=== PATIENT | male | born 1945 | race Caucasian/White ===

== ENCOUNTER 2025-04-18 08:24 | Inpatient (IN) | payer MEDICARE, SELFPAY ==
[2025-04-18] VITALS (13 sets, daily range): BP systolic 89–101; BP diastolic 45–61; PULSE 69–104; RESP 18–22; TEMP 35.9–37.4; O2SAT 97–100; BMI 31.1
--- NOTE | ~2025-04-18 | US_ITS ---
US right upper quadrant INDICATION: Elevated liver function tests. PROCEDURE: Realtime right upper abdominal ultrasound. COMPARISON: No prior studies for comparison. FINDINGS: The pancreas is normal without focal mass or pancreatic ductal dilation. Liver echotexture is normal without focal mass or intrahepatic biliary dilatation. There is normal directional flow in the portal vein. Gallbladder surgically absent. Common bile duct measures 8 mm. No sonographic Emery's sign. There is a suggestion of a catheter in the right kidney. Clinically correlate. Small right pleural effusion. Trace ascites. IMPRESSION: 1: Status post cholecystectomy with expected prominence of the bile ducts. 2: Trace ascites. Small right pleural effusion. Reviewed, dictated and finalized at location O.
--- NOTE | ~2025-04-18 | XR_ITS ---
EXAMINATION: XR chest 1V portable DATE: 04/18/2025 08:57 INDICATION: Cough and weakness TECHNIQUE: frontal view of the chest was obtained. COMPARISON: Chest radiograph dated none FINDINGS: Full or near and bandlike opacities at the left lower lung zone and favor atelectasis over pneumonia. Subtle increased opacity of the left lung relative to the right likely artifactual with similar asymmetry to the density of the soft tissues of the more lateral left and right chest wall. The cardiomed iastinal silhouette is normal. A couple likely implantable quality assurance monitor body is projected over the lower chest. Widening of the right acromioclavicular joint consistent with age-indeterminate acromioclavicular joint separation. IMPRESSION: 1. Mild opacity left lower lung zone and favor atelectasis over pneumonia. Reviewed, dictated and finalized at location A.
--- NOTE | 2025-04-18 08:32 | ECG_ITS ---
Test Date: 2025-04-18 08:29:10 Measurements Intervals [place] Rate: 69 P: 0 [place]: 0 QRS: -57 QRSD: 173 T: 103 QT: 464 QTc: 499 Interpretive Statements ELECTRONIC VENTRICULAR PACEMAKER UNDERLYING ATRIAL FLUTTER/TACHYCARDIA BASELINE ARTIFACT- I, II, III, AVR, AVL, AVF NO FURTHER INTERPRETATION IS POSSIBLE ABNORMAL ECG No previous ECG available for comparison Electronically Signed On 04-18-2025 08:37:14 CDT by Ketan Noe D.O.
[2025-04-18] MEDS: SODIUM CHLORIDE 0.9% IV 1,000 ML 999 ML IV CONT ×3 (08:37→08:58)
[2025-04-18 08:50] LABS: Hematocrit 29.1 % (42.0-52.0); Hemoglobin 9.1 g/dL (14.0-18.0); Immature Granulocyte Percent A 0.5 % (0-0.5); Lymphocytes Absolute Auto 0.36 K/mm3 (0.9-3.2); Mean Corpuscular HGB Conc 31.3 g/dl (32-36); Mean Corpuscular Hemoglobin 30.2 pg (26-34); Mean Corpuscular Volume 96.7 fl (80-100); Nucleated Red Blood Cells Absolute Auto 0.000 K/mm3 (0.0-0.012); Nucleated Red Blood Cells Perc 0.0 % (0.0-0.2); Platelet Count Result 167 k/mm3 (150-375); Red Blood Count 3.01 M/mm3 (4.6-6.20); White Blood Count 10.0 K/mm3 (4.5-10.0)
--- OUTSIDE RECORDS SUMMARY | 2025-04-18 08:54 | XMS_ITS | Encounter Summary ---
Author Organization [facility] Address [address] [place] [address] Phone Care Team Providers Care Dinkey Engine Mechanic Name Role Phone Vimal Cano MD Primary Care Provider [phone] Enoch Romero MD Unavailable Reason for Visit * Reason Comments Medication Refill Encounter Details Date Type Department Care Team (Late st Contact Info) Description 02/07/2025 Refill [facility] [address] [place] [address] Enoch Romero MD [address] [address] Medication Refill Social History Tobacco Use Types Packs/Day Years Used Date Smoking Tobacco: Former Smokeless Tobacco: Never Comments:QUIT 23 YRS AGO Alcohol Use Standard Drinks/Week Comments Yes 1 (1 standard drink = 0.6 oz pur e alcohol) ONCE EVERY 2-3 WKS [facility] Utilities Answer Date Recorded In the past 12 months has [employer] electric, gas, oil, or water company threatened to shut off services in your home? No 07/22/2024 Hunger Vital Sign Answer Date Recorded Within the past 12 months, y ou worried that your food would run out before you got the money to buy more. Never true 07/22/20 24 Within the past 12 months, t he food you bought just didn't last and you didn't have money to get more. Never true 07/22/2024 PRAPARE - Transportation Answer Date Re corded In the past 12 months, has l ack of transportation kept you from medical appointments or from getting medications? No 06/29 In the past 12 months, has l ack of transportation kept you from meetings, work, or from getting things needed for daily living? No 07/22/2024 Housing Stability Vital Sign Answer Jones e Recorded In the last 12 months, was t here a time when you were not able to pay the mortgage or rent on time? No 07/22/2024 In the past 12 months, how m any times have you moved where you were living? 0 07/22/2024 At any time in the past 12 m [facility], were you homeless or living in a fci (including now)? No 07/22/2024 Sexually Active Control Partners Comments Not Currently Sex and Gender Information Value Date Recorded Sex Assigned at Not on file Legal Sex Male 11:37 PM CDT Gender Identity Not on file Sexual Orientation Not on file documented as of this encounter Miscellaneous Notes * Telephone Encounter - Enoch Romero MD - 02/13/2025 2:16 PM CDT Last seen 2022. I will need to see him in the office before I refill any medications including oxybutynin. * Telephone Encounter - Donna Pablo RN - 02/07/2025 4:16 PM CDT Medication failed the protocol, provider to review and approve the medication order if appropriate. Requested Prescriptions Pending Prescriptions Disp Refills oxybutynin (DITROPAN) 5 MG Tablet [Pharmacy Med Name: OXYBUTYNIN 5 MG TABLET] 180 Tablet 3 Sig: TAKE 1 TABLET BY MOUTH TWICE A DAY Urinary Anticholinergics Protocol Failed - 02/07/2025 4:16 PM Failed - Visit with relevant provider in past 12 months or upcoming 90 days Recent Visits No visits were found meeting these conditions. Showing recent visits within past 365 days and meeting all other requirements Future Appointments No visits were found meeting these conditions. Showing future appointments within next 90 days and meeting all other requirements Passed - GFR greater than or equal to 30 in past 12 months GFR, EST. NONAFRICAN Date Value Ref Range Status 07/23/2024 47 (L) >=60 Final ra documented in this encounter Plan of Treatment Not on file documented as of this encounter Visit Diagnoses Not on filedocumented in this encounter Care Teams Dinkey Engine Mechanic Relationship Specialty Start Date End Date Vimal Cano MD [address] [place] [address] PCP - General Internal Medicine 11/23/21 Enoch Romero MD [address] [facility] [address] [address] Consulting Physician Urology 06/16/22 documented as of this encounter
--- OUTSIDE RECORDS SUMMARY | 2025-04-18 08:54 | XMS_ITS | Clinical Summary ---
Author Organization [facility] Address [address] [place] [address] Care Team Providers Care Educational Programming Director Name Role Phone Unavailable Primary Care Provider Unavailabl e Source Comments [facility],non-owned Affiliates and Associated Physician Practices is amultiple site organization consisting of ambulatory clinics and hospital sitesin [place], [place], [place] and [place]. This disclosure is being madepursuant to the Care Everywhere program and may not contain all information available regarding this patient. Last updated 18.[facility] Allergies Active Allergy Reactions Criticality Noted Date Comments Cephalexin Diarrhea,Rash Medium 07/24/2024 Sulfa Drugs Rash Medium 07/24/2024 Medications * Be aware that medications may not be up to date on this document. Alwaysverify current medications with the patient. furosemide (Lasix) 20 MG tablet Take 1 (one) tablet by mouth once daily Active gabapentin (Neurontin) 300 MG capsule Take 1 (one) capsule by mouth 2 times daily 10/04/2023 Active ibuprofen (Motrin) 200 MG tablet Take 2 (two) tablets by mouth every 8 hours as needed Active levETIRAcetam (Keppra) 750 MG tablet Take 1 (one) tablet by mouth 2 times daily 05/06/2024 Active lisinopril (Prinivil; Zestril) 10 MG tablet Take 1 (one) tablet by mouth once daily Active metoprolol tartrate IR (Lopressor) 25 MG tablet Take 0.5 (one-half) tablet by mouth 2 times daily Active oxyBUTYnin (Ditropan) 5 MG tablet Take 1 (one) tablet by mouth 2 times daily 11/09/2023 Active Klor-Con M10 10 MEQ tablet Take 1 (one) tablet by mouth once daily Active tamsulosin (Flomax) 0.4 MG capsule Take 1 (one) capsule by mouth 2 times daily 05/06/2024 Active warfarin (Coumadin) 6 MG tablet Take 1 (one) tablet by mouth once daily 01/09/2024 Active Jantoven 3 MG tablet Take 1 (one) tablet by mouth once daily Active Active Problems Problem Noted Date Diagnosed Date History of stroke 07/27/2024 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 2-4 times a month 07/24/2024 Q2: How many drinks containi ng alcohol do you have on a typical day when you are drinking? 1 or 2 07/24/2024 Q3: How often do you have si x or more drinks on one occasion? Never 07/24/2024 Overall Financial Resource Strain (CARDIA) Answe r Date Recorded How hard is it for you to pa y for the very basics like food, housing, medical care, and heating? Not hard at all 07/24/2024 [facility] - Occupational Stress Questionnaire Answer Date Recorded Do you feel stress - tense, restless, nervous, or anxious, or unable to sleep at night because your mind is troubled all the time - these days? To some extent 07/24/2024 Hunger Vital Sign Answer Date Recorded Within the past 12 months, y ou worried that your food would run out before you got the money to buy more. Never true 07/24/20 24 Within the past 12 months, t he food you bought just didn't last and you didn't have money to get more. Never true 07/24/2024 PRAPARE - Transportation Answer Date Re corded In the past 12 months, has l ack of transportation kept you from medical appointments or from getting medications? No 06/29 In the past 12 months, has l ack of transportation kept you from meetings, work, or from getting things needed for daily living? No 07/24/2024 Housing Stability Vital Sign Answer Jones e Recorded In the last 12 months, was t here a time when you were not able to pay the mortgage or rent on time? No 07/24/2024 In the past 12 months, how m any times have you moved where you were living? 1 07/24/2024 At any time in the past 12 m [facility], were you homeless or living in a fpc (including now)? No 07/24/2024 Sex and Gender Information Value Date Recorded Sex Assigned at Not on file Legal Sex Male 9:33 AM CDT Gender Identity Not on file Sexual Orientation Not on file Last Filed Vital Signs Vital Sign Reading Time Taken Comments Blood Pressure 115/61 08/01/2024 6:15 PM REPORTS ANALYST Pulse 75 08/01/2024 6:15 PM REPORTS ANALYST Temperature 36.7 C (98 F) 08/01/2024 4:00 PM REPORTS ANALYST Respiratory Rate 13 08/01/2024 6:15 PM REPORTS ANALYST Oxygen Saturation 97% 08/01/2024 6:15 PM REPORTS ANALYST Inhaled Oxygen Concentration - - Weight 102.1 kg (225 lb) 08/01/2024 4:00 PM REPORTS ANALYST Height 180.3 cm (5' 11) 07/30/2024 6:00 AM REPORTS ANALYST Body Mass Index 31.38 07/30/2024 6:00 AM REPORTS ANALYST Plan of Treatment Health Maintenance Due Date Last Done Comments DTAP/TDAP/TD VACCINES (1 - Tdap) 1963 PNEUMOCOCCAL VACCINE 50+ (1 of 1 - PCV) 1994 ZOSTER VACCINE (1 of 2) 1994 Respiratory Syncytial Virus (RSV) Vaccine Pt: or over 60 yrs (1 - 1-dose 75+ series) 2019 COVID-19 VACCINE ( - 2023-2 5 season) 2024 04/30/2021, 03/26/2021 DEPRESSION SCREENING 08/28/2024 MEDICARE AWV CALENDAR YEAR 2024 INFLUENZA VACCINE (#1) 2025 4, 06/24/2013, 06/02/2009 HEPATITIS B VACCINE Aged Out No longe r eligible based on patient's age to complete this topic HIB VACCINE Aged Out No longer eligi ble based on patient's age to complete this topic HPV VACCINE Aged Out No longer eligi ble based on patient's age to complete this topic MENINGOCOCCAL (Group B) VACCINE SHARED DECISION-MAKING Aged Out No longer eligible based on patient's age to complete this topic MENINGOCOCCAL GROUPS A/C/Y/W VACCINE Aged Out No longer eligible b ased on patient's age to complete this topic Insurance MEDICARE [facility] MEDICARE [employer] MEDICARE ADV Advance Directives * Full Code (Latest Code Status on File) Date Activated Date Inactivated Comments 07/23/2024 11:25 PM 08/01/2024 9:45 PM
--- OUTSIDE RECORDS SUMMARY | 2025-04-18 08:54 | XMS_ITS ---
Author Organization [facility] [address] [facility] lto Address [address] [address] Care Team Providers Care Overhead Crane Truck Loader Name Role Phone Vimal Cano MD Primary Care Provider [phone] Uriah Garg MD PhD Unavailable [phone] Sumit Craig MD Unavailable [phone] Active Problems Problem Noted Date Diagnosed Date Constipation 03/27/2025 Assessment & Plan (03/27/2025 2:40 PM CDT): Gave mg citrate this am but no bm Increase senna docusate to 2 tabs bid Increase miralax to tid Can dc to snf after BM B12 deficiency anemia 03/25/2025 Assessment & Plan (03/27/2025 2:40 PM CDT): Started b12 1000 mcg PO daily on 03/26 Will need recheck labs with PCP Lab Results Component Value Date VITB12 185 (L) 03/25/2025 Lab Results Component Value Date FOLATE 15.8 03/25/2025 Assessment & Plan (03/26/2025 2:35 PM CDT): Started b12 1000 mcg PO daily on 03/26 Will need recheck labs with PCP Lab Results Component Value Date VITB12 185 (L) 03/25/2025 Lab Results Component Value Date FOLATE 15.8 03/25/2025 Assessment & Plan (03/25/2025 12:58 PM CDT): Start b12 1000 mcg PO daily Will need recheck labs with PCP Lab Results Component Value Date VITB12 185 (L) 03/25/2025 Lab Results Component Value Date FOLATE 15.8 03/25/2025 Hypotension 03/25/2025 Assessment & Plan (03/27/2025 2:40 PM CDT): Tack Picker 03/25 in AM for hypotension got 2 L IVF Pressures persistently soft here over the last few days Not on bp meds Diuretic held Lab Results Component Value Date TSH 1.67 03/25/2025 AM izaiah 7.2 Stim test wnl TTE 07/2024 unremarkable without active symtpoms suggesting decompensated CHF Will decrease flomax to om4 mg daily (was BID) Assessment & Plan (03/26/2025 2:35 PM CDT): Tack Picker 03/25 in AM for hypotension got 2 L IVF Pressures persistently soft here over the last few days Not on bp meds Diuretic held Lab Results Component Value Date TSH 1.67 03/25/2025 AM izaiah 7.2 Will get STIM test TTE 07/2024 unremarkable without active symtpoms suggesting decompensated CHF HR nl Assessment & Plan (03/25/2025 12:58 PM CDT): Tack Picker 03/25 in AM for hypotension got 2 L IVF Pressures persistently soft here over the last few days Not on bp meds Diuretic held Will check TSH and AM Cortisol TTE 07/2024 unremarkable without active symtpoms suggesting decompensated CHF HR nl Moderate malnutrition 03/17/2025 Assessment & Plan (03/21/2025 2:37 PM CDT): Depression History of stroke Hypotension Constipation, increase bowel regimen Obstructive uropathy 03/15/2025 Assessment & Plan (03/27/2025 2:40 PM CDT): With bilateral hydronephrosis status post 03/16 bilateral nephrostomy tubes. Retained right ureteral stent. Cont gabapentin Dc naproxen Cont apap, cont oxycodone prn Follows a Dr. Romero OP with urology Uro note from 03/21: -- PSA 0.91. Pathology from outside hospital demonstrates acute and chronic inflammatory cells,necrosis with reactive epithelial cells, and was negative for malignancy. Lab Results Component Value Date GLUCOSE 141 03/25/2025 CALCIUM 8.1 (L) 03/25/2025 SODIUM 140 03/25/2025 POTASSIUM 4.2 03/25/2025 CO2 26 03/25/2025 CHLORIDE 106 03/25/2025 BUNSER 32 (H) 03/25/2025 CREATININE 1.24 03/25/2025 Lab Results Component Value Date WBC 5.04 03/25/2025 HGB 8.3 (L) 03/25/2025 HCT 26.9 (L) 03/25/2025 MCV 97.8 (H) 03/25/2025 LABPLAT 207 03/25/2025 Assessment & Plan (03/26/2025 2:35 PM CDT): With bilateral hydronephrosis status post 03/16 bilateral nephrostomy tubes. Retained right ureteral stent. Cont gabapentin Day 5 of Naprox[address] a Dr. Romero OP with urology BMP, CBC IN AM Uro note from 03/21 reviewed: -- PSA 0.91. Pathology from outside hospital demonstrates acute and chronic inflammatory cells,necrosis with reactive epithelial cells, and was negative for malignancy. Labs rev Lab Results Component Value Date GLUCOSE 141 03/25/2025 CALCIUM 8.1 (L) 03/25/2025 SODIUM 140 03/25/2025 POTASSIUM 4.2 03/25/2025 CO2 26 03/25/2025 CHLORIDE 106 03/25/2025 BUNSER 32 (H) 03/25/2025 CREATININE 1.24 03/25/2025 Lab Results Component Value Date WBC 5.04 03/25/2025 HGB 8.3 (L) 03/25/2025 HCT 26.9 (L) 03/25/2025 MCV 97.8 (H) 03/25/2025 LABPLAT 207 03/25/2025 Assessment & Plan (03/25/2025 12:58 PM CDT): With bilateral hydronephrosis status post 03/16 bilateral nephrostomy tubes. Retained right ureteral stent. Cont gabapentin Day 4 of [address] Romero OP with urology Uro note from 03/21 reviewed: -- PSA 0.91. Pathology from outside hospital demonstrates acute and chronic inflammatory cells,necrosis with reactive epithelial cells, and was negative for malignancy. Assessment & Plan (03/24/2025 8:34 AM CDT): With bilateral hydronephrosis status post 03/16 bilateral nephrostomy tubes. Retained right ureteral stent. Uncontrolled pain, secondary to above. Increase gabapentin to t.i.d.. Increase naproxen. Assessment & Plan (03/23/2025 12:09 PM CDT): With bilateral hydronephrosis status post 03/16 bilateral nephrostomy tubes. Retained right ureteral stent. Uncontrolled pain, secondary to above. Increase gabapentin to t.i.d.. Increase naproxen. Assessment & Plan (03/22/2025 2:06 PM CDT): With bilateral hydronephrosis status post 03/16 bilateral nephrostomy tubes. Retained right ureteral stent. Uncontrolled pain, secondary to above. Increase gabapentin to b.i.d.. Start naproxen. Assessment & Plan (03/21/2025 2:37 PM CDT): With bilateral hydronephrosis status post 03/16 bilateral nephrostomy tubes. Controlled pain, secondary to above. Start scheduled Tylenol and lidocaine patch Transaminitis 03/15/2025 Assessment & Plan (03/21/2025 9:08 AM CDT): Resolved PAF (paroxysmal atrial fibrillation) 03/15/2025 Assessment & Plan (03/27/2025 2:40 PM CDT): Status post pacemaker. On warfarin, per pharmacy Lab reviewed Lab Results Component Value Date INR 2.09 (H) 03/27/2025 INR 2.93 (H) 03/26/2025 INR 2.62 (H) 03/25/2025 INR daily Assessment & Plan (03/26/2025 2:35 PM CDT): Status post pacemaker. On warfarin, per pharmacy Lab reviewed Lab Results Component Value Date INR 2.93 (H) 03/26/2025 INR 2.62 (H) 03/25/2025 INR 2.31 (H) 03/24/2025 INR daily Assessment & Plan (03/25/2025 12:58 PM CDT): Status post pacemaker. On warfarin, per pharmacy Lab Results Component Value Date INR 2.62 (H) 03/25/2025 INR 2.31 (H) 03/24/2025 INR 2.24 (H) 03/23/2025 INR daily Assessment & Plan (03/24/2025 8:34 AM CDT): Status post pacemaker. On warfarin, per pharmacy Assessment & Plan (03/23/2025 8:58 AM CDT): Status post pacemaker. On warfarin, per pharmacy Assessment & Plan (03/22/2025 9:32 AM CDT): Status post pacemaker. On warfarin, per pharmacy Presence of cardiac pacemaker 03/15/2025 Warfarin-induced coagulopathy 03/15/2025 Acute kidney injury superimp osed on stage 3a chronic kidney disease 03/15/2025 Assessment & Plan (03/27/2025 2:40 PM CDT): Improved Dc naproxen Assessment & Plan (03/26/2025 2:35 PM CDT): Improved Assessment & Plan (03/25/2025 12:58 PM CDT): Improved Assessment & Plan (03/24/2025 8:34 AM CDT): Improved Assessment & Plan (03/23/2025 8:58 AM CDT): Improved Assessment & Plan (03/22/2025 2:06 PM CDT): Improved Prostate cancer 03/15/2025 Assessment & Plan (03/27/2025 2:40 PM CDT): Hx of Needs to f/u with OP urologyist Dr. Romero History of seizure on keppra Assessment & Plan (03/26/2025 2:35 PM CDT): Hx of Needs to f/u with OP urologyist Dr. Romero History of seizure on keppra Assessment & Plan (03/25/2025 12:58 PM CDT): Hx of Needs to f/u with OP urologyist Dr. Romero History of seizure on keppra The patient is an 79 y.o. male with PMHx of prostate cancer s/p IMRT and ADT in 2018, Rt hydronephrosis s/p Rt double J stent placement 08/08/24, CKD III, chronic atrial fibrillation, HTN, SSS/intermittent AVB s/p PPM, seizures who presented from OSH with bilateral hydronephrosis. Pt was admitted to [facility] in [place], [place] 03/06-03/13 for urinary retention, acute renal failure due to obstructive uropathy with bilateral hydronephrosis requiring Pierre catheter. Initial labs revealed creatinine 2.67 improved to 1.5 then got worse to 1.8, BUN 63 improved to 34, CO2 20 improved to 24, elevated transaminase in the 200, almost resolving, H&H 05/25.1, INR 1.9-1.3 after holding warfari, lasix renogram. 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 Transfer to [facility] for eventual bilateral nephrostomy tubes was recommended. He was seen by Urology/intervention Radiology and underwent US/Fl guided bilateral nephrostomies 03/16: severe left sided hydronephrosis. Moderate right hydronephrosis with indwelling stent and air in calcyces d/t indwelling pierre. 10 fr bilateral shivani placed, technically challenging on the right. He developed fever post op but blood cx NGTD. He was given cefepime then transitioned to Cipro, which will likely be completed by time of discharge. He had acute on CKD III, likely post-obstructive and metabolic acidosis, improved with IVF and holding home lasix and ACEI. He had uncontrolled pain which improved with initiation of scheduled Tylenol, gabapentin, naproxen, and p.r.n. oxycodone. He was intermittently refusing therapy so was initially denied nursing home facility placement. He was encouraged to participate in therapy. Once safe discharge plan has been arranged, he may be discharged. Assessment & Plan (03/24/2025 12:46 PM CDT): History of seizure Normocytic anemia The patient is an 79 y.o. male with PMHx of prostate cancer s/p IMRT and ADT in 2019, Rt hydronephrosis s/p Rt double J stent placement 08/08/24, CKD III, chronic atrial fibrillation, HTN, SSS/intermittent AVB s/p PPM, seizures who presented from OSH with bilateral hydronephrosis. Pt was admitted to [facility] in [place], [place] 03/06-03/13 for urinary retention, acute renal failure due to obstructive uropathy with bilateral hydronephrosis requiring Pierre catheter. Initial labs revealed creatinine 2.67 improved to 1.5 then got worse to 1.8, BUN 63 improved to 34, CO2 20 improved to 24, elevated transaminase in the 200, almost resolving, H&H 05/25.1, INR 1.9-1.3 after holding warfari, lasix renogram. 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 Transfer to [facility] for eventual bilateral nephrostomy tubes was recommended. He was seen by Urology/intervention Radiology and underwent US/Fl guided bilateral nephrostomies 03/16: severe left sided hydronephrosis. Moderate right hydronephrosis with indwelling stent and air in calcyces d/t indwelling pierre. 10 fr bilateral shivani placed, technically challenging on the right. He developed fever post op but blood cx NGTD. He was given cefepime then transitioned to Cipro, which will likely be completed by time of discharge. He had acute on CKD III, likely post-obstructive and metabolic acidosis, improved with IVF and holding home lasix and ACEI. He had uncontrolled pain which improved with initiation of scheduled Tylenol, gabapentin, naproxen, and p.r.n. oxycodone. He was intermittently refusing therapy so was initially denied nursing home facility placement. He was encouraged to participate in therapy. Once safe discharge plan has been arranged, he may be discharged. Assessment & Plan (03/23/2025 12:37 PM CDT): History of seizure Normocytic anemia Assessment & Plan (03/22/2025 9:32 AM CDT): Azotemia, resolved History of seizure Bradycardia 08/01/2024 Chronic anticoagulation 08/25/2023 Assessment & Plan (01/16/2025 11:00 AM CDT): Currently taking warfarin 6 mg 5 days per week and 9 mg 2 days per week. Orders: CBC with auto differential; Future Assessment & Plan (08/25/2023 1:15 PM SLASHER TENDER HELPER): Currently taking warfarin 6 mg 5 days per week and 9 mg 2 days per week. Seizure disorder 08/25/2023 Assessment & Plan (01/16/2025 11:00 AM CDT): Patient states he is not had a seizure since starting Keppra which was at least 10 years ago per patient. Assessment & Plan (08/25/2023 2:48 PM SLASHER TENDER HELPER): Patient states he is not had a seizure since starting Keppra which was at least 10 years ago per patient. Advance care planning 08/25/2023 Assessment & Plan (08/25/2023 2:51 PM SLASHER TENDER HELPER): Preventive exam; reviewed recommended preventive screenings and vaccinations. Encourage annual flu vaccine. Wear sunscreen/protective clothing when outdoors. Physical debility 02/13/2020 Assessment & Plan (02/13/2020 2:44 PM CDT): Patient would benefit greatly from motorized wheelchair. Staghorn calculus 09/12/2019 Overview (09/12/2019): Added automatically from request for surgery [id number] prostate cancer 03/13/2019 Chronic a-fib 03/05/2019 Assessment & Plan (01/16/2025 11:00 AM CDT): Stable and well controlled. Rate controlled, patient denies any shortness a breath, palpitations or dizziness. Continues warfarin. INR 2.1 today will continue with current warfarin regimen. Orders: Comprehensive metabolic panel; Future POCT INR Assessment & Plan (08/25/2023 2:46 PM SLASHER TENDER HELPER): Rate controlled, patient denies any shortness a breath, palpitations or dizziness. Continues warfarin. INR is slightly subtherapeutic at 1.9, has not had INR checked in greater than 6 months. No changes made today, repeat INR in 1 month. Assessment & Plan (03/05/2019 3:59 AM CDT): Rate controlled. Currently on Coumadin oral anticoagulation. INR is therapeutic Will hold Coumadin. Monitor daily PT INR. Monitor H&H with daily CBC. Considers transfusion if hemoglobin less than 8 Cardiology consult Gross hematuria 03/05/2019 Assessment & Plan (03/05/2019 3:53 AM CDT): Patient presented to the emergency department with gross hematuria and urinary retention. Pierre catheter was placed, bladder was irrigated with normal saline. Patient currently on Coumadin oral anticoagulation for chronic AFib. INR is therapeutic. Will hold Coumadin. Will keep NPO. Patient denies any previous history of bladder cancer or polyps. States that in the past had an episode bladder issue and was treated with oral antibiotics by his PCP Urology consulted. Continue with IV antibiotics for now. Trend CBC Monitor kidney function with daily BMP. Replete electrolytes as needed History of stroke 03/05/2019 Assessment & Plan (08/25/2023 2:46 PM SLASHER TENDER HELPER): Patient with residual right-sided weakness. Patient was seen today for a face to face for a wheelchair. The patient has a mobility limitation that significantly impairs his/her ability to participate in one or more mobility-related activities of daily living (MRADL) such as feeding, toileting, dressing, grooming and bathing in the home. The patients mobility limitations cannot be sufficiently resolved by the use of an appropriately fitted cane or walker. The use of a manual wheelchair will significantly improve the patients ability to participate in MRADL's and the patient will use it on a regular basis in the home. The patient has sufficient upper extremity function and other physical and mental capabilities needed to safely self-propel the manual wheelchair that is provided in the home. Assessment & Plan (03/05/2019 4:09 AM CDT): History of stroke due to AFib. Currently on Coumadin oral anticoagulation. Presents with hematuria. Will hold the Coumadin and aspirin for now. Cardiology consult Urology consult Closed displaced fracture of medial malleolus of left tibia with routine healing 01/18/2016 Fracture of bone adjacent to prosthesis 01/18/20 16 Generalized osteoarthritis 01/11/2014 Overview (11/30/2016): GENERAL OSTEOARTHROSIS Hypertension 01/11/2014 Overview (12/01/2016): HYPERTENSION NOS Assessment & Plan (01/16/2025 11:00 AM CDT): Stable and well controlled. Will continue to hold lisinopril and monitoring. Assessment & Plan (03/05/2019 3:53 AM CDT): Restart on medications. 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 Will continue to monitor. Obstructive sleep apnea 06/11/2012 Malignant neoplasm prostate Cancer Staging:Clinical stage from 04/11/2019:Stage IIIC(cT2b, cN0, cM0, PSA: 13.6, Grade Group: 5) - Signed by Uriah Garg MD PhD on 04/17/2019 Assessment & Plan (01/16/2025 11:00 AM CDT): Will repeat PSA at patient's request. Will continue to monitor. Orders: PSA screen; Future Constipation Current Treatment and Therapy Plans No current plan information found. Past Treatment and Therapy Plans Specialty Infusion Treatment Plan Name Start Date Discontinue Date Treatment Medications Discontinue Reason Plan Provider ELIGARD INJECTION - 45 MG 04/19/2019 07/13/2023 leuprolide (ELIGARD) Orders Uriah Garg MD PhD Radiation Treatments * Course C1 PROSTATE 201805/23/2019 - 08/02/2019 Treatment Period Energy Fraction Dose Fractions Total Dose Plans Planned PROST_SV [facility] 07/03/2019 - 08/02/2019 180 19 / 3,420 PELVIS 05/23/2019 - 06/28/2019 180 25 / 4,500 Reference Points Delivered PROST_SV [facility] 07/03/2019 - 08/02/2019 3,420 Pelvis 05/23/2019 - 06/28/2019 4,500 Lifetime Dose Tracking * Chemical Lifetime Dose Automatic Entry Manual Entr y Fluoro Time 36.2 minutes 36.2 minutes 0 minutes Air kerma at the reference point (Ka,r) 606 mGy 3 33 mGy 273 mGy Resolved Problems Problem Noted Date Diagnosed Date Resolved Date Bilateral hydronephrosis 03/15/2025 Warfarin anticoagulation 03/05/2019 Assessment & Plan (03/05/2019 3:56 AM CDT): Patient on oral anticoagulation with Coumadin for chronic AFib. He recently had a stroke. Patient presented with gross hematuria. Will hold Coumadin for now. EKG consistent with chronic AFib. Will consult Cardiology for further recommendations systemic anticoagulation Class 2 severe obesity due t o excess calories with serious comorbidity and body mass index (BMI) of 35.0 to 35.9 in adult 01/11/2014 5 Overview (12/02/2016): OBESITY NOS Assessment & Plan (01/16/2025 11:00 AM CDT): Weight appropriate for patient. Assessment & Plan (03/05/2019 3:53 AM CDT): Weight loss discussed and encouraged
--- OUTSIDE RECORDS SUMMARY | 2025-04-18 08:54 | XMS_ITS | Encounter Summary ---
Author Organization [facility] Healthcare Address [address] [place] [address] Care Team Providers Care Flanging Operator Name Role Phone Vimal Cano MD Primary Care Provider [phone] Uriah Garg MD PhD Unavailable [phone] Sumit Craig MD Unavailable [phone] Jackie Flores SENIOR FINANCIAL ACCOUNTANT Unavailable [phone] Chaz Pinon RN Unavailable [phone] Mary Dolan SENIOR FINANCIAL ACCOUNTANT Unavailable [phone] Encounter Details Date Type Department Care Team (Late st Contact Info) Description 05/06/2019 Telephone [facility] Radiation Oncology [address] [place] [address] Kirk Jung, RN Social History Tobacco Use Types Packs/Day Years Used Date Smoking Tobacco: Former Cigarettes Q uit: 1988 Smokeless Tobacco: Former Alcohol Use Standard Drinks/Week Comments Not Currently 0 (1 standard drink = 0.6 oz pur e alcohol) PHQ-2 Answer Date Recorded PHQ-2 Score 0 04/17/2019 Sex and Gender Information Value Date Recorded Sex Assigned at Not on file Legal Sex Male 11:49 PM SENIOR CARE ASSISTANT Gender Identity Not on file Sexual Orientation Not on file documented as of this encounter Plan of Treatment Not on file documented as of this encounter Visit Diagnoses Not on filedocumented in this encounter Additional Health Concerns Infection Onset Date Last Indicated Resolved Time 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 KASSIE Álvarez Germ watcher auto flagging. 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 03/02/2016 04/14/2021 5:00 AM C DT MDR gram neg/ESBL 11/07/2022 11/07/2022 08/12/2024 9:46 AM SENIOR CARE ASSISTANT Rhino/Enterovirus 08/01/2024 08/01/2024 08/12/2024 9:46 AM SENIOR CARE ASSISTANT documented as of this encounter Care Teams Flanging Operator Relationship Specialty Start Date End Date Vimal Cano MD [address] [place] [address] PCP - General 11/25/16 Uriah Garg MD PhD [address] [place] [address] Radiation Oncologist Radiation Oncology 04/11/19 Sumit Craig MD [address] [place] [address] Referring Physician Urology 04/11/19 Jackie Flores, SENIOR FINANCIAL ACCOUNTANT [address] [place] [address] [address] [place] [address] Mortgage Accounting Clerk 07/05/21 07/15/21 Chaz Pinon, THANH [address] [place], [place] [id number] Inventory Controller 09/16/24 10/15/24 Mary Dolan, SENIOR FINANCIAL ACCOUNTANT [address] [place] [address] [address] [place] [address] Mortgage Accounting Clerk Sommelier 09/17/24 11/03/24 documented as of this encounter
--- OUTSIDE RECORDS SUMMARY | 2025-04-18 08:54 | XMS_ITS | Encounter Summary ---
Author Organization [facility] Address [address] [place] [address] Phone Care Team Providers Care [facility] Name Role Phone Vimal Cano MD Primary Care Provider [phone] Enoch Romero MD Unavailable Reason for Visit * Reason Comments Medication Refill Encounter Details Date Type Department Care Team (Late st Contact Info) Description 02/04/2025 Refill [facility] [address] [place] [address] Enoch Romero MD [address] [address] Medication Refill Social History Tobacco Use Types Packs/Day Years Used Date Smoking Tobacco: Former Smokeless Tobacco: Never Comments:QUIT 23 YRS AGO Alcohol Use Standard Drinks/Week Comments Yes 1 (1 standard drink = 0.6 oz pur e alcohol) ONCE EVERY 2-3 WKS [facility] Utilities Answer Date Recorded In the past 12 months has [email or web address] electric, gas, oil, or water company threatened [...] any time in the past 12 m [facility], were you homeless or living in a detention (including now)? No 07/22/2024 Sexually Active Control Partners Comments Not Currently Sex and Gender Information Value Date Recorded Sex Assigned at Not on file Legal Sex Male 11:37 PM CDT Gender Identity Not on file Sexual Orientation Not on file documented as of this encounter Miscellaneous Notes * Telephone Encounter - Donna Pablo, RN - 02/04/2025 2:37 PM CDT Refill denied - See Refusal reason documented in this encounter Plan of Treatment Not on file documented as of this encounter Visit Diagnoses Not on filedocumented in this encounter Care Teams [facility] Relationship Specialty Start Date End Date Vimal Cano MD [address] [place] [address] PCP - General Internal Medicine 11/23/21 Enoch Romero MD [address] MANDI RODRIGUEZ [address] [place], [place] [address] [address] Consulting Physician Urology 06/16/22 documented as of this encounter
--- OUTSIDE RECORDS SUMMARY | 2025-04-18 08:54 | XMS_ITS | Encounter Summary ---
Author Organization [facility] Healthcare Address [address] [place] [address] Care Team Providers Care Restuarant Crew Worker Name Role Phone Vimal Cano MD Primary Care Provider [phone] Uriah Garg MD PhD Unavailable [phone] Sumit Craig MD Unavailable [phone] Jackie Flores PLATING TANK OPERATOR APPRENTICE Unavailable [phone] Chaz Pinon RN Unavailable [phone] Mary Dolan PLATING TANK OPERATOR APPRENTICE Unavailable [phone] Reason for Visit * Reason Onset Date Comments Test Results 11/05/2019 normal PSA resul t..pt has appointment on Monday Encounter Details Date Type Department Care Team (Late st Contact Info) Description 11/05/2019 Telephone [facility] Radiation Oncology [address] [place] [id number] Lexi Good RN Test Results (normal PSA result..pt has appointment on Monday) Social History Tobacco Use Types Packs/Day Years Used Date Smoking Tobacco: Former Cigarettes Q uit: 1987 Smokeless Tobacco: Former Alcohol Use Standard Drinks/Week Comments Not Currently 0 (1 standard drink = 0.6 oz pur e alcohol) PHQ-2 Answer Date Recorded PHQ-2 Score 0 04/17/2019 Sex and Gender Information Value Date Recorded Sex Assigned at Not on file Legal Sex Male 11:49 PM [employer] Gender Identity Not on file Sexual Orientation Not on file documented as of this encounter Plan of Treatment Not on file documented as of this encounter Visit Diagnoses Not on filedocumented in this encounter Additional Health Concerns Infection Onset Date Last Indicated Resolved Time 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 Dallin Lambert, KASSIE Germ watcher auto flagging. 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 03/02/2016 04/14/2021 5:00 AM C DT MDR gram neg/ESBL 11/07/2022 11/07/2022 08/12/2024 9:46 AM [employer] Rhino/Enterovirus 08/01/2024 08/01/2024 08/12/2024 9:46 AM [employer] documented as of this encounter Care Teams Restuarant Crew Worker Relationship Specialty Start Date End Date Vimal Cano MD [address] [place] [address] PCP - General 11/25/16 Uriah Garg MD PhD [address] [place] [address] Radiation Oncologist Radiation Oncology 04/11/19 Sumit Craig MD [address] [place] [address] Referring Physician Urology 04/11/19 Jackie Flores, PLATING TANK OPERATOR APPRENTICE [address] [place] [address] [address] [place] [address] Copy Chaser 07/05/21 07/15/21 Chaz Pinon, THANH [address] [place], [place] [id number] Mussel Opener 09/16/24 10/15/24 Mary Dolan, PLATING TANK OPERATOR APPRENTICE [address] [place] [address] Copy Chaser Hazmat Technician 09/17/24 11/03/24 documented as of this encounter
--- OUTSIDE RECORDS SUMMARY | 2025-04-18 08:54 | XMS_ITS | Clinical Summary ---
Author Organization [facility] Address [address] [place] [address] Phone Care Team Providers Care Extension Service Supervisor Name Role Phone Vimal Cano MD Primary Care Provider [phone] Enoch Romero MD Unavailable Allergies Active Allergy Reactions Criticality Noted Date Comments Cephalexin Diarrhea 11/23/2021 Sulfa Antibiotics Rash 11/18/2021 Medications potassium chloride SA (KLORCON M) 10 MEQ Tablet Controlled Release Take 10 mEq by mouth daily. 2 Active lisinopril (PRINIVIL, ZESTRIL) 10 MG Tablet Take 10 mg by mouth daily. 2 Active levETIRAcetam (KEPPRA) 750 MG Tablet Take 750 mg by mouth 2 times daily. 1 Active furosemide (LASIX) 20 MG Tablet Take 20 mg by mouth daily. 2 Active gabapentin (NEURONTIN) 300 MG Capsule Take 300 mg by mouth 3 times daily. 1 Active oxybutynin (DITROPAN) 5 MG Tablet TAKE 1 TABLET BY MOUTH TWICE A DAY 180 Tablet 3 4 Active Heparin, Porcine, in NaCl 91169-2.45 UT/500ML-% Solution 300-3,000 Units/hr by Intravenous route continuous. 500 mL 4 Active warfarin (Jantoven) 3 MG Tablet Take 3 mg by mouth daily. Take one tablet two times a week on Monday and Active tamsulosin (FLOMAX) 0.4 MG Capsule Take 0.4 mg by mouth 2 times daily. Active ergocalciferol (VITAMIN D) 97951 UNIT Capsule Take 1 Capsule by mouth once a week for 9 doses. 9 Capsule 05/16/20 Active Active Problems Problem Noted Date Diagnosed Date Obstructive uropathy 03/11/2025 Elevated transaminase level 03/08/2025 Generalized weakness 03/07/2025 Acute kidney injury superimposed on CKD 07/23/20 Prostate cancer 07/23/2024 Symptomatic bradycardia 07/23/2024 Urinary tract infection 07/22/2024 Carcinoma Stroke Chronic a-fib HTN (hypertension) Encounters Date Type Department Care Team Description 03/21/2025 Telephone [facility] UR[facility]Y [address] [place] [address] Dejuan Arellano APRN, [facility] Care Management; Appointment 03/14/2025 1:40 PM CDT - 03/14/2025 2:40 PM CDT Surgery [facility] [address] [place] [address] Amanda Quintero MD DIAGNOSTIC CYSTOSCOPY 03/14/2025 1:38 PM CDT [facility] [address] [address] [place] [address] Jose Raul Wong MD 03/13/2025 Telephone [facility] [address] [place] [address] Amanda Quintero MD Surgery 03/11/2025 Telephone [facility] [address] [place] [address] Amanda Quintero MD 03/06/2025 9:32 PM CDT - 03/15/2025 2:10 PM CDT [facility] Med Surg [address] [place] [address] Furry, MD Don Dee Naveen Kumar, MD Patel, Satyen V, MD Dianati, Behfar, MD Acute kidney injury superimposed on CKD (HCC) Discharge Disposition: Short Term [facility] for [facility] 03/06/2025 Travel 02/07/2025 Refill [facility] UROLOGY [address] [place] [address] Enoch Romero MD Medication Refill 02/04/[address] [facility] UROLOGY [address] [place] [address] Enoch Romero MD Medication Refill from Last 3 Months Immunizations Immunization Administration Dates Next Due Influenza Vaccine 07/22/2014,06/24/2013 Influenza, Seasonal, Injectable, Undefined 06/02 Pneumococcal Vaccine - 13 Valent 01/31/2019 Pneumococcal Vaccine Adult - 23 Valent 1 TDAP Vaccine 03/29/2011 Social History Tobacco Use Types Packs/Day Years Used Date Smoking Tobacco: Former Smokeless Tobacco: Never Tobacco Cessation:Counseling Given: No Comments:QUIT 23 YRS AGO Alcohol Use Standard Drinks/Week Comments Not Currently 0 (1 standard drink = 0.6 oz pur e alcohol) ONCE EVERY 2-3 WKS Housing Stability Vital Sign Answer Jones e Recorded In the last 12 months, was t here a time when you were not able to pay the mortgage or rent on time? No 07/22/2024 In the past 12 months, how m any times have you moved where you were living? 0 07/22/2024 At any time in the past 12 m [facility], were you homeless or living in a snf (including now)? No 07/22/2024 Social Connection and Isolation Panel Answer Date Recorded In a typical week, how many times do you talk on the phone with family, friends, or neighbors? Three times a week 03/07/2025 How often do you get togethe r with friends or relatives? Three times a week 03/07/2025 How often do you attend chur or taoism services? Never 03/07/2025 Do you belong to any clubs o r organizations such as sikhism groups, unions, fraternal or athletic groups, or school groups? No 03/07/2025 How often do you attend meet ings of the clubs or organizations you belong to? Never 03/07/2025 Are you , , di vorced, , never , or living with a partner? 03/07/2025 AUDIT-C Answer Date Recorded Q1: How often do you have a drink containing alcohol? Never 03/07/2025 Q2: How many drinks containi ng alcohol do you have on a typical day when you are drinking? Patient does not drink Q3: How often do you have si x or more drinks on one occasion? Never 03/07/2025 Overall Financial Resource Strain (CARDIA) Answe r Date Recorded How hard is it for you to pa y for the very basics like food, housing, medical care, and heating? Not hard at all 03/07/2025 [facility] of Occupat ional Health - Occupational Stress Questionnaire Answer Date Recorded Do you feel stress - tense, restless, nervous, or anxious, or unable to sleep at night because your mind is troubled all the time - these days? Not at all 03/07/2025 Exercise Vital Sign Answer Date Recorde d On average, how many days pe r week do you engage in moderate to strenuous exercise (like a brisk walk)? 0 days 03/07/2025 On average, how many minutes do you engage in exercise at this level? 0 min 03/07/2025 Hunger Vital Sign Answer Date Recorded Within the past 12 months, y ou worried that your food would run out before you got the money to buy more. Never true 03/07/20 25 Within the past 12 months, t he food you bought just didn't last and you didn't have money to get more. Never true 03/07/2025 PRAPARE - Transportation Answer Date Re corded In the past 12 months, has l ack of transportation kept you from medical appointments or from getting medications? No 02/25 In the past 12 months, has l ack of transportation kept you from meetings, work, or from getting things needed for daily living? No 03/07/2025 Housing Stability Vital Sign Answer Jones e Recorded In the last 12 months, was t here a time when you were not able to pay the mortgage or rent on time? No 03/07/2025 In the past 12 months, how m any times have you moved where you were living? 0 03/07/2025 At any time in the past 12 m [facility], were you homeless or living in a snf (including now)? No 03/07/[address] [facility] Utilities Answer Date Recorded In the past 12 months has [employer], gas, oil, or water company threatened to shut off services in your home? No 03/07/2025 Sexually Active Control Partners Comments Not Currently Sex and Gender Information Value Date Recorded Sex Assigned at Not on file Legal Sex Male 11:37 PM CDT Gender Identity Not on file Sexual Orientation Not on file Last Filed Vital Signs Vital Sign Reading Time Taken Comments Blood Pressure 90/54 03/15/2025 5:13 AM CDT Man ual BP Pulse 68 03/15/2025 4:30 AM CDT Temperature 37.6 C (99.6 F) 03/15/2025 4:30 AM CDT Respiratory Rate 18 03/15/2025 4:30 AM CDT Oxygen Saturation 93% 03/15/2025 4:30 AM CDT Inhaled Oxygen Concentration - - Weight 89.8 kg (198 lb) 03/14/2025 11:21 AM CDT Height 177.8 cm (5' 10) 03/14/2025 11:21 AM CDT Body Mass Index 28.41 03/14/2025 11:21 AM CDT Plan of Treatment Health Maintenance Due Date Last Done Comments Zoster Immunization (1 of 2) 1964 Respiratory Syncytial Virus (RSV) Immunization (Adult) (1 - 1-dose 75+ series) 2019 Td Immunization Every 10 Years (Adults With 1 Tdap) 03/29/2021 03/29/2011 SARS-COV-2 Immunization (3 - Moderna risk series) 05/28/2021 04/30/2021, 03/26/2021 Influenza Immunization (#1) 04/28/202507/28, 07/22/2014, 06/24/2013, Additional history exists DTaP/Tdap/Td Immunization Discontinued 03/29/2011 Pneumococcal Immunization (50+ years) Completed 01/31/2019, 03/28/2011 Hepatitis C Virus (HCV) Screening Completed 03/09/2025, 08/01/2024 Hepatitis B Immunization Aged Out No longer eligible based on patient's age to complete this topic Human Papillomavirus (HPV) Immunization Aged Out No longer eligible based on patient's age to complete this topic Meningococcal Immunization (ACWY) Aged Out No longer eligible based on patient's age to complete this topic Rotavirus Immunization Aged Out No lo nger eligible based on patient's age to complete this topic Procedures Procedure Name Priority Date/Time Associated Diagnosis Comments CBC WITH AUTO DIFFERENTIAL Routine 03/15/2025 4:35 AM CDT HEPATIC FUNCTION PANEL Routine 03/15/2025 4:35 AM CDT COMPLETE BLOOD COUNT (CBC) WITH DIFF Routine 03/15/2025 4:35 AM CDT BASIC METABOLIC PANEL W/ CALCIUM TOTAL Routine 03/15/2025 4:35 AM CDT PSA FREE & TOTAL Routine 03/14/2025 9:44 PM CDT XR CYSTOGRAM Routine 03/14/2025 2:44 PM CDT PATHOLOGY SURGICAL Routine 03/14/2025 2:27 PM CDT LMA Routine 03/14/2025 1:58 PM CDT UROLOGY SURGERY PROCEDURE UNLISTED 03/14/2025 1:18 PM CDT BILATERAL HYDRONEPHROSIS INSERT,TEMP INDWELLING BLAD CATH,COMP 03/14/2025 1:18 PM CDT BILATERAL HYDRONEPHROSIS INSERT,TEMP INDWELLING BLAD CATH,SIMPLE 03/14/2025 1:18 PM CDT BILATERAL HYDRONEPHROSIS DIAG-CYSTOGRAPHY MINIMUM 3 VIEWS-PHY 03/14/2025 1:18 PM CDT BILATERAL HYDRONEPHROSIS CYSTOSCOPY,DIL URETHRAL STRICTURE 03/14/2025 1:18 PM CDT BILATERAL HYDRONEPHROSIS CYSTO/URETERO W/LITHOTRIPSY 03/14/2025 1:18 PM CDT BILATERAL HYDRONEPHROSIS CYSTOSCOPY,INSERT URETERAL STENT 03/14/2025 1:18 PM CDT BILATERAL HYDRONEPHROSIS CYSTOSCOPY,INSERT URETHRAL STENT 03/14/2025 1:18 PM CDT BILATERAL HYDRONEPHROSIS NM RENAL FUNCTION FLOW WTH PHARM Routine 03/14/2025 12:11 PM CDT CBC WITH AUTO DIFFERENTIAL Routine 03/14/2025 6:41 AM CDT HEPATIC FUNCTION PANEL Routine 03/14/2025 6:41 AM CDT COMPLETE BLOOD COUNT (CBC) WITH DIFF Routine 03/14/2025 6:41 AM CDT BASIC METABOLIC PANEL W/ CALCIUM TOTAL Routine 03/14/2025 6:41 AM CDT VITAMIN D, 25 HYDROXY TOTAL Routine 03/13/2025 10:18 AM CDT US RENAL COMPLETE Timed 03/13/2025 7:53 AM CDT CBC WITH AUTO DIFFERENTIAL Routine 03/13/2025 6:06 AM CDT HEPATIC FUNCTION PANEL Routine 03/13/2025 6:06 AM CDT COMPLETE BLOOD COUNT (CBC) WITH DIFF Routine 03/13/2025 6:06 AM CDT BASIC METABOLIC PANEL W/ CALCIUM TOTAL Routine 03/13/2025 6:06 AM CDT RHYTHM STRIP 03/13/2025 12:00 AM CDT RHYTHM STRIP 03/13/2025 12:00 AM CDT CBC WITH AUTO DIFFERENTIAL Routine 03/12/2025 6:36 AM CDT HEPATIC FUNCTION PANEL Routine 03/12/2025 6:36 AM CDT COMPLETE BLOOD COUNT (CBC) WITH DIFF Routine 03/12/2025 6:36 AM CDT BASIC METABOLIC PANEL W/ CALCIUM TOTAL Routine 03/12/2025 6:36 AM CDT RHYTHM STRIP 03/12/2025 12:00 AM CDT RHYTHM STRIP 03/12/2025 12:00 AM CDT RHYTHM STRIP 03/12/2025 12:00 AM CDT RHYTHM STRIP 03/12/2025 12:00 AM CDT RHYTHM STRIP 03/12/2025 12:00 AM CDT CBC WITH AUTO DIFFERENTIAL Routine 03/11/2025 6:56 AM CDT HEPATIC FUNCTION PANEL Routine 03/11/2025 6:56 AM CDT COMPLETE BLOOD COUNT (CBC) WITH DIFF Routine 03/11/2025 6:56 AM CDT BASIC METABOLIC PANEL W/ CALCIUM TOTAL Routine 03/11/2025 6:56 AM CDT RHYTHM STRIP 03/11/2025 12:00 AM CDT RHYTHM STRIP 03/11/2025 12:00 AM CDT RHYTHM STRIP 03/11/2025 12:[address] RENAL STONE STUDY (ABDOMEN AND PELVIS W/O CONTRAST) Routine 03/10/2025 5:54 PM CDT US ABDOMEN LIMITED LEVEL 3 THREE ORGAN Routine 03/10/2025 9:15 AM CDT CBC WITH AUTO DIFFERENTIAL Routine 03/10/2025 3:53 AM CDT COMPLETE BLOOD COUNT (CBC) WITH DIFF Routine 03/10/2025 3:53 AM CDT BASIC METABOLIC PANEL W/ CALCIUM TOTAL Routine 03/10/2025 3:53 AM CDT HEPATIC FUNCTION PANEL Routine 03/10/2025 3:53 AM CDT PROTIME (PT) (PROTHROMBIN TIME) Routine 03/10/2025 3:53 AM CDT RHYTHM STRIP 03/10/2025 12:00 AM CDT RHYTHM STRIP 03/10/2025 12:00 AM CDT CBC WITH AUTO DIFFERENTIAL Routine 03/09/2025 5:23 AM CDT COMPLETE BLOOD COUNT (CBC) WITH DIFF Routine 03/09/2025 5:23 AM CDT BASIC METABOLIC PANEL W/ CALCIUM TOTAL Routine 03/09/2025 5:23 AM CDT HEPATITIS PANEL ACUTE (AHP) Routine 03/09/2025 5:23 AM CDT HEPATIC FUNCTION PANEL Routine 03/09/2025 5:23 AM CDT PROTIME (PT) (PROTHROMBIN TIME) Routine 03/09/2025 5:23 AM CDT RHYTHM STRIP 03/09/2025 12:00 AM CDT RHYTHM STRIP 03/09/2025 12:00 AM CDT RHYTHM STRIP 03/09/2025 12:00 AM CDT RHYTHM STRIP 03/09/2025 12:00 AM CDT CBC WITH AUTO DIFFERENTIAL Routine 03/08/2025 4:05 AM CDT HEPATIC FUNCTION PANEL STAT 03/08/2025 4:05 AM CDT PROTIME (PT) (PROTHROMBIN TIME) Routine 03/08/2025 4:05 AM CDT COMPLETE BLOOD COUNT (CBC) WITH DIFF Routine 03/08/2025 4:05 AM CDT BASIC METABOLIC PANEL W/ CALCIUM TOTAL Routine 03/08/2025 4:05 AM CDT RHYTHM STRIP 03/08/2025 12:00 AM CDT RHYTHM STRIP 03/08/2025 12:00 AM CDT CBC WITH AUTO DIFFERENTIAL Routine 03/07/2025 6:09 AM CDT CREATINE KINASE (CK) TOTAL STAT 03/07/2025 6:09 AM CDT HEPATIC FUNCTION PANEL STAT 03/07/2025 6:09 AM CDT COMPLETE BLOOD COUNT (CBC) WITH DIFF Routine 03/07/2025 6:09 AM CDT BASIC METABOLIC PANEL W/ CALCIUM TOTAL Routine 03/07/2025 6:09 AM CDT URINALYSIS REFLEX IF INDICATED BY ABNORMAL RESULTS STAT 03/06/2025 11:47 PM CDT CULTURE, URINE STAT 03/06/2025 11:47 PM CDT CBC WITH AUTO DIFFERENTIAL STAT 03/06/2025 11:43 PM CDT PROTIME (PT) (PROTHROMBIN TIME) STAT 03/06/2025 11:43 PM CDT TROPONIN I, HIGH SENSITIVITY (HSTRP) STAT 03/06/2025 11:43 PM CDT CMP (COMPREHENSIVE METABOLIC PANEL) STAT 03/06/2025 11:43 PM CDT COMPLETE BLOOD COUNT (CBC) WITH DIFF STAT 03/06/2025 11:43 PM CDT EKG 12 LEAD STAT 03/06/2025 11:[address] HEAD OR BRAIN WO CONTRAST Stat with Interpretation 03/06/2025 10:59 PM CDT XR WRIST 3 OR MORE VIEWS LEFT STAT 03/06/2025 10:40 PM CDT XR CHEST SINGLE VIEW PORTABLE STAT 03/06/2025 10:35 PM CDT CRITICAL CARE Routine 03/06/2025 10:06 PM CDT EKG SCAN 03/06/2025 12:00 AM CDT from Last 3 Months Results * (ABNORMAL) CBC with Auto Differential (03/15/2025 4:35 AM CDT) Only the most recent of10 resultswithin the time period is included. WBC 9.01 4.00 - 12.00 10(3)/mcL 03/15/2025 5:01 AM [facility] RBC 2.95(L) 4.40 - 5.80 10(6)/mcL 03/15/2025 5:01 AM [facility] HEMOGLOBIN (HGB) 9.0(L) 13.0 - 16.5 g/dL 03/15/2025 5:01 AM [facility] HEMATOCRIT (HCT) 28.1(L) 38.0 - 50.0 % 03/15/2025 5:01 AM [facility] MCV 95.3 82.0 - 96.0 fL 03/15/2025 5:01 AM [facility] MCH 30.5 26.0 - 32.0 pg 03/15/2025 5:01 AM CDT [facility] MCHC 32.0 31.0 - 36.0 g/dL 03/15/2025 5:01 AM [facility] PLATELET COUNT 249 140 - 440 10(3)/[facility] 03/15/2025 5:01 AM [facility] RDW 15.0 11.8 - 15.5 % 03/15/2025 5:01 AM [facility] MPV 9.1 8.0 - 12.6 fL 03/15/2025 5:01 AM [facility] NEUTROPHILS 84.2(H) 40.0 - 68.0 % 03/15/2025 5:01 AM [facility] LYMPHOCYTES 5.2(L) 19.0 - 49.0 % 03/15/2025 5:01 AM [facility] MONOCYTES 7.7 3.0 - 13.0 % 03/15/2025 5:01 AM T [facility] EOSINOPHILS 1.8 0.0 - 8.0 % 03/15/2025 5:01 AM CDT [facility] BASOPHILS 0.2 0.0 - 1.0 % 03/15/2025 5:01 AM CDT [facility] IMMATURE GRANULOCYTE 0.9(H) 0.0 - 0.4 % 03/15/2025 5:01 AM CDT [facility] Comment:Immature Granulocyte s includes Metamyelocytes, Myelocytes, and Promyelocytes. ABSOLUTE NEUTROPHILS 7.59(H) 1.40 - 5.30 10(3)/mcL 03/15/2025 5:01 AM CDT [facility] ABSOLUTE LYMPHOCYTES 0.47(L) 0.90 - 3.30 10(3)/mcL 03/15/2025 5:01 AM CDT [facility] ABSOLUTE MONOCYTES 0.69 0.10 - 0.90 10(3)/mcL 03/15/2025 5:01 AM CDT [facility] ABSOLUTE EOSINOPHIL 0.16 0.00 - 0.50 10(3)/mcL 03/15/2025 5:01 AM CDT [facility] ABSOLUTE BASOPHILS 0.02 0.00 - 0.10 10(3)/mcL 03/15/2025 5:01 AM CDT [facility] ABSOLUTE IMMATURE GRANULOCYTE 0.08(H) 0.00 - 0.03 10 (3) mcL. 03/15/2025 5:01 AM CDT [facility] NRBC PER 100 WBC 0 03/15/20 25 5:01 AM CDT [facility] Blood Venipuncture / Unknown 03/15/2025 4:35 AM CDT 03/15/2025 4:57 AM CDT us Regine Do ADMINISTRATIVE VOLUNTEER, PAYROLL ACCOUNTANT HEMATOLOGY ORDERABLES Fin al Result [facility] [address] [place] [address] * (ABNORMAL) Hepatic Function Panel (03/15/2025 4:35 AM CDT) Only the most recent of9 resultswithin the time period is included. T BILI 0.5 0.2 - 1.2 mg/dL 03/15/2025 5:32 AM CDT [facility] BILIRUBIN,DIRECT 0.3 0.0 - 0.5 mg/dL 03/15/2025 5:32 AM CDT [facility] ALKALINE PHOSPHATASE 200(H) 40 - 150 U/L 03/15/2025 5:32 AM CDT [facility] SGOT (AST) 50(H) <43 U/L 03/15/2025 5:32 AM CDT [facility] SGPT (ALT) 49 <56 U/L 03/15/2025 5:32 AM CDT [facility] TOTAL PROTEIN 6.2 6.0 - 8.0 g/dL 03/15/2025 5:32 AM CDT [facility] ALBUMIN 2.5(L) 3.5 - 5.0 g/dL 03/15/2025 5:32 AM CDT [facility] Blood Venipuncture / Unknown 03/15/2025 4:35 AM CDT 03/15/2025 4:58 AM CDT us Regine Do ADMINISTRATIVE VOLUNTEER, PAYROLL ACCOUNTANT CHEMISTRY ORDERABLES Bianka l Result [facility] [address] [place] [address] * (ABNORMAL) BMP with Ca, Total (03/15/2025 4:35 AM CDT) Only the most recent of9 resultswithin the time period is included. Pathologist [facility] SODIUM 135(L) 136 - 145 mmol/L 03/15/2025 5:32 AM CDT [facility] POTASSIUM 4.0 3.5 - 5.1 mmol/L 03/15/2025 5:32 AM CDT [facility] CHLORIDE 106 98 - 107 mmol/L 03/15/2025 5:32 AM CDT [facility] CO2, VENOUS 24 22 - 30 mmol/L 03/15/2025 5:32 AM CDT [facility] ANION GAP 9.0 <18.0 mmol/L 03/15/2025 5:32 AM CDT [facility] GLUCOSE 113(H) 70 - 99 mg/dL 03/15/2025 5:32 AM CDT [facility] BUN 34(H) 8 - 26 mg/dL 03/15/2025 5:32 AM CDT [facility] CREATININE, BLOOD 1.80(H) 0.70 - 1.30 mg/dL 03/15/2025 5:32 AM CDT [facility] BUN/CREATININE RATIO 19 12 - 20 ratio 03/15/2025 5:32 AM CDT [facility] CALCIUM 8.0(L) 8.7 - 10.5 mg/dL 03/15/2025 5:32 AM CDT [facility] GFR, ESTIMATED 38(L) >=60 03/15/2025 5:32 AM CDT [facility] Comment: Creatinine Clearance is the preferred criteria for selecting drug dose adjustments in renally impaired patients. The GFR is provided as additional pertinent clinical information. GFR is reported in mL/min/1.73 sq m. Calculation based on the Chronic Kidney Disease Epidemiology Collaboration (CKD- EPI) equation refit without adjustment for race. GFR, EST. 44(L) >=60 025 5:32 AM CDT [facility] GFR, EST. NONAFRICAN 36(L) >=60 03/15/2025 5:32 AM CDT [facility] Blood Venipuncture / Unknown 03/15/2025 4:35 AM CDT 03/15/2025 4:58 AM CDT us Regine Do ADMINISTRATIVE VOLUNTEER, PAYROLL ACCOUNTANT CHEMISTRY ORDERABLES Bianka l Result [facility] [address] [place] [address] * PSA Free & Total (03/14/2025 9:44 PM CDT) Prostatic Specific Antigen, Free 0.65 ng/mL 03/15/2025 3:09 PM CDT [facility] PSA, TOTAL (PROSTATIC SPECIFIC ANTIGEN) 1.52 <4.00 ng/mL 03/15/2025 3:09 PM CDT [facility] PSA, % FREE 42.8 % 03/15/2025 3:09 PM CDT [facility] Blood Venipuncture / Unknown 03/14/2025 9:44 PM CDT 03/14/2025 9:45 PM CDT Narrative [facility] - 03/15/2025 3:09 PM CDT PSA NG/ML FREE PSA % EST PROB CANCER % 2.6- 4.0 0-27 24 4.1-10.0 0-10 56 11-15 28 16-20 20 21-25 16 >25 8 THESE ESTIMATES VARY WITH AGE, ETHNICITY, FAMILY HISTORY AND ALIREZA RESULTS. THE DIAGNOSTIC USEFULNESS OF % FREE PSA HAS NOT BEEN ESTABLISHED IN PATIENTS WITH TOTAL PSA BELOW 2.6 NG/ML. IN MEN WITH A PSA LEVEL ABOVE 10 NG/ML, PROSTATE CANCER RISK IS DETERMINED BY TOTAL PSA ALONE. Amanda Lott MD CHEMISTRY ORDERABLES Final Res ult [facility] [address] [place] [address], [place] * XR CYSTOGRAM (03/14/2025 2:44 PM CDT) Amanda Lott MD IMG FLUOROSCOPY ORDERABLES Fin al Result * Pathology Surgical (03/14/2025 2:27 PM CDT) Case Report Surgical Pathology Report Case: [id number] Authorizing Provider: Amanda Quintero MD Collected: 03/14/2025 02:27 PM Ordering Location: [facility] Received: 03/17/2025 09:02 AM [facility] Main OR Pathologist: Stalin Chaudhry MD PhD Specimen: Bladder, DEBRIDED BLADDER TISSUE 03/18/2025 10:51 AM CDT [facility] FINAL DIAGNOSIS Urinary bladder, debrided tissue: - Abundant acute and chronic inflammatory cells and necrosis - Reactive epithelial cells present, negative for definitive evidence of neoplasm or malignancy 03/18/2025 10:51 AM CDT [facility] at 1051 CDT Pre-Operative Diagnosis BILATERAL HYDRONEPHROSIS 03/18/2025 10:51 AM CDT [facility] Gross Description A. DEBRIDED BLADDER TISSUE The specimen presents in 1 formalin container for gross and microscopic examination labeled with the patient's name, Gino Marquez. Specimen A is designated as debrided bladder tissue. The specimen consists of an aggregate of maurice-pink tissue fragments measuring 1.5 x 1.0 x 0.2 cm. The specimen is entirely submitted in cassette A1. AM Total time of formalin fixation:79 hours and 4 minutes. 03/18/2025 10:51 AM CDT [facility] Microscopic Description Microscopic examination was performed which supports the final diagnosis. All control tissues stained appropriately. 03/18/2025 10:51 AM CDT [facility] Tissue URINARY BLADDER STRUCTURE / Unknown 03/14/2025 2:27 PM CDT 03/17/2025 9:02 AM CDT us Amanda Lott MD PATHOLOGY/CYTOLOGY ORDERABLES Final Result [facility] [address] [place] [address] * LMA (03/14/2025 1:58 PM CDT) Narrative Jose Raul Wong MD - 03/14/2025 1:58 PM CDT Jose Raul Wong MD 03/14/2025 1:59 PM LMA Staffing Performed: anesthesiologist Performed by: Jose Raul Wong MD Authorized by: Jose Raul Wong MD Airway Details Overall Difficulty: Easy Preoxygenated: Yes Ease of Mask Ventilation: Not attempted LMA Type: Disposable LMA Size: 4 Adequate seal established: Yes LMA placement confirmed by: bilateral breath sounds, CO2 detection Atraumatic LMA Placement us Jose Raul Wong MD ANESTHESIA ORDERABLES Final R esult * NM RENAL FUNCTION FLOW WT PHARM (03/14/2025 12:11 PM CDT) Anatomical Region Laterality Modality , Abdomen N/A Nuclear Medicine 03/14/2025 12:5 4 PM CDT Impressions 03/14/2025 12:57 PM CDT IMPRESSION: 1. Abnormal split function with 60% function from the left kidney and 40% function from the right kidney. 2. The left kidney shows continued rise of radiotracer concentration with mild excretion after diuretic. The T1/2 time is in the obstructive range. 3. The right kidney does not significantly excrete radiotracer even after diuretic consistent with obstruction. Narrative 03/14/2025 12:57 PM CDT EXAM DESCRIPTION: NM RENAL FUNCTION FLOW [facility] PHARM RADIOPHARMACEUTICAL: 10.4 mCi Tc-99m MAG3 and 40 mg furosemide via a left antecubital vein IV site REASON FOR STUDY: Bilateral hydronephrosis. TECHNIQUE: Standard posterior abdominal scintigrams were obtained per the diuretic renal scintigraphy protocol. COMPARISON: CT abdomen and pelvis 03/10/2025, renal ultrasound 03/13/2025 FINDINGS: Initial images show slightly asymmetrically increased radiotracer within the left kidney compared to the right. Time to peak for the right kidney is 6.5 minutes, slightly prolonged. Time to peak for the left kidney is 23.5 minutes, prolonged. Slightly asymmetrically increased cortical concentration within the left kidney. There is minimal if any excretion of radiotracer by the right kidney prior to diuretic. No significant excretion by the left kidney prior to diuretic. After diuretic, the right kidney does not significantly excrete radiotracer. There is minimal excretion of radiotracer by the left kidney. The diuretic T1/2 time for the left kidney is 80 minutes, prolonged. The diuretic T1/2 time for the right kidney is 94 minutes, prolonged. Normal is less than 10 minutes and abnormal is greater than 20 minutes. Abnormal split function with 60% function from the left kidney and 40% function from the right kidney. THIS IS AN ELECTRONICALLY VERIFIED FINAL REPORT 03/14/2025 12:54 PM - Electronically signed by Rashard Yun M.D. LB: RUBY Report ID: [id number] Reading Location: [id number] Procedure Note Rashard Yun MD - 03/14/2025 EXAM DESCRIPTION: NM RENAL FUNCTION FLOW [facility] PHARM RADIOPHARMACEUTICAL: 10.4 mCi Tc-99m MAG3 and 40 mg furosemide via a left antecubital vein IV site REASON FOR STUDY: Bilateral hydronephrosis. TECHNIQUE: Standard posterior abdominal scintigrams were obtained per the diuretic renal scintigraphy protocol. COMPARISON: CT abdomen and pelvis 03/10/2025, renal ultrasound 03/13/2025 FINDINGS: Initial images show slightly asymmetrically increased radiotracer within the left kidney compared to the right. Time to peak for the right kidney is 6.5 minutes, slightly prolonged. Time to peak for the left kidney is 23.5 minutes, prolonged. Slightly asymmetrically increased cortical concentration within the left kidney. There is minimal if any excretion of radiotracer by the right kidney prior to diuretic. No significant excretion by the left kidney prior to diuretic. After diuretic, the right kidney does not significantly excrete radiotracer. There is minimal excretion of radiotracer by the left kidney. The diuretic T1/2 time for the left kidney is 80 minutes, prolonged. The diuretic T1/2 time for the right kidney is 94 minutes, prolonged. Normal is less than 10 minutes and abnormal is greater than 20 minutes. Abnormal split function with 60% function from the left kidney and 40% function from the right kidney. THIS IS AN ELECTRONICALLY VERIFIED FINAL REPORT 03/14/2025 12:54 PM - Electronically signed by Rashard Yun M.D. LB: URBY Report ID: [id number] Reading Location: [id number] IMPRESSION: 1. Abnormal split function with 60% function from the left kidney and 40% function from the right kidney. 2. The left kidney shows continued rise of radiotracer concentration with mild excretion after diuretic. The T1/2 time is in the obstructive range. 3. The right kidney does not significantly excrete radiotracer even after diuretic consistent with obstruction. Dejuan Ellis StewartArellano ADMINISTRATIVE VOLUNTEER, PAYROLL ACCOUNTANT IMG NM ORDERABLES Bianka corral Result * Vitamin D, 25 Hydroxy Total (03/13/2025 10:18 AM CDT) VITAMIN D, 25 HYDROX 23.9 ng/mL 03/13/2025 11:17 AM CDT [facility] Blood Venipuncture / Unknown 03/13/2025 10:18 AM CDT 03/13/2025 10:22 AM CDT Narrative [facility] - 03/13/2025 11:17 AM CDT Published reference ranges for Vitamin D vary depending on time and place and method of testing, and on patient's age, sex, ethnicity and levels of other measured analytes such as parathormone, calcium and phosphorus. The result should be evaluated in conjunction with clinical findings and suspicions. [place] [employer] and [employer] Clinical Practice Guidelines: Status Vitamin D levels (ng/mL) Deficient <=20 At risk of inadequacy 21-29 Sufficient 30-100 Centers of Disease Control and Prevention Guidelines: Status Vitamin D levels (ng/mL) Deficient <13 At risk of inadequacy 13-19 Sufficient 20-50 Possibly harmful >50 References: [place] [employer], 2010 Dietary reference intakes for calcium and vitamin D. [place]: The National Academies Press. Jodee M, Jenn N, Jayson SERRANO, et al., Evaluation, treatment, and prevention of Vitamin D deficiency: an Endocrinology Clinical Practice Guideline. JCEM 2011 96: 7 2834-4824. Consuelo A, Zuhair C, Jess D, et al., Vitamin D Status: [place], 1672-2696, [facility] data brief, no. 59, MD [place]: National Center for Health Statistics. 2010. Fransisca Samayoa MD CHEMISTRY ORDERABLES Final Res ult [facility] [address] [place] [address] * US RENAL COMPLETE (03/13/2025 7:53 AM CDT) Anatomical Region Laterality Modality , Abdomen N/A Ultrasound 03/13/2025 11:2 4 AM CDT Impressions 03/13/2025 11:27 AM CDT IMPRESSION: 1. Mild right hydronephrosis appears improved. Moderate left hydronephrosis is not significantly changed. 2. Bilateral nephrolithiasis. Narrative 03/13/2025 11:27 AM CDT EXAM DESCRIPTION: US RENAL COMPLETE REASON FOR STUDY: Re-evaluate hydronephrosis s/p catheter placement TECHNIQUE: Ultrasound of the kidneys and urinary bladder was performed with grayscale imaging. COMPARISON: Renal CT 03/10/2025 FINDINGS: RIGHT KIDNEY: The right kidney measures 12.4 cm in length. Redemonstrated right renal calculi measuring up to 1.3 cm. Mild right hydronephrosis, improved from the prior exam. There is normal cortical thickness and echogenicity. LEFT KIDNEY: The left kidney measures 14.3 cm in length. Several left renal calculi. Moderate left hydronephrosis, not significantly changed. There is normal cortical thickness and echogenicity. Left renal midpole 1.6 cm simple cyst. URINARY BLADDER: The urinary bladder is decompressed with a Dowd catheter in place. OTHER: No other additional findings. THIS IS AN ELECTRONICALLY VERIFIED FINAL REPORT 03/13/2025 11:24 AM - Electronically signed by Shaji Young M.D. KR: CHRIS Report ID: [id number] Reading Location: [id number] Procedure Note Shaji Young MD - 03/13/2025 EXAM DESCRIPTION: US RENAL COMPLETE REASON FOR STUDY: Re-evaluate hydronephrosis s/p catheter placement TECHNIQUE: Ultrasound of the kidneys and urinary bladder was performed with grayscale imaging. COMPARISON: Renal CT 03/10/2025 FINDINGS: RIGHT KIDNEY: The right kidney measures 12.4 cm in length. Redemonstrated right renal calculi measuring up to 1.3 cm. Mild right hydronephrosis, improved from the prior exam. There is normal cortical thickness and echogenicity. LEFT KIDNEY: The left kidney measures 14.3 cm in length. Several left renal calculi. Moderate left hydronephrosis, not significantly changed. There is normal cortical thickness and echogenicity. Left renal midpole 1.6 cm simple cyst. URINARY BLADDER: The urinary bladder is decompressed with a Dowd catheter in place. OTHER: No other additional findings. THIS IS AN ELECTRONICALLY VERIFIED FINAL REPORT 03/13/2025 11:24 AM - Electronically signed by Shaji Young M.D. KR: CHRIS Report ID: [id number] Reading Location: [place] [id number] IMPRESSION: 1. Mild right hydronephrosis appears improved. Moderate left hydronephrosis is not significantly changed. 2. Bilateral nephrolithiasis. us Dejuan Arellano ADMINISTRATIVE VOLUNTEER, PAYROLL ACCOUNTANT IMG US ORDERABLES Bianka ellis Result * RHYTHM STRIP (03/13/2025 12:00 AM CDT) Only the most recent of18 resultswithin the time period is included. 03/13/2025 us Provider Scan IMG ECG ORDERABLES Final Result RESULTING AGENCY * CT RENAL STONE STUDY (ABDOMEN AND PELVIS W/O CONTRAST) (03/10/2025 5:54 PM CDT) Anatomical Region Laterality Modality Abdomen N/A Computed Tomogra phy 03/11/2025 1:36 AM CDT Impressions 03/11/2025 1:39 AM CDT IMPRESSION: Severe bilateral hydroureteronephrosis of uncertain acuity. Right ureteral stent in position. Chronic findings as above. Narrative 03/11/2025 1:39 AM CDT EXAM DESCRIPTION: CT RENAL STONE STUDY (ABDOMEN AND PELVIS W/O CONTRAST) REASON FOR STUDY: Right hydronephrosis with multiple renal stones seen on US from today. Admitted for weakness. Hx of HTN and stroke TECHNIQUE: CT scan of the abdomen and pelvis performed without intravenous and without oral contrast using helical scanning technique. Reconstructed coronal and sagittal MPR images reviewed. All images stored on PACS. Automated exposure control was used as a dose optimization technique for this examination. COMPARISON: None FINDINGS: LOWER CHEST: Trace pleural effusions. Minimal basilar atelectasis. Heart size normal. LIVER/BILIARY: Liver unremarkable. Biliary tree normal in caliber. GALLBLADDER: Absent. SPLEEN: Scattered granulomas. Small cysts in the upper aspect. PANCREAS: Advanced atrophy. ADRENAL GLANDS: Normal. KIDNEYS/URINARY TRACT: Severe bilateral hydroureteronephrosis. Right ureteral stent in place. Numerous large renal calculi. Bladder is somewhat obscured by streak artifact. Prostate gland enlargement. GI: Stomach and small bowel appear normal. Scattered noninflamed colonic diverticula. Appendix not seen. OTHER ABDOMINAL/PELVIS: Major vascular structures are normal in caliber. Scattered atherosclerotic calcifications. No enlarged lymph node or free fluid. MSK: Advanced disc disease and facet arthropathy. Hip and SI joint arthritis. BODY WALL: Unremarkable. THIS IS AN ELECTRONICALLY VERIFIED FINAL REPORT 03/11/2025 1:36 AM - Electronically signed by Mehran Navarro M.D. AR: ALICE Report ID: [id number] Reading Location: [place] [id number] Procedure Note Mehran Navarro MD - 03/11/2025 EXAM DESCRIPTION: CT RENAL STONE STUDY (ABDOMEN AND PELVIS W/O CONTRAST) REASON FOR STUDY: Right hydronephrosis with multiple renal stones seen on US from today. Admitted for weakness. Hx of HTN and stroke TECHNIQUE: CT scan of the abdomen and pelvis performed without intravenous and without oral contrast using helical scanning technique. Reconstructed coronal and sagittal MPR images reviewed. All images stored on PACS. Automated exposure control was used as a dose optimization technique for this examination. COMPARISON: None FINDINGS: LOWER CHEST: Trace pleural effusions. Minimal basilar atelectasis. Heart size normal. LIVER/BILIARY: Liver unremarkable. Biliary tree normal in caliber. GALLBLADDER: Absent. SPLEEN: Scattered granulomas. Small cysts in the upper aspect. PANCREAS: Advanced atrophy. ADRENAL GLANDS: Normal. KIDNEYS/URINARY TRACT: Severe bilateral hydroureteronephrosis. Right ureteral stent in place. Numerous large renal calculi. Bladder is somewhat obscured by streak artifact. Prostate gland enlargement. GI: Stomach and small bowel appear normal. Scattered noninflamed colonic diverticula. Appendix not seen. OTHER ABDOMINAL/PELVIS: Major vascular structures are normal in caliber. Scattered atherosclerotic calcifications. No enlarged lymph node or free fluid. MSK: Advanced disc disease and facet arthropathy. Hip and SI joint arthritis. BODY WALL: Unremarkable. THIS IS AN ELECTRONICALLY VERIFIED FINAL REPORT 03/11/2025 1:36 AM - Electronically signed by Mehran Navarro M.D. AR: ALICE Report ID: [id number] Reading Location: [id number] IMPRESSION: Severe bilateral hydroureteronephrosis of uncertain acuity. Right ureteral stent in position. Chronic findings as above. us Dejuan Arellano ADMINISTRATIVE VOLUNTEER, PAYROLL ACCOUNTANT IMG CT ORDERABLES Bainka l Result * US ABDOMEN LIMITED LEVEL 3 THREE ORGAN (03/10/2025 9:15 AM CDT) Anatomical Region Laterality Modality Abdomen N/A Ultrasound 03/10/2025 1:28 PM CDT Impressions 03/10/2025 1:30 PM CDT IMPRESSION: 1. Mild hepatic steatosis. 2. Moderate right hydronephrosis. 3. Multiple right renal calculi. 4. Cholecystectomy. Narrative 03/10/2025 1:30 PM CDT EXAM DESCRIPTION: US ABDOMEN LIMITED LEVEL 3 THREE ORGAN REASON FOR STUDY: Elevated LFTs. TECHNIQUE: Ultrasound of the right upper quadrant of the abdomen was performed with grayscale and color Doppler. COMPARISON: None. FINDINGS: PANCREAS: Visualized portions of the pancreas are within normal limits. Portions of the pancreatic body and tail are obscured due to bowel gas. LIVER: The liver is slightly increased in echogenicity. Liver measures 15.3 cm. No focal hepatic lesions are seen. Antegrade direction of flow shown in the main portal vein. GALLBLADDER: Surgically absent. BILIARY: There is no intrahepatic biliary ductal dilatation. The common bile duct measures 0.7 cm in diameter. RIGHT KIDNEY: Right kidney is 10.9 cm in length. There is moderate right hydronephrosis. A few echogenic foci in the right kidney are noted due to calculi. The largest is 1.5 cm. OTHER: No other significant finding. THIS IS AN ELECTRONICALLY VERIFIED FINAL REPORT 03/10/2025 1:28 PM - Electronically signed by Carlo Corrigan M.D. CH: Report ID: [id number] Reading Location: [id number] Procedure Note Carlo Corrigan Jr., MD - 03/10/2025 EXAM DESCRIPTION: US ABDOMEN LIMITED LEVEL 3 THREE ORGAN REASON FOR STUDY: Elevated LFTs. TECHNIQUE: Ultrasound of the right upper quadrant of the abdomen was performed with grayscale and color Doppler. COMPARISON: None. FINDINGS: PANCREAS: Visualized portions of the pancreas are within normal limits. Portions of the pancreatic body and tail are obscured due to bowel gas. LIVER: The liver is slightly increased in echogenicity. Liver measures 15.3 cm. No focal hepatic lesions are seen. Antegrade direction of flow shown in the main portal vein. GALLBLADDER: Surgically absent. BILIARY: There is no intrahepatic biliary ductal dilatation. The common bile duct measures 0.7 cm in diameter. RIGHT KIDNEY: Right kidney is 10.9 cm in length. There is moderate right hydronephrosis. A few echogenic foci in the right kidney are noted due to calculi. The largest is 1.5 cm. OTHER: No other significant finding. THIS IS AN ELECTRONICALLY VERIFIED FINAL REPORT 03/10/2025 1:28 PM - Electronically signed by Carlo Corrigan M.D. CH: Report ID: [id number] Reading Location: [id number] IMPRESSION: 1. Mild hepatic steatosis. 2. Moderate right hydronephrosis. 3. Multiple right renal calculi. 4. Cholecystectomy. us Satyen Mann V, MD [facility] US ORDERABLES Final Resul t * (ABNORMAL) PT/INR Routine (03/10/2025 3:53 AM CDT) Only the most recent of4 resultswithin the time period is included. Pathologist [facility] PROTIME-PATIENT 16.2(H) 11.6 - 14.8 sec 03/10/2025 5:42 AM CDT [facility] INR 1.3(H) 0.9 - 1.2 03/10/2025 5:42 AM CDT [facility] Comment: Therapeutic Ranges INR = 2.0-3.0: Venous thromb, atrial fib, pul embolism, tissue heart valve, ami. INR = 2.5-3.5: Mechanical heart valve Critical value for INR is >/= 4.5 Blood BLOOD SPECIMEN / Unknown Venipuncture / Unknown 03/10/2025 3:53 AM CDT 03/10/2025 5:27 AM CDT Aida Fuentes MD HEMATOLOGY ORDERABLES Final R esult [facility] [place] [address] * Hepatitis Panel Acute (AHP) (03/09/2025 5:23 AM CDT) [facility] HEPATITIS A IGM ANTIBODY NON DETECTED NON DETECTED 03/09/2025 4:45 PM CDT [facility] Comment: IGM Antibodies to HAV not detected. Does not exclude early acute or recovered HAV infection. HEP B CORE AB (IGM) NON DETECTED NON DETECTED 03/09/2025 4:45 PM CDT [facility] Comment:IGM anti-HBC not det ected. Does not exclude the possibility of exposure to or infection with HBV. HEPATITIS B SURFACE ANTIGEN NON DETECTED NON DETECTED 03/09/2025 4:45 PM CDT [facility] Comment:A nonreactive test r esult does not exclude the possibility of exposure to or infection with Hepatitis B virus. A nonreactive test result in individuals with prior exposure to hepatitis B may be due to antigen levels below the detection limit of this assay or lack of antigen reactivity to the antibodies in this assay. hepatitis C antibody 0.12 <1 S/CO 03/09/2025 4:45 PM CDT [facility] Comment: Signal/Cutoff ratio < 0.79 is Nondetected Signal/Cutoff ratio 0.80-0.99 is Grayzone Signal/Cutoff ratio > 0.99 is Detected Supplemental assays are recommended if signal/cutoff ratio is >/=1.00. Signal/cutoff ratio result >/= 5.00 is 97% predictive of positivity for recombinant immunoblot assay (RIBA) and will be reported to the [place] [facility] [employer] [facility] as required. Blood Venipuncture / Unknown 03/09/2025 5:23 AM CDT 03/09/2025 5:45 AM CDT Aida Fuentes MD HEMATOLOGY ORDERABLES Final R esult Performing Organization Address City/[facility]/ZIP Co de Phone Number [facility] [address] [place] [address], * (ABNORMAL) Creatine Kinase (CK) Total (03/07/2025 6:09 AM CDT) [facility] CK (CPK) 21(L) 30 - 200 U/L 03/07/2025 10:34 AM CDT [facility] Blood Venipuncture / Unknown 03/07/2025 6:09 AM CDT 03/07/2025 7:09 AM CDT Aida Fuentes MD CHEMISTRY ORDERABLES Final Re sult [facility] [address] [place] [address] * (ABNORMAL) URINALYSIS REFLEX IF INDICATED BY ABNORMAL RESULTS (03/06/2025 11:47 PM CDT) SPECIFIC GRAVITY 1.010 1.003 - 1.030 03/07/2025 12:15 AM CDT [facility] URINE PH 7.0 5.0 - 9.0 03/07/2025 12:15 AM CDT [facility] WBC ESTERASE 500 /uL(A) Negative 03/07/2025 12:15 AM CDT [facility] NITRITE Negative Negative 03/07/2025 12:15 AM CDT [facility] PROTEIN, RANDOM URINE 500 mg/dL(A) Negative 03/07/2025 12:15 AM CDT [facility] URINE GLUCOSE, QUAL Negative Negative 03/07/2025 12:15 AM CDT [facility] URINE KETONES Negative Negative 03/07/2025 12:15 AM CDT [facility] UROBILINOGEN Normal Normal mg/dL 03/07/2025 12:15 AM CDT [facility] URINE BLOOD 250 /uL(A) Negative aayush/ul 03/07/2025 12:15 AM CDT [facility] URINALYSIS COLOR Yellow 03/07/20 12:15 AM CDT [facility] URINALYSIS CLARITY Slightly Cloudy 03/07/2025 12:15 AM CDT [facility] WBC (Urine) 21-50(A) Negative, 0-5 /hpf 03/07/2025 12:15 AM CDT [facility] URINE RBC'S 6-10(A) Negative, 0-2 /hpf 03/07/2025 12:15 AM CDT [facility] EPITHELIAL CELLS Negative /lpf 03/07/20 12:15 AM CDT [facility] BACTERIA, URINE Few(A) Negative /hpf 03/07/2025 12:15 AM CDT [facility] Urine URINE SPECIMEN OBTAINED BY CLEAN CATCH PROCEDURE / Unknown Non-Phlebotomy Collection / Unknown 03/06/2025 11:47 PM CDT 03/06/2025 11:59 PM CDT Vimal Ellison MD URINE ORDERABLES Final Re sult [facility] [place] [address] * Culture, Urine (03/06/2025 11:47 PM CDT) Pathologist [facility] CULTURE RESULTS Mixed Growth of One or More Distal Urethral Contaminants 03/08/2025 12:05 PM CDT [facility] Urine URINE SPECIMEN OBTAINED BY CLEAN CATCH PROCEDURE / Unknown Non-Phlebotomy Collection / Unknown 03/06/2025 11:47 PM CDT 03/06/2025 11:59 PM CDT Vimal Ellison MD MICROBIOLOGY - GENERAL OR DERABLES Final Result Performing Organization Address [facility] Co de Phone Number [facility] [address] [place] [address], [place] * TROPONIN I, HIGH SENSITIVITY (HSTRP) (03/06/2025 11:43 PM CDT) Pathologist [facility] TROPONIN I, HIGH SENSITIVITY- RAE 15 <=35 ng/L 03/07/2025 12:24 AM CDT [facility] Comment: High-sensitivity troponin I results are reported in ng/L making the result appear to be 1,000 times higher than the contemporary troponin I value which is reported in ng/ml. Results from Rae. Blood Venipuncture / Unknown 03/06/2025 11:43 PM CDT 03/06/2025 11:58 PM CDT Vimal Ellison MD CHEMISTRY ORDERABLES Bianka l Result Performing Organization Address City/[facility]/ZIP Co de Phone Number [facility] [address] [place] [address] * (ABNORMAL) CMP (Comprehensive Metabolic Panel) (03/06/2025 11:43 PM CDT) Pathologist [facility] SODIUM 135(L) 136 - 145 mmol/L 03/07/2025 12:22 AM CDT [facility] POTASSIUM 4.7 3.5 - 5.1 mmol/L 03/07/2025 12:22 AM T [facility] CHLORIDE 106 98 - 107 mmol/L 03/07/2025 12:22 AM [facility] CO2, VENOUS 20(L) 22 - 30 mmol/L 03/07/2025 12:22 AM [facility] ANION GAP 13.7 <18.0 mmol/L 03/07/2025 12:22 AM T [facility] GLUCOSE 133(H) 70 - 99 mg/dL 03/07/2025 12:22 AM [facility] BUN 63(H) 8 - 26 mg/dL 03/07/2025 12:22 AM [facility] CREATININE, BLOOD 2.67(H) 0.70 - 1.30 mg/dL 03/07/2025 12:22 AM [facility] BUN/CREATININE RATIO 24(H) 12 - 20 ratio 03/07/2025 12:22 AM [facility] TOTAL PROTEIN 6.8 6.0 - 8.0 g/dL 03/07/2025 12:22 AM [facility] ALBUMIN 2.8(L) 3.5 - 5.0 g/dL 03/07/2025 12:22 AM [facility] A/G RATIO 0.7(L) 1.0 - 2.2 03/07/2025 12:22 AM [facility] CALCIUM 8.4(L) 8.7 - 10.5 mg/dL 03/07/2025 12:22 AM [facility] T BILI 0.5 0.2 - 1.2 mg/dL 03/07/2025 12:22 AM T [facility] SGOT (AST) 186(H) <43 U/L 03/07/2025 12:22 AM T [facility] SGPT (ALT) 208(H) <56 U/L 03/07/2025 12:22 AM CDT [facility] ALKALINE PHOSPHATASE 281(H) 40 - 150 U/L 03/07/2025 12:22 AM CDT [facility] GFR, ESTIMATED 23(L) >=60 03/07/2025 12:22 AM CDT [facility] Comment: Creatinine Clearance is the preferred criteria for selecting drug dose adjustments in renally impaired patients. The GFR is provided as additional pertinent clinical information. GFR is reported in mL/min/1.73 sq m. Calculation based on the Chronic Kidney Disease Epidemiology Collaboration (CKD- EPI) equation refit without adjustment for race. GFR, EST. 28(L) >=60 025 12:22 AM CDT [facility] GFR, EST. NONAFRICAN 23(L) >=60 03/07/2025 12:22 AM CDT [facility] Blood Venipuncture / Unknown 03/06/2025 11:43 PM CDT 03/06/2025 11:58 PM CDT us Vimal Ellison MD CHEMISTRY ORDERABLES Bianka corral Result [facility] [place] [address] * EKG 12 LEAD (03/06/2025 11:30 PM CDT) Ventricular Rate 75 BPM EXTERNAL EKG Atrial Rate 70 BPM EXTERNAL EKG QRS Duration 172 ms EXTERNAL EKG Q-T Duration 432 ms EXTERNAL EKG QTC CALCULATION 482 ms EXTERNAL EKG R [place] -54 degrees EXTERNAL EKG T [place] 103 degrees EXTERNAL EKG 03/06/2025 11:3 0 PM CDT Impressions EXTERNAL EKG - 03/08/2025 10:57 AM CDT Ventricular-paced rhythm with frequent AV dual-paced complexes Abnormal ECG When compared with ECG of 22-JUL-2024 16:42, Electronic ventricular pacemaker has replaced Atrial fibrillation Vent. rate has increased BY 28 BPM Confirmed by Cathy Breen ([id number]) on 03/08/2025 10:57:44 AM Narrative Procedure Note Cathy Breen MD - 03/08/2025 IMPRESSION: Ventricular-paced rhythm with frequent AV dual-paced complexes Abnormal ECG When compared with ECG of 22-JUL-2024 16:42, Electronic ventricular pacemaker has replaced Atrial fibrillation Vent. rate has increased BY 28 BPM Confirmed by Cathy Breen ([id number]) on 03/08/2025 10:57:44 AM us Vimal Ellison MD IMG ECG ORDERABLES Final Result EXTERNAL EKG * CT HEAD OR BRAIN WO CONTRAST (03/06/2025 10:59 PM CDT) Anatomical Region Laterality Modality Head N/A Computed Tomogra phy 03/06/2025 11:5 8 PM CDT Impressions 03/07/2025 12:01 AM CDT IMPRESSION: 1. No acute intracranial abnormality. 2. Global atrophy and white matter changes consistent with small-vessel ischemic disease. Narrative 03/07/2025 12:01 AM CDT EXAM DESCRIPTION: CT HEAD OR BRAIN WO CONTRAST REASON FOR STUDY: pt had fell in shower 2 days ago. pt denies dizziness, head pain, or LOC. hx of stroke, a-fib, and HTN TECHNIQUE: Axial images acquired through the brain without intravenous contrast. Coronal and sagittal reformats were performed. Images stored on PACS. Automated mA/kV exposure control was used as a dose optimization technique for this examination and patient examination was performed in strict accordance with principles of ALARA. COMPARISON: Head CT of December 23, 2021. FINDINGS: BRAIN: There is no midline shift, mass or mass effect. The ventricles, cisterns and sulci are globally and proportionally prominent consistent with atrophy. There is normal differentiation of the rich-white matter. There is no intracranial hemorrhage. There is decreased attenuation in the periventricular white matter, nonspecific, but likely related to small vessel ischemic change. There is no significant change as compared to previous study. EXTRA-AXIAL SPACES: No fluid collections. No masses. CALVARIUM: No fracture. SINUSES/MASTOIDS: No fluid or mucosal thickening. ORBITS: No significant abnormality. OTHER: There is atherosclerosis of the carotid siphons. THIS IS AN ELECTRONICALLY VERIFIED FINAL REPORT 03/06/2025 11:58 PM - Electronically signed by Olga Tinoco M.D. SN: SN Report ID: [id number] Reading Location: [id number] Procedure Note Olga Tinoco MD - 03/07/2025 EXAM DESCRIPTION: CT HEAD OR BRAIN WO CONTRAST REASON FOR STUDY: pt had fell in shower 2 days ago. pt denies dizziness, head pain, or LOC. hx of stroke, a-fib, and HTN TECHNIQUE: Axial images acquired through the brain without intravenous contrast. Coronal and sagittal reformats were performed. Images stored on PACS. Automated mA/kV exposure control was used as a dose optimization technique for this examination and patient examination was performed in strict accordance with principles of ALARA. COMPARISON: Head CT of December 23, 2021. FINDINGS: BRAIN: There is no midline shift, mass or mass effect. The ventricles, cisterns and sulci are globally and proportionally prominent consistent with atrophy. There is normal differentiation of the rich-white matter. There is no intracranial hemorrhage. There is decreased attenuation in the periventricular white matter, nonspecific, but likely related to small vessel ischemic change. There is no significant change as compared to previous study. EXTRA-AXIAL SPACES: No fluid collections. No masses. CALVARIUM: No fracture. SINUSES/MASTOIDS: No fluid or mucosal thickening. ORBITS: No significant abnormality. OTHER: There is atherosclerosis of the carotid siphons. THIS IS AN ELECTRONICALLY VERIFIED FINAL REPORT 03/06/2025 11:58 PM - Electronically signed by Olga Tinoco M.D. SN: Report ID: [id number] Reading Location: [id number] IMPRESSION: 1. No acute intracranial abnormality. 2. Global atrophy and white matter changes consistent with small-vessel ischemic disease. Vimal Ellison MD IMG CT ORDERABLES Final R esult * XR WRIST 3 OR MORE VIEWS LEFT (03/06/2025 10:40 PM CDT) Anatomical Region Laterality Modality UPPER EXTREMITY, wrist Left Digital R adiography 03/06/2025 11:5 6 PM CDT Impressions 03/06/2025 11:58 PM CDT IMPRESSION: 1. No acute fracture or dislocation of the left wrist. 2. 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 Narrative 03/06/2025 11:58 PM CDT EXAM DESCRIPTION: XR WRIST 3 OR MORE VIEWS LEFT REASON FOR STUDY: pt c/p LT wrist pain and swelling to posterior side of wrist after a fall 2 days ago. no hx of surgery TECHNIQUE: Three radiographic views of the left wrist . COMPARISON: None. FINDINGS: BONES: There is no cortical discontinuity or trabecular irregularity to suggest fracture. There is severe joint space narrowing, sclerosis, remodeling and marginal osteophyte formation seen of the radiocarpal joint and distal radioulnar joint. There is moderate degenerative change of the basal joint of the thumb in the STT joint. There are multiple well corticated ossifications over the dorsal aspect of the wrist, likely representing loose bodies. There is diffuse osteopenia. SOFT TISSUES: There is circumferential soft tissue swelling. THIS IS AN ELECTRONICALLY VERIFIED FINAL REPORT 03/06/2025 11:56 PM - Electronically signed by Olga Tinoco M.D. SN: Report ID: [id number] Reading Location: [id number] Procedure Note Olga Tinoco MD - 03/06/2025 EXAM DESCRIPTION: XR WRIST 3 OR MORE VIEWS LEFT REASON FOR STUDY: pt c/p LT wrist pain and swelling to posterior side of wrist after a fall 2 days ago. no hx of surgery TECHNIQUE: Three radiographic views of the left wrist . COMPARISON: None. FINDINGS: BONES: There is no cortical discontinuity or trabecular irregularity to suggest fracture. There is severe joint space narrowing, sclerosis, remodeling and marginal osteophyte formation seen of the radiocarpal joint and distal radioulnar joint. There is moderate degenerative change of the basal joint of the thumb in the STT joint. There are multiple well corticated ossifications over the dorsal aspect of the wrist, likely representing loose bodies. There is diffuse osteopenia. SOFT TISSUES: There is circumferential soft tissue swelling. THIS IS AN ELECTRONICALLY VERIFIED FINAL REPORT 03/06/2025 11:56 PM - Electronically signed by Olga Tinoco M.D. SN: Report ID: [id number] Reading Location: [id number] IMPRESSION: 1. No acute fracture or dislocation of the left wrist. 2. 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 us Vimal Ellison MD IMG DIAGNOSTIC ORDERABLES Final Result * XR CHEST SINGLE VIEW PORTABLE (03/06/2025 10:35 PM CDT) Anatomical Region Laterality Modality Chest N/A Computed Radiogr aphy 03/06/2025 11:5 4 PM CDT Impressions 03/06/2025 11:57 PM CDT IMPRESSION: No acute cardiopulmonary abnormality. Narrative 03/06/2025 11:57 PM CDT EXAM DESCRIPTION: XR CHEST SINGLE VIEW PORTABLE REASON FOR STUDY: pt had fell in shower 2 days ago. pt denies chest pain, dizziness, head pain, or LOC. hx of stroke, a-fib, and HTN TECHNIQUE: Single radiographic view of the chest. COMPARISON: Chest x-ray of July 22, 2024. FINDINGS: LUNGS/PLEURA: No focal consolidation or pneumothorax. No pleural effusion. There is no significant change as compared to previous study. HEART/MEDIASTINUM: Cardiac silhouette is within normal limits. There is atherosclerosis of the aorta. Remaining mediastinal silhouettes are unremarkable. HARDWARE/LINES/TUBES: Implantable loop recorder is seen in place. BONES: No acute findings. THIS IS AN ELECTRONICALLY VERIFIED FINAL REPORT 03/06/2025 11:54 PM - Electronically signed by Olga Tinoco M.D. SN: Report ID: [id number] Reading Location: [id number] Procedure Note Olga Tinoco MD - 03/06/2025 EXAM DESCRIPTION: XR CHEST SINGLE VIEW PORTABLE REASON FOR STUDY: pt had fell in shower 2 days ago. pt denies chest pain, dizziness, head pain, or LOC. hx of stroke, a-fib, and HTN TECHNIQUE: Single radiographic view of the chest. COMPARISON: Chest x-ray of July 22, 2024. FINDINGS: LUNGS/PLEURA: No focal consolidation or pneumothorax. No pleural effusion. There is no significant change as compared to previous study. HEART/MEDIASTINUM: Cardiac silhouette is within normal limits. There is atherosclerosis of the aorta. Remaining mediastinal silhouettes are unremarkable. HARDWARE/LINES/TUBES: Implantable loop recorder is seen in place. BONES: No acute findings. THIS IS AN ELECTRONICALLY VERIFIED FINAL REPORT 03/06/2025 11:54 PM - Electronically signed by Olga Tinoco M.D. SN: SN Report ID: [id number] Reading Location: [id number] IMPRESSION: No acute cardiopulmonary abnormality. Vimal Ellison MD IMG DIAGNOSTIC ORDERABLES Final Result * Critical Care (03/06/2025 10:06 PM CDT) Narrative Vimal Ellison MD - 03/06/2025 10:06 PM CDT Vimal Ellison MD 03/07/2025 2:34 AM Critical Care Performed by: Vimal Ellison MD Authorized by: Vimal Ellison MD Critical care provider statement: Critical care time (minutes): 35 Critical care time was exclusive of: Separately billable procedures and treating other patients Critical care was necessary to treat or prevent imminent or life-threatening deterioration of the following conditions: Renal failure and dehydration (Urinary tract infection, generalized weakness) Critical care was time spent personally by me on the following activities: Development of treatment plan with patient or surrogate, obtaining history from patient or surrogate, examination of patient, evaluation of patient's response to treatment, ordering and performing treatments and interventions, ordering and review of laboratory studies, ordering and review of radiographic studies, pulse oximetry, re-evaluation of patient's condition and review of old charts I assumed direction of critical care for this patient from another provider in my specialty: no Care discussed with: admitting provider Vimal Ellison MD PROCEDURE/MINOR SURGICAL ORDERABLES Final Result * EKG SCAN (03/06/2025 12:00 AM CDT) 03/06/2025 Provider Scan IMG ECG ORDERABLES Final Result RESULTING AGENCY from Last 3 Months Insurance MEDICARE C [employer]ET[employer] Advance Directives * Full Code (Latest Code Status on File) Date Activated Date Inactivated Comments 03/09/2025 2:42 PM CPR-Full Treat ment: FULL ARREST: Attempt Resuscitation/CPR wit intubation and mechanical ventilation. PRE-ARREST: Use entire range of life support measures to stabilize the patient. * Full Code Date Activated Date Inactivated Comments 07/23/2024 1:45 PM 03/09/2025 2:42 PM CPR-Full Tr eatment: FULL ARREST: Attempt Resuscitation/CPR wit intubation and mechanical ventilation. PRE-ARREST: Use entire range of life support measures to stabilize the patient. Care Teams Extension Service Supervisor Relationship Specialty Start Date End Date [place] [address] PCP - General Internal Medicine 11/23/21 Enoch Romero MD [address] [address] Consulting Physician Urology 06/16/22
--- OUTSIDE RECORDS SUMMARY | 2025-04-18 08:54 | XMS_ITS | Encounter Summary ---
Author Organization [facility] Address [address] [place] [address] Phone Care Team Providers Care Environmental Protection Inspector Name Role Phone Vimal Cano MD Primary Care Provider [phone] Enoch Romero MD Unavailable Reason for Visit * Reason Comments Medication Refill Encounter Details Date Type Department Care Team (Late st Contact Info) Description 11/07/2023 Refill [facility] [address] [place] [address] Enoch Romero MD [address] [address] Medication Refill Social History Tobacco Use Types Packs/Day Years Used Date Smoking Tobacco: Former Smokeless Tobacco: Never Comments:QUIT 23 YRS AGO Alcohol Use Standard Drinks/Week Comments Yes 1 (1 standard drink = 0.6 oz pur e alcohol) ONCE EVERY 2-3 WKS Sexually Active Control Partners Comments Not Currently Sex and Gender Information Value Date Recorded Sex Assigned at Not on file Legal Sex Male 11:37 PM CDT Gender Identity Not on file Sexual Orientation Not on file documented as of this encounter Miscellaneous Notes * Telephone Encounter - Jazmine Maya RN - 11/07/2023 2:39 PM CDT Medication failed the protocol, provider to review and approve the medication order if appropriate. Requested Prescriptions Pending Prescriptions Disp Refills oxybutynin (DITROPAN) 5 MG Tablet [Pharmacy Med Name: OXYBUTYNIN 5 MG TABLET] 180 Tablet 3 Sig: TAKE 1 TABLET BY MOUTH TWICE A DAY Urinary Anticholinergics Protocol Failed - 11/07/2023 12:46 AM Failed - GFR greater than or equal to 30 in past 12 months GFR, EST. NONAFRICAN Date Value Ref Range Status 08/08/2022 43 (L) >=60 Final Passed - Visit with relevant provider in past 12 months or upcoming 90 days Recent Visits Date Type Provider Dept 03/30/23 Telemedicine Enoch Romero MD [facility] [place] Showing recent visits within past 365 days and meeting all other requirements Future Appointments No visits were found meeting these conditions. Showing future appointments within next 90 days and meeting all other requirements documented in this encounter Plan of Treatment Not on file documented as of this encounter Visit Diagnoses Not on filedocumented in this encounter Additional Health Concerns Infection Onset Date Last Indicated Resolved Time COVID - 19 07/22/2024 07/22/2024 07/22/2024 6:38 PM [employer] documented as of this encounter Care Teams Environmental Protection Inspector Relationship Specialty Start Date End Date Vimal Cano MD [address] [place] [address] PCP - General Internal Medicine 11/23/21 Enoch Romero MD #2 [facility] [address] [place] [address] Consulting Physician Urology 06/16/22 documented as of this encounter
--- OUTSIDE RECORDS SUMMARY | 2025-04-18 08:54 | XMS_ITS | Clinical Summary ---
Author Organization [facility] lto Address [address] [place] [address] Care Team Providers Care Occupational Therapy Assist Name Role Phone Vimal Cano MD Primary Care Provider [phone] Uriah Garg MD PhD Unavailable [phone] Sumit Carig MD Unavailable [phone] Allergies Active Allergy Reactions Criticality Noted Date Comments Cephalexin Diarrhea,Rash Medium 08/13/2024 Tolerating ceftriaxone 07/2024 Sulfa (Sulfonamide Antibiotics) Other (See comments) [employer] said do not take in 1967 per patient Sulfanilamide Other (See comments) Reaction: Unknown, Medications gabapentin (NEURONTIN) 300 mg capsule TAKE 1 CAPSULE AT BEDTIME GRADUALLY INCREASE TO 3 TIMES A DAY TOLERATED 270 capsule 3 10/18/19 25 Active Jantoven 3 mg tablet TAKE 1 TABLET 2 TIMES A WEEK ON MONDAY AND MONDAY 21 tablet 1 01/16/20 25 Active Additional Information Patient taking differently: 6 mg oral Daily, Reported on 03/15/2025 levETIRAcetam (KEPPRA) 750 mg tablet TAKE 1 TABLET TWICE A DAY 180 tablet 01/31/20 25 Active acetaminophen 500 mg capsule Take 2 capsules (1,000 mg total) by mouth 4 (four) times a day 03/27/20 25 Active cyanocobalamin (Vitamin B-12) 1,000 mcg tabletIndications: Prevention of Vitamin B12 Deficiency Take 1 tablet (1,000 mcg total) by mouth daily 03/27/20 25 026 Active escitalopram (LEXAPRO) 10 mg tablet Take 1 tablet (10 mg total) by mouth daily 03/27/20 25 Active lidocaine (LIDODERM) 5 %Indications:Posth erpetic Neuralgia Place 1 patch on the skin daily for 12 hours Remove & discard patch within 12 hours or as directed by MD. 03/27/20 25 025 Active ondansetron ODT (ZOFRAN-ODT) 4 mg disintegrating tabletIndications: Nausea and Vomiting Take 1 tablet (4 mg total) by mouth every 6 (six) hours as needed for nausea or vomiting 03/27/20 25 Active oxyCODONE (ROXICODONE) 5 mg immediate release tabletIndications: Pain Take 1 tablet (5 mg total) by mouth every 4 (four) hours as needed for pain 03/27/[address] (PROTONIX) 40 mg EC tabletIndications: Treatment of Non-Bleeding Gastric Disorder Take 1 tablet (40 mg total) by mouth daily 03/27/20 25 026 Active polyethylene glycol (MIRALAX) 17 gram packetIndications: constipation Take 1 packet (17 g total) by mouth 2 (two) times a day 03/27/20 25 Active senna-docusate (PERICOLACE) 8.6-50 mg Take 1 tablet by mouth 2 (two) times a day 03/27/20 25 Active tamsulosin (FLOMAX) 0.4 mg extended release capsule Take 1 capsule (0.4 mg total) by mouth daily with dinner 03/27/20 25 Active lisinopriL (PRINIVIL,ZESTRIL) 10 mg tablet TAKE 1 TABLET DAILY 90 tablet 09/23/19 25 025 Discontin ued(Stop Taking at Discharge ) Klor-Con M10 10 mEq CR tablet TAKE 1 TABLET DAILY 90 tablet 3 09/23/19 25 025 Discontin ued(Stop Taking at Discharge ) tamsulosin (FLOMAX) 0.4 mg extended release capsule TAKE 1 CAPSULE TWICE DAILY 180 capsule 1 10/18/19 25 025 Discontin ued(Stop Taking at Discharge ) furosemide (LASIX) 20 mg tablet Take 1 tablet (20 mg total) by mouth daily 90 tablet 4 12/21/19 25 025 Discontin ued(Stop Taking at Discharge ) oxyBUTYnin (DITROPAN) 5 mg tablet Take 1 tablet (5 mg total) by mouth 2 (two) times a day 11/09/19 24 025 Discontin ued(Stop Taking at Discharge ) Active Problems Problem Noted Date Diagnosed Date [...] Assessment & Plan (03/27/2025 2:40 PM CDT): Mixing Technician 03/25 in AM for hypotension got 2 L IVF Pressures persistently soft here over the last few days Not on bp meds Diuretic held Lab Results Component Value Date TSH 1.67 03/25/2025 AM izaiah 7.2 Stim test wnl TTE 07/2024 unremarkable without active symtpoms suggesting decompensated CHF Will decrease flomax to om4 mg daily (was BID) Assessment & Plan (03/26/2025 2:35 PM CDT): Mixing Technician 03/25 in AM for hypotension got 2 L IVF Pressures persistently soft here over the last few days Not on bp meds Diuretic held Lab Results Component Value Date TSH 1.67 03/25/2025 AM izaiah 7.2 Will get STIM test TTE 07/2024 unremarkable without active symtpoms suggesting decompensated CHF HR nl Assessment & Plan (03/25/2025 12:58 PM CDT): Mixing Technician 03/25 in AM for hypotension got 2 [...] with bilateral hydronephrosis. Pt was admitted to [facility] in [place], [place] 03/06-03/13 for urinary retention, acute renal [...] loses access to Rt kidney). Transfer to [facility] for eventual bilateral nephrostomy tubes was recommended. [...] intermittently refusing therapy so was initially denied longterm facility placement. He was encouraged to participate [...] with bilateral hydronephrosis. Pt was admitted to [facility] in [place], [place] 03/06-03/13 for urinary retention, acute renal [...] loses access to Rt kidney). Transfer to [facility] for eventual bilateral nephrostomy tubes was recommended. [...] intermittently refusing therapy so was initially denied longterm facility placement. He was encouraged to participate [...] Future Assessment & Plan (08/25/2023 1:15 PM REAL ESTATE DIRECTOR): Currently taking warfarin 6 mg 5 days per week and 9 mg 2 days per week. Seizure disorder 08/25/2023 Assessment & Plan (01/16/2025 11:00 AM CDT): Patient states he is not had a seizure since starting Keppra which was at least 10 years ago per patient. Assessment & Plan (08/25/2023 2:48 PM REAL ESTATE DIRECTOR): Patient states he is not had a seizure since starting Keppra which was at least 10 years ago per patient. Advance care planning 08/25/2023 Assessment & Plan (08/25/2023 2:51 PM REAL ESTATE DIRECTOR): Preventive exam; reviewed recommended preventive screenings and vaccinations. Encourage annual flu vaccine. Wear sunscreen/protective clothing when outdoors. Physical debility 02/13/2020 Assessment & Plan (02/13/2020 2:44 PM CDT): Patient would benefit greatly from motorized wheelchair. Staghorn calculus 09/12/2019 Overview (09/12/2019): Added automatically from request for surgery [id number] prostate cancer 03/13/2019 Chronic a-fib 03/05/2019 Assessment & Plan (01/16/2025 11:00 AM CDT): Stable and well controlled. Rate controlled, patient denies any shortness a breath, palpitations or dizziness. Continues warfarin. INR 2.1 today will continue with current warfarin regimen. Orders: Comprehensive metabolic panel; Future POCT INR Assessment & Plan (08/25/2023 2:46 PM REAL ESTATE DIRECTOR): Rate controlled, patient denies any shortness a [...] 03/05/2019 Assessment & Plan (08/25/2023 2:46 PM REAL ESTATE DIRECTOR): Patient with residual right-sided weakness. Patient was [...] to monitor. Orders: PSA screen; Future Constipation Resolved Problems Problem Noted Date Diagnosed Date [...] of 35.0 to 35.9 in adult 01/11/2014 Overview (12/02/2016): OBESITY NOS Assessment & Plan (01/16/2025 11:00 AM CDT): Weight appropriate for patient. Assessment & Plan (03/05/2019 3:53 AM CDT): Weight loss discussed and encouraged Encounters Date Type Department Care Team Description 04/10/2025 Documentation [facility]iative Care [address] [address] Johana Elmore RN 03/16/2025 Orders Only Radiology [address] [place] [address] Lasha Tomas MD 03/15/2025 3:00 PM CDT - 03/28/2025 3:40 PM CDT Hospital Encounter [address] [address] Cesario Rizvi MD Berhil, Anis, MD Yew, MD Jorge Goldberg Bazgha Imtiaz, DO Williams, Rome Vincent MD Acute kidney injury superimposed on stage 3a chronic kidney disease (HCC) [N17.9, N18.31] (Primary Dx); Obstructive uropathy; Physical debility [R53.81]; Advance care planning [Z71.89]; Bilateral hydronephrosis [N13.30]; Moderate malnutrition [E44.0]; Presence of cardiac pacemaker [Z95.0]; 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]; Acute kidney injury superimposed on stage 3a chronic kidney disease (HCC); Prostate cancer (HCC); PAF (paroxysmal atrial fibrillation) (HCC); Bilateral hydronephrosis; Presence of cardiac pacemaker; Advance care planning; Primary osteoarthritis, unspecified site Discharge Disposition: Discharge to SNF 03/15/2025 Orders Only [address] [address] Mena Martino MD 03/15/2025 Orders Only [facility] [address] [place] [address] Cesario Rizvi MD 03/14/2025 Orders Only [facility] Health Information Management [address] [place] [address] Vimal Cano MD 03/13/2025 Telephone [facility] [address] [phone] Vimal Cano MD TAMIKO Questions 03/06/2025 11:54 AM CDT - 03/06/2025 11:59 PM CDT Hospital Encounter [facility] Emergency, Room R Discharge Disposition: Discharge to home or self care 01/22/2025 Telephone [facility] [address] [phone] Vimal Cano MD Med Refill 01/17/2025 Results Follow-Up [facility] [address] [phone] Maria Antonia Celis NP CBC with auto differential, Comprehensive metabolic panel, Lipid panel, Additional followed-up results: 6 01/16/2025 4:34 PM CDT - 01/16/2025 11:59 PM CDT Hospital Encounter [address] [address] Acute cystitis with hematuria Discharge Disposition: Discharge to home or self care 01/16/2025 11:00 AM CDT Lab [facility] [address] [place] [phone] Chronic anticoagulation; Chronic a-fib (HCC); Acute cystitis with hematuria; Screening for lipid disorders; Malignant neoplasm prostate (HCC) 01/16/2025 10:30 AM CDT Office Visit [facility] [address] [phone] Maria Antonia Celis NP Primary hypertension (Primary Dx); Acute cystitis with hematuria; Chronic a-fib (HCC); Seizure disorder (HCC); 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); Chronic anticoagulation; Malignant neoplasm prostate (HCC); Screening for lipid disorders; Class 1 obesity due to excess calories with serious comorbidity and body mass index (BMI) of 34.0 to 34.9 in adult 01/16/2025 Anticoagulation Visit [facility] [address] [address] Pamella Durham RN Chronic anticoagulation (Primary Dx); Chronic a-fib (HCC) from Last 3 Months Immunizations Immunization Administration Dates Next Due Influenza, Split 06/24/2013 Influenza, Trivalent, High D ose, Split, Preservative Free, Intramuscular 08/15/2024(Deferred: Patient Refused) Influenza, Trivalent, IM (MDV) 06/02/2009 Influenza, Trivalent, Preser vative Free, Intramuscular 07/22/2014,06/24/2013 Influenza, Unspecified 01/16/2025(Deferr ed: Patient Refused),01/16/2025(Deferred: Patient Refused),04/28/2024(Deferred: Patient Refused),04/28/2024(Deferred: Patient Refused),08/25/2023(Deferred: Patient Refused),08/25/2023(Deferred: Patient Refused),06/10/2022(Deferred: Patient Refused),04/28/2022(Deferred: Patient Refused),04/28/2022(Deferred: Patient Refused),08/13/2021(Deferred: Patient Refused),04/28/2021(Deferred: Patient Refused),08/28/2020(Deferred: Patient Refused),02/13/2020(Deferred: Patient Refused),08/02/2019(Deferred: Patient Refused),08/28/2018(Deferred: Patient Refused),05/28/2018(Deferred: Patient Refused),06/02/2009 Moderna SARS-CoV-2 Monovalen t Vaccination (12+ YRS) 04/30/2021,03/26/2021 PPD TEST 08/19/2024 Pneumococcal Conjugate PCV 13 01/31/2019 Pneumococcal Polysaccharide PPV23 03/28/2011 Tdap 03/29/2011 Surgical History Surgery Date Site/Laterality Comments KNEE ARTHROSCOPY 1993 Left Arthroscopy knee KNEE ARTHROPLASTY 2000 Right Knee replacement CARPAL TUNNEL RELEASE Bilateral Carpal tunnel release OPEN REDUCTION INTERNAL FIXATION 2013 Right ORIF OTHER SURGICAL HISTORY 2016 Abdominal Pain : Medical Management PERCUTANEOUS NEPHROSTOMY PCN BILATERAL 03/16/2025 Bilateral Medical History Medical History Date Comments Hx Other Medical 2004 Rotator cuff te ar (right); Laterality: right Anemia Anemia Hx Other Medical 2009 ruptured achill es tendon Hypertension Hypertension Osteoarthritis Osteoarthritis Hx Other Medical [facility] - dysuria; Outcome: free of disease Hx Other Medical Abdominal Pain; Outcome: improved Stroke (HCC) Renal disorder Prostate cancer (HCC) Family History Medical History Relation Name Comments Prostate cancer Father Heart disease Mother Prostate cancer Other 1 Family histo ry of Cancer, prostate; Diabetes Other 2 Family history of Diabetes mellitus; Heart disease Other 3 Family history of Heart disease; Hypertension Other 4 Family history of Hypertension; Lung disease Other 5 Family history of lung disease; Hypertension Son 2 Hypertension; Relation Name Status Comments Father (Age 97) Mother Other 1 Other 2 Other 3 Other 4 Other 5 Son 1 Alive Son 2 Social History Tobacco Use Types Packs/Day Years Used Date Smoking Tobacco: Former Cigarettes Q uit: 1988 Smokeless Tobacco: Former Alcohol Use Standard Drinks/Week Comments Not Currently 0 (1 standard drink = 0.6 oz pur e alcohol) [facility] Utilities Answer Date Recorded In the past 12 months has [employer], gas, oil, or water [employer] threatened to shut off services in your home? No 03/17/2025 Social Connection and Isolation Panel Answer Date Recorded In a typical week, how many times do you talk on the phone with family, friends, or neighbors? More than three times a week 03/17/2025 How often do you get togethe r with friends or relatives? More than three times a week 03/17/2025 How often do you attend chur ch or synagogue services? 1 to 4 times per year 03/17/2025 Do you belong to any clubs o r organizations such as zoroastrian groups, unions, fraternal or athletic groups, or school groups? No 03/17/2025 How often do you attend meet ings of the clubs or organizations you belong to? Never 03/17/2025 Are you , , di vorced, , never , or living with a partner? 03/17/2025 Overall Financial Resource Strain (CARDIA) Answe r Date Recorded How hard is it for you to pa y for the very basics like food, housing, medical care, and heating? Not hard at all 03/17/2025 PHQ-2 Answer Date Recorded PHQ-2 Total Score (If total score is 3 or more points, staff should administer the PHQ-9) 0 01/16/2025 Hunger Vital Sign Answer Date Recorded Within the past 12 months, y ou worried that your food would run out before you got the money to buy more. Never true 03/17/20 25 Within the past 12 months, t he food you bought just didn't last and you didn't have money to get more. Never true 03/17/2025 PRAPARE - Transportation Answer Date Re corded In the past 12 months, has l ack of transportation kept you from medical appointments or from getting medications? No 02/26 In the past 12 months, has l ack of transportation kept you from meetings, work, or from getting things needed for daily living? No 03/17/2025 Housing Stability Vital Sign Answer Jones e Recorded In the last 12 months, was t here a time when you were not able to pay the mortgage or rent on time? No 03/17/2025 In the past 12 months, how m any times have you moved where you were living? 0 03/17/2025 At any time in the past 12 m [facility], were you homeless or living in a senior living (including now)? No 03/17/2025 Personal Safety Answer Date Recorded Have you ever been in or are you currently in a harmful physical or emotional relationship or is someone making you feel afraid or unsafe? Denies 03/15/2025 Sex and Gender Information Value Date Recorded Sex Assigned at Not on file Legal Sex Male 11:49 PM REAL ESTATE DIRECTOR Gender Identity Not on file Sexual Orientation Not on file Obstetrics History Last Filed Vital Signs Vital Sign Reading Time Taken Comments Blood Pressure 94/51 03/28/2025 1:06 PM CDT Pulse 70 03/28/2025 1:06 PM CDT Temperature 36.4 C (97.6 F) 03/28/2025 1:06 PM CDT Respiratory Rate 16 03/28/2025 1:06 PM CDT Oxygen Saturation 97% 03/28/2025 1:06 PM CDT Inhaled Oxygen Concentration - - Weight 89.9 kg (198 lb 3.1 oz) 03/15/2025 3:00 P M CDT Height 177.8 cm (5' 10) 03/15/2025 3:00 PM CDT Body Mass Index 28.44 03/15/2025 3:00 PM CDT Plan of Treatment Health Maintenance Due Date Last Done Comments Hepatitis B Screening 1962 Zoster Vaccine (1 of 2) 1994 DTaP/Tdap/Td Vaccine (2 - Td or Tdap) 03/29/2021 03/29/2011 Covid-19 Vaccine (3 - 2023-2 5 season) 2024 04/30/2021, 03/26/2021 Well Visit 65+ 08/25/2024 08/25/2023, 08/13/2021 Depression Screening 01/16/2026 01/16/2025, 08/25/2023, 06/10/2022, Additional history exists Fall Risk Assessment 03/28/2026 03/28/2025, 01/16/2025, 08/25/2023, Additional history exists Influenza Vaccine Discontinued 07/22/2014, , 06/24/2013, Additional history exists Pneumococcal vaccine 65+ Completed 01/31/2019, 0808/2010 Abdominal Aortic Aneurysm (A AA) Screen Completed 03/10/2025, 08/10/2024, 07/31/2024, Additional history exists Medical Devices Implanted Type Area Dope Sprayer Device Identifier Shelf Expiration Date Model / Serial / Lot [employer] Vascade Mvp 6-12fr Venous Closure [id number] - [id number] - [id number] Implanted:Qty: 1 on 08/06/2024 by Shon Alanis III, MD at [facility] Collagen [employer] 04/03/2026 [id number] / [id number] / [id number] 15A [employer] Pacemaker Intracardiac 19.5fr 30.0mm Rv Aveir Strl Leadless [id number] - [id number] - [id number] Implanted:Qty: 1 on 08/06/2024 by Shon Alanis III, MD at [facility] Pacemaker [employer] [id number] 04/22/2025 [id number] / [id number] / [employer] System Closure Repair Femoral Artery Suture Mediated Perclose Prostyle 76239-61 - [id number] - [id number] Implanted:Qty: 1 on 08/06/2024 by Shon Alanis III, MD at [facility] [employer] 01/25/2026 [id number] -[id number] / [id number] / [id number] [employer] Closure Repair Femoral Artery Suture Mediated Perclose Prostyle 00060-39 - [id number] - [id number] Implanted:Qty: 1 on 08/06/2024 by Shon Alanis III, MD at [facility] [employer] 05/27/2026 [id number] -[id number] / [id number] / [id number] [employer] Pacemaker Intracardiac 19.5fr 32.2mm Ra Aveir Strl Leadless [id number] - [id number] - [id number] Implanted:Qty: 1 on 08/06/2024 by Shon Alanis III, MD at [facility] [employer] 06/13/2025 [id number] / [id number] / [employer] Amplatz 8.5fr 26cm 6 Sideport Introducer Catheter String [id number] - [id number] Implanted:Qty: 1 on 08/08/2024 at [facility] [employer] 04/15/2027 [id number] / [id number] Procedures Procedure Name Priority Date/Time Associated Diagnosis Comments PROTIME-INR Routine 03/28/2025 5:26 AM CDT PROTIME-INR Routine 03/27/2025 5:44 AM CDT CORTISOL 60 MIN Timed 03/26/2025 4:48 PM CDT COSYNTROPIN STIMULATION TEST Timed 03/26/2025 4:48 PM CDT CORTISOL 30 MIN Timed 03/26/2025 3:22 PM CDT CORTISOL BASELINE Timed 03/26/2025 2:0 7 PM CDT CORTISOL Routine 03/26/2025 3:46 AM CDT PROTIME-INR Routine 03/26/2025 3:46 AM CDT POCT GLUCOSE DEVICE Routine 03/25/2025 4 :56 PM CDT ADD ON LAB TEST Add-On 03/25/2025 10:41 AM CDT ADD ON LAB TEST Add-On 03/25/2025 8:34 AM CDT ADD ON LAB TEST Add-On 03/25/2025 8:34 AM CDT THYROID FUNCTION CASCADE Routine 03/25/2025 4:12 AM CDT FOLATE Routine 03/25/2025 4:12 AM CDT VITAMIN B12 Routine 03/25/2025 4:12 AM CDT EGFR Routine 03/25/2025 4:12 AM CDT DIFFERENTIAL AUTO Routine 03/25/2025 4:1 2 AM CDT MAGNESIUM Routine 03/25/2025 4:12 AM CDT COMPREHENSIVE METABOLIC PANEL Routine 03/25/2025 4:12 AM CDT CBC WITH AUTO DIFFERENTIAL Routine 03/25/2025 4:12 AM CDT SEPSIS LACTATE WITH REFLEX Routine 03/25/2025 4:12 AM CDT PROTIME-INR Routine 03/25/2025 4:12 AM CDT EGFR Timed 03/24/2025 12:37 PM CDT BASIC METABOLIC PANEL Timed 03/24/2025 12:37 PM CDT DIFFERENTIAL AUTO Timed 03/24/2025 12: 35 PM CDT CBC WITH AUTO DIFFERENTIAL Timed 03/24/2025 12:35 PM CDT PROTIME-INR Routine 03/24/2025 5:18 AM CDT PROTIME-INR Routine 03/23/2025 4:12 AM CDT EGFR Timed 03/22/2025 10:14 AM CDT DIFFERENTIAL AUTO Timed 03/22/2025 10: 14 AM CDT BASIC METABOLIC PANEL Timed 03/22/2025 10:14 AM CDT CBC WITH AUTO DIFFERENTIAL Timed 03/22/2025 10:14 AM CDT EGFR Routine 03/22/2025 6:11 AM CDT DIFFERENTIAL AUTO Routine 03/22/2025 6:1 1 AM CDT PROTIME-INR Routine 03/22/2025 6:11 AM CDT CBC WITH AUTO DIFFERENTIAL Routine 03/22/2025 6:11 AM CDT BASIC METABOLIC PANEL Routine 03/22/2025 6:11 AM CDT EGFR Routine 03/21/2025 5:20 AM CDT DIFFERENTIAL AUTO Routine 03/21/2025 5:2 0 AM CDT PROTIME-INR Routine 03/21/2025 5:20 AM CDT CBC WITH AUTO DIFFERENTIAL Routine 03/21/2025 5:20 AM CDT BASIC METABOLIC PANEL Routine 03/21/2025 5:20 AM CDT EGFR Routine 03/20/2025 5:45 AM CDT DIFFERENTIAL AUTO Routine 03/20/2025 5:4 5 AM CDT PROTIME-INR Routine 03/20/2025 5:45 AM CDT CBC WITH AUTO DIFFERENTIAL Routine 03/20/2025 5:45 AM CDT BASIC METABOLIC PANEL Routine 03/20/2025 5:45 AM CDT EGFR Routine 03/19/2025 5:21 AM CDT DIFFERENTIAL AUTO Routine 03/19/2025 5:2 1 AM CDT PROTIME-INR Routine 03/19/2025 5:21 AM CDT CBC WITH AUTO DIFFERENTIAL Routine 03/19/2025 5:21 AM CDT BASIC METABOLIC PANEL Routine 03/19/2025 5:21 AM CDT PROTIME-INR Routine 03/18/2025 11:24 AM CDT EGFR Routine 03/18/2025 6:32 AM CDT DIFFERENTIAL AUTO Routine 03/18/2025 6: 32 AM CDT CBC WITH AUTO DIFFERENTIAL Routine 03/18/2025 6:32 AM CDT BASIC METABOLIC PANEL Routine 03/18/2025 6:32 AM CDT BLOOD CULTURE Routine 03/17/2025 8:57 AM CDT BLOOD CULTURE Routine 03/17/2025 8:39 AM CDT EGFR Routine 03/17/2025 5:09 AM CDT DIFFERENTIAL AUTO Routine 03/17/2025 5:0 9 AM CDT PROTIME-INR Routine 03/17/2025 5:09 AM CDT HEPATIC FUNCTION PANEL Routine 03/17/2025 5:09 AM CDT CBC WITH AUTO DIFFERENTIAL Routine 03/17/2025 5:09 AM CDT BASIC METABOLIC PANEL Routine 03/17/2025 5:09 AM CDT PERCUTANEOUS NEPHROSTOMY PCN BILATERAL IP Routine 03/16/2025 11:47 AM CDT EGFR Routine 03/16/2025 5:58 AM CDT DIFFERENTIAL AUTO Routine 03/16/2025 5:5 8 AM CDT PSA SCREEN Routine 03/16/2025 5:58 AM CDT PROTIME-INR Routine 03/16/2025 5:58 AM CDT PHOSPHORUS Routine 03/16/2025 5:58 AM CDT COMPREHENSIVE METABOLIC PANEL Routine 03/16/2025 5:58 AM CDT CBC WITH AUTO DIFFERENTIAL Routine 03/16/2025 5:58 AM CDT MAGNESIUM Routine 03/16/2025 5:[address] BODY OUTSIDE REFERENCE Routine 03/15/2025 8:17 PM CDT ECG 12-LEAD Routine 03/15/2025 6:14 PM CDT SCAN - LABS 03/14/2025 URINALYSIS, MICROSCOPIC ONLY Routine 01/16/2025 4:34 PM CDT Acute cystitis with hematuria URINE CULTURE Routine 01/16/2025 4:34 PM CDT URINALYSIS AND REFLEX TO MICROSCOPIC AND CULTURE Routine 01/16/2025 4:34 PM CDT Acute cystitis with hematuria EGFR Routine 01/16/2025 10:59 AM CDT Chronic a-fib (HCC) Acute cystitis with hematuria DIFFERENTIAL AUTO Routine 01/16/2025 10: 59 AM CDT Chronic anticoagulation PSA SCREEN Routine 01/16/2025 10:59 AM CDT Malignant neoplasm prostate (HCC) LIPID PANEL Routine 01/16/2025 10:59 AM CDT Screening for lipid disorders COMPREHENSIVE METABOLIC PANEL Routine 01/16/2025 10:59 AM CDT Chronic a-fib (HCC) Acute cystitis with hematuria CBC WITH AUTO DIFFERENTIAL Routine 01/16/2025 10:59 AM CDT Chronic anticoagulation POCT URINALYSIS DIPSTICK Routine 01/16/2025 10:43 AM CDT Acute cystitis with hematuria POCT INR Routine 01/16/2025 10:39 AM CDT Chronic a-fib (HCC) CT ABDOMEN PELVIS WO CONTRAST IP Routine 08/10/2024 10:59 AM REAL ESTATE DIRECTOR from Last 3 Months or Most Recently Relevant to Health Maintenance Results * (ABNORMAL) Protime-INR (03/28/2025 5:26 AM CDT) PT 19.1(H) 9.7 - 13.0 sec INR 1.75(H) 0.90 - 1.20 [facility] Comment: Interpretive data Oral anticoagulant therapeutic ranges: Venous thromboembolism prophylaxis or treatment: 2.0-3.0 CARDIOLOGY Standard range: 2.0-3.0 High-intensity range: 2.5-3.5 Refer to indication-specific guidelines for appropriate target ranges for prosthetic heart valve replacement. Current interpretive data was last revised on 2019. Blood 03/28/2025 5:26 AM CDT 03/28/2025 5:57 AM CDT Chidi Viveros MD LAB BLOOD ORDERABLES Final Resu lt Performing Organization Address [facility] Co de Phone Number [facility] [address] [place] [address] * (ABNORMAL) Protime-INR (03/27/2025 5:44 AM CDT) PT 22.9(H) 9.7 - 13.0 sec INR 2.09(H) 0.90 - 1.20 [facility] Comment: Interpretive data Oral anticoagulant therapeutic ranges: Venous thromboembolism prophylaxis or treatment: 2.0-3.0 CARDIOLOGY Standard range: 2.0-3.0 High-intensity range: 2.5-3.5 Refer to indication-specific guidelines for appropriate target ranges for prosthetic heart valve replacement. Current interpretive data was last revised on 2019. Blood 03/27/2025 5:44 AM CDT 03/27/2025 6:41 AM CDT Chidi Viveros MD LAB BLOOD ORDERABLES Final Resu lt Performing Organization Address [facility] Co de Phone Number [facility] [address] [place] [address] * (ABNORMAL) Cortisol 60 min (03/26/2025 4:48 PM CDT) Cortisol, 60 min 28.8(H) 4.8 - 19.5 mcg/dl Comment: Interpretive Data Reference Values Cortisol cutoff of 14-15 ug/dL for cortrosyn stimulation testing. Lack of normal response can be seen in both primary and secondary adrenal failure. Some patients with secondary adrenal failure have normal response to cortrosyn. If pituitary disease is known or strongly suspected e.g. after pituitary surgery), the cortrosyn test alone should not be relied on to exclude adrenal failure. Literature References: 1. Betsy Huynh Carroll TB, et al. New cutoffs for the biochemical diagnosis of adrenal insufficiency after ACTH stimulation using specific cortisol assays. J Endocr Soc. 2020;5(4):[id number]. 2. Jay CARDENAS and Ramu MUSE. New cutoffs for the biochemical diagnosis of Adrenal insufficiency after ACTH stimulation using specific cortisol assays. J. Endocrine Soc 2020;5:1-2. Current interpret data was last revised 24 Blood 03/26/2025 4:48 PM CDT 03/26/2025 4:48 PM CDT [facility] - 03/26/2025 5:25 PM CDT First draw prior to administration of cosyntropin. Second draw 30 minutes after administration of drug. Third draw 60 minutes after administration of drug. Rome Burns MD LAB BLOOD ORDERABLES [facility] Result [facility] [address] [place] [address] * (ABNORMAL) Cortisol 30 min (03/26/2025 3:22 PM CDT) [facility] Cortisol, 30 min 26.4(H) 4.8 - 19.5 mcg/dl Comment: Interpretive Data Reference Values Cortisol cutoff of 14-15 ug/dL for cortrosyn stimulation testing. Lack of normal response can be seen in both primary and secondary adrenal failure. Some patients with secondary adrenal failure have normal response to cortrosyn. If pituitary disease is known or strongly suspected e.g. after pituitary surgery), the cortrosyn test alone should not be relied on to exclude adrenal failure. Literature References: 1. Betsy Huynh Carroll TB, et al. New cutoffs for the biochemical diagnosis of adrenal insufficiency after ACTH stimulation using specific cortisol assays. J Endocr Soc. 2020;5(4):[id number]. 2. Jay CARDENAS and Ramu MUSE. New cutoffs for the biochemical diagnosis of Adrenal insufficiency after ACTH stimulation using specific cortisol assays. J. Endocrine Soc 2020;5:1-2. Current interpret data was last revised 24 Blood 03/26/2025 3:22 PM CDT 03/26/2025 3:22 PM CDT [facility] - 03/26/2025 3:55 PM CDT First draw prior to administration of cosyntropin. Second draw 30 minutes after administration of drug. Third draw 60 minutes after administration of drug. Rome Burns MD LAB BLOOD ORDERABLES nal Result Performing Organization Address [facility] Co de Phone Number [facility] [address] [place] [address] * Cortisol baseline (03/26/2025 2:07 PM CDT) Cortisol, base 12.4 4.8 - 19.5 mcg/dl Blood 03/26/2025 2:07 PM CDT 03/26/2025 2:07 PM CDT [facility] 03/26/2025 2:43 PM CDT First draw prior to administration of cosyntropin. Second draw 30 minutes after administration of drug. Third draw 60 minutes after administration of drug. Rome Burns MD LAB BLOOD ORDERABLES nal Result Performing Organization Address [facility] Co de Phone Number [facility] [address] [place] [place] [address] * (ABNORMAL) Protime-INR (03/26/2025 3:46 AM CDT) PT 32.4(H) 9.7 - 13.0 sec INR 2.93(H) 0.90 - 1.20 [facility] Comment: Interpretive data Oral anticoagulant therapeutic ranges: Venous thromboembolism prophylaxis or treatment: 2.0-3.0 CARDIOLOGY Standard range: 2.0-3.0 High-intensity range: 2.5-3.5 Refer to indication-specific guidelines for appropriate target ranges for prosthetic heart valve replacement. Current interpretive data was last revised on 2019. Blood 03/26/2025 3:46 AM CDT 03/26/2025 4:30 AM CDT Chidi Viveros MD LAB BLOOD ORDERABLES Final Resu lt Performing Organization Address [facility] Co de Phone Number [facility] [address] [facility] [place] [employer] [place] [address] * Cortisol (03/26/2025 3:46 AM CDT) Cortisol 7.2 4.8 - 19.5 mcg/dl Blood 03/26/2025 3:46 AM CDT 03/26/2025 4:46 AM CDT Result [facility] Rome Burns MD LAB BLOOD ORDERABLES Fi nal Result Performing Organization Address [facility] Co de Phone Number [facility] [address] [place] [address] * POCT glucose (03/25/2025 4:56 PM CDT) Glucose, POC 141 70 - 199 mg/dL Comment: For Glucose values <35 mg/dl when Hematocrit is >60 mg/dl,the test may not accurately detect significant hypoglycemia,and testing in the Laboratory should be considered if clinically indicated. Blood 03/25/2025 4:56 PM CDT 03/25/2025 4:56 PM CDT Result [facility] Rome Burns MD LAB POCT ORDERABLES - D EVICE Final Result Performing Organization Address [facility] Co de Phone Number [facility] [address] Department [employer] [place], [place] [id number] * TSH reflex Free T4 - Add on lab test (03/25/2025 10:41 AM CDT) Acceptable Yes Blood 03/25/2025 10:4 1 AM CDT 03/25/2025 10:41 AM CDT Narrative [facility] - 03/25/2025 10:41 AM CDT Name of Test->TSH reflex Free T4 Rome Burns MD LAB BLOOD ORDERABLES Fi nal Result [facility] [address] [facility] [employer] [place], [place] [id number] * Folate - Add on lab test (03/25/2025 8:34 AM CDT) Acceptable Yes Blood 03/25/2025 8:34 AM CDT 03/25/2025 8:34 AM CDT Narrative [facility] - 03/25/2025 8:35 AM CDT Name of Test->Folate Rome Burns MD LAB BLOOD ORDERABLES Fi nal Result Performing Organization Address City/[facility]/ZIP Co de Phone Number [facility] [address] [place] [address] * Vitamin B12 - Add on lab test (03/25/2025 8:34 AM CDT) Acceptable Yes Blood 03/25/2025 8:34 AM CDT 03/25/2025 8:34 AM CDT Narrative [facility] 03/25/2025 8:35 AM CDT Name of Test->Vitamin B12 Rome Burns MD LAB BLOOD ORDERABLES Fi nal Result [facility] [address] Department [place] [address] * Sepsis Lactate w/ Reflex (03/25/2025 4:12 AM CDT) Sepsis Lactate 0.7 0.7 - 2.0 mmol/L Blood 03/25/2025 4:12 AM CDT 03/25/2025 4:17 AM CDT us Vincent Sifuentes PA LAB BLOOD ORDERABLES Final Result Performing Organization Address [facility] Co de Phone Number [facility] [address] [place] [address] * (ABNORMAL) eGFR (03/25/2025 4:12 AM CDT) eGFR 59(L) >=60 mL/min/1. 73 m2 Comment: Interpretive Data Reference Interval Normal >/= 90 mL/min/1.73m2 Mildly decreased* 60 - 89 mL/min/1.73m2 Mildly to moderately decreased 45 - 59 mL/min/1.73m2 Moderately to severely decreased 30 - 44 mL/min/1.73m2 Severely decreased 15 - 29 mL/min/1.73m2 Kidney Failure < 15 mL/min/1.73m2 *Relative to young adult level Estimated glomerular filtration rate is determined by the 2020 CKD-EPI equation recommended by the National Kidney Foundation (A Unifying Approach to GFR Estimation: Recommendations of the NKF-ASK Task Force on Reassessing the Inclusion of Race in Diagnosing Kidney Disease, JASN 2020). The CKD-EPI equation should not be used for patients with unstable renal function and has not been validated in children and those over 70. Current interpretive data was last reviewed 2021. Blood 03/25/2025 4:12 AM CDT 03/25/2025 5:16 AM CDT us Melo Patel DO LAB BLOOD ORDERABLES Bianka l Result Performing Organization Address City/[facility]/ZIP Co de Phone Number [facility] [address] Department [place] [employer] [place] [address] * (ABNORMAL) Differential, auto (03/25/2025 4:12 AM CDT) Neutrophil abs 3.75 1.50 - 6.50 K/cumm Imm gran abs 0.07 0.00 - 0.10 K/cumm [facility] Lymphocyte abs 0.49(L) 0.80 - 3.30 K/cumm [facility] Monocyte abs 0.48 0.20 - 0.80 K/cumm [facility] Eosinophil abs 0.23 0.00 - 0.50 K/cumm [facility] Basophil abs 0.02 0.00 - 0.10 K/cumm [facility] Neutrophil pct 74.4 % [facility] Comment: Interpretive Data Percent cell count reference ranges are not reported, since discordance with absolute values may lead to misinterpretation of CBC data. Current Interpretive Data was last revised on 2017. Imm gran pct 1.4 % [facility] Comment: Interpretive Data Percent cell count reference ranges are not reported, since discordance with absolute values may lead to misinterpretation of CBC data. Current Interpretive Data was last revised on 2017. Lymphocyte pct 9.7 % [facility] Comment: Interpretive Data Percent cell count reference ranges are not reported, since discordance with absolute values may lead to misinterpretation of CBC data. Current Interpretive Data was last revised on 2017. Monocyte pct 9.5 % [facility] Comment: Interpretive Data Percent cell count reference ranges are not reported, since discordance with absolute values may lead to misinterpretation of CBC data. Current Interpretive Data was last revised on 2017. Eosinophil pct 4.6 % [facility] Comment: Interpretive Data Percent cell count reference ranges are not reported, since discordance with absolute values may lead to misinterpretation of CBC data. Current Interpretive Data was last revised on 2017. Basophil pct 0.4 % [facility] Comment: Interpretive Data Percent cell count reference ranges are not reported, since discordance with absolute values may lead to misinterpretation of CBC data. Current Interpretive Data was last revised on 2017. Blood 03/25/2025 4:12 AM CDT 03/25/2025 5:17 AM CDT us Bazgha Luciano Ahmad DO LAB BLOOD ORDERABLES Bianka l Result [facility] [address] Department [place] [address] * Thyroid Function [place] (03/25/2025 4:12 AM CDT) [facility] TSH 1.67 0.30 - 4.20 mcIUnit/mL Blood 03/25/2025 4:12 AM CDT 03/25/2025 5:16 AM CDT Rome Burns MD LAB BLOOD ORDERABLES Fi nal Result Performing Organization Address [facility] Co de Phone Number [facility] [address] Department [place] [employer] [place] [address] * (ABNORMAL) CBC with auto differential (03/25/2025 4:12 AM CDT) [facility] WBC 5.04 3.80 - 9.90 K/cumm Hgb 8.3(L) 13.0 - 17.5 g/dL [facility] Hct 26.9(L) 38.9 - 50.3 % [facility] Plt 207 150 - 400 K/cumm [facility] MPV 9.4 9.1 - 12.3 fL [facility] RBC 2.75(L) 4.30 - 5.80 M/cumm [facility] MCV 97.8(H) 81.3 - 96.4 fL [facility] MCH 30.2 27.1 - 33.3 pg [facility] MCHC 30.9(L) 32.3 - 35.7 g/dL [facility] RDW CV 15.8(H) 11.1 - 14.9 % [facility] RDW SD 56.0(H) 35.7 - 48.1 fL [facility] NRBC abs 0.00 0.00 - 0.01 K/cumm [facility] Blood 03/25/2025 4:12 AM CDT 03/25/2025 5:17 AM CDT Melo Luciano Ahmad DO LAB BLOOD ORDERABLES Bianka l Result Performing Organization Address City/[facility]/ZIP Co de Phone Number [facility] [address] Department [place] [employer] [place] [address] * (ABNORMAL) Protime-INR (03/25/2025 4:12 AM CDT) PT 28.9(H) 9.7 - 13.0 sec INR 2.62(H) 0.90 - 1.20 [facility] Comment: Interpretive data Oral anticoagulant therapeutic ranges: Venous thromboembolism prophylaxis or treatment: 2.0-3.0 CARDIOLOGY Standard range: 2.0-3.0 High-intensity range: 2.5-3.5 Refer to indication-specific guidelines for appropriate target ranges for prosthetic heart valve replacement. Current interpretive data was last revised on 2019. Blood 03/25/2025 4:12 AM CDT 03/25/2025 5:17 AM CDT Chidi Viveros MD LAB BLOOD ORDERABLES Final Resu lt Performing Organization Address [facility] Co de Phone Number [facility] [address] [place] [address] * Magnesium (03/25/2025 4:12 AM CDT) Magnesium 1.6 1.4 - 2.5 mg/dL Blood 03/25/2025 4:12 AM CDT 03/25/2025 5:16 AM CDT Melo Delatorreiaz Ahmad DO LAB BLOOD ORDERABLES Bianka l Result Performing Organization Address City/[facility]/ZIP Co de Phone Number [facility] [address] Department [place] [address] * Folate (03/25/2025 4:12 AM CDT) Folic acid 15.8 >=5.0 ng/mL Blood 03/25/2025 4:12 AM CDT 03/25/2025 5:16 AM CDT Rome Burns MD LAB BLOOD ORDERABLES Fi nal Result Performing Organization Address City/[facility]/ZIP Co de Phone Number [facility] [address] [facility] [employer] [address] * (ABNORMAL) Vitamin B12 (03/25/2025 4:12 AM CDT) [facility] Vitamin B12 185(L) 230 - 1,250 pg/mL Blood 03/25/2025 4:12 AM CDT 03/25/2025 5:16 AM CDT Rome Burns MD LAB BLOOD ORDERABLES Fi nal Result Performing Organization Address City/[facility] Co de Phone Number [facility] [address] [facility] [employer] [place] [address] * (ABNORMAL) Comprehensive metabolic panel (03/25/2025 4:12 AM CDT) [facility] Sodium 140 135 - 145 mmol/L Potassium, pl 4.2 3.3 - 4.9 mmol/L [facility] Chloride 106 97 - 110 mmol/L [facility] CO2 26 22 - 32 mmol/L [facility] Anion gap 8 2 - 15 mmol/L [facility] BUN 32(H) 6 - 25 mg/dL [facility] Creatinine 1.24 0.80 - 1.30 mg/dL [facility] Glucose 95 70 - 199 mg/dL [facility] Comment: Interpretive Data Fasting glucose >/= 126 mg/dl is diagnostic for diabetes. Fasting is defined as no caloric intake for at least 8 hours. Fasting glucose between 100 mg/dl to 125 mg/dl is diagnostic of prediabetes. In a patient with classic symptoms of hyperglycemia or hyperglycemic crisis, a random glucose >/= 200 mg/dl is diagnostic for diabetes. In the absence of unequivocal hyperglycemia, results should be confirmed by repeat testing. The classification and Diagnosis of Diabetes Diabetes Care 202; 46: S19-S40. Current interpretive data was last revised 2022. Calcium 8.1(L) 8.5 - 10.3 mg/dL [facility] Bilirubin, total 0.2 0.1 - 1.2 mg/dL [facility] Protein, pl 5.5(L) 6.5 - 8.5 g/dL [facility] Albumin 2.3(L) 3.5 - 5.0 g/dL [facility] Alk phos 190(H) 40 - 130 Units/L [facility] ALT 34 7 - 55 Units/L [facility] AST 30 10 - 50 Units/L [facility] Blood 03/25/2025 4:12 AM CDT 03/25/2025 5:16 AM CDT Bazgha Luciano Ahmad LAB BLOOD ORDERABLES Bianka l Result [facility] [address] Department [place] [address] * eGFR (03/24/2025 12:37 PM CDT) eGFR 62 >=60 mL/min/1. 73 m2 Comment: Interpretive Data Reference Interval Normal >/= 90 mL/min/1.73m2 Mildly decreased* 60 - 89 mL/min/1.73m2 Mildly to moderately decreased 45 - 59 mL/min/1.73m2 Moderately to severely decreased 30 - 44 mL/min/1.73m2 Severely decreased 15 - 29 mL/min/1.73m2 Kidney Failure < 15 mL/min/1.73m2 *Relative to young adult level Estimated glomerular filtration rate is determined by the 2020 CKD-EPI equation recommended by the National Kidney Foundation (A Unifying Approach to GFR Estimation: Recommendations of the NKF-ASK Task Force on Reassessing the Inclusion of Race in Diagnosing Kidney Disease, JASN 2020). The CKD-EPI equation should not be used for patients with unstable renal function and has not been validated in children and those over 70. Current interpretive data was last reviewed 2021. Blood 03/24/2025 12:3 7 PM CDT 03/24/2025 1:12 PM CDT Melo Angelmad DO LAB BLOOD ORDERABLES Bianka l Result Performing Organization Address City/[facility]/ZIP Co de Phone Number [facility] [address] Department [place] [address] * (ABNORMAL) Basic metabolic panel (03/24/2025 12:37 PM CDT) Pathologist [facility] Sodium 138 135 - 145 mmol/L Potassium, pl 4.3 3.3 - 4.9 mmol/L [facility] Chloride 104 97 - 110 mmol/L [facility] CO2 24 22 - 32 mmol/L [facility] Anion gap 10 2 - 15 mmol/L [facility] BUN 31(H) 6 - 25 mg/dL [facility] Creatinine 1.18 0.80 - 1.30 mg/dL [facility] Glucose 135 70 - 199 mg/dL [facility] Comment: Interpretive Data Fasting glucose >/= 126 mg/dl is diagnostic for diabetes. Fasting is defined as no caloric intake for at least 8 hours. Fasting glucose between 100 mg/dl to 125 mg/dl is diagnostic of prediabetes. In a patient with classic symptoms of hyperglycemia or hyperglycemic crisis, a random glucose >/= 200 mg/dl is diagnostic for diabetes. In the absence of unequivocal hyperglycemia, results should be confirmed by repeat testing. The classification and Diagnosis of Diabetes Diabetes Care 2021; 46: S19-S40. Current interpretive data was last revised 2022. Calcium 8.3(L) 8.5 - 10.3 mg/dL [facility] Blood 03/24/2025 12:3 7 PM CDT 03/24/2025 1:12 PM CDT [facility] Luciano Ahmad DO LAB BLOOD ORDERABLES Bianka l Result Performing Organization Address [facility]/ZIP Co de Phone Number [facility] [address] Department [place] [address] * (ABNORMAL) Differential, auto (03/24/2025 12:35 PM CDT) Neutrophil abs 5.27 1.50 - 6.50 K/cumm Imm gran abs 0.10 0.00 - 0.10 K/cumm [facility] Lymphocyte abs 0.46(L) 0.80 - 3.30 K/cumm [facility] Monocyte abs 0.56 0.20 - 0.80 K/cumm [facility] Eosinophil abs 0.20 0.00 - 0.50 K/cumm [facility] Basophil abs 0.03 0.00 - 0.10 K/cumm [facility] Neutrophil pct 79.6 % [facility] Comment: Interpretive Data Percent cell count reference ranges are not reported, since discordance with absolute values may lead to misinterpretation of CBC data. Current Interpretive Data was last revised on 2017. Imm gran pct 1.5 % [facility] Comment: Interpretive Data Percent cell count reference ranges are not reported, since discordance with absolute values may lead to misinterpretation of CBC data. Current Interpretive Data was last revised on 2017. Lymphocyte pct 6.9 % [facility] Comment: Interpretive Data Percent cell count reference ranges are not reported, since discordance with absolute values may lead to misinterpretation of CBC data. Current Interpretive Data was last revised on 2017. Monocyte pct 8.5 % [facility] Comment: Interpretive Data Percent cell count reference ranges are not reported, since discordance with absolute values may lead to misinterpretation of CBC data. Current Interpretive Data was last revised on 2017. Eosinophil pct 3.0 % [facility] Comment: Interpretive Data Percent cell count reference ranges are not reported, since discordance with absolute values may lead to misinterpretation of CBC data. Current Interpretive Data was last revised on 2017. Basophil pct 0.5 % [facility] Comment: Interpretive Data Percent cell count reference ranges are not reported, since discordance with absolute values may lead to misinterpretation of CBC data. Current Interpretive Data was last revised on 2017. Blood 03/24/2025 12:3 5 PM CDT 03/24/2025 1:12 PM CDT Melo Patel DO LAB BLOOD ORDERABLES Bianka l Result [facility] [address] Department [place] [employer] [address] * (ABNORMAL) CBC with auto differential (03/24/2025 12:35 PM CDT) [facility] WBC 6.62 3.80 - 9.90 K/cumm Hgb 9.0(L) 13.0 - 17.5 g/dL [facility] Hct 29.1(L) 38.9 - 50.3 % [facility] Plt 224 150 - 400 K/cumm [facility] MPV 8.6(L) 9.1 - 12.3 fL [facility] RBC 2.98(L) 4.30 - 5.80 M/cumm [facility] MCV 97.7(H) 81.3 - 96.4 fL [facility] MCH 30.2 27.1 - 33.3 pg [facility] MCHC 30.9(L) 32.3 - 35.7 g/dL [facility] RDW CV 15.6(H) 11.1 - 14.9 % [facility] RDW SD 55.7(H) 35.7 - 48.1 fL [facility] NRBC abs 0.00 0.00 - 0.01 K/cumm [facility] Blood 03/24/2025 12:3 5 PM CDT 03/24/2025 1:12 PM CDT Melo Patel DO LAB BLOOD ORDERABLES Bianka l Result [facility] [address] Department of Laboratories [place], [place] [id number] * (ABNORMAL) Protime-INR (03/24/2025 5:18 AM CDT) PT 25.4(H) 9.7 - 13.0 sec INR 2.31(H) 0.90 - 1.20 [facility] Comment: Interpretive data Oral anticoagulant therapeutic ranges: Venous thromboembolism prophylaxis or treatment: 2.0-3.0 CARDIOLOGY Standard range: 2.0-3.0 High-intensity range: 2.5-3.5 Refer to indication-specific guidelines for appropriate target ranges for prosthetic heart valve replacement. Current interpretive data was last revised on 2019. Blood 03/24/2025 5:18 AM CDT 03/24/2025 5:48 AM CDT Chidi Viveros MD LAB BLOOD ORDERABLES Final Resu lt Performing Organization Address [facility] de Phone Number [facility] [address] [employer] [place], [place] [id number] * (ABNORMAL) Protime-INR (03/23/2025 4:12 AM CDT) Pathologist [facility] PT 24.6(H) 9.7 - 13.0 sec INR 2.24(H) 0.90 - 1.20 [facility] Comment: Interpretive data Oral anticoagulant therapeutic ranges: Venous thromboembolism prophylaxis or treatment: 2.0-3.0 CARDIOLOGY Standard range: 2.0-3.0 High-intensity range: 2.5-3.5 Refer to indication-specific guidelines for appropriate target ranges for prosthetic heart valve replacement. Current interpretive data was last revised on 2019. Blood 03/23/2025 4:12 AM CDT 03/23/2025 4:22 AM CDT Chidi Viveros MD LAB BLOOD ORDERABLES Final Resu lt Performing Organization Address [facility] Co de Phone Number [facility] [address] [place] [address] * eGFR (03/22/2025 10:14 AM CDT) eGFR 71 >=60 mL/min/1. 73 m2 Comment: Interpretive Data Reference Interval Normal >/= 90 mL/min/1.73m2 Mildly decreased* 60 - 89 mL/min/1.73m2 Mildly to moderately decreased 45 - 59 mL/min/1.73m2 Moderately to severely decreased 30 - 44 mL/min/1.73m2 Severely decreased 15 - 29 mL/min/1.73m2 Kidney Failure < 15 mL/min/1.73m2 *Relative to young adult level Estimated glomerular filtration rate is determined by the 2020 CKD-EPI equation recommended by the National Kidney Foundation (A Unifying Approach to GFR Estimation: Recommendations of the NKF-ASK Task Force on Reassessing the Inclusion of Race in Diagnosing Kidney Disease, JASN 2020). The CKD-EPI equation should not be used for patients with unstable renal function and has not been validated in children and those over 70. Current interpretive data was last reviewed 2021. Blood 03/22/2025 10:1 4 AM CDT 03/22/2025 10:14 AM CDT us Bazgha Luciano Ahmad DO LAB BLOOD ORDERABLES Bianka l Result [facility] [address] Department [place] [address] * (ABNORMAL) Differential, auto (03/22/2025 10:14 AM CDT) Pathologist [facility] Neutrophil abs 3.62 1.50 - 6.50 K/cumm Imm gran abs 0.04 0.00 - 0.10 K/cumm [facility] Lymphocyte abs 0.39(L) 0.80 - 3.30 K/cumm [facility] Monocyte abs 0.42 0.20 - 0.80 K/cumm [facility] Eosinophil abs 0.19 0.00 - 0.50 K/cumm [facility] Basophil abs 0.03 0.00 - 0.10 K/cumm [facility] Neutrophil pct 77.1 % [facility] Comment: Interpretive Data Percent cell count reference ranges are not reported, since discordance with absolute values may lead to misinterpretation of CBC data. Current Interpretive Data was last revised on 2017. Imm gran pct 0.9 % [facility] Comment: Interpretive Data Percent cell count reference ranges are not reported, since discordance with absolute values may lead to misinterpretation of CBC data. Current Interpretive Data was last revised on 2017. Lymphocyte pct 8.3 % [facility] Comment: Interpretive Data Percent cell count reference ranges are not reported, since discordance with absolute values may lead to misinterpretation of CBC data. Current Interpretive Data was last revised on 2017. Monocyte pct 9.0 % [facility] Comment: Interpretive Data Percent cell count reference ranges are not reported, since discordance with absolute values may lead to misinterpretation of CBC data. Current Interpretive Data was last revised on 2017. Eosinophil pct 4.1 % [facility] Comment: Interpretive Data Percent cell count reference ranges are not reported, since discordance with absolute values may lead to misinterpretation of CBC data. Current Interpretive Data was last revised on 2017. Basophil pct 0.6 % [facility] Comment: Interpretive Data Percent cell count reference ranges are not reported, since discordance with absolute values may lead to misinterpretation of CBC data. Current Interpretive Data was last revised on 2017. Blood 03/22/2025 10:1 4 AM CDT 03/22/2025 10:14 AM CDT Bazgha Luciano Ahmad DO LAB BLOOD ORDERABLES Bianka l Result [facility] [address] Department [place] [address] * (ABNORMAL) CBC with auto differential (03/22/2025 10:14 AM CDT) WBC 4.69 3.80 - 9.90 K/cumm Hgb 8.6(L) 13.0 - 17.5 g/dL [facility] Hct 27.3(L) 38.9 - 50.3 % [facility] Plt 200 150 - 400 K/cumm [facility] MPV 9.3 9.1 - 12.3 fL [facility] RBC 2.88(L) 4.30 - 5.80 M/cumm [facility] MCV 94.8 81.3 - 96.4 fL [facility] MCH 29.9 27.1 - 33.3 pg [facility] MCHC 31.5(L) 32.3 - 35.7 g/dL [facility] RDW CV 15.5(H) 11.1 - 14.9 % [facility] RDW SD 53.5(H) 35.7 - 48.1 fL [facility] NRBC abs 0.00 0.00 - 0.01 K/cumm [facility] Blood 03/22/2025 10:1 4 AM CDT 03/22/2025 10:14 AM CDT us Abdoulzvaleria Luciano Ahmad DO LAB BLOOD ORDERABLES Bianka l Result [facility] [address] Department [place] [address] * (ABNORMAL) Basic metabolic panel (03/22/2025 10:14 AM CDT) Sodium 139 135 - 145 mmol/L Potassium, pl 3.9 3.3 - 4.9 mmol/L [facility] Chloride 107 97 - 110 mmol/L [facility] CO2 23 22 - 32 mmol/L [facility] Anion gap 9 2 - 15 mmol/L [facility] BUN 21 6 - 25 mg/dL [facility] Creatinine 1.06 0.80 - 1.30 mg/dL [facility] Glucose 112 70 - 199 mg/dL [facility] Comment: Interpretive Data Fasting glucose >/= 126 mg/dl is diagnostic for diabetes. Fasting is defined as no caloric intake for at least 8 hours. Fasting glucose between 100 mg/dl to 125 mg/dl is diagnostic of prediabetes. In a patient with classic symptoms of hyperglycemia or hyperglycemic crisis, a random glucose >/= 200 mg/dl is diagnostic for diabetes. In the absence of unequivocal hyperglycemia, results should be confirmed by repeat testing. The classification and Diagnosis of Diabetes Diabetes Care 2021; 46: S19-S40. Current interpretive data was last revised 2022. Calcium 7.8(L) 8.5 - 10.3 mg/dL [facility] Blood 03/22/2025 10:1 4 AM CDT 03/22/2025 10:14 AM CDT Melo Luciano Stanleyshreyas DO LAB BLOOD ORDERABLES Bianka l Result Performing Organization Address City/[facility]/ZIP Co de Phone Number [facility] [address] [place] [address] * eGFR (03/22/2025 6:11 AM CDT) eGFR 73 >=60 mL/min/1. 73 m2 Comment: Interpretive Data Reference Interval Normal >/= 90 mL/min/1.73m2 Mildly decreased* 60 - 89 mL/min/1.73m2 Mildly to moderately decreased 45 - 59 mL/min/1.73m2 Moderately to severely decreased 30 - 44 mL/min/1.73m2 Severely decreased 15 - 29 mL/min/1.73m2 Kidney Failure < 15 mL/min/1.73m2 *Relative to young adult level Estimated glomerular filtration rate is determined by the 2020 CKD-EPI equation recommended by the National Kidney Foundation (A Unifying Approach to GFR Estimation: Recommendations of the NKF-ASK Task Force on Reassessing the Inclusion of Race in Diagnosing Kidney Disease, JASN 2020). The CKD-EPI equation should not be used for patients with unstable renal function and has not been validated in children and those over 70. Current interpretive data was last reviewed 2021. Blood 03/22/2025 6:11 AM CDT 03/22/2025 7:18 AM CDT us Chidi Viveros MD LAB BLOOD ORDERABLES Final Resu lt Performing Organization Address [facility]/ZIP Co de Phone Number [facility] [address] Department [employer] [place] [address] * (ABNORMAL) Differential, auto (03/22/2025 6:11 AM CDT) Pathologist [facility] Neutrophil abs 3.53 1.50 - 6.50 K/cumm Imm gran abs 0.04 0.00 - 0.10 K/cumm [facility] Lymphocyte abs 0.49(L) 0.80 - 3.30 K/cumm [facility] Monocyte abs 0.49 0.20 - 0.80 K/cumm [facility] Eosinophil abs 0.28 0.00 - 0.50 K/cumm [facility] Basophil abs 0.03 0.00 - 0.10 K/cumm [facility] Neutrophil pct 72.6 % [facility] Comment: Interpretive Data Percent cell count reference ranges are not reported, since discordance with absolute values may lead to misinterpretation of CBC data. Current Interpretive Data was last revised on 2017. Imm gran pct 0.8 % [facility] Comment: Interpretive Data Percent cell count reference ranges are not reported, since discordance with absolute values may lead to misinterpretation of CBC data. Current Interpretive Data was last revised on 2017. Lymphocyte pct 10.1 % [facility] Comment: Interpretive Data Percent cell count reference ranges are not reported, since discordance with absolute values may lead to misinterpretation of CBC data. Current Interpretive Data was last revised on 2017. Monocyte pct 10.1 % [facility] Comment: Interpretive Data Percent cell count reference ranges are not reported, since discordance with absolute values may lead to misinterpretation of CBC data. Current Interpretive Data was last revised on 2017. Eosinophil pct 5.8 % [facility] Comment: Interpretive Data Percent cell count reference ranges are not reported, since discordance with absolute values may lead to misinterpretation of CBC data. Current Interpretive Data was last revised on 2017. Basophil pct 0.6 % [facility] Comment: Interpretive Data Percent cell count reference ranges are not reported, since discordance with absolute values may lead to misinterpretation of CBC data. Current Interpretive Data was last revised on 2017. Blood 03/22/2025 6:11 AM CDT 03/22/2025 7:19 AM CDT us Chidi Viveros MD LAB BLOOD ORDERABLES Final Resu lt Performing Organization Address City/[facility]/ZIP Co de Phone Number [facility] [address] [place] [address] * (ABNORMAL) CBC with auto differential (03/22/2025 6:11 AM CDT) WBC 4.86 3.80 - 9.90 K/cumm Hgb 8.1(L) 13.0 - 17.5 g/dL [facility] Hct 25.3(L) 38.9 - 50.3 % [facility] Plt 210 150 - 400 K/cumm [facility] MPV 9.1 9.1 - 12.3 fL [facility] RBC 2.63(L) 4.30 - 5.80 M/cumm [facility] MCV 96.2 81.3 - 96.4 fL [facility] MCH 30.8 27.1 - 33.3 pg [facility] MCHC 32.0(L) 32.3 - 35.7 g/dL [facility] RDW CV 15.6(H) 11.1 - 14.9 % [facility] RDW SD 54.7(H) 35.7 - 48.1 fL [facility] NRBC abs 0.00 0.00 - 0.01 K/cumm [facility] Blood 03/22/2025 6:11 AM CDT 03/22/2025 7:19 AM CDT us Chidi Viveros MD LAB BLOOD ORDERABLES Final Resu lt [facility] [address] [facility] [employer] [place], [place] [id number] * (ABNORMAL) Protime-INR (03/22/2025 6:11 AM CDT) PT 20.2(H) 9.7 - 13.0 sec INR 1.85(H) 0.90 - 1.20 [facility] Comment: Interpretive data Oral anticoagulant therapeutic ranges: Venous thromboembolism prophylaxis or treatment: 2.0-3.0 CARDIOLOGY Standard range: 2.0-3.0 High-intensity range: 2.5-3.5 Refer to indication-specific guidelines for appropriate target ranges for prosthetic heart valve replacement. Current interpretive data was last revised on 2019. Blood 03/22/2025 6:11 AM CDT 03/22/2025 7:19 AM CDT us Chidi Viveros MD LAB BLOOD ORDERABLES Final Resu lt [facility] [address] Department [place] [address] * (ABNORMAL) Basic metabolic panel (03/22/2025 6:11 AM CDT) Sodium 140 135 - 145 mmol/L Potassium, pl 3.9 3.3 - 4.9 mmol/L [facility] Chloride 108 97 - 110 mmol/L [facility] CO2 24 22 - 32 mmol/L [facility] Anion gap 8 2 - 15 mmol/L [facility] BUN 21 6 - 25 mg/dL [facility] Creatinine 1.04 0.80 - 1.30 mg/dL [facility] Glucose 88 70 - 199 mg/dL [facility] Comment: Interpretive Data Fasting glucose >/= 126 mg/dl is diagnostic for diabetes. Fasting is defined as no caloric intake for at least 8 hours. Fasting glucose between 100 mg/dl to 125 mg/dl is diagnostic of prediabetes. In a patient with classic symptoms of hyperglycemia or hyperglycemic crisis, a random glucose >/= 200 mg/dl is diagnostic for diabetes. In the absence of unequivocal hyperglycemia, results should be confirmed by repeat testing. The classification and Diagnosis of Diabetes Diabetes Care 202; 46: S19-S40. Current interpretive data was last revised 2022. Calcium 8.0(L) 8.5 - 10.3 mg/dL [facility] Blood 03/22/2025 6:11 AM CDT 03/22/2025 7:18 AM CDT Chidi Viveros MD LAB BLOOD ORDERABLES Final Resu lt Performing Organization Address [facility] Co de Phone Number [facility] [address] Department [place] [address] * eGFR (03/21/2025 5:20 AM CDT) eGFR 74 >=60 mL/min/1. 73 m2 Comment: Interpretive Data Reference Interval Normal >/= 90 mL/min/1.73m2 Mildly decreased* 60 - 89 mL/min/1.73m2 Mildly to moderately decreased 45 - 59 mL/min/1.73m2 Moderately to severely decreased 30 - 44 mL/min/1.73m2 Severely decreased 15 - 29 mL/min/1.73m2 Kidney Failure < 15 mL/min/1.73m2 *Relative to young adult level Estimated glomerular filtration rate is determined by the 2020 CKD-EPI equation recommended by the National Kidney Foundation (A Unifying Approach to GFR Estimation: Recommendations of the NKF-ASK Task Force on Reassessing the Inclusion of Race in Diagnosing Kidney Disease, JASN 2020). The CKD-EPI equation should not be used for patients with unstable renal function and has not been validated in children and those over 70. Current interpretive data was last reviewed 2021. Blood 03/21/2025 5:20 AM CDT 03/21/2025 5:52 AM CDT Chidi Viveros MD LAB BLOOD ORDERABLES Final Resu lt Performing Organization Address City/[facility]/ZIP Co de Phone Number [facility] [address] Department [place] [address] * (ABNORMAL) Differential, auto (03/21/2025 5:20 AM CDT) Pathologist [facility] Neutrophil abs 4.05 1.50 - 6.50 K/cumm Imm gran abs 0.03 0.00 - 0.10 K/cumm [facility] Lymphocyte abs 0.56(L) 0.80 - 3.30 K/cumm [facility] Monocyte abs 0.56 0.20 - 0.80 K/cumm [facility] Eosinophil abs 0.23 0.00 - 0.50 K/cumm [facility] Basophil abs 0.03 0.00 - 0.10 K/cumm [facility] Neutrophil pct 74.2 % [facility] Comment: Interpretive Data Percent cell count reference ranges are not reported, since discordance with absolute values may lead to misinterpretation of CBC data. Current Interpretive Data was last revised on 2017. Imm gran pct 0.5 % [facility] Comment: Interpretive Data Percent cell count reference ranges are not reported, since discordance with absolute values may lead to misinterpretation of CBC data. Current Interpretive Data was last revised on 2017. Lymphocyte pct 10.3 % [facility] Comment: Interpretive Data Percent cell count reference ranges are not reported, since discordance with absolute values may lead to misinterpretation of CBC data. Current Interpretive Data was last revised on 2017. Monocyte pct 10.3 % [facility] Comment: Interpretive Data Percent cell count reference ranges are not reported, since discordance with absolute values may lead to misinterpretation of CBC data. Current Interpretive Data was last revised on 2017. Eosinophil pct 4.2 % [facility] Comment: Interpretive Data Percent cell count reference ranges are not reported, since discordance with absolute values may lead to misinterpretation of CBC data. Current Interpretive Data was last revised on 2017. Basophil pct 0.5 % [facility] Comment: Interpretive Data Percent cell count reference ranges are not reported, since discordance with absolute values may lead to misinterpretation of CBC data. Current Interpretive Data was last revised on 2017. Blood 03/21/2025 5:20 AM CDT 03/21/2025 5:52 AM CDT us Chidi Viveros MD LAB BLOOD ORDERABLES Final Resu lt [facility] [address] Department [place] [employer] [place] [address] * (ABNORMAL) CBC with auto differential (03/21/2025 5:20 AM CDT) Pathologist [facility] WBC 5.46 3.80 - 9.90 K/cumm Hgb 8.2(L) 13.0 - 17.5 g/dL [facility] Hct 25.5(L) 38.9 - 50.3 % [facility] Plt 190 150 - 400 K/cumm [facility] MPV 9.3 9.1 - 12.3 fL [facility] RBC 2.66(L) 4.30 - 5.80 M/cumm [facility] MCV 95.9 81.3 - 96.4 fL [facility] MCH 30.8 27.1 - 33.3 pg [facility] MCHC 32.2(L) 32.3 - 35.7 g/dL [facility] RDW CV 15.6(H) 11.1 - 14.9 % [facility] RDW SD 54.4(H) 35.7 - 48.1 fL [facility] NRBC abs 0.00 0.00 - 0.01 K/cumm [facility] Blood 03/21/2025 5:20 AM CDT 03/21/2025 5:52 AM CDT us Chidi Viveros MD LAB BLOOD ORDERABLES Final Resu lt [facility] [address] Department [place] [address] * (ABNORMAL) Protime-INR (03/21/2025 5:20 AM CDT) Pathologist [facility] PT 17.0(H) 9.7 - 13.0 sec INR 1.56(H) 0.90 - 1.20 [facility] Comment: Interpretive data Oral anticoagulant therapeutic ranges: Venous thromboembolism prophylaxis or treatment: 2.0-3.0 CARDIOLOGY Standard range: 2.0-3.0 High-intensity range: 2.5-3.5 Refer to indication-specific guidelines for appropriate target ranges for prosthetic heart valve replacement. Current interpretive data was last revised on 2019. Blood 03/21/2025 5:20 AM CDT 03/21/2025 5:52 AM CDT Chidi Viveros MD LAB BLOOD ORDERABLES Final Resu lt Performing Organization Address [facility]/ZIP Co de Phone Number [facility] [address] [place] [address] * (ABNORMAL) Basic metabolic panel (03/21/2025 5:20 AM CDT) Sodium 139 135 - 145 mmol/L Potassium, pl 3.9 3.3 - 4.9 mmol/L [facility] Chloride 108 97 - 110 mmol/L [facility] CO2 23 22 - 32 mmol/L [facility] Anion gap 8 2 - 15 mmol/L [facility] BUN 27(H) 6 - 25 mg/dL [facility] Creatinine 1.02 0.80 - 1.30 mg/dL [facility] Glucose 102 70 - 199 mg/dL [facility] Comment: Interpretive Data Fasting glucose >/= 126 mg/dl is diagnostic for diabetes. Fasting is defined as no caloric intake for at least 8 hours. Fasting glucose between 100 mg/dl to 125 mg/dl is diagnostic of prediabetes. In a patient with classic symptoms of hyperglycemia or hyperglycemic crisis, a random glucose >/= 200 mg/dl is diagnostic for diabetes. In the absence of unequivocal hyperglycemia, results should be confirmed by repeat testing. The classification and Diagnosis of Diabetes Diabetes Care 202; 46: S19-S40. Current interpretive data was last revised 2022. Calcium 7.5(L) 8.5 - 10.3 mg/dL [facility] Blood 03/21/2025 5:20 AM CDT 03/21/2025 5:52 AM CDT Chidi Viveros MD LAB BLOOD ORDERABLES Final Resu lt Performing Organization Address [facility]/ZIP Co de Phone Number [facility] [address] [place] [address] * eGFR (03/20/2025 5:45 AM CDT) eGFR 69 >=60 mL/min/1. 73 m2 Comment: Interpretive Data Reference Interval Normal >/= 90 mL/min/1.73m2 Mildly decreased* 60 - 89 mL/min/1.73m2 Mildly to moderately decreased 45 - 59 mL/min/1.73m2 Moderately to severely decreased 30 - 44 mL/min/1.73m2 Severely decreased 15 - 29 mL/min/1.73m2 Kidney Failure < 15 mL/min/1.73m2 *Relative to young adult level Estimated glomerular filtration rate is determined by the 2020 CKD-EPI equation recommended by the National Kidney Foundation (A Unifying Approach to GFR Estimation: Recommendations of the NKF-ASK Task Force on Reassessing the Inclusion of Race in Diagnosing Kidney Disease, JASN 2020). The CKD-EPI equation should not be used for patients with unstable renal function and has not been validated in children and those over 70. Current interpretive data was last reviewed 2021. Blood 03/20/2025 5:45 AM CDT 03/20/2025 6:21 AM CDT Chidi Viveros MD LAB BLOOD ORDERABLES Final Resu lt [facility] [address] Department [place] [address] * (ABNORMAL) Differential, auto (03/20/2025 5:45 AM CDT) Pathologist [facility] Neutrophil abs 4.60 1.50 - 6.50 K/cumm Imm gran abs 0.04 0.00 - 0.10 K/cumm [facility] Lymphocyte abs 0.45(L) 0.80 - 3.30 K/cumm [facility] Monocyte abs 0.51 0.20 - 0.80 K/cumm [facility] Eosinophil abs 0.18 0.00 - 0.50 K/cumm [facility] Basophil abs 0.02 0.00 - 0.10 K/cumm [facility] Neutrophil pct 79.3 % [facility] Comment: Interpretive Data Percent cell count reference ranges are not reported, since discordance with absolute values may lead to misinterpretation of CBC data. Current Interpretive Data was last revised on 2017. Imm gran pct 0.7 % [facility] Comment: Interpretive Data Percent cell count reference ranges are not reported, since discordance with absolute values may lead to misinterpretation of CBC data. Current Interpretive Data was last revised on 2017. Lymphocyte pct 7.8 % [facility] Comment: Interpretive Data Percent cell count reference ranges are not reported, since discordance with absolute values may lead to misinterpretation of CBC data. Current Interpretive Data was last revised on 2017. Monocyte pct 8.8 % [facility] Comment: Interpretive Data Percent cell count reference ranges are not reported, since discordance with absolute values may lead to misinterpretation of CBC data. Current Interpretive Data was last revised on 2017. Eosinophil pct 3.1 % [facility] Comment: Interpretive Data Percent cell count reference ranges are not reported, since discordance with absolute values may lead to misinterpretation of CBC data. Current Interpretive Data was last revised on 2017. Basophil pct 0.3 % [facility] Comment: Interpretive Data Percent cell count reference ranges are not reported, since discordance with absolute values may lead to misinterpretation of CBC data. Current Interpretive Data was last revised on 2017. Blood 03/20/2025 5:45 AM CDT 03/20/2025 6:21 AM CDT us Chidi Viveros MD LAB BLOOD ORDERABLES Final Resu lt [facility] [address] Department [place] [address] * (ABNORMAL) CBC with auto differential (03/20/2025 5:45 AM CDT) WBC 5.80 3.80 - 9.90 K/cumm Hgb 8.3(L) 13.0 - 17.5 g/dL [facility] Hct 26.0(L) 38.9 - 50.3 % [facility] Plt 181 150 - 400 K/cumm [facility] MPV 9.3 9.1 - 12.3 fL [facility] RBC 2.73(L) 4.30 - 5.80 M/cumm [facility] MCV 95.2 81.3 - 96.4 fL [facility] MCH 30.4 27.1 - 33.3 pg [facility] MCHC 31.9(L) 32.3 - 35.7 g/dL [facility] RDW CV 15.6(H) 11.1 - 14.9 % [facility] RDW SD 53.1(H) 35.7 - 48.1 fL [facility] NRBC abs 0.00 0.00 - 0.01 K/cumm [facility] Blood 03/20/2025 5:45 AM CDT 03/20/2025 6:21 AM CDT Chidi Viveros MD LAB BLOOD ORDERABLES Final Resu lt Performing Organization Address City/[facility] Co de Phone Number [facility] [address] Department [place] [address] * (ABNORMAL) Protime-INR (03/20/2025 5:45 AM CDT) PT 15.1(H) 9.7 - 13.0 sec INR 1.39(H) 0.90 - 1.20 [facility] Comment: Interpretive data Oral anticoagulant therapeutic ranges: Venous thromboembolism prophylaxis or treatment: 2.0-3.0 CARDIOLOGY Standard range: 2.0-3.0 High-intensity range: 2.5-3.5 Refer to indication-specific guidelines for appropriate target ranges for prosthetic heart valve replacement. Current interpretive data was last revised on 2019. Blood 03/20/2025 5:45 AM CDT 03/20/2025 6:21 AM CDT Chidi Viveros MD LAB BLOOD ORDERABLES [facility] [address] Department [place] [employer] [place] [address] * (ABNORMAL) Basic metabolic panel (03/20/2025 5:45 AM CDT) Pathologist [facility] Sodium 140 135 - 145 mmol/L Potassium, pl 3.8 3.3 - 4.9 mmol/L [facility] Chloride 109 97 - 110 mmol/L [facility] CO2 22 22 - 32 mmol/L [facility] Anion gap 9 2 - 15 mmol/L [facility] BUN 27(H) 6 - 25 mg/dL [facility] Creatinine 1.09 0.80 - 1.30 mg/dL [facility] Glucose 103 70 - 199 mg/dL [facility] Comment: Interpretive Data Fasting glucose >/= 126 mg/dl is diagnostic for diabetes. Fasting is defined as no caloric intake for at least 8 hours. Fasting glucose between 100 mg/dl to 125 mg/dl is diagnostic of prediabetes. In a patient with classic symptoms of hyperglycemia or hyperglycemic crisis, a random glucose >/= 200 mg/dl is diagnostic for diabetes. In the absence of unequivocal hyperglycemia, results should be confirmed by repeat testing. The classification and Diagnosis of Diabetes Diabetes Care 202; 46: S19-S40. Current interpretive data was last revised 2022. Calcium 7.4(L) 8.5 - 10.3 mg/dL [facility] Blood 03/20/2025 5:45 AM CDT 03/20/2025 6:21 AM CDT Chidi Viveros MD LAB BLOOD ORDERABLES Final Resu lt [facility] [address] Department [place] [address] * (ABNORMAL) eGFR (03/19/2025 5:21 AM CDT) Pathologist [facility] eGFR 58(L) >=60 mL/min/1. 73 m2 Comment: Interpretive Data Reference Interval Normal >/= 90 mL/min/1.73m2 Mildly decreased* 60 - 89 mL/min/1.73m2 Mildly to moderately decreased 45 - 59 mL/min/1.73m2 Moderately to severely decreased 30 - 44 mL/min/1.73m2 Severely decreased 15 - 29 mL/min/1.73m2 Kidney Failure < 15 mL/min/1.73m2 *Relative to young adult level Estimated glomerular filtration rate is determined by the 2020 CKD-EPI equation recommended by the National Kidney Foundation (A Unifying Approach to GFR Estimation: Recommendations of the NKF-ASK Task Force on Reassessing the Inclusion of Race in Diagnosing Kidney Disease, JASN 2020). The CKD-EPI equation should not be used for patients with unstable renal function and has not been validated in children and those over 70. Current interpretive data was last reviewed 2021. Blood 03/19/2025 5:21 AM CDT 03/19/2025 6:25 AM CDT Chidi Viveros MD LAB BLOOD ORDERABLES Final Resu lt [facility] [address] Department [place] [address] * (ABNORMAL) Differential, auto (03/19/2025 5:21 AM CDT) Neutrophil abs 4.66 1.50 - 6.50 K/cumm Imm gran abs 0.04 0.00 - 0.10 K/cumm [facility] Lymphocyte abs 0.40(L) 0.80 - 3.30 K/cumm [facility] Monocyte abs 0.55 0.20 - 0.80 K/cumm [facility] Eosinophil abs 0.10 0.00 - 0.50 K/cumm [facility] Basophil abs 0.03 0.00 - 0.10 K/cumm [facility] Neutrophil pct 80.7 % [facility] Comment: Interpretive Data Percent cell count reference ranges are not reported, since discordance with absolute values may lead to misinterpretation of CBC data. Current Interpretive Data was last revised on 2017. Imm gran pct 0.7 % [facility] Comment: Interpretive Data Percent cell count reference ranges are not reported, since discordance with absolute values may lead to misinterpretation of CBC data. Current Interpretive Data was last revised on 2017. Lymphocyte pct 6.9 % [facility] Comment: Interpretive Data Percent cell count reference ranges are not reported, since discordance with absolute values may lead to misinterpretation of CBC data. Current Interpretive Data was last revised on 2017. Monocyte pct 9.5 % [facility] Comment: Interpretive Data Percent cell count reference ranges are not reported, since discordance with absolute values may lead to misinterpretation of CBC data. Current Interpretive Data was last revised on 2017. Eosinophil pct 1.7 % [facility] Comment: Interpretive Data Percent cell count reference ranges are not reported, since discordance with absolute values may lead to misinterpretation of CBC data. Current Interpretive Data was last revised on 2017. Basophil pct 0.5 % [facility] Comment: Interpretive Data Percent cell count reference ranges are not reported, since discordance with absolute values may lead to misinterpretation of CBC data. Current Interpretive Data was last revised on 2017. Blood 03/19/2025 5:21 AM CDT 03/19/2025 6:25 AM CDT us Chidi Viveros MD LAB BLOOD ORDERABLES Final Resu lt [facility] [address] Department [place] [address] * (ABNORMAL) CBC with auto differential (03/19/2025 5:21 AM CDT) WBC 5.78 3.80 - 9.90 K/cumm Hgb 7.8(L) 13.0 - 17.5 g/dL [facility] Hct 24.4(L) 38.9 - 50.3 % [facility] Plt 167 150 - 400 K/cumm [facility] MPV 9.5 9.1 - 12.3 fL [facility] RBC 2.54(L) 4.30 - 5.80 M/cumm [facility] MCV 96.1 81.3 - 96.4 fL [facility] MCH 30.7 27.1 - 33.3 pg [facility] MCHC 32.0(L) 32.3 - 35.7 g/dL [facility] RDW CV 15.5(H) 11.1 - 14.9 % [facility] RDW SD 54.4(H) 35.7 - 48.1 fL [facility] NRBC abs 0.00 0.00 - 0.01 K/cumm [facility] Blood 03/19/2025 5:21 AM CDT 03/19/2025 6:25 AM CDT Chidi Viveros MD LAB BLOOD ORDERABLES Final Resu lt Performing Organization Address [facility] de Phone Number [facility] [address] [place] [address] * (ABNORMAL) Protime-INR (03/19/2025 5:21 AM CDT) PT 14.1(H) 9.7 - 13.0 sec INR 1.30(H) 0.90 - 1.20 [facility] Comment: Interpretive data Oral anticoagulant therapeutic ranges: Venous thromboembolism prophylaxis or treatment: 2.0-3.0 CARDIOLOGY Standard range: 2.0-3.0 High-intensity range: 2.5-3.5 Refer to indication-specific guidelines for appropriate target ranges for prosthetic heart valve replacement. Current interpretive data was last revised on 2019. Blood 03/19/2025 5:21 AM CDT 03/19/2025 6:26 AM CDT Chidi Viveros MD LAB BLOOD ORDERABLES Final Resu lt Performing Organization Address [facility] Co de Phone Number [facility] [address] [employer] [place], [place] [id number] * (ABNORMAL) Basic metabolic panel (03/19/2025 5:21 AM CDT) Sodium 138 135 - 145 mmol/L Potassium, pl 3.6 3.3 - 4.9 mmol/L [facility] Chloride 108 97 - 110 mmol/L [facility] CO2 22 22 - 32 mmol/L [facility] Anion gap 8 2 - 15 mmol/L [facility] BUN 27(H) 6 - 25 mg/dL [facility] Creatinine 1.26 0.80 - 1.30 mg/dL [facility] Glucose 92 70 - 199 mg/dL [facility] Comment: Interpretive Data Fasting glucose >/= 126 mg/dl is diagnostic for diabetes. Fasting is defined as no caloric intake for at least 8 hours. Fasting glucose between 100 mg/dl to 125 mg/dl is diagnostic of prediabetes. In a patient with classic symptoms of hyperglycemia or hyperglycemic crisis, a random glucose >/= 200 mg/dl is diagnostic for diabetes. In the absence of unequivocal hyperglycemia, results should be confirmed by repeat testing. The classification and Diagnosis of Diabetes Diabetes Care 202; 46: S19-S40. Current interpretive data was last revised 2022. Calcium 7.3(L) 8.5 - 10.3 mg/dL [facility] Blood 03/19/2025 5:21 AM CDT 03/19/2025 6:25 AM CDT us Chidi Viveros MD LAB BLOOD ORDERABLES Final Resu lt [facility] [address] Department [place] [address] * (ABNORMAL) Protime-INR (03/18/2025 11:24 AM CDT) Pathologist [facility] PT 13.3(H) 9.7 - 13.0 sec INR 1.23(H) 0.90 - 1.20 [facility] Comment: Interpretive data Oral anticoagulant therapeutic ranges: Venous thromboembolism prophylaxis or treatment: 2.0-3.0 CARDIOLOGY Standard range: 2.0-3.0 High-intensity range: 2.5-3.5 Refer to indication-specific guidelines for appropriate target ranges for prosthetic heart valve replacement. Current interpretive data was last revised on 2019. Blood 03/18/2025 11:2 4 AM CDT 03/18/2025 11:27 AM CDT Chidi Viveros MD LAB BLOOD ORDERABLES Final Resu lt Performing Organization Address [facility] Co de Phone Number [facility] [address] Department of [employer] [place], [place] [id number] * (ABNORMAL) eGFR (03/18/2025 6:32 AM CDT) eGFR 49(L) >=60 mL/min/1. 73 m2 Comment: Interpretive Data Reference Interval Normal >/= 90 mL/min/1.73m2 Mildly decreased* 60 - 89 mL/min/1.73m2 Mildly to moderately decreased 45 - 59 mL/min/1.73m2 Moderately to severely decreased 30 - 44 mL/min/1.73m2 Severely decreased 15 - 29 mL/min/1.73m2 Kidney Failure < 15 mL/min/1.73m2 *Relative to young adult level Estimated glomerular filtration rate is determined by the 2020 CKD-EPI equation recommended by the National Kidney Foundation (A Unifying Approach to GFR Estimation: Recommendations of the NKF-ASK Task Force on Reassessing the Inclusion of Race in Diagnosing Kidney Disease, JASN 2020). The CKD-EPI equation should not be used for patients with unstable renal function and has not been validated in children and those over 70. Current interpretive data was last reviewed 2021. Blood 03/18/2025 6:32 AM CDT 03/18/2025 7:09 AM CDT us Chidi Viveros MD LAB BLOOD ORDERABLES Final Resu lt Performing Organization Address [facility]/ZIP Co de Phone Number [facility] [address] Department of [employer] [place], [place] [id number] * (ABNORMAL) Differential, auto (03/18/2025 6:32 AM CDT) Neutrophil abs 6.55(H) 1.50 - 6.50 K/cumm Imm gran abs 0.04 0.00 - 0.10 K/cumm [facility] Lymphocyte abs 0.33(L) 0.80 - 3.30 K/cumm [facility] Monocyte abs 0.69 0.20 - 0.80 K/cumm [facility] Eosinophil abs 0.07 0.00 - 0.50 K/cumm [facility] Basophil abs 0.02 0.00 - 0.10 K/cumm [facility] Neutrophil pct 85.0 % [facility] Comment: Interpretive Data Percent cell count reference ranges are not reported, since discordance with absolute values may lead to misinterpretation of CBC data. Current Interpretive Data was last revised on 2017. Imm gran pct 0.5 % [facility] Comment: Interpretive Data Percent cell count reference ranges are not reported, since discordance with absolute values may lead to misinterpretation of CBC data. Current Interpretive Data was last revised on 2017. Lymphocyte pct 4.3 % [facility] Comment: Interpretive Data Percent cell count reference ranges are not reported, since discordance with absolute values may lead to misinterpretation of CBC data. Current Interpretive Data was last revised on 2017. Monocyte pct 9.0 % [facility] Comment: Interpretive Data Percent cell count reference ranges are not reported, since discordance with absolute values may lead to misinterpretation of CBC data. Current Interpretive Data was last revised on 2017. Eosinophil pct 0.9 % [facility] Comment: Interpretive Data Percent cell count reference ranges are not reported, since discordance with absolute values may lead to misinterpretation of CBC data. Current Interpretive Data was last revised on 2017. Basophil pct 0.3 % [facility] Comment: Interpretive Data Percent cell count reference ranges are not reported, since discordance with absolute values may lead to misinterpretation of CBC data. Current Interpretive Data was last revised on 2017. Blood 03/18/2025 6:32 AM CDT 03/18/2025 7:10 AM CDT us Chidi Viveros MD LAB BLOOD ORDERABLES Final Resu lt Performing Organization Address [facility] Co de Phone Number [facility] [address] Department of [employer] [place], [place] [id number] * (ABNORMAL) CBC with auto differential (03/18/2025 6:32 AM CDT) [facility] WBC 7.70 3.80 - 9.90 K/cumm Hgb 8.1(L) 13.0 - 17.5 g/dL [facility] Hct 25.7(L) 38.9 - 50.3 % [facility] Plt 181 150 - 400 K/cumm [facility] MPV 9.7 9.1 - 12.3 fL [facility] RBC 2.65(L) 4.30 - 5.80 M/cumm [facility] MCV 97.0(H) 81.3 - 96.4 fL [facility] MCH 30.6 27.1 - 33.3 pg [facility] MCHC 31.5(L) 32.3 - 35.7 g/dL [facility] RDW CV 15.4(H) 11.1 - 14.9 % [facility] RDW SD 53.9(H) 35.7 - 48.1 fL [facility] NRBC abs 0.00 0.00 - 0.01 K/cumm [facility] Blood 03/18/2025 6:32 AM CDT 03/18/2025 7:10 AM CDT Chidi Viveros MD LAB BLOOD ORDERABLES Final Resu lt Performing Organization Address [facility]/ZIP Co de Phone Number [facility] [address] Department [place] [address] * (ABNORMAL) Basic metabolic panel (03/18/2025 6:32 AM CDT) [facility] Sodium 137 135 - 145 mmol/L Potassium, pl 4.3 3.3 - 4.9 mmol/L [facility] Chloride 106 97 - 110 mmol/L [facility] CO2 20(L) 22 - 32 mmol/L [facility] Anion gap 11 2 - 15 mmol/L [facility] BUN 32(H) 6 - 25 mg/dL [facility] Creatinine 1.45(H) 0.80 - 1.30 mg/dL [facility] Glucose 111 70 - 199 mg/dL [facility] Comment: Interpretive Data Fasting glucose >/= 126 mg/dl is diagnostic for diabetes. Fasting is defined as no caloric intake for at least 8 hours. Fasting glucose between 100 mg/dl to 125 mg/dl is diagnostic of prediabetes. In a patient with classic symptoms of hyperglycemia or hyperglycemic crisis, a random glucose >/= 200 mg/dl is diagnostic for diabetes. In the absence of unequivocal hyperglycemia, results should be confirmed by repeat testing. The classification and Diagnosis of Diabetes Diabetes Care 2021; 46: S19-S40. Current interpretive data was last revised 2022. Calcium 7.5(L) 8.5 - 10.3 mg/dL [facility] Blood 03/18/2025 6:32 AM CDT 03/18/2025 7:09 AM CDT us Chidi Viveros MD LAB BLOOD ORDERABLES Final Resu lt [facility] [address] Department [place] [address] * Blood culture Blood (03/17/2025 8:57 AM CDT) Report Final Report: No growth Blood 03/17/2025 8:57 AM CDT 03/17/2025 8:57 AM CDT Narrative [facility] - 03/22/2025 1:00 PM CDT From a different site than #1. Collection->Peripheral Interpretive Data 1. Blood cultures are incubated and monitored continuously for 5 days (120 hours). The first negative report is issued within 24 hours of receipt in the laboratory. 2. All positive cultures are resulted and called to physicians/care providers as soon as they are detected. 3. A rapid molecular test for organism identification may be performed using the Frilp Blood Culture Identification panel. This assay detects microbial DNA in a blood culture broth. This assay has been cleared by the [facility] Food and Drug Administration and its performance characteristics have been verified by the [facility] Microbiology Laboratory. Interpretive data was last revised on September 29, 2022. Chidi Viveros MD LAB MICROBIOLOGY - [facility] Final Result Performing Organization Address [facility]/ZIP Co de Phone Number [facility] [address] Department [employer] [address] * Blood culture Blood (03/17/2025 8:39 AM CDT) Report Final Report: No growth Blood 03/17/2025 8:39 AM CDT 03/17/2025 8:39 AM CDT Narrative [facility] - 03/22/2025 1:00 PM CDT Collection->Peripheral Interpretive Data 1. Blood cultures are incubated and monitored continuously for 5 days (120 hours). The first negative report is issued within 24 hours of receipt in the laboratory. 2. All positive cultures are resulted and called to physicians/care providers as soon as they are detected. 3. A rapid molecular test for organism identification may be performed using the Frilp Blood Culture Identification panel. This assay detects microbial DNA in a blood culture broth. This assay has been cleared by the [place] Food and Drug Administration and its performance characteristics have been verified by the [facility]. Interpretive data was last revised on September 29, 2022. Chidi Viveros MD LAB MICROBIOLOGY - GENERAL DUBUQUERedd MORRISON Final Result Performing Organization Address [facility]/ZIP Co de Phone Number [facility] [address] Department [place] [address] * (ABNORMAL) eGFR (03/17/2025 5:09 AM CDT) eGFR 41(L) >=60 mL/min/1. 73 m2 Comment: Interpretive Data Reference Interval Normal >/= 90 mL/min/1.73m2 Mildly decreased* 60 - 89 mL/min/1.73m2 Mildly to moderately decreased 45 - 59 mL/min/1.73m2 Moderately to severely decreased 30 - 44 mL/min/1.73m2 Severely decreased 15 - 29 mL/min/1.73m2 Kidney Failure < 15 mL/min/1.73m2 *Relative to young adult level Estimated glomerular filtration rate is determined by the 2020 CKD-EPI equation recommended by the National Kidney Foundation (A Unifying Approach to GFR Estimation: Recommendations of the NKF-ASK Task Force on Reassessing the Inclusion of Race in Diagnosing Kidney Disease, JASN 2020). The CKD-EPI equation should not be used for patients with unstable renal function and has not been validated in children and those over 70. Current interpretive data was last reviewed 2021. Blood 03/17/2025 5:09 AM CDT 03/17/2025 5:51 AM CDT us Chidi Viveros MD LAB BLOOD ORDERABLES Final Resu lt [facility] [address] Department [place] [address] * (ABNORMAL) Differential, auto (03/17/2025 5:09 AM CDT) Neutrophil abs 10.63(H) 1.50 - 6.50 K/cumm Imm gran abs 0.08 0.00 - 0.10 K/cumm [facility] Lymphocyte abs 0.18(L) 0.80 - 3.30 K/cumm [facility] Monocyte abs 0.76 0.20 - 0.80 K/cumm [facility] Eosinophil abs 0.00 0.00 - 0.50 K/cumm [facility] Basophil abs 0.01 0.00 - 0.10 K/cumm [facility] Neutrophil pct 91.2 % [facility] Comment: Interpretive Data Percent cell count reference ranges are not reported, since discordance with absolute values may lead to misinterpretation of CBC data. Current Interpretive Data was last revised on 2017. Imm gran pct 0.7 % [facility] Comment: Interpretive Data Percent cell count reference ranges are not reported, since discordance with absolute values may lead to misinterpretation of CBC data. Current Interpretive Data was last revised on 2017. Lymphocyte pct 1.5 % [facility] Comment: Interpretive Data Percent cell count reference ranges are not reported, since discordance with absolute values may lead to misinterpretation of CBC data. Current Interpretive Data was last revised on 2017. Monocyte pct 6.5 % [facility] Comment: Interpretive Data Percent cell count reference ranges are not reported, since discordance with absolute values may lead to misinterpretation of CBC data. Current Interpretive Data was last revised on 2017. Eosinophil pct 0.0 % [facility] Comment: Interpretive Data Percent cell count reference ranges are not reported, since discordance with absolute values may lead to misinterpretation of CBC data. Current Interpretive Data was last revised on 2017. Basophil pct 0.1 % [facility] Comment: Interpretive Data Percent cell count reference ranges are not reported, since discordance with absolute values may lead to misinterpretation of CBC data. Current Interpretive Data was last revised on 2017. Blood 03/17/2025 5:09 AM CDT 03/17/2025 5:51 AM CDT us Chidi Viveros MD LAB BLOOD ORDERABLES Final Resu lt [facility] [address] Department [place] [address] * (ABNORMAL) CBC with auto differential (03/17/2025 5:09 AM CDT) WBC 11.66(H) 3.80 - 9.90 K/cumm Hgb 9.8(L) 13.0 - 17.5 g/dL [facility] Hct 31.0(L) 38.9 - 50.3 % [facility] Plt 225 150 - 400 K/cumm [facility] MPV 9.7 9.1 - 12.3 fL [facility] RBC 3.19(L) 4.30 - 5.80 M/cumm [facility] MCV 97.2(H) 81.3 - 96.4 fL [facility] MCH 30.7 27.1 - 33.3 pg [facility] MCHC 31.6(L) 32.3 - 35.7 g/dL [facility] RDW CV 15.1(H) 11.1 - 14.9 % [facility] RDW SD 53.5(H) 35.7 - 48.1 fL [facility] NRBC abs 0.00 0.00 - 0.01 K/cumm [facility] Blood 03/17/2025 5:09 AM CDT 03/17/2025 5:51 AM CDT us Chidi Viveros MD LAB BLOOD ORDERABLES Final Resu lt Performing Organization Address [facility] de Phone Number [facility] [address] [place] [address] * (ABNORMAL) Protime-INR (03/17/2025 5:09 AM CDT) PT 13.3(H) 9.7 - 13.0 sec INR 1.23(H) 0.90 - 1.20 [facility] Comment: Interpretive data Oral anticoagulant therapeutic ranges: Venous thromboembolism prophylaxis or treatment: 2.0-3.0 CARDIOLOGY Standard range: 2.0-3.0 High-intensity range: 2.5-3.5 Refer to indication-specific guidelines for appropriate target ranges for prosthetic heart valve replacement. Current interpretive data was last revised on 2019. Blood 03/17/2025 5:09 AM CDT 03/17/2025 5:49 AM CDT Chidi Viveros MD LAB BLOOD ORDERABLES Final Resu lt Performing Organization Address [facility] Co de Phone Number [facility] [address] [employer] [place], [place] [id number] * (ABNORMAL) Hepatic function panel (03/17/2025 5:09 AM CDT) Bilirubin, total 0.6 0.1 - 1.2 mg/dL Bilirubin, direct 0.3 0.1 - 0.3 mg/dL [facility] Protein, pl 5.9(L) 6.5 - 8.5 g/dL [facility] Albumin 2.4(L) 3.5 - 5.0 g/dL [facility] Alk phos 259(H) 40 - 130 Units/L [facility] ALT 41 7 - 55 Units/L [facility] AST 46 10 - 50 Units/L [facility] Blood 03/17/2025 5:09 AM CDT 03/17/2025 5:51 AM CDT us Chidi Viveros MD LAB BLOOD ORDERABLES Final Resu lt [facility] [address] Department [place] [address] * (ABNORMAL) Basic metabolic panel (03/17/2025 5:09 AM CDT) [facility] Sodium 135 135 - 145 mmol/L Potassium, pl 4.3 3.3 - 4.9 mmol/L [facility] Chloride 105 97 - 110 mmol/L [facility] CO2 18(L) 22 - 32 mmol/L [facility] Anion gap 12 2 - 15 mmol/L [facility] BUN 35(H) 6 - 25 mg/dL [facility] Creatinine 1.67(H) 0.80 - 1.30 mg/dL [facility] Glucose 135 70 - 199 mg/dL [facility] Comment: Interpretive Data Fasting glucose >/= 126 mg/dl is diagnostic for diabetes. Fasting is defined as no caloric intake for at least 8 hours. Fasting glucose between 100 mg/dl to 125 mg/dl is diagnostic of prediabetes. In a patient with classic symptoms of hyperglycemia or hyperglycemic crisis, a random glucose >/= 200 mg/dl is diagnostic for diabetes. In the absence of unequivocal hyperglycemia, results should be confirmed by repeat testing. The classification and Diagnosis of Diabetes Diabetes Care 202; 46: S19-S40. Current interpretive data was last revised 2022. Calcium 7.7(L) 8.5 - 10.3 mg/dL [facility] Blood 03/17/2025 5:09 AM CDT 03/17/2025 5:51 AM CDT us Chidi Viveros MD LAB BLOOD ORDERABLES Final [facility]u [facility] [address] Department [place] [address] * IR Percutaneous Nephrostomy Bilateral (03/16/2025 11:47 AM CDT) Anatomical Region Laterality Modality Body Bilateral X-Ray Angiograph y 03/17/2025 11:0 9 AM CDT Impressions 03/17/2025 11:09 AM CDT Successful bilateral percutaneous nephrostomy. PLAN: These are likely lifelong percutaneous nephrostomy tubes. Patient was previously lost to follow-up. Recommend patient follow up in 3 months for routine PCN exchange. Consider conversion to PCNU's at that time to prevent easy dislodgment with transfers from patient's wheelchair. Electronically signed by: Lasha Moulton M.D. Narrative 03/17/2025 11:09 AM CDT EXAMINATION : BILATERAL PERCUTANEOUS NEPHROSTOMY CATHETER PLACEMENT HISTORY/INDICATION: Gino Marquez is a 79 y.o. male with PMHx of prostate cancer s/p IMRT and ADT in 2019, Rt hydronephrosis s/p Rt double J stent placement 08/08/24, CKD III, chronic atrial fibrillation, HTN, SSS/intermittent AVB s/p PPM, seizures who presented from OSH with bilateral hydronephrosis. Pt was admitted to [facility] in [place], [place] from 03/06 through 03/13 for urinary retention, acute renal failure due to obstructive uropathy, patient was found to have bilateral hydronephrosis, a Pierre catheter was placed, his initial labs revealed creatinine as high as 2.67 improved to 1.5 then got worse to 1.8. 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 Previously patient had undergone conversion of right-sided PCN to a double-J stent on 08/08/2024 by IR. ATTENDING PRESENCE: Lasha Moulton M.D., the attending radiologist was present from the beginning to the end of the procedure. SEDATION: Moderate conscious sedation was administered under the attending physician's direction and continuous monitoring by a trained nurse specialist who was independent from those actually performing the procedure. The total monitored conscious time was 94minutes. TECHNIQUE/FINDINGS: The risks, benefits and alternatives were discussed and informed consent was obtained. Prior to beginning the procedure, [place] Protocol was performed to confirm the patient's identity and the planned procedure. The fluoroscopy time has been recorded in the electronic medical record. Maximum sterile barriers including cap, mask, hand hygiene, sterile gloves, sterile gown, large sterile drape and 2% chlorhexidine for cutaneous antisepsis were used. Initial ultrasound imaging was done to localize the kidney and to assess the collecting system as well to identify a possible calyx for initial access. The overlying skin was then prepped and draped in the usual sterile manner and 1% Lidocaine was used to achieve local anesthesia. A 22-gauge Chiba needle was then used to access the left renal collecting system under real-time ultrasound guidance with appropriate needle tip positioning documented by the aspiration of urine and by fluoroscopy following the injection of contrast. Limited contrast injection demonstrated severe hydroureteronephrosis. The access was then upsized using an AccuStick system followed by placement of an 0.035 inch wire. The tract was serially dilated to 10 Grenadian before, before placing a 10 Grenadian cope loop catheter. The retaining loop was formed and the catheter sutured skin with a single stitch of 0 Prolene. The catheter was then connected to gravity drainage Next, attention was turned to the right kidney. Visualization of the collecting system was challenging secondary to patient's body habitus and ability to lay prone on the angiographic table. Additionally, due to the indwelling double-J stent on the side and recent placement and flushing of a Pierre catheter, air was present in the collecting system obscuring fine detail on the ultrasound. After numerous attempts with a combination of ultrasound and fluoroscopy eventually a 22-gauge Chiba needle was used to access an inferior pole calyx and contrast was injected showing opacification of the collecting system. A microwire was passed and the access was upsized using an AccuStick system followed by placement of a 0.035 inch wire. The tract was serially dilated to 10 Grenadian followed by placement of a 10 Grenadian cope loop catheter. The retaining loop was formed and the catheter secured to the skin with a single stitch of 0 Prolene. The catheter was connected to gravity drainage. Final fluoroscopic spot images demonstrated bilateral catheters well positioned within the renal pelvis. ESTIMATED BLOOD LOSS: Minimal. CONDITION: Stable DISCHARGED TO: patient care division. FINDINGS: Severe left and moderate right-sided hydroureteronephrosis. The urine cloudy/purulent on the left and cloudy/mildly serosanguineous on the right. Of note, the right-sided PCN may be directly through the indwelling double-J stent. Recommend caution when removing the double-J stent in the OR Procedure Note Lasha Moulton MD - 03/17/2025 EXAMINATION : BILATERAL PERCUTANEOUS NEPHROSTOMY CATHETER PLACEMENT HISTORY/INDICATION: Gino Marquez is a 79 y.o. male with PMHx of prostate cancer s/p IMRT and ADT in 2019, Rt hydronephrosis s/p Rt double J stent placement 08/08/24, CKD III, chronic atrial fibrillation, HTN, SSS/intermittent AVB s/p PPM, seizures who presented from OSH with bilateral hydronephrosis. Pt was admitted to [facility] in [place], [place] from 03/06 through 03/13 for urinary retention, acute renal failure due to obstructive uropathy, patient was found to have bilateral hydronephrosis, a Pierre catheter was placed, his initial labs revealed creatinine as high as 2.67 improved to 1.5 then got worse to 1.8. 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 Previously patient had undergone conversion of right-sided PCN to a double-J stent on 08/08/2024 by IR. ATTENDING PRESENCE: Lasha Moulton M.D., the attending radiologist was present from the beginning to the end of the procedure. SEDATION: Moderate conscious sedation was administered under the attending physician's direction and continuous monitoring by a trained nurse specialist who was independent from those actually performing the procedure. The total monitored conscious time was 94minutes. TECHNIQUE/FINDINGS: The risks, benefits and alternatives were discussed and informed consent was obtained. Prior to beginning the procedure, [place] Protocol was performed to confirm the patient's identity and the planned procedure. The fluoroscopy time has been recorded in the electronic medical record. Maximum sterile barriers including cap, mask, hand hygiene, sterile gloves, sterile gown, large sterile drape and 2% chlorhexidine for cutaneous antisepsis were used. Initial ultrasound imaging was done to localize the kidney and to assess the collecting system as well to identify a possible calyx for initial access. The overlying skin was then prepped and draped in the usual sterile manner and 1% Lidocaine was used to achieve local anesthesia. A 22-gauge Chiba needle was then used to access the left renal collecting system under real-time ultrasound guidance with appropriate needle tip positioning documented by the aspiration of urine and by fluoroscopy following the injection of contrast. Limited contrast injection demonstrated severe hydroureteronephrosis. The access was then upsized using an AccuStick system followed by placement of an 0.035 inch wire. The tract was serially dilated to 10 Grenadian before, before placing a 10 Grenadian cope loop catheter. The retaining loop was formed and the catheter sutured skin with a single stitch of 0 Prolene. The catheter was then connected to gravity drainage Next, attention was turned to the right kidney. Visualization of the collecting system was challenging secondary to patient's body habitus and ability to lay prone on the angiographic table. Additionally, due to the indwelling double-J stent on the side and recent placement and flushing of a Pierre catheter, air was present in the collecting system obscuring fine detail on the ultrasound. After numerous attempts with a combination of ultrasound and fluoroscopy eventually a 22-gauge Chiba needle was used to access an inferior pole calyx and contrast was injected showing opacification of the collecting system. A microwire was passed and the access was upsized using an AccuStick system followed by placement of a 0.035 inch wire. The tract was serially dilated to 10 Grenadian followed by placement of a 10 Grenadian cope loop catheter. The retaining loop was formed and the catheter secured to the skin with a single stitch of 0 Prolene. The catheter was connected to gravity drainage. Final fluoroscopic spot images demonstrated bilateral catheters well positioned within the renal pelvis. ESTIMATED BLOOD LOSS: Minimal. CONDITION: Stable DISCHARGED TO: patient care division. FINDINGS: Severe left and moderate right-sided hydroureteronephrosis. The urine cloudy/purulent on the left and cloudy/mildly serosanguineous on the right. Of note, the right-sided PCN may be directly through the indwelling double-J stent. Recommend caution when removing the double-J stent in the OR IMPRESSION: Successful bilateral percutaneous nephrostomy. PLAN: These are likely lifelong percutaneous nephrostomy tubes. Patient was previously lost to follow-up. Recommend patient follow up in 3 months for routine PCN exchange. Consider conversion to PCNU's at that time to prevent easy dislodgment with transfers from patient's wheelchair. Electronically signed by: Lasha Moulton M.D. us Des Owusu MD IMG IR PROCEDURES Final Result * (ABNORMAL) eGFR (03/16/2025 5:58 AM CDT) eGFR 42(L) >=60 mL/min/1. 73 m2 Comment: Interpretive Data Reference Interval Normal >/= 90 mL/min/1.73m2 Mildly decreased* 60 - 89 mL/min/1.73m2 Mildly to moderately decreased 45 - 59 mL/min/1.73m2 Moderately to severely decreased 30 - 44 mL/min/1.73m2 Severely decreased 15 - 29 mL/min/1.73m2 Kidney Failure < 15 mL/min/1.73m2 *Relative to young adult level Estimated glomerular filtration rate is determined by the 2020 CKD-EPI equation recommended by the National Kidney Foundation (A Unifying Approach to GFR Estimation: Recommendations of the NKF-ASK Task Force on Reassessing the Inclusion of Race in Diagnosing Kidney Disease, JASN 202). The CKD-EPI equation should not be used for patients with unstable renal function and has not been validated in children and those over 70. Current interpretive data was last reviewed 2021. Blood 03/16/2025 5:58 AM CDT 03/16/2025 6:58 AM CDT Des Owusu MD LAB BLOOD ORDERABLES Final Resul t [facility] [address] Department [place] [address] * (ABNORMAL) Differential, auto (03/16/2025 5:58 AM CDT) Neutrophil abs 4.79 1.50 - 6.50 K/cumm Imm gran abs 0.08 0.00 - 0.10 K/cumm [facility] Lymphocyte abs 0.46(L) 0.80 - 3.30 K/cumm [facility] Monocyte abs 0.54 0.20 - 0.80 K/cumm [facility] Eosinophil abs 0.28 0.00 - 0.50 K/cumm [facility] Basophil abs 0.03 0.00 - 0.10 K/cumm [facility] Neutrophil pct 77.6 % [facility] Comment: Interpretive Data Percent cell count reference ranges are not reported, since discordance with absolute values may lead to misinterpretation of CBC data. Current Interpretive Data was last revised on 2017. Imm gran pct 1.3 % [facility] Comment: Interpretive Data Percent cell count reference ranges are not reported, since discordance with absolute values may lead to misinterpretation of CBC data. Current Interpretive Data was last revised on 2017. Lymphocyte pct 7.4 % [facility] Comment: Interpretive Data Percent cell count reference ranges are not reported, since discordance with absolute values may lead to misinterpretation of CBC data. Current Interpretive Data was last revised on 2017. Monocyte pct 8.7 % [facility] Comment: Interpretive Data Percent cell count reference ranges are not reported, since discordance with absolute values may lead to misinterpretation of CBC data. Current Interpretive Data was last revised on 2017. Eosinophil pct 4.5 % [facility] Comment: Interpretive Data Percent cell count reference ranges are not reported, since discordance with absolute values may lead to misinterpretation of CBC data. Current Interpretive Data was last revised on 2017. Basophil pct 0.5 % [facility] Comment: Interpretive Data Percent cell count reference ranges are not reported, since discordance with absolute values may lead to misinterpretation of CBC data. Current Interpretive Data was last revised on 2017. Blood 03/16/2025 5:58 AM CDT 03/16/2025 6:58 AM CDT Des Owusu MD LAB BLOOD ORDERABLES Final Resul t Performing Organization Address [facility] Co de Phone Number [facility] [address] [facility] [employer] [address] * PSA screen (03/16/2025 5:58 AM CDT) PSA-Total 0.91 <=6.20 ng/mL Comment: Interpretive Data AGE SEX REFERENCE INTERVAL 0 minutes-150 years Female None 0 minutes-49 years Male None 50-59 years Male 0-3.90 60-69 years Male 0-5.40 70-79 years Male 0-6.20 80-150 years Male 0-6.20 The [employer] PSA Total assay procedure was used. Results from different manufacturers or methods may not be comparable. Serial testing should be performed using the same method. Current interpretive data last revised 21. Blood 03/16/2025 5:58 AM CDT 03/16/2025 6:58 AM CDT Des Owusu MD LAB BLOOD ORDERABLES Final Resul t Performing Organization Address [facility] Co de Phone Number [facility] [address] [facility] [place] [address] * (ABNORMAL) CBC with auto differential (03/16/2025 5:58 AM CDT) WBC 6.18 3.80 - 9.90 K/cumm Hgb 8.4(L) 13.0 - 17.5 g/dL [facility] Hct 26.4(L) 38.9 - 50.3 % [facility] Plt 231 150 - 400 K/cumm [facility] MPV 9.7 9.1 - 12.3 fL [facility] RBC 2.77(L) 4.30 - 5.80 M/cumm [facility] MCV 95.3 81.3 - 96.4 fL [facility] MCH 30.3 27.1 - 33.3 pg [facility] MCHC 31.8(L) 32.3 - 35.7 g/dL [facility] RDW CV 15.1(H) 11.1 - 14.9 % [facility] RDW SD 51.8(H) 35.7 - 48.1 fL [facility] NRBC abs 0.00 0.00 - 0.01 K/cumm [facility] Blood 03/16/2025 5:58 AM CDT 03/16/2025 6:58 AM CDT Des Owusu MD LAB BLOOD ORDERABLES Final Resul t Performing Organization Address [facility] de Phone Number [facility] [address] [place] [address] * Protime-INR (03/16/2025 5:58 AM CDT) PT 13.0 9.7 - 13.0 sec INR 1.20 0.90 - 1.20 [facility] Comment: Interpretive data Oral anticoagulant therapeutic ranges: Venous thromboembolism prophylaxis or treatment: 2.0-3.0 CARDIOLOGY Standard range: 2.0-3.0 High-intensity range: 2.5-3.5 Refer to indication-specific guidelines for appropriate target ranges for prosthetic heart valve replacement. Current interpretive data was last revised on 2019. Blood 03/16/2025 5:58 AM CDT 03/16/2025 6:58 AM CDT Des Owusu MD LAB BLOOD ORDERABLES Final Resul t Performing Organization Address [facility] Co de Phone Number [facility] [address] Department [place] [address] * Phosphorus (03/16/2025 5:58 AM CDT) Phosphorus, pl 2.6 2.3 - 4.5 mg/dL Blood 03/16/2025 5:58 AM CDT 03/16/2025 6:58 AM CDT Des Owusu MD LAB BLOOD ORDERABLES Final Resul t Performing Organization Address City/[facility] Co de Phone Number [facility] [address] [facility] [employer] [address] * Magnesium (03/16/2025 5:58 AM CDT) [facility] Magnesium 1.7 1.4 - 2.5 mg/dL Blood 03/16/2025 5:58 AM CDT 03/16/2025 6:58 AM CDT Des Owusu MD LAB BLOOD ORDERABLES Final Resul t Performing Organization Address [facility] de Phone Number [facility] [address] [facility] [employer] [address] * (ABNORMAL) Comprehensive metabolic panel (03/16/2025 5:58 AM CDT) [facility] Sodium 139 135 - 145 mmol/L Potassium, pl 3.9 3.3 - 4.9 mmol/L [facility] Chloride 107 97 - 110 mmol/L [facility] CO2 23 22 - 32 mmol/L [facility] Anion gap 9 2 - 15 mmol/L [facility] BUN 36(H) 6 - 25 mg/dL [facility] Creatinine 1.64(H) 0.80 - 1.30 mg/dL [facility] Glucose 107 70 - 199 mg/dL [facility] Comment: Interpretive Data Fasting glucose >/= 126 mg/dl is diagnostic for diabetes. Fasting is defined as no caloric intake for at least 8 hours. Fasting glucose between 100 mg/dl to 125 mg/dl is diagnostic of prediabetes. In a patient with classic symptoms of hyperglycemia or hyperglycemic crisis, a random glucose >/= 200 mg/dl is diagnostic for diabetes. In the absence of unequivocal hyperglycemia, results should be confirmed by repeat testing. The classification and Diagnosis of Diabetes Diabetes Care 2021; 46: S19-S40. Current interpretive data was last revised 2022. Calcium 8.0(L) 8.5 - 10.3 mg/dL [facility] Bilirubin, total 0.2 0.1 - 1.2 mg/dL [facility] Protein, pl 5.8(L) 6.5 - 8.5 g/dL [facility] Albumin 2.6(L) 3.5 - 5.0 g/dL [facility] Alk phos 191(H) 40 - 130 Units/L [facility] ALT 37 7 - 55 Units/L [facility] AST 35 10 - 50 Units/L [facility] Blood 03/16/2025 5:58 AM CDT 03/16/2025 6:58 AM CDT Des Owusu MD LAB BLOOD ORDERABLES Final Resul t Performing Organization Address City/[facility]/ZIP Co de Phone Number [facility] [address] [place] [address] * CT Body Outside Reference (03/15/2025 8:17 PM CDT) Narrative RAD_PACS_OUTSIDE_FILM_[facility] - 03/15/2025 8:17 PM CDT This order has been auto-finalized and does not contain a result. Dse Owusu MD IMG CT PROCEDURES Final Result [facility]PACS[facility]OUTSIDE[facility]FILM[facility] * ECG 12 lead (03/15/2025 6:14 PM CDT) 03/15/2025 6:[address] [facility] - 03/16/2025 4:33 PM CDT Vent Rate: 71 bpm RR Interval: 837 msec MO Interval: 203 msec QRS Duration: 173 msec QT Interval: 471 msec QTC Interval: 494 msec P-R-T [place]: 244 - -54 - 115 degrees IMPRESSION: ELECTRONIC ATRIAL PACEMAKER ELECTRONIC VENTRICULAR PACEMAKER ABNORMAL RHYTHM ECG Electronically Signed By: Woo Kelley [facility] Card Des Owusu MD ECG ORDERABLES Final Result [facility] * SCAN - LABS (03/14/2025) Vimal Cano MD Final Res ult * (ABNORMAL) Urinalysis reflex to microscopic and culture Urine, clean voided (01/16/2025 4:34 PM CDT) Color, ur Yellow Yellow Clarity, ur Turbid(A) Clear [facility] Specific gravity, ur 1.011 1.003 - 1.030 [facility] pH, urine 7.5 [facility] Comment: Interpretive Data U rine pH is affected by diet, medications, systemic acid-base disturbances, and renal tubular function. pH may affect urinary stone formation. For example, urine pH below 6.0 may help reduce the tendency for calcium phosphate stones and pH greater than 6.0 may reduce the tendency for uric acid stone formation. Source: [facility] [employer] Current Interpretive Data was last revised on 2017 Protein, ur ql 2+(A) Negative [facility] Glucose, ur ql Negative Negative [facility] Ketones, ur Negative Negative [facility] Bilirubin, ur Negative Negative [facility] Blood, ur 2+(A) Negative [facility] Urobilinogen, ur <2.0 <2.0 mg/dL [facility] Nitrite, ur Positive(A) Negative [facility] Leukocyte esterase, ur 4+(A) Negative [facility] UA reflex comment Reflex to microscopic UA will be performed. [facility] Urine, clean voided 01/16/2025 4:34 PM CDT 01/16/2025 5:16 PM CDT Maria Antonia Celis NP LAB MICROBIOLOGY - GENERAL OR DERABLES Final Result [facility] [address] Department [place] [address] * (ABNORMAL) Urinalysis, microscopic only (01/16/2025 4:34 PM CDT) WBC, ur >50(A) 0 - 5 /HPF RBC, ur >50(A) 0 - 2 /HPF [facility] Bacteria, ur 3+(A) [facility] Culture Reflex Comment Reflex to urine culture will be performed. [facility] Urine, clean voided 01/16/2025 4:34 PM CDT 01/16/2025 5:16 PM CDT us Maria Antonia Celis NP LAB URINE ORDERABLES Final Re sult [facility] [id number] Department [place] [address] * (ABNORMAL) Urine culture Urine, clean voided (01/16/2025 4:34 PM CDT) Report Final Report: Greater than or equal to 100,000 colonies/mL of Pseudomonas aeruginosa Greater than or equal to 100,000 colonies/mL of Proteus mirabilis Plus growth of clinically insignificant bacterial daecon. (.) Comment:Testing performed by : [facility], [address] [place]., [address] Organism PSEUDOMONAS AERUGINOSA [facility] Organism PROTEUS MIRABILIS [facility] Organism PLUS GROWTH OF CLINICALLY INSIGNIFICANT DEACON. [facility] Urine, clean voided 01/16/2025 4:34 PM CDT 01/17/2025 12:07 AM CDT Narrative [facility] - 01/19/2025 2:36 PM CDT Urine culture reflexed based upon urinalysis results. Testing performed by [facility] Microbiology Laboratory ([phone]) Organism Antibiotic Method Susceptibility Pseudomonas aeruginosa Aztreonam INTERPRETATION Susceptible Pseudomonas aeruginosa Ceftazidime INTERPRETATION Susceptible Pseudomonas aeruginosa Ciprofloxacin INTERPRETATION Susceptible Pseudomonas aeruginosa Cefepime INTERPRETATION Susceptible Pseudomonas aeruginosa Amikacin INTERPRETATION Susceptible Pseudomonas aeruginosa Imipenem INTERPRETATION Susceptible Pseudomonas aeruginosa Meropenem INTERPRETATION Susceptible Pseudomonas aeruginosa Piperacillin/Tazobactam INTERPR ETATION Susceptible Pseudomonas aeruginosa Tobramycin INTERPRETATION Susceptible Proteus mirabilis Ampicillin INTERPRETATION Susceptible Proteus mirabilis Cefazolin INTERPRETATION Susceptible Proteus mirabilis Nitrofurantoin INTERPRETATION Resistant Proteus mirabilis Gentamicin INTERPRETATION Susceptible Proteus mirabilis Trimethoprim with Sulfamethoxazole INTERPRETATION Resistant Proteus mirabilis Meropenem INTERPRETATION Susceptible Proteus mirabilis Cefepime INTERPRETATION Susceptible Proteus mirabilis Ciprofloxacin INTERPRETATION Resistant Proteus mirabilis Ceftazidime INTERPRETATION Susceptible Proteus mirabilis Ceftriaxone INTERPRETATION Susceptible Proteus mirabilis Piperacillin/Tazobactam INTERPRETATI ON Susceptible Proteus mirabilis Cephalexin INTERPRETATION Susceptible Proteus mirabilis Cefuroxime-axetil INTERPRETATION Susceptible Proteus mirabilis Cefdinir INTERPRETATION Susceptible us Maria Antonia Celis NP LAB MICROBIOLOGY - GENERAL OR DERABLES Final Result [facility] [address] [facility] Department [place] [address] * (ABNORMAL) eGFR (01/16/2025 10:59 AM CDT) Pathologist [facility] eGFR 54(L) >=60 mL/min/1. 73 m2 Comment: Interpretive Data Reference Interval Normal >/= 90 mL/min/1.73m2 Mildly decreased* 60 - 89 mL/min/1.73m2 Mildly to moderately decreased 45 - 59 mL/min/1.73m2 Moderately to severely decreased 30 - 44 mL/min/1.73m2 Severely decreased 15 - 29 mL/min/1.73m2 Kidney Failure < 15 mL/min/1.73m2 *Relative to young adult level Estimated glomerular filtration rate is determined by the 2020 CKD-EPI equation recommended by the National Kidney Foundation (A Unifying Approach to GFR Estimation: Recommendations of the NKF-ASK Task Force on Reassessing the Inclusion of Race in Diagnosing Kidney Disease, JASN 2020). The CKD-EPI equation should not be used for patients with unstable renal function and has not been validated in children and those over 70. Current interpretive data was last reviewed 2021. Testing performed by: [facility], [address] [place] [address]., [id number] Blood 01/16/2025 10:5 9 AM CDT 01/16/2025 8:11 PM CDT us Maria Antonia Celis UNIT MANAGER RN LAB BLOOD ORDERABLES Final Re sult [facility] ([place]) 1 [facility] Department [place] [address] * (ABNORMAL) Differential, auto (01/16/2025 10:59 AM CDT) Neutrophil abs 5.47 1.50 - 6.50 K/cumm Comment:Testing performed by : [facility], [address] [place] [address]., [address] Imm gran abs 0.02 0.00 - 0.10 K/cumm [facility] ([place]) Comment:Testing performed by : [address], [address] Lymphocyte abs 0.47(L) 0.80 - 3.30 K/cumm [facility] ([place]) Comment:Testing performed by : [address], [address] Monocyte abs 0.54 0.20 - 0.80 K/cumm [facility] ([place]) Comment:Testing performed by : [address], [address] Eosinophil abs 0.21 0.00 - 0.50 K/cumm [facility] ([place]) Comment:Testing performed by : [address], [address] Basophil abs 0.03 0.00 - 0.10 K/cumm [facility] ([place]) Comment:Testing performed by : [address], [address] Neutrophil pct 81.2 % [facility] ([place]) Comment: Interpretive Data Percent cell count reference ranges are not reported, since discordance with absolute values may lead to misinterpretation of CBC data. Current Interpretive Data was last revised on 2017. Testing performed by: [address], [address] Imm gran pct 0.3 % [facility] ([place]) Comment: Interpretive Data Percent cell count reference ranges are not reported, since discordance with absolute values may lead to misinterpretation of CBC data. Current Interpretive Data was last revised on 2017. Testing performed by: [facility], [address] [place] [address]., [address] Lymphocyte pct 7.0 % [facility] ([place]) Comment: Interpretive Data Percent cell count reference ranges are not reported, since discordance with absolute values may lead to misinterpretation of CBC data. Current Interpretive Data was last revised on 2017. Testing performed by: [facility], [address] [place] [address]., [address] Monocyte pct 8.0 % [facility] ([place]) Comment: Interpretive Data Percent cell count reference ranges are not reported, since discordance with absolute values may lead to misinterpretation of CBC data. Current Interpretive Data was last revised on 2017. Testing performed by: [facility], [address] [place] [address]., [address] Eosinophil pct 3.1 % [facility] ([place]) Comment: Interpretive Data Percent cell count reference ranges are not reported, since discordance with absolute values may lead to misinterpretation of CBC data. Current Interpretive Data was last revised on 2017. Testing performed by: [facility], [address] [place] [address]., [address] Basophil pct 0.4 % [facility] ([place]) Comment: Interpretive Data Percent cell count reference ranges are not reported, since discordance with absolute values may lead to misinterpretation of CBC data. Current Interpretive Data was last revised on 2017. Testing performed by: [address] [address] Blood 01/16/2025 10:5 9 AM CDT 01/16/2025 6:21 PM CDT us Maria Antonia Celis NP LAB BLOOD ORDERABLES Final Re sult [facility] ([place]) 1 [facility] Department [place] [address] * PSA screen (01/16/2025 10:59 AM CDT) PSA-Total 1.82 <=6.20 ng/mL Comment: Interpretive Data AGE SEX REFERENCE INTERVAL 0 minutes-150 years Female None 0 minutes-49 years Male None 50-59 years Male 0-3.90 60-69 years Male 0-5.40 70-79 years Male 0-6.20 80-150 years Male 0-6.20 The Shanon PSA Total assay procedure was used. Results from different manufacturers or methods may not be comparable. Serial testing should be performed using the same method. Current interpretive data last revised 21. Testing performed by: [address], [address] Blood 01/16/2025 10:5 9 AM CDT 01/16/2025 6:21 PM CDT Maria Antonia Celis UNIT MANAGER RN LAB BLOOD ORDERABLES Final Re sult [facility] ([place]) 1 [facility] Department [place] [address] * (ABNORMAL) CBC with auto differential (01/16/2025 10:59 AM CDT) WBC 6.74 3.80 - 9.90 K/cumm Comment:Testing performed by : [address], [address] Hgb 10.9(L) 13.0 - 17.5 g/dL [facility] ([place]) Comment:Testing performed by : [address], [address] Hct 37.0(L) 38.9 - 50.3 % [facility] ([place]) Comment:Testing performed by : [address], [address] Plt 267 150 - 400 K/cumm [facility] ([place]) Comment:Testing performed by : [address], [address] MPV 9.5 9.1 - 12.3 fL [facility] ([place]) Comment:Testing performed by : [address], [address] RBC 3.84(L) 4.30 - 5.80 M/cumm [facility] ([place]) Comment:Testing performed by : [facility], [address] [place] [address], [address] MCV 96.4 81.3 - 96.4 fL [facility] ([place]) Comment:Testing performed by : [facility], [address] [place] [address], [address] MCH 28.4 27.1 - 33.3 pg [facility] ([place]) Comment:Testing performed by : [facility], [address] [place] [address], [address] MCHC 29.5(L) 32.3 - 35.7 g/dL [facility] ([place]) Comment:Testing performed by : [facility], [address] [place] [address], [address] RDW CV 17.5(H) 11.1 - 14.9 % [facility] ([place]) Comment:Testing performed by : [address], [address] RDW SD 62.3(H) 35.7 - 48.1 fL [facility] ([place]) Comment:Testing performed by : [facility], [address] [place] [address], [address] NRBC abs 0.00 0.00 - 0.01 K/cumm [facility] ([place]) Comment:Testing performed by : [address], [address] Blood 01/16/2025 10:5 9 AM CDT 01/16/2025 6:21 PM CDT Maria Antonia Celis UNIT MANAGER RN LAB BLOOD ORDERABLES Final Re sult [facility] ([place]) 1 [facility] Department of Laboratories [place], [place] [id number] * Lipid panel (01/16/2025 10:59 AM CDT) Cholesterol 124 30 - 199 mg/dL Comment: Interpretive Data Ages < or = 19 years Acceptable: <170 mg/dL Borderline high: 170-199 mg/dL High: >or= 200 mg/dL Ages > or = 20 years Desirable: <200 mg/dL Borderline high: 200-239 mg/dL High: >or= 240 mg/dL Literature References: 1. Expert Panel on Integrated Guidelines for Cardiovascular Health and Risk Reduction in Children and Adolescents. Pediatrics 2011;128:S213 2. NCEP Expert Panel. Circulation 2004;110:227 Current Interpretive Data was last revised on 2018. Testing performed by: [facility], [address] [place] [address]., [address] Triglycerides 112 <=149 mg/dL [facility] ([place]) Comment: Interpretive Data Ages < or = 9 years Acceptable: <75 mg/dL Borderline high: 75-99 mg/dL High: >or= 100 mg/dL Ages 10 to 20 years Acceptable: <90 mg/dL Borderline high: 90-129 mg/dL High: >or= 130 mg/dL Ages > or = 20 years Desirable: <150 mg/dL Borderline high: 150-199 mg/dL High: 200-499 mg/dL Very high: >or= 499 mg/dL Literature References: 1. Expert Panel on Integrated Guidelines for Cardiovascular Health and Risk Reduction in Children and Adolescents. Pediatrics 2011;128:S213 2. NCEP Expert Panel. Circulation 2004;110:227 Current Interpretive Data was last revised on 2018. Testing performed by: [facility], [address] [place] [address]., [address] HDL 49 >=40 mg/dL [facility] ([place]) Comment: Interpretive Data Ages < or = 19 years Acceptable: >45 mg/dL Borderline low: 40-45 mg/dL Low: <40 mg/dL Ages > or = 20 years Desirable: >or= 60 mg/dL Low: <40 mg/dL Literature References: 1. Expert Panel on Integrated Guidelines for Cardiovascular Health and Risk Reduction in Children and Adolescents. Pediatrics 2011;128:S213 2. NCEP Expert Panel. Circulation 2004;110:227 Current Interpretive Data was last revised on 2018. Testing performed by: [facility], [address] [place] [address]., [address] LDL, calculated 55 <=129 mg/dL [facility] ([place]) Comment: Interpretive Data Ages < or = 19 years Acceptable: <110 mg/dL Borderline high: 110-129 mg/dL High: >or= 130 mg/dL Ages > or = 20 years Optimal: <100 mg/dL Near optimal: 100-129 mg/dL Borderline high: 130-159 mg/dL High: >160 mg/dL Calculated using the Jose LDL-C estimating equation. This equation was implemented on 2024. Prior to this date LDL-C was estimated using the Friedewald equation. Literature References: 1. Expert Panel on Integrated Guidelines for Cardiovascular Health and Risk Reduction in Children and Adolescents. Pediatrics 2011;128:S213 2. NCEP Expert Panel. Circulation 2004;110:227 3. Jose Gray et al. HANNAH Cardiol. 2020 December 26;5(5):540-548. doi: 10.1001/jamacardio.2020.0013 Current Interpretive Data was last revised on 2024. Testing performed by: [address] [address] Non-HDL Cholesterol 75 mg/dL [facility] ([place]) Comment: Interpretive Data Ages < or = 19 years Acceptable: <120 mg/dL Borderline high: 120-144 mg/dL High: >145 mg/dL Ages > or = 20 years When triglycerides are >200 mg/dL, Non-HDL cholesterol is a secondary target of therapy with treatment goals that are 30 mg/dL greater than the LDL cholesterol target. Literature References: 1. Expert Panel on Integrated Guidelines for Cardiovascular Health and Risk Reduction in Children and Adolescents. Pediatrics 2011;128:S213 2. NCEP Expert Panel. Circulation 2004;110:227 Current Interpretive Data was last revised on 2018. Testing performed by: [facility], [address] [place] [address]., [address] Chol/HDL ratio 3 [facility] ([place]) Comment:Testing performed by : [facility], [address] [place] [address]., [id number] Blood 01/16/2025 10:5 9 AM CDT 01/16/2025 6:21 PM CDT us Maria Antonia Celis NP LAB BLOOD ORDERABLES Final Re sult [facility] ([place]) 1 [facility] [place] [address] * (ABNORMAL) Comprehensive metabolic panel (01/16/2025 10:59 AM CDT) Sodium 138 135 - 145 mmol/L Comment:Testing performed by : [facility], [address] [place] [address]., [address] Potassium, pl 4.7 3.3 - 4.9 mmol/L [facility] ([place]) Comment:Testing performed by : [facility], [address] [place] [address]., [address] Chloride 103 97 - 110 mmol/L [facility] ([place]) Comment:Testing performed by : [facility], [address] [place] [address]., [address] CO2 25 22 - 32 mmol/L [facility] ([place]) Comment:Testing performed by : [facility], [address] [place] [address], [address] Anion gap 10 2 - 15 mmol/L [facility] ([place]) Comment:Testing performed by : [address] [address] BUN 19 6 - 25 mg/dL [facility] ([place]) Comment:Testing performed by : [address] [address] Creatinine 1.33(H) 0.80 - 1.30 mg/dL [facility] ([place]) Comment:Testing performed by : [address] [address] Glucose 108 70 - 199 mg/dL [facility] ([place]) Comment: Interpretive Data Fasting glucose >/= 126 mg/dl is diagnostic for diabetes. Fasting is defined as no caloric intake for at least 8 hours. Fasting glucose between 100 mg/dl to 125 mg/dl is diagnostic of prediabetes. In a patient with classic symptoms of hyperglycemia or hyperglycemic crisis, a random glucose >/= 200 mg/dl is diagnostic for diabetes. In the absence of unequivocal hyperglycemia, results should be confirmed by repeat testing. The classification and Diagnosis of Diabetes Diabetes Care 2021; 46: S19-S40. Current interpretive data was last revised 2022. Testing performed by: [address], [address] Calcium 9.0 8.5 - 10.3 mg/dL [facility] ([place]) Comment:Testing performed by : [facility], [address] [place] [address], [address] Bilirubin, total 0.4 0.1 - 1.2 mg/dL [facility] ([place]) Comment:Testing performed by : [facility], [address] [place] [address], [address] Protein, pl 7.2 6.5 - 8.5 g/dL [facility] ([place]) Comment:Testing performed by : [facility], [address] [place] [address], [address] Albumin 3.1(L) 3.5 - 5.0 g/dL [facility] ([place]) Comment:Testing performed by : [facility], [address] [place] [address], [address] Alk phos 117 40 - 130 Units/L [facility] ([place]) Comment:Testing performed by : [address], [address] ALT 27 7 - 55 Units/L [facility] ([place]) Comment:Testing performed by : [facility], [address] [place] [address], [id number] AST 33 10 - 50 Units/L [facility] ([place]) Comment:Testing performed by : [address], [address] Blood 01/16/2025 10:5 9 AM CDT 01/16/2025 6:21 PM CDT Maria Antonia Celis NP LAB BLOOD ORDERABLES Final Re sult [facility] ([place]) 1 [facility] [place] [address] * (ABNORMAL) POCT urinalysis dipstick (01/16/2025 10:43 AM CDT) Color, Urine, POC Dark Yellow Clarity, ur, POC Cloudy(A) Clear Glucose, ur, POC Negative Negative Bilirubin, ur, POC Negative Negative Ketones, ur, POC Negative Negative Specific [place], POC 1.020 1.003 - 1.030 Blood, ur, POC Moderate(A) Negative pH, ur, POC 7.0 5.0 - 8.0 Protein, ur, POC 300.(A) Negative Urobilinogen, urine, POC 0.2 0.2 - 1.0 mg/dL Nitrite, ur, POC Positive(A) Negative Leukocytes, ur, POC Large(A) Negative Lot Number [id number] Urine 01/16/2025 10:4 3 AM CDT Maria Antonia Celis NP POINT OF CARE TEST ORDERABLES Final Result * POCT INR (01/16/2025 10:39 AM CDT) INR, POC 2.1 Comment:PT: 25.4 QC Internal Control Acceptable Blood Venous blood specimen / Unknown 01/16/2025 10:39 AM CDT Maria Antonia Celis NP POINT OF CARE TEST ORDERABLES Final Result from Last 3 Months Insurance MEDICARE A[employer] MEDICARE [facility] MEDICARE MEDICARE [facility] AETNA MEDICARE Advance Directives For more information, please contact: [phone] * LIMITED - No CPR (Latest Code Status on File) Date Activated Date Inactivated Comments 03/19/2025 9:27 AM 03/28/2025 7:40 PM * Full Code Date Activated Date Inactivated Comments 03/15/2025 3:02 PM 03/19/2025 9:27 AM * Full Code Date Activated Date Inactivated Comments 08/01/2024 9:31 PM 08/18/2024 2:42 PM * Full Code Date Activated Date Inactivated Comments 03/21/2019 11:54 AM 11/13/2021 1:13 AM * Full Code Date Activated Date Inactivated Comments 03/04/2019 11:18 PM 03/13/2019 6:55 PM Care Teams Occupational Therapy Assist Relationship Specialty Start Date End Date Vimal Cano MD [address] [place] [address] PCP - General 11/25/16 Uriah Garg MD PhD [address] [place] [address] Radiation Oncologist Radiation Oncology 04/11/19 Sumit Craig MD [address] [place] [address] Referring Physician Urology 04/11/19
--- OUTSIDE RECORDS SUMMARY | 2025-04-18 08:54 | XMS_ITS | Encounter Summary ---
Author Organization [facility] Address [address] [place] [address] Phone Care Team Providers Care Nail Setter Name Role Phone Vimla Cano MD Primary Care Provider [phone] Enoch Romero MD Unavailable Reason for Visit * Reason Comments Medication Refill Encounter Details Date Type Department Care Team (Late st Contact Info) Description 12/11/2024 Refill [facility] [place] [address] Enoch Romero MD #[address] [address] Medication Refill Social History Tobacco Use Types Packs/Day Years Used Date Smoking Tobacco: Former Smokeless Tobacco: Never Comments:QUIT 23 YRS AGO Alcohol Use Standard Drinks/Week Comments Yes 1 (1 standard drink = 0.6 oz pur e alcohol) ONCE EVERY 2-[address] [facility] Utilities Answer Date Recorded In the past 12 months has [employer] electric, gas, oil, or water company threatened [...] any time in the past 12 m [facility], were you homeless or living in a long-term (including now)? No 07/22/2024 Sexually Active Control [...] on filedocumented in this encounter Care Teams Nail Setter Relationship Specialty Start Date End Date Vimal Cano MD [address] [facility] [address] PCP - General Internal Medicine 11/23/21 Enoch Romero MD [address]2 [facility] [place] [address] [address] Consulting Physician Urology 06/16/22 documented as of this encounter
--- OUTSIDE RECORDS SUMMARY | 2025-04-18 08:54 | XMS_ITS | Encounter Summary ---
Author Organization [facility] Address [address] [place] [address] Phone Care Team Providers Care Automotive Parts Counter Person Name Role Phone Vimal Cano MD Primary Care Provider [phone] Enoch Romero MD Unavailable Reason for Visit * Reason Comments Medication Refill Encounter Details Date Type Department Care Team (Late st Contact Info) Description 01/11/2025 Refill [facility] #[address] [place] [address] Enoch Romero MD #[address] [address] Medication Refill Social History Tobacco Use Types Packs/Day Years Used Date Smoking Tobacco: Former Smokeless Tobacco: Never Comments:QUIT 23 YRS AGO Alcohol Use Standard Drinks/Week Comments Yes 1 (1 standard drink = 0.6 oz pur e alcohol) ONCE EVERY 2-3 WKS [facility] Utilities Answer Date Recorded In the past 12 months has [employer] electric, gas, oil, or water company threatened [...] any time in the past 12 m [facility], were you homeless or living in a assisted (including now)? No 07/22/2024 Sexually Active Control [...] on filedocumented in this encounter Care Teams Automotive Parts Counter Person Relationship Specialty Start Date End Date Vimal Cano MD [address] [place] [address] PCP - General Internal Medicine 11/23/21 Enoch Romero MD #2 [facility] [place] [address] [address] Consulting Physician Urology 06/16/22 documented as of this encounter
--- OUTSIDE RECORDS SUMMARY | 2025-04-18 08:54 | XMS_ITS | Clinical Summary ---
Author Organization [facility] Address [address] [place] [address] Care Team Providers Care Appointment Manager Name Role Phone Unavailable Primary Care Provider Unavailabl e Social History Tobacco Use Types Packs/Day Years Used Date Smoking Tobacco: Never Assessed Sex and Gender Information Value Date Recorded Sex Assigned at Not on file Legal Sex Male 7:55 PM CDT Gender Identity Not on file Sexual Orientation Not on file Plan of Treatment Health Maintenance Due Date Last Done Comments DTaP, Tdap and Td Vaccines ( 1 - Tdap) 1963 Pneumococcal Vaccine: 50+ Ye ars (1 of 1 - PCV) 1994 Zoster Vaccines (1 of 2) 1994 RSV Immunization or 60+ Years (1 - 1-dose 75+ series) 2019 COVID-19 Vaccine ( - 2023-2 5 season) 2024 Meningococcal B Vaccine Aged Out No l onger eligible based on patient's age to complete this topic Meningococcal Vaccine Aged Out No hank red eligible based on patient's age to complete this topic RSV Immunizations Under 20 Months Aged Out No longer eligible based on patient's age to complete this topic
[2025-04-18] MEDS: SODIUM CHLORIDE 0.9% IV 300 ML 999 ML IV CONT (08:58)
[2025-04-18 09:03] LABS: Add Urine Microscopic? YES; Appearance Urine Turbid (Clear); Glucose Urine UA Negative (Negative); Leukocyte Esterase Ur 3+ LEU/UL (Negative); Need Manual Microscopic Reviewed; Nitrate Urine Negative (Negative); Non Pathogenic Casts >20; Specific Grav Ur 1.015 (1.001-1.035)
[2025-04-18 09:06] LABS: Alanine Aminotransferase 27 U/L (6-50); Albumin Level 2.9 g/dL (3.5-5.1); Alkaline Phosphatase 208 U/L (38-126); Anion Gap 5 mmol/L (4-12); Aspartate Amino Transferase 30 U/L (17-59); Bilirubin,Total 1.3 mg/dL (0.2-1.3); Blood Urea Nitrogen 30 mg/dL (9-20); Calcium 8.3 mg/dL (8.4-10.2); Carbon Dioxide 24 mmol/L (22-30); Chloride 104 mmol/L (98-107); Estimated CRCL calculation 44 ml/min; Estimated Glomerular Filt Rate 46; Glucose 115 mg/dL (65-110); Potassium 4.4 mmol/L (3.4-5.0); Sodium 133 mmol/L (137-145); Total Protein 6.5 g/dL (6.3-8.2)
[2025-04-18 09:18] LABS: INR 1.5; Prothrombin Time 17.8 Seconds (11.1-14.7)
[2025-04-18 09:19] LABS: Partial Thromboplastin Time 47.8 Seconds (22.3-36.8)
[2025-04-18 09:23] LABS: Anisocytosis 1+; Ovalocytes 1+; Schistocytes None Seen
[2025-04-18 09:39] LABS: Influenza A QL RT-PCR Negative (Negative); Influenza B QL RT-PCR Negative (Negative); RSV RNA, RT-PCR Negative (Negative); SARS-CoV-2 RNA PCR Negative (Negative)
[2025-04-18] MEDS: cefTRIAXone 1 GM in SODIUM CHLORIDE 0.9% IV 50 ML 100 ML IVPB (10:09)
--- NOTE | 2025-04-18 10:21 | ED.GENADULT ---
HPI - General Adult General Chief complaint: Recheck/Abnormal Lab/Rx Stated complaint: low BP Time Seen by Provider: 04/18/25 08:33 History of Present Illness HPI narrative: Patient is an 79-year-old male who presents ER from his [facility] with low blood pressure and fever. Patient has history of nephrostomy tube placement bilaterally in 1 month ago [facility]. He is unsure why he required tube placement but knows there is an obstruction. He had been doing well and was scheduled be discharged today. Over last couple days he has been having subjective fever and chills. No back pain. No abdominal discomfort. No cough. Related Data Home Medications ?Medication ?Instructions ?Recorded ?Confirmed ?Last Taken ?Type acetaminophen 500 mg capsule 1,000 mg PO Q6H PRN pain 04/18/25 04/18/25 Unknown History calcium carbonate (Calcium Antacid) 200 mg PO BID PRN dyspepsia 04/18/25 04/18/25 Unknown History cyanocobalamin (vitamin B-12) 1,000 mcg PO DAILY 04/18/25 04/18/25 Unknown History 1,000 mcg capsule escitalopram oxalate 10 mg tablet 10 mg PO DAILY 04/18/25 04/18/25 Unknown History gabapentin 300 mg capsule 300 mg PO HS 04/18/25 04/18/25 Unknown History levetiracetam 750 mg tablet 750 mg PO BID 04/18/25 04/18/25 Unknown History lidocaine 4 % topical patch 1 patch topical DAILY 04/18/25 04/18/25 Unknown History (Lidocaine Pain Relief) ondansetron 4 mg disintegrating 4 mg PO Q6H PRN nausea and vomiting 04/18/25 04/18/25 Unknown History tablet oxycodone 5 mg capsule 5 mg PO Q4H PRN pain 04/18/25 04/18/25 Unknown History pantoprazole 40 mg granules 40 mg PO DAILY 04/18/25 04/18/25 Unknown History delayed-release for susp in packet tamsulosin 0.4 mg capsule 0.4 mg PO 1600 04/18/25 04/18/25 Unknown History warfarin 3 mg tablet 6 mg PO DAILY 04/18/25 04/18/25 Unknown History Allergies Allergy/AdvReac Type Severity Reaction Status Date / Time Sulfa (Sulfonamide Allergy Unknown Verified 04/18/25 08:31 Antibiotics) Review of Systems Review of Systems: All systems reviewed & are unremarkable except as noted in HPI and below Constitutional: Constitutional: Reports no additional constitutional complaints ENT: Reports system reviewed and no additional complaints, except as documented Cardiovascular: Cardiovascular: Reports no additional cardiovascular complaints Respiratory: Respiratory: Reports no additional respiratory complaints Gastrointestinal: Gastrointestinal: Reports no additional gastrointestinal complaints Genitourinary: Genitourinary: Reports no additional male genitourinary complaints [facility] Past Medical History Medical History (Updated 04/18/25 @ 18:19 by Keven Howe MD) Seizure disorder History of CVA (cerebrovascular accident) Atrial fibrillation, chronic Pacemaker Chronic kidney disease, stage 3 Nephrostomy present Essential hypertension Major depressive disorder Surgical History Surgical History (Updated 04/18/25 @ 13:40 by Ree Connor APRN) History of nephrostomy Bilateral, placed in February of 2025 at [facility] History of knee replacement, total Social History Social History Smoking status: Never smoker Alcohol intake: never Substance use: never Lack of Transportation: No Lack of Food: Never True Current Housing: I Have Housing Concerned About Future Housing: No Difficulty Paying Gas/Electric Bills: No Difficulty Paying for Meds: No Currently Unemployed: No Education: Bachelor's Degree Difficulty w/ Childcare or Family Care: No Spiritual care concerns: No Exam Narrative: GENERAL: Chronically ill-appearing, well-nourished, and in no acute distress. HEAD: Normocephalic, atraumatic. ENT: Mucous membranes moist. CHEST: Clear to auscultation. No respiratory distress. HEART: Regular rate and rhythm. Normal peripheral pulses. ABDOMEN: Soft, nontender, nondistended Back: Nephrostomy tube coming out of the back bilaterally. Bag from the right side has some mild discoloration while the left-sided peers PE normal yellow color. No blood. EXTREMITIES: Normal range of motion. No edema. SKIN: Warm, dry, no rash. NEURO: Alert and oriented x3. PSYCH: Normal mood and affect. Course Course Emergency Course: Patient reports feeling improved after 30 milliliter/kilogram IV fluid bolus. Blood pressure has been in the mid upper 90s. No tachycardia. Urine with evidence of infection. Ceftriaxone given IV. Admit for observation. Vital Signs Vital signs: Vital Signs Temperature 98.0 F 04/18/25 08:23 Pulse Rate 70 04/18/25 08:23 Respiratory Rate 20 04/18/25 08:23 Blood Pressure 92/55 L 04/18/25 08:23 Pulse Oximetry 98 04/18/25 08:23 Oxygen Delivery Room Air 04/18/25 08:23 Temperature 99.4 F 04/18/25 14:23 Pulse Rate 69 04/18/25 14:00 Respiratory Rate 18 04/18/25 14:00 Blood Pressure 100/45 L 04/18/25 14:00 Pulse Oximetry 99 04/18/25 14:00 Oxygen Delivery Room Air 04/18/25 08:40 Medical Decision Making Vital Signs Vital Signs: Vital Signs Temperature 98.0 F 04/18/25 08:23 Pulse Rate 70 04/18/25 08:23 Respiratory Rate 20 04/18/25 08:23 Blood Pressure 92/55 L 04/18/25 08:23 Pulse Oximetry 98 04/18/25 08:23 Oxygen Delivery Room Air 04/18/25 08:23 Temperature 99.4 F 04/18/25 14:23 Pulse Rate 69 04/18/25 14:00 Respiratory Rate 18 04/18/25 14:00 Blood Pressure 100/45 L 04/18/25 14:00 Pulse Oximetry 99 04/18/25 14:00 Oxygen Delivery Room Air 04/18/25 08:40 Lab Data 04/18/25 08:41 04/18/25 08:41 Labs: Lab Results 04/18/25 04/18/25 04/18/25 Range/Units 08:40 08:41 08:46 WBC 10.0 (4.5-10.0) K/mm3 RBC 3.01 L (4.6-6.20) M/mm3 Hgb 9.1 L (14.0-18.0) g/dL Hct 29.1 L (42.0-52.0) % MCV 96.7 (80-100) fl MCH 30.2 (26-34) pg MCHC 31.3 L (32-36) g/dl RDW 15.0 H (11.5-14.5) % Plt Count 167 (150-375) k/mm3 MPV 8.9 (7.4-10.4) fl Immature Gran % (Auto) 0.5 (0-0.5) % Neut % (Auto) 86.1 H (45.5-73.1) % Lymph % (Auto) 3.6 L (18.3-44.2) % [place] % (Auto) 9.3 H (2.6-8.5) % Eos % (Auto) 0.2 (0-4.4) % Baso % (Auto) 0.3 (0.2-1.2) % Lymph # (Auto) 0.36 L (0.9-3.2) K/mm3 [place] # (Auto) 0.9 H (0.1-0.6) K/mm3 Eos # (Auto) 0.0 (0-0.3) K/mm3 Baso # (Auto) 0.0 (0.0-0.1) K/mm3 Abs Immat Gran (auto) 0.05 H (0.00-0.031) K/mm3 Absolute Neuts (auto) 8.6 H (1.3-6.7) K/mm3 Absolute Nucleated RBC 0.000 (0.0-0.012) K/mm3 Band Neutrophils % Not Reportable Nucleated RBC % 0.0 (0.0-0.2) % Platelet Estimate Adequate (Adequate) Anisocytosis 1+ Ovalocytes 1+ Schistocytes None seen PT 17.8 H (11.1-14.7) Seconds INR 1.5 APTT 47.8 H (22.3-36.8) Seconds Sodium 133 L (137-145) mmol/L Potassium 4.4 (3.4-5.0) mmol/L Chloride 104 (98-107) mmol/L Carbon Dioxide 24 (22-30) mmol/L Anion Gap 5 (4-12) mmol/L BUN 30 H (9-20) mg/dL Creatinine 1.48 H (0.7-1.3) mg/dL Estim Creat Clear Calc 44 ml/min Estimated GFR 46 L (59 - ) Glucose 115 H (65-110) mg/dL Lactic Acid (0.7-2.0) mmol/L Calcium 8.3 L (8.4-10.2) mg/dL Total Bilirubin 1.3 (0.2-1.3) mg/dL AST 30 (17-59) U/L ALT 27 (6-50) U/L Alkaline Phosphatase 208 H (38-126) U/L Total Protein 6.5 (6.3-8.2) g/dL Albumin 2.9 L (3.5-5.1) g/dL Urine Color Yellow (Yellow) Urine Appearance Turbid H (Clear) Urine pH 6.5 (5.0-9.0) Ur Specific [place] 1.015 (1.001-1.035) Urine Protein 3+ H (Negative) mg/dL Urine Glucose (UA) Negative (Negative) mg/dL Urine Ketones Negative (Negative) mg/dL Ur Blood (Man) 2+ H (Negative) Urine Nitrate Negative (Negative) Urine Bilirubin Negative (Negative) Urine Urobilinogen 0.2 (<2.0) mg/dL Add Ur Microanalysis Reviewed Leukocyte Esterase Rfl 3+ H (Negative) JOHNATHON/UL Urine RBC 51-100 H (0-2) /hpf Urine WBC >100 H (0-3) /hpf Ur Squamous Epith Cells None seen (Few) /hpf Urine Bacteria 4+ H /hpf Urine Casts >20 Influenza A (RT-PCR) Negative (Negative) Influenza B (RT-PCR) Negative (Negative) RSV (RT-PCR) Negative (Negative) SARS-CoV-2 RNA (RT-PCR) Negative (Negative) 04/18/25 Range/Units 09:00 WBC (4.5-10.0) K/mm3 RBC (4.6-6.20) M/mm3 Hgb (14.0-18.0) g/dL Hct (42.0-52.0) % MCV (80-100) fl MCH (26-34) pg MCHC (32-36) g/dl RDW (11.5-14.5) % Plt Count (150-375) k/mm3 MPV (7.4-10.4) fl Immature Gran % (Auto) (0-0.5) % Neut % (Auto) (45.5-73.1) % Lymph % (Auto) (18.3-44.2) % [place] % (Auto) (2.6-8.5) % Eos % (Auto) (0-4.4) % Baso % (Auto) (0.2-1.2) % Lymph # (Auto) (0.9-3.2) K/mm3 [place] # (Auto) (0.1-0.6) K/mm3 Eos # (Auto) (0-0.3) K/mm3 Baso # (Auto) (0.0-0.1) K/mm3 Abs Immat Gran (auto) (0.00-0.031) K/mm3 Absolute Neuts (auto) (1.3-6.7) K/mm3 Absolute Nucleated RBC (0.0-0.012) K/mm3 Band Neutrophils % Nucleated RBC % (0.0-0.2) % Platelet Estimate (Adequate) Anisocytosis Ovalocytes Schistocytes PT (11.1-14.7) Seconds INR APTT (22.3-36.8) Seconds Sodium (137-145) mmol/L Potassium (3.4-5.0) mmol/L Chloride (98-107) mmol/L Carbon Dioxide (22-30) mmol/L Anion Gap (4-12) mmol/L BUN (9-20) mg/dL Creatinine (0.7-1.3) mg/dL Estim Creat Clear Calc ml/min Estimated GFR (59 - ) Glucose (65-110) mg/dL Lactic Acid 1.3 (0.7-2.0) mmol/L Calcium (8.4-10.2) mg/dL Total Bilirubin (0.2-1.3) mg/dL AST (17-59) U/L ALT (6-50) U/L Alkaline Phosphatase (38-126) U/L Total Protein (6.3-8.2) g/dL Albumin (3.5-5.1) g/dL Urine Color (Yellow) Urine Appearance (Clear) Urine pH (5.0-9.0) Ur Specific [place] (1.001-1.035) Urine Protein (Negative) mg/dL Urine Glucose (UA) (Negative) mg/dL Urine Ketones (Negative) mg/dL Ur Blood (Man) (Negative) Urine Nitrate (Negative) Urine Bilirubin (Negative) Urine Urobilinogen (<2.0) mg/dL Add Ur Microanalysis Leukocyte Esterase Rfl (Negative) JOHNATHON/UL Urine RBC (0-2) /hpf Urine WBC (0-3) /hpf Ur Squamous Epith Cells (Few) /hpf Urine Bacteria /hpf Urine Casts Influenza A (RT-PCR) (Negative) Influenza B (RT-PCR) (Negative) RSV (RT-PCR) (Negative) SARS-CoV-2 RNA (RT-PCR) (Negative) Imaging Data Radiologist's impression: ITS Impressions Chest X-Ray 04/18/25 09:05 IMPRESSION: 1. Mild opacity left lower lung zone and favor atelectasis over pneumonia. ECG Data EKG #1: ECG completion date: 04/18/25 ECG completion time: 08:29 EKG Interpretation: normal rate (69), widened QRS and other (pacemaker , ventricular paced) Discharge Plan Discharge Clinical Impression: Infection associated with nephrostomy catheter Patient Disposition: Still a Patient Condition: Stable
--- NOTE | 2025-04-18 11:30 | PC.NURSE ---
Called NH and spoke with Kathy letting them know pt had been admitted and dx.
--- NOTE | 2025-04-18 11:35 | PC.NURSE ---
This patient, Gino Marquez, was admitted to 3 [facility] Surg Room 310-01 @ 1135. Patient/family oriented to hospital policies and general routines including ID bracelet, bed and alarms, visiting hours, pain management, procedures, bathroom and other care routines, personal items, smoking policy, room service/diet, and visiting hours. Information on how to activate the Rapid Response Team has been discussed. Patient/Family are encouraged to report perceived risks to care and to ask questions if they do not understand what they are told or what they should do.
--- NOTE | 2025-04-18 13:03 | PM.IMHP ---
H&P: HPI History of Present Illness Date/Time: 04/18/25 13:03 Chief Complaint: Weakness, Hypotension Narrative: 79 y/o M with PMH of CVA, seizure disorder, chronic AFib, pacemaker, CKD stage 3, nephrostomy, depression and hypertension presents here with weakness and hypotension. The patient presents here via EMS from [facility] on 04/18 for further evaluation of hypotension and weakness. Staff waking concerned when they found the patient to be hypotensive and febrile. EMS was called and upon their arrival they reported a systolic blood pressure in the 80s. He was started on IV fluids and arrived to the emergency department at 92/55. He reports over the last few days he has woken up diaphoretic and has felt more weak than usual. He denies associated hematuria, abdominal pain, nausea, vomiting, diarrhea, chills or body aches. He does have a history of bilateral nephrostomy tubes. These were recently placed approximately 5 weeks ago at [facility]. The patient is unsure why he had to have nephrostomy tubes placed, however reports the surgery was emergent. He denies a previous history of treatment resistant UTIs, however does report a history of frequent UTIs. Initial VS at presentation: 98? F, HR 70, R 20, 92/55, and 98% on RA. ED workup showed: No leukocytosis, hemoglobin 9.1, INR 1.5, sodium 133, creatinine 1.48 and GFR 46, lactic 1.3, albumin 2.9 with a calcium of 8.3, and UA consistent with UTI. Viral PCR negative. CXR showed mild opacity in the left lower lung zone in favor of atelectasis over pneumonia. EKG showed electronic ventricular pacemaker, underlying atrial flutter/tachycardia, baseline artifact, rate 69 with no further interpretation possible. Review of Systems Review of Systems: All systems reviewed & are unremarkable except as noted in HPI and below PMFSH Past Medical History Medical History (Updated 04/18/25 @ 13:41 by Ree Connor APRN) Seizure disorder History of CVA (cerebrovascular accident) Atrial fibrillation, chronic Pacemaker Chronic kidney disease, stage 3 Nephrostomy present Essential hypertension Major depressive disorder Surgical History Surgical History (Updated 04/18/25 @ 13:40 by Ree Connor APRN) History of nephrostomy Bilateral, placed in February of 2025 at [facility] History of knee replacement, total Social History Social History Smoking status: Never smoker Alcohol intake: never Substance use: never Lack of Transportation: No Lack of Food: Never True Current Housing: I Have Housing Concerned About Future Housing: No Difficulty Paying Gas/Electric Bills: No Difficulty Paying for Meds: No Currently Unemployed: No Education: Bachelor's Degree Difficulty w/ Childcare or Family Care: No Spiritual care concerns: No Meds Home Medications and Allergies Home Medications ?Medication ?Instructions ?Recorded ?Confirmed ?Type acetaminophen 500 mg capsule 1,000 mg PO Q6H PRN pain 04/18/25 04/18/25 History calcium carbonate (Calcium Antacid) 200 mg PO BID PRN dyspepsia 04/18/25 04/18/25 History cyanocobalamin (vitamin B-12) 1,000 mcg PO DAILY 04/18/25 04/18/25 History 1,000 mcg capsule escitalopram oxalate 10 mg tablet 10 mg PO DAILY 04/18/25 04/18/25 History gabapentin 300 mg capsule 300 mg PO HS 04/18/25 04/18/25 History levetiracetam 750 mg tablet 750 mg PO BID 04/18/25 04/18/25 History lidocaine 4 % topical patch 1 patch topical DAILY 04/18/25 04/18/25 History (Lidocaine Pain Relief) ondansetron 4 mg disintegrating 4 mg PO Q6H PRN nausea and vomiting 04/18/25 04/18/25 History tablet oxycodone 5 mg capsule 5 mg PO Q4H PRN pain 04/18/25 04/18/25 History pantoprazole 40 mg granules 40 mg PO DAILY 04/18/25 04/18/25 History delayed-release for susp in packet tamsulosin 0.4 mg capsule 0.4 mg PO 1600 04/18/25 04/18/25 History warfarin 3 mg tablet 6 mg PO DAILY 04/18/25 04/18/25 History Allergies Allergy/AdvReac Type Severity Reaction Status Date / Time Sulfa (Sulfonamide Allergy Unknown Verified 04/18/25 08:31 Antibiotics) Vital Signs Vital Signs - 24 hr 04/18/25 08:23 04/18/25 08:40 04/18/25 09:04 Temperature 98.0 F Pulse Rate 70 70 Respiratory Rate 20 22 H Blood Pressure 92/55 L 94/54 L Pulse Oximetry 98 99 98 Oxygen Delivery Room Air Room Air 04/18/25 09:30 04/18/25 10:11 04/18/25 11:27 Temperature 98.1 F Pulse Rate 104 H 93 Respiratory Rate 20 20 Blood Pressure 101/55 L 98/61 L 100/56 L Pulse Oximetry 99 100 98 Oxygen Delivery Exam Const: General: comfortable and no acute distress Other: , male, elderly, nontoxic appearance HENMT: Face/Nose/Sinus: Normal nares present Mouth: Yes moist mucous membranes Eyes: General: appearance normal, both eyes and all related structures Sclera: sclerae normal Pupils: Equal, round and reactive pupils present EOM: EOMs intact bilaterally Resp: Effort & Inspection: normal respiratory effort Auscultation: clear to auscultation bilaterally Cardio: Rate: regular rate Rhythm: regular rhythm Other: S1-S2 present without murmur, rub, ectopy GI: Other: Abdomen soft, nondistended, nontender. Normoactive bowel sounds in all quadrants. : Other: No tenderness or erythema to nephrostomy tube sites. Draining bilaterally with minimal sediment and dark yellow appearance. Skin: General skin exam: normal color and no rashes or lesions noted Wounds: no wounds Neuro: Speech: normal speech Sensory Exam: normal sensation Other: Generalized weakness, A&O x4 Extrem: General: normal to inspection Psych: Mental Status: mental status grossly normal Affect: normal affect Other: Good insight and judgment. H&P: Results Labs Labs: Short CBC 04/18/25 Range/Units 08:41 WBC 10.0 (4.5-10.0) K/mm3 Hgb 9.1 L (14.0-18.0) g/dL Hct 29.1 L (42.0-52.0) % Plt Count 167 (150-375) k/mm3 [facility] 04/18/25 08:41 Sodium 133 L Potassium 4.4 Chloride 104 Carbon Dioxide 24 BUN 30 H Creatinine 1.48 H Glucose 115 H Calcium 8.3 L Liver Function 04/18/25 Range/Units 08:41 Total Bilirubin 1.3 (0.2-1.3) mg/dL AST 30 (17-59) U/L ALT 27 (6-50) U/L Alkaline Phosphatase 208 H (38-126) U/L Albumin 2.9 L (3.5-5.1) g/dL Urine 04/18/25 Range/Units 08:40 Urine Color Yellow (Yellow) Urine Appearance Turbid H (Clear) Urine pH 6.5 (5.0-9.0) Ur Specific [place] 1.015 (1.001-1.035) Urine Protein 3+ H (Negative) mg/dL Urine Glucose (UA) Negative (Negative) mg/dL Assessment and Plan Assessment and plan (1) Sepsis: Qualifiers: Sepsis acute organ dysfunction status: without acute organ dysfunction Sepsis type: sepsis due to unspecified organism Qualified Code(s): A41.9 - Sepsis, unspecified organism Code(s): A41.9 - Sepsis, unspecified organism Status: Acute Assessment and Plan: - concern for sepsis as the patient was hypotensive prior to arrival and soft upon arrival - lactic acid: 1.3 - 30 mL/kg = 3L, given 4L bolus in the ED - suspected source: urosepsis - started on ceftriaxone on 04/18 - blood cultures drawn on 04/18, follow - CXR concerning for a mild opacity in the left lower lung zone, however in favor of atelectasis over pneumonia. No current respiratory complaints. - monitor hemodynamic stability (2) UTI (urinary tract infection): Qualifiers: Encounter type: initial encounter Indwelling urinary catheter type: nephrostomy catheter Urinary tract infection type: catheter-associated UTI Qualified Code(s): T83.512A - Infection and inflammatory reaction due to nephrostomy catheter, initial encounter; N39.0 - Urinary tract infection, site not specified Code(s): N39.0 - Urinary tract infection, site not specified Status: Acute Assessment and Plan: - UA: Turbid, 3+ protein, 2+ blood, 3+ leuk esterase, 51-100 RBC, greater than 100 WBC, 4+ bacteria with no epithelial cells - UC pending - no previous micro available for review - started on Ceftriaxone on 04/18 (3) Chronic kidney disease, stage 3: Qualifiers: Chronic kidney disease stage 3 subtype: unspecified whether 3a or 3b Qualified Code(s): N18.30 - Chronic kidney disease, stage 3 unspecified Code(s): N18.30 - Chronic kidney disease, stage 3 unspecified Status: Chronic Assessment and Plan: - creatinine 1.48, BUN 30, GFR 46 upon admission on 04/18 - no baseline creatinine available - trend renal function - trend electrolytes, correct as needed (4) Atrial fibrillation, chronic: Code(s): I48.20 - Chronic atrial fibrillation, unspecified Status: Chronic Assessment and Plan: - chronic, has history of pacemaker. Initial EKG showed same. - continue home medications: Warfarin (5) Essential hypertension: Code(s): I10 - Essential (primary) hypertension Status: Chronic Assessment and Plan: - chronic, currently 100/56 - no antihypertensive medications listed - monitor Plan Diet: Heart healthy GI Prophylaxis: N/A DVT Prophylaxis: Warfarin IV fluids: 4L bolus -> 125 mL/hour Lines/Tubes: Peripheral IV, nephrostomy tubes bilateral Code Status: Full code Quality VTE Prophylaxis VTE prophylaxis: pharmacologic ordered Hospitalist MIPS Advance Care Plan I have confirmed that the patient's Advanced Care Plan is present, code status is documented, or surrogate decision maker is listed in patient medical record.: Yes Medication Reconciliation I have utilized all available resources to obtain, update and review the patients current medications (includes all prescriptions, OTC, herbals, cannabis, and nutritional supplements).: Yes
[2025-04-18] MEDS: SODIUM CHLORIDE 0.9% IV 1,000 ML 125 ML IV CONT ×2 (13:10→23:50)
[2025-04-18] MEDS: WARFARIN (*PBKC) 3 MG TABLET 6 MG PO (17:07)
[2025-04-18] MEDS: ACETAMINOPHEN 325 MG TABLET 650 MG PO (17:08)
[2025-04-18] MEDS: ALBUMIN HUMAN 25% 25 GM/100 ML 100 ML IVPB ×2 (17:09→23:43)
[2025-04-18] MEDS: TAMSULOSIN HCL 0.4 MG CAPSULE PO (17:37)
[2025-04-18] MEDS: GABAPENTIN 300 MG CAPSULE PO (22:10)
[2025-04-19] VITALS (8 sets, daily range): BP systolic 95–113; BP diastolic 46–66; PULSE 67–78; RESP 16–20; TEMP 36.2–36.6; O2SAT 95–100
[2025-04-19] MEDS: ALBUMIN HUMAN 25% 25 GM/100 ML 100 ML IVPB ×2 (06:12→12:45)
[2025-04-19 06:25] LABS: Hematocrit 25.1 % (42.0-52.0); Hemoglobin 7.8 g/dL (14.0-18.0); Immature Granulocyte Percent A 0.5 % (0-0.5); Lymphocytes Absolute Auto 0.29 K/mm3 (0.9-3.2); Mean Corpuscular HGB Conc 31.1 g/dl (32-36); Mean Corpuscular Hemoglobin 30.5 pg (26-34); Mean Corpuscular Volume 98.0 fl (80-100); Nucleated Red Blood Cells Absolute Auto 0.000 K/mm3 (0.0-0.012); Nucleated Red Blood Cells Perc 0.0 % (0.0-0.2); Platelet Count Result 155 k/mm3 (150-375); Red Blood Count 2.56 M/mm3 (4.6-6.20); White Blood Count 6.5 K/mm3 (4.5-10.0)
[2025-04-19 06:35] LABS: INR 1.7; Prothrombin Time 19.2 Seconds (11.1-14.7)
[2025-04-19 06:45] LABS: Anion Gap 6 mmol/L (4-12); Blood Urea Nitrogen 29 mg/dL (9-20); Calcium 8.2 mg/dL (8.4-10.2); Carbon Dioxide 20 mmol/L (22-30); Chloride 106 mmol/L (98-107); Estimated CRCL calculation 46 ml/min; Estimated Glomerular Filt Rate 51; Glucose 97 mg/dL (65-110); Potassium 4.4 mmol/L (3.4-5.0); Sodium 132 mmol/L (137-145)
--- NOTE | 2025-04-19 07:44 | P.PNIM_ITS ---
Progress Note: A&P Assessment and Plan (1) Sepsis: Qualifiers: Sepsis acute organ dysfunction status: without acute organ dysfunction Sepsis type: sepsis due to unspecified organism Qualified Code(s): A41.9 - S epsis, unspecified organism Code(s): A41.9 - Sepsis, unspecified organism Status: Acute Assessment and Plan: - sepsis criteria met in ED with soft BP, HR 104, RR 20-22 - lactic acid: 1.3 - given 4L bolus in the ED - suspected source: UTI - started on ceftriaxone on 04/18 - blood cultures drawn on 04/18, follow - CXR concerning for a mild opacity in the left lower lung zone, however in favor of atelectasis over pneumonia. No current respiratory complaints. - monitor hemodynamic stability (2) UTI (urinary tract infection): Qualifiers: Encounter type: initial encounter Indwelling urinary catheter type: nephrostomy catheter Urinary tract infection type: catheter-associated UTI Qualified Code(s): T83.512A - Infection and inflammatory reaction due to nephrostomy catheter, initial encounter; N39.0 - Urinary tract infection, site not specified Code(s): N39.0 - Urinary tract infection, site not specified Status: Acute Assessment and Plan: - UA: Turbid, 3+ protein, 2+ blood, 3+ leuk esterase, 51-100 RBC, greater than 100 WBC, 4+ bacteria with no epithelial cells - recently had nephrostomy tubes placed at [facility] for unclear reason. Attempting to obtain records. - no previous micro available for review - started on Ceftriaxone on 04/18. Follow-up urine and blood cultures. (3) Chronic kidney disease, stage 3: Qualifiers: Chronic kidney disease stage 3 subtype: unspecified whether 3a or 3b Qualified Code(s): N18.30 - Chronic kidney disease, stage 3 unspecified Code(s): N18.30 - Chronic kidney disease, stage 3 unspecified Status: Chronic Assessment and Plan: - creatinine 1.48, BUN 30, GFR 46 upon admission on 04/18. Trending down today. - no baseline creatinine available - trend renal function - trend electrolytes, correct as needed (4) Atrial fibrillation, chronic: Code(s): I48.20 - Chronic atrial fibrillation, unspecified Status: Chronic Assessment and Plan: - chronic, has history of pacemaker. Initial EKG showed AV pacing with underlying Aflutter - INR subtherapeutic, 1.7 but trending up - continue home Warfarin 6 mg daily - monitor on tele - daily INR (5) Anemia: Code(s): D64.9 - Anemia, unspecified Status: Acute Assessment and Plan: - Hgb 9.1-->7.8. Normocytic. - unclear baseline - no signs of bleeding - downtrend likely hemodilutional. Likely has component of anemia of chronic disease - check iron panel, ferritin, B12/folate Plan DVT Prophylaxis: Warfarin Code Status: Full code Disposition: patient from [facility], will likely return. PT/OT consulted. Subjective Date/time seen: 04/19/25 07:44 Interval history: 79 y/o M with PMH of CVA, seizure disorder, chronic AFib, pacemaker, CKD stage 3, nephrostomy, depression and hypertension presents here with weakness and hypotension. Patient seen and examined at bedside. Feeling better this AM, but still weak. Denies nausea, vomiting, abdominal pain. Review of Systems Review of Systems: All systems reviewed & are unremarkable except as noted in HPI and below Exam Narrative: General: NAD, appears deconditioned Eyes: EOMI ENT: neck supple Cardiovascular: Regular rate and rhythm Respiratory: Clear to auscultation, respirations even and unlabored on RA Gastrointestinal: Soft, non tender Genitourinary: no suprapubic tenderness, bialteral nephrostomy tubes draining cloudy urine Musculoskeletal: No edema Skin: warm, dry Neuro: Alert. Psych: Mood appropriate Objective Data Vital Signs Vital Signs: Vital Signs - 24 hr 04/18/25 08:23 04/18/25 08:40 04/18/25 09:04 Temperature 98.0 F Pulse Rate 70 70 Respiratory Rate 20 22 H Blood Pressure 92/55 L 94/54 L Pulse Oximetry 98 99 98 Oxygen Delivery Room Air Room Air 04/18/25 09:30 04/18/25 10:11 04/18/25 11:27 Temperature 98.1 F Pulse Rate 104 H 93 Respiratory Rate 20 20 Blood Pressure 101/55 L 98/61 L 100/56 L Pulse Oximetry 99 100 98 Oxygen Delivery 04/18/25 14:00 04/18/25 14:23 04/18/25 18:08 Temperature 98.3 F 99.4 F 99.4 F Pulse Rate 69 Respiratory Rate 18 Blood Pressure 100/45 L Pulse Oximetry 99 Oxygen Delivery 04/18/25 18:10 04/18/25 18:30 04/18/25 19:35 Temperature 98.5 F Pulse Rate 70 Respiratory Rate Blood Pressure 89/49 L Pulse Oximetry Oxygen Delivery Room Air 04/18/25 19:45 04/18/25 22:00 04/18/25 22:10 Temperature 96.6 F L Pulse Rate 69 Respiratory Rate 20 Blood Pressure 90/58 L 91/51 L Pulse Oximetry 97 Oxygen Delivery Room Air 04/19/25 06:00 Temperature 97.7 F Pulse Rate 70 Respiratory Rate 16 Blood Pressure 95/46 L Pulse Oximetry 96 Oxygen Delivery Intake/Output Intake/Output: Intake & Output 04/16/25 04/17/25 04/18/25 04/19/25 23:59 23:59 23:59 23:59 Intake Total 6310 800 Output Total 1050 650 Balance 5260 150 Meds/Results Medications: Active Medications Generic Name Dose Route Start Last Admin Trade Name Freq PRN Reason Stop Dose Admin Acetaminophen 650 mg 04/18/25 13:16 04/18/25 17:08 Acetaminophen 325 Mg Tablet PO 650 mg Q6H PRN Administration Mild Pain (1-3) or Fever Hydrocodone Bitart/Acetaminophen 1 tab 04/18/25 10:46 Hydrocodone/Acetaminophen (*Crx) 5-325 Mg Tablet PO Q4H PRN Pain Rated 4-6 Calcium Carbonate 200 mg 04/18/25 14:52 Calcium Carbonate (Tums) 500 Mg (200 Mg Elemental) PO BID PRN Dyspepsia Cyanocobalamin 1,000 mcg 04/19/25 09:00 Cyanocobalamin 1,000 Mcg Tablet PO DAILY MARY Escitalopram Oxalate 10 mg 04/19/25 09:00 Escitalopram Oxalate 10 Mg Tablet PO DAILY MARY Gabapentin 300 mg 04/18/25 21:00 04/18/25 22:10 Gabapentin 300 Mg Capsule PO 300 mg HS MARY Administration Ceftriaxone Sodium 1 gm/ 50 mls @ 100 mls/hr 04/19/25 10:00 Sodium Chloride IVPB Q24H MARY Sodium Chloride 1,000 mls @ 125 mls/hr 04/18/25 10:55 04/18/25 23:50 Normal Saline Iv IV CONT 125 mls/hr .Q8H MARY Administration Albumin Human 100 mls @ 60 mls/hr 04/18/25 18:00 04/19/25 06:12 Albutein IVPB 04/19/25 13:39 60 mls/hr Q6HR MARY Administration Levetiracetam 750 mg 04/18/25 21:00 04/18/25 22:10 Levetiracetam 250 Mg Tablet PO 750 mg Q12HR MARY Administration Lidocaine 1 patch 04/19/25 09:00 Lidocaine 5% Patch TRANSDERM DAILY [facility] Ondansetron HCl 4 mg 04/18/25 10:46 Ondansetron Inj 4 Mg/2 Ml Vial IV PUSH Q4H PRN Nausea Oxycodone HCl 5 mg 04/18/25 14:52 Oxycodone Hcl (*Crx) 5 Mg Tab Ir PO Q4H PRN Pain Rated 6 or Greater Pantoprazole Sodium 40 mg 04/19/25 09:00 Pantoprazole 40 Mg Tablet PO QAM MARY Tamsulosin HCl 0.4 mg 04/18/25 16:00 04/18/25 17:37 Tamsulosin Hcl 0.4 Mg Capsule PO 0.4 mg 1600 MARY Administration Warfarin Sodium 6 mg 04/18/25 18:00 04/18/25 17:07 Warfarin (*Pbkc) 3 Mg Tablet PO 6 mg EVENING MARY Administration Radiology Results: ITS Impressions Chest X-Ray 04/18/25 09:05 IMPRESSION: 1. Mild opacity left lower lung zone and favor atelectasis over pneumonia. Labs Labs: Laboratory Results - last 24 hr 04/18/25 04/18/25 04/18/25 08:40 08:41 08:46 WBC 10.0 RBC 3.01 L Hgb 9.1 L Hct 29.1 L MCV 96.7 MCH 30.2 MCHC 31.3 L RDW 15.0 H Plt Count 167 MPV 8.9 Immature Gran % (Auto) 0.5 Neut % (Auto) 86.1 H Lymph % (Auto) 3.6 L [place] % (Auto) 9.3 H Eos % (Auto) 0.2 Baso % (Auto) 0.3 Lymph # (Auto) 0.36 L [place] # (Auto) 0.9 H Eos # (Auto) 0.0 Baso # (Auto) 0.0 Abs Immat Gran (auto) 0.05 H Absolute Neuts (auto) 8.6 H Absolute Nucleated RBC 0.000 Band Neutrophils % Not Reportable Nucleated RBC % 0.0 Platelet Estimate Adequate Anisocytosis 1+ Ovalocytes 1+ Schistocytes None seen PT 17.8 H INR 1.5 APTT 47.8 H Sodium 133 L Potassium 4.4 Chloride 104 Carbon Dioxide 24 Anion Gap 5 BUN 30 H Creatinine 1.48 H Estim Creat Clear Calc 44 Estimated GFR 46 L Glucose 115 H Lactic Acid Calcium 8.3 L Total Bilirubin 1.3 AST 30 ALT 27 Alkaline Phosphatase 208 H Total Protein 6.5 Albumin 2.9 L Urine Color Yellow Urine Appearance Turbid H Urine pH 6.5 Ur Specific [place] 1.015 Urine Protein 3+ H Urine Glucose (UA) Negative Urine Ketones Negative Ur Blood (Man) 2+ H Urine Nitrate Negative Urine Bilirubin Negative Urine Urobilinogen 0.2 Add Ur Microanalysis Reviewed Leukocyte Esterase Rfl 3+ H Urine RBC 51-100 H Urine WBC >100 H Ur Squamous Epith Cells None seen Urine Bacteria 4+ H Urine Casts >20 Influenza A (RT-PCR) Negative Influenza B (RT-PCR) Negative RSV (RT-PCR) Negative SARS-CoV-2 RNA (RT-PCR) Negative 04/18/25 04/19/25 09:00 05:33 WBC 6.5 RBC 2.56 L Hgb 7.8 L Hct 25.1 L MCV 98.0 MCH 30.5 MCHC 31.1 L RDW 15.1 H Plt Count 155 MPV 10.2 Immature Gran % (Auto) 0.5 Neut % (Auto) 83.3 H Lymph % (Auto) 4.5 L [place] % (Auto) 11.1 H Eos % (Auto) 0.3 Baso % (Auto) 0.3 Lymph # (Auto) 0.29 L [place] # (Auto) 0.7 H Eos # (Auto) 0.0 Baso # (Auto) 0.0 Abs Immat Gran (auto) 0.03 Absolute Neuts (auto) 5.4 Absolute Nucleated RBC 0.000 Band Neutrophils % Nucleated RBC % 0.0 Platelet Estimate Anisocytosis Ovalocytes Schistocytes PT 19.2 H INR 1.7 APTT Sodium 132 L Potassium 4.4 Chloride 106 Carbon Dioxide 20 L Anion Gap 6 BUN 29 H Creatinine 1.34 H Estim Creat Clear Calc 46 Estimated GFR 51 L Glucose 97 Lactic Acid 1.3 Calcium 8.2 L Total Bilirubin AST ALT Alkaline Phosphatase Total Protein Albumin Urine Color Urine Appearance Urine pH Ur Specific [place] Urine Protein Urine Glucose (UA) Urine Ketones Ur Blood (Man) Urine Nitrate Urine Bilirubin Urine Urobilinogen Add Ur Microanalysis Leukocyte Esterase Rfl Urine RBC Urine WBC Ur Squamous Epith Cells Urine Bacteria Urine Casts Influenza A (RT-PCR) Influenza B (RT-PCR) RSV (RT-PCR) SARS-CoV-2 RNA (RT-PCR) Quality VTE Prophylaxis VTE prophylaxis: pharmacologic ordered
[2025-04-19 08:09] LABS: Iron 12 ug/dL (49-181)
[2025-04-19 08:18] LABS: Percent Iron Saturation 6 % (20-50)
[2025-04-19] MEDS: SODIUM CHLORIDE 0.9% IV 1,000 ML 100 ML IV CONT (08:30)
[2025-04-19 08:50] LABS: Ferritin 121.00 ng/mL (11.1-264)
[2025-04-19 09:13] LABS: Vitamin B12 245.0 pg/mL (239-931)
[2025-04-19] MEDS: ESCITALOPRAM OXALATE 10 MG TABLET PO (09:34)
[2025-04-19] MEDS: CYANOCOBALAMIN 1,000 MCG TABLET 1000 MCG PO (09:34)
[2025-04-19] MEDS: PANTOPRAZOLE 40 MG TABLET PO (09:34)
[2025-04-19] MEDS: cefTRIAXone 1 GM in SODIUM CHLORIDE 0.9% IV 50 ML 100 ML IVPB (09:49)
[2025-04-19 12:04] LABS: Hematocrit 23.4 % (42.0-52.0); Hemoglobin 7.2 g/dL (14.0-18.0)
[2025-04-19] MEDS: TAMSULOSIN HCL 0.4 MG CAPSULE PO (16:21)
[2025-04-19] MEDS: GABAPENTIN 300 MG CAPSULE PO (21:12)
[2025-04-19 21:14] LABS: Hematocrit 26.1 % (42.0-52.0); Hemoglobin 8.1 g/dL (14.0-18.0)
[2025-04-20] VITALS (11 sets, daily range): BP systolic 100–116; BP diastolic 50–61; PULSE 65–70; RESP 16–18; TEMP 36.1–36.7; O2SAT 98–99
[2025-04-20 05:32] LABS: Hematocrit 28.1 % (42.0-52.0); Hemoglobin 8.7 g/dL (14.0-18.0); Immature Granulocyte Percent A 0.8 % (0-0.5); Lymphocytes Absolute Auto 0.39 K/mm3 (0.9-3.2); Mean Corpuscular HGB Conc 31.0 g/dl (32-36); Mean Corpuscular Hemoglobin 29.6 pg (26-34); Mean Corpuscular Volume 95.6 fl (80-100); Nucleated Red Blood Cells Absolute Auto 0.000 K/mm3 (0.0-0.012); Nucleated Red Blood Cells Perc 0.0 % (0.0-0.2); Platelet Count Result 188 k/mm3 (150-375); Red Blood Count 2.94 M/mm3 (4.6-6.20); White Blood Count 6.4 K/mm3 (4.5-10.0)
[2025-04-20 05:43] LABS: INR 1.4; Prothrombin Time 17.2 Seconds (11.1-14.7)
[2025-04-20 05:55] LABS: Alanine Aminotransferase 64 U/L (6-50); Albumin Level 3.3 g/dL (3.5-5.1); Alkaline Phosphatase 235 U/L (38-126); Anion Gap 7 mmol/L (4-12); Aspartate Amino Transferase 92 U/L (17-59); Bilirubin,Total 0.5 mg/dL (0.2-1.3); Blood Urea Nitrogen 31 mg/dL (9-20); Calcium 8.6 mg/dL (8.4-10.2); Carbon Dioxide 21 mmol/L (22-30); Chloride 107 mmol/L (98-107); Estimated CRCL calculation 49 ml/min; Estimated Glomerular Filt Rate 55; Glucose 115 mg/dL (65-110); Potassium 4.1 mmol/L (3.4-5.0); Sodium 135 mmol/L (137-145); Total Protein 6.5 g/dL (6.3-8.2)
--- NOTE | 2025-04-20 07:34 | P.PNIM_ITS ---
Progress Note: A&P Assessment and Plan (1) Sepsis: Qualifiers: Sepsis acute organ dysfunction status: without acute organ dysfunction Sepsis type: sepsis due to unspecified organism Qualified Code(s): A41.9 - S epsis, unspecified organism Code(s): A41.9 - Sepsis, unspecified organism Status: Acute Assessment and Plan: - sepsis criteria met in ED with soft BP, HR 104, RR 20-22 - lactic acid: 1.3 - given 4L bolus in the ED - suspected source: UTI - started on ceftriaxone on 04/18 - blood cultures drawn on 04/18, follow - CXR concerning for a mild opacity in the left lower lung zone, however in favor of atelectasis over pneumonia. No current respiratory complaints. - monitor hemodynamic stability (2) UTI (urinary tract infection): Qualifiers: Encounter type: initial encounter Indwelling urinary catheter type: nephrostomy catheter Urinary tract infection type: catheter-associated UTI Qualified Code(s): T83.512A - Infection and inflammatory reaction due to nephrostomy catheter, initial encounter; N39.0 - Urinary tract infection, site not specified Code(s): N39.0 - Urinary tract infection, site not specified Status: Acute Assessment and Plan: - UA: Turbid, 3+ protein, 2+ blood, 3+ leuk esterase, 51-100 RBC, greater than 100 WBC, 4+ bacteria with no epithelial cells - recently had nephrostomy tubes placed at [facility] for unclear reason. Attempting to obtain records. - no previous micro available for review - urine culture with gram negative bacilli. Awaiting speciation and sensitivities. - started on Ceftriaxone on 04/18. Follow-up urine and blood cultures. (3) Chronic kidney disease, stage 3: Qualifiers: Chronic kidney disease stage 3 subtype: unspecified whether 3a or 3b Qualified Code(s): N18.30 - Chronic kidney disease, stage 3 unspecified Code(s): N18.30 - Chronic kidney disease, stage 3 unspecified Status: Chronic Assessment and Plan: - creatinine 1.48, BUN 30, GFR 46 upon admission on 04/18. Trending down. Cr 1.2 04/20 - suspect prerenal due to sepsis/hypotension and dehydration - no baseline creatinine available - trend renal function - trend electrolytes, correct as needed (4) Atrial fibrillation, chronic: Code(s): I48.20 - Chronic atrial fibrillation, unspecified Status: Chronic Assessment and Plan: - chronic, has history of pacemaker. Initial EKG showed AV pacing with unde rlying Aflutter - INR subtherapeutic, 1.4 - coumadin was held 04/19 due to downtrending Hgb - continue home Warfarin 6 mg daily - monitor on tele - daily INR (5) Anemia: Code(s): D64.9 - Anemia, unspecified Status: Acute Assessment and Plan: - Hgb 9.1-->7.2. Normocytic. Now stable. - unclear baseline - no signs of bleeding - downtrend likely hemodilutional. Likely has component of anemia of chronic disease - iron level low, ferritin normal in setting of acute infection - start PO iron (6) Elevated LFTs: Code(s): R79.89 - Other specified abnormal findings of blood chemistry Status: Acute Assessment and Plan: - AST 92, ALT 64, alk phos 235 - denied abdominal pain - CK WNL, hepatitis panel negative - RUQ US - s/p CCY, expected prominence of the bile ducts - may be secondary to transient hypotension - monitor CMP Plan DVT Prophylaxis: Warfarin Code Status: Full code Disposition: patient from [facility], will likely return. PT/OT consulted. Subjective Date/time seen: 04/20/25 07:34 Interval history: 79 y/o M with PMH of CVA, seizure disorder, chronic AFib, pacemaker, CKD stage 3, nephrostomy, depression and hypertension presents here with weakness and hypotension. Patient seen and examined at bedside. Patient doing okay this morning. No acute complaints. Review of Systems Review of Systems: All systems reviewed & are unremarkable except as noted in HPI and below Exam Narrative: General: NAD, appears deconditioned Eyes: EOMI ENT: neck supple Cardiovascular: Regular rate and rhythm Respiratory: Clear to auscultation, respirations even and unlabored on RA Gastrointestinal: Soft, non tender Genitourinary: no suprapubic tenderness, bilateral nephrostomy tubes draining cloudy urine Musculoskeletal: No edema Skin: warm, dry Neuro: Alert. Psych: Mood appropriate Objective Data Vital Signs Vital Signs: Vital Signs - 24 hr 04/19/25 08:00 04/19/25 12:00 04/19/25 12:00 Temperature 97.2 F L Pulse Rate 77 67 Respiratory Rate 18 Blood Pressure 100/54 L Pulse Oximetry 96 Oxygen Delivery Room Air Fraction of Inspired Oxygen 04/19/25 15:02 04/19/25 15:59 04/19/25 16:00 Temperature 97.9 F Pulse Rate 78 70 Respiratory Rate 20 Blood Pressure 109/66 Pulse Oximetry 97 Oxygen Delivery Room Air Fraction of Inspired Oxygen 04/19/25 20:00 04/19/25 20:05 04/19/25 21:12 Temperature 97.4 F L Pulse Rate 70 70 Respiratory Rate 18 Blood Pressure 113/50 L Pulse Oximetry 100 95 Oxygen Delivery Room Air Fraction of Inspired Oxygen 04/19/25 22:02 04/20/25 00:00 04/20/25 00:03 Temperature 97.7 F Pulse Rate 69 70 Respiratory Rate 18 Blood Pressure 114/55 L Pulse Oximetry 95 99 Oxygen Delivery Room Air Fraction of Inspired Oxygen 04/20/25 04:00 04/20/25 04:05 Temperature 97.8 F Pulse Rate 65 70 Respiratory Rate 18 Blood Pressure 116/61 Pulse Oximetry 99 Oxygen Delivery Fraction of Inspired Oxygen Intake/Output Intake/Output: Intake & Output 04/17/25 04/18/25 04/19/25 04/20/25 23:59 23:59 23:59 23:59 Intake Total 6310 1800 100 Output Total 1050 1570 850 Balance 5260 230 -750 Meds/Results Medications: Active Medications Generic Name Dose Route Start Last Admin Trade Name Freq PRN Reason Stop Dose Admin Acetaminophen 650 mg 04/18/25 13:16 04/18/25 17:08 Acetaminophen 325 Mg Tablet PO 650 mg Q6H PRN Administration Mild Pain (1-3) or Fever Hydrocodone Bitart/Acetaminophen 1 tab 04/18/25 10:46 Hydrocodone/Acetaminophen (*Crx) 5-325 Mg Tablet PO Q4H PRN Pain Rated 4-6 Calcium Carbonate 200 mg 04/18/25 14:52 Calcium Carbonate (Tums) 500 Mg (200 Mg Elemental) PO BID PRN Dyspepsia Cyanocobalamin 1,000 mcg 04/19/25 09:00 04/19/25 09:34 Cyanocobalamin 1,000 Mcg Tablet PO 1,000 mcg DAILY MARY Administration Escitalopram Oxalate 10 mg 04/19/25 09:00 04/19/25 09:34 Escitalopram Oxalate 10 Mg Tablet PO 10 mg DAILY MARY Administration Gabapentin 300 mg 04/18/25 21:00 04/19/25 21:12 Gabapentin 300 Mg Capsule PO 300 mg HS MARY Administration Ceftriaxone Sodium 1 gm/ 50 mls @ 100 mls/hr 04/19/25 10:00 04/19/25 10:19 Sodium Chloride IVPB Infused Q24H MARY Infusion Levetiracetam 750 mg 04/18/25 21:00 04/19/25 21:12 Levetiracetam 250 Mg Tablet PO 750 mg Q12HR MARY Administration Lidocaine 1 patch 04/19/25 09:00 04/19/25 09:34 Lidocaine 5% Patch TRANSDERM Not Given DAILY MARY Ondansetron HCl 4 mg 04/18/25 10:46 Ondansetron Inj 4 Mg/2 Ml Vial IV PUSH Q4H PRN Nausea Oxycodone HCl 5 mg 04/18/25 14:52 Oxycodone Hcl (*Crx) 5 Mg Tab Ir PO Q4H PRN Pain Rated 6 or Greater Pantoprazole Sodium 40 mg 04/19/25 09:00 04/19/25 09:34 Pantoprazole 40 Mg Tablet PO 40 mg QAM MARY Administration Tamsulosin HCl 0.4 mg 04/18/25 16:00 04/19/25 16:21 Tamsulosin Hcl 0.4 Mg Capsule PO 0.4 mg 1600 MARY Administration Warfarin Sodium 6 mg 04/18/25 18:00 04/18/25 17:07 Warfarin (*Pbkc) 3 Mg Tablet PO 6 mg EVENING MARY Administration Radiology Results: ITS Impressions Chest X-Ray 04/18/25 09:05 IMPRESSION: 1. Mild opacity left lower lung zone and favor atelectasis over pneumonia. Labs Labs: Laboratory Results - last 24 hr 04/19/25 04/19/25 04/19/25 05:33 11:54 20:56 WBC RBC Hgb 7.2 L 8.1 L Hct 23.4 L 26.1 L MCV MCH MCHC RDW Plt Count MPV Immature Gran % (Auto) Neut % (Auto) Lymph % (Auto) [place] % (Auto) Eos % (Auto) Baso % (Auto) Lymph # (Auto) [place] # (Auto) Eos # (Auto) Baso # (Auto) Abs Immat Gran (auto) Absolute Neuts (auto) Absolute Nucleated RBC Nucleated RBC % PT INR Sodium Potassium Chloride Carbon Dioxide Anion Gap BUN Creatinine Estim Creat Clear Calc Estimated GFR Glucose Calcium Iron 12 L TIBC 192 L % Saturation 6 L Ferritin 121.00 Total Bilirubin AST ALT Alkaline Phosphatase Total Protein Albumin Vitamin B12 245.0 Folate 15.7 Blood Type AB Positive Antibody Screen Negative 04/20/25 05:18 WBC 6.4 RBC 2.94 L Hgb 8.7 L Hct 28.1 L MCV 95.6 MCH 29.6 MCHC 31.0 L RDW 14.8 H Plt Count 188 MPV 9.1 Immature Gran % (Auto) 0.8 H Neut % (Auto) 79.6 H Lymph % (Auto) 6.1 L [place] % (Auto) 11.4 H Eos % (Auto) 1.6 Baso % (Auto) 0.5 Lymph # (Auto) 0.39 L [place] # (Auto) 0.7 H Eos # (Auto) 0.1 Baso # (Auto) 0.0 Abs Immat Gran (auto) 0.05 H Absolute Neuts (auto) 5.1 Absolute Nucleated RBC 0.000 Nucleated RBC % 0.0 PT 17.2 H INR 1.4 Sodium 135 L Potassium 4.1 Chloride 107 Carbon Dioxide 21 L Anion Gap 7 BUN 31 H Creatinine 1.27 Estim Creat Clear Calc 49 Estimated GFR 55 L Glucose 115 H Calcium 8.6 Iron TIBC % Saturation Ferritin Total Bilirubin 0.5 AST 92 H ALT 64 H Alkaline Phosphatase 235 H Total Protein 6.5 Albumin 3.3 L Vitamin B12 Folate Blood Type Antibody Screen Quality VTE Prophylaxis VTE prophylaxis: pharmacologic ordered
[2025-04-20 08:05] LABS: Creatine Kinase < 20 U/L (55-170)
--- NOTE | 2025-04-20 09:40 | PCPTNOTE ---
attempted PT amari pt declined stating he does not want to get up at this time and is expecting to get an ultrasound soon, I asked if he would participate with therapy at a later time and he agreed to stand later but not sit in a chair, will follow
[2025-04-20 09:46] LABS: Hepatitis B Surface Antigen Negative (Negative)
[2025-04-20] MEDS: ESCITALOPRAM OXALATE 10 MG TABLET PO (09:50)
[2025-04-20] MEDS: PANTOPRAZOLE 40 MG TABLET PO (09:50)
[2025-04-20] MEDS: CYANOCOBALAMIN 1,000 MCG TABLET 1000 MCG PO (09:50)
[2025-04-20 09:52] LABS: HAV RESULT Negative (Negative); Hepatitis B Core IgM Result Negative (Negative)
[2025-04-20] MEDS: FERROUS GLUCONATE 324 MG TABLET PO (09:52)
[2025-04-20] MEDS: cefTRIAXone 1 GM in SODIUM CHLORIDE 0.9% IV 50 ML 100 ML IVPB (10:00)
[2025-04-20] MEDS: TAMSULOSIN HCL 0.4 MG CAPSULE PO (16:55)
[2025-04-20] MEDS: WARFARIN (*PBKC) 3 MG TABLET 6 MG PO (17:03)
[2025-04-20] MEDS: GABAPENTIN 300 MG CAPSULE PO (20:20)
[2025-04-21] VITALS (11 sets, daily range): BP systolic 94–113; BP diastolic 59–71; PULSE 67–71; RESP 16–20; TEMP 36.2–36.9; O2SAT 95–98
[2025-04-21] MEDS: ACETAMINOPHEN 325 MG TABLET 650 MG PO (05:42)
[2025-04-21 05:53] LABS: Hematocrit 26.6 % (42.0-52.0); Hemoglobin 8.3 g/dL (14.0-18.0); Immature Granulocyte Percent A 0.7 % (0-0.5); Lymphocytes Absolute Auto 0.45 K/mm3 (0.9-3.2); Mean Corpuscular HGB Conc 31.2 g/dl (32-36); Mean Corpuscular Hemoglobin 29.6 pg (26-34); Mean Corpuscular Volume 95.0 fl (80-100); Nucleated Red Blood Cells Absolute Auto 0.000 K/mm3 (0.0-0.012); Nucleated Red Blood Cells Perc 0.0 % (0.0-0.2); Platelet Count Result 217 k/mm3 (150-375); Red Blood Count 2.80 M/mm3 (4.6-6.20); White Blood Count 5.5 K/mm3 (4.5-10.0)
[2025-04-21 06:06] LABS: INR 1.3; Prothrombin Time 16.1 Seconds (11.1-14.7)
[2025-04-21 06:11] LABS: Alanine Aminotransferase 100 U/L (6-50); Albumin Level 2.9 g/dL (3.5-5.1); Alkaline Phosphatase 251 U/L (38-126); Anion Gap 6 mmol/L (4-12); Aspartate Amino Transferase 117 U/L (17-59); Bilirubin,Total 0.6 mg/dL (0.2-1.3); Blood Urea Nitrogen 31 mg/dL (9-20); Calcium 8.4 mg/dL (8.4-10.2); Carbon Dioxide 23 mmol/L (22-30); Chloride 107 mmol/L (98-107); Estimated CRCL calculation 52 ml/min; Estimated Glomerular Filt Rate 59; Glucose 100 mg/dL (65-110); Potassium 3.9 mmol/L (3.4-5.0); Sodium 136 mmol/L (137-145); Total Protein 6.0 g/dL (6.3-8.2)
--- NOTE | 2025-04-21 07:49 | P.PNIM_ITS ---
Progress Note: A&P Assessment and Plan (1) Sepsis: Qualifiers: Sepsis acute organ dysfunction status: without acute organ dysfunction Sepsis type: sepsis due to unspecified organism Qualified Code(s): A41.9 - S epsis, unspecified organism Code(s): A41.9 - Sepsis, unspecified organism Status: Acute Assessment and Plan: - sepsis criteria met in ED with soft BP, HR 104, RR 20-22 - lactic acid: 1.3 - given 4L bolus in the ED - suspected source: UTI - started on ceftriaxone on 04/18 - blood cultures drawn on 04/18, follow - CXR concerning for a mild opacity in the left lower lung zone, however in favor of atelectasis over pneumonia. No current respiratory complaints. - monitor hemodynamic stability - sepsis resolved (2) UTI (urinary tract infection): Qualifiers: Encounter type: initial encounter Indwelling urinary catheter type: nephrostomy catheter Urinary tract infection type: catheter-associated UTI Qualified Code(s): T83.512A - Infection and inflammatory reaction due to nephrostomy catheter, initial encounter; N39.0 - Urinary tract infection, site not specified Code(s): N39.0 - Urinary tract infection, site not specified Status: Acute Assessment and Plan: - UA: Turbid, 3+ protein, 2+ blood, 3+ leuk esterase, 51-100 RBC, greater than 100 WBC, 4+ bacteria with no epithelial cells - recently had nephrostomy tubes placed at [facility] for unclear reason. Attempting to obtain records. - no previous micro available for review - urine culture with gram negative bacilli. Awaiting speciation and sensitivities. - started on Ceftriaxone on 04/18. Follow-up urine and blood cultures. (3) Elevated LFTs: Code(s): R79.89 - Other specified abnormal findings of blood chemistry Status: Acute Assessment and Plan: - AST 117, ALT 100, alk phos 251 - slightly uptrending - denied abdominal pain - CK WNL, hepatitis panel negative - RUQ US - s/p CCY, expected prominence of the bile ducts - may be secondary to transient hypotension - monitor CMP - will consult GI if continues to uptrend (4) Chronic kidney disease, stage 3: Qualifiers: Chronic kidney disease stage 3 subtype: unspecified whether 3a or 3b Qualified Code(s): N18.30 - Chronic kidney disease, stage 3 unspecified Code(s): N18.30 - Chronic kidney disease, stage 3 unspecified Status: Chronic Assessment and Plan: - creatinine 1.48, BUN 30, GFR 46 upon admission on 04/18. Trending down. Cr 1.18 04/20. No baseline Cr available. - suspect prerenal due to sepsis/hypotension and dehydration - trend renal function - trend electrolytes, correct as needed (5) Atrial fibrillation, chronic: Code(s): I48.20 - Chronic atrial fibrillation, unspecified Status: Chronic Assessment and Plan: - chronic, has history of pacemaker. Initial EKG showed AV pacing with underlying Aflutter - INR subtherapeutic, 1.3 - Coumadin was held 04/19 due to downtrending Hgb - continue home Warfarin 6 mg daily - monitor on tele - daily INR (6) Anemia: Code(s): D64.9 - Anemia, unspecified Status: Acute Assessment and Plan: - Hgb 9.1-->7.2. Normocytic. Now stable. - unclear baseline - no signs of bleeding - downtrend likely hemodilutional. Likely has component of anemia of chronic disease - iron level low, ferritin normal in setting of acute infection - start PO iron Plan DVT Prophylaxis: Warfarin Code Status: Full code Disposition: patient from [facility], will likely return. PT/OT consulted. Subjective Date/time seen: 04/21/25 07:49 Interval history: 79 y/o M with PMH of CVA, seizure disorder, chronic AFib, pacemaker, CKD stage 3, nephrostomy, depression and hypertension presents here with weakness and hypotension. Patient seen and examined up in chair this AM. States he is feeling better. Denies SOB or abdominal pain. Review of Systems Review of Systems: All systems reviewed & are unremarkable except as noted in HPI and below Exam Narrative: General: NAD, appears deconditioned Eyes: EOMI ENT: neck supple Cardiovascular: Regular rate and rhythm Respiratory: Clear to auscultation, respirations even and unlabored on RA Gastrointestinal: Soft, non tender Genitourinary: no suprapubic tenderness, bilateral nephrostomy tubes draining cloudy urine Musculoskeletal: No edema Skin: warm, dry Neuro: Alert. Psych: Mood appropriate Objective Data Vital Signs Vital Signs: Vital Signs - 24 hr 04/20/25 08:00 04/20/25 08:00 04/20/25 08:00 Temperature 97.0 F L Pulse Rate 69 70 70 Respiratory Rate 16 16 Blood Pressure 111/58 L Pulse Oximetry 98 98 Oxygen Delivery Room Air Fraction of Inspired Oxygen 21 04/20/25 12:00 04/20/25 12:00 04/20/25 16:00 Temperature 97.0 F L 97.1 F L Pulse Rate 70 69 69 Respiratory Rate 16 18 Blood Pressure 101/50 L 103/54 L Pulse Oximetry 98 98 Oxygen Delivery Fraction of Inspired Oxygen 04/20/25 20:00 04/20/25 20:04 04/20/25 20:20 Temperature 98.1 F Pulse Rate 70 69 Respiratory Rate 18 Blood Pressure 100/57 L Pulse Oximetry 98 98 Oxygen Delivery Room Air Fraction of Inspired Oxygen 04/20/25 20:49 04/21/25 00:02 04/21/25 04:00 Temperature 98.4 F Pulse Rate 70 67 Respiratory Rate 16 Blood Pressure 107/61 Pulse Oximetry 98 96 Oxygen Delivery Room Air Fraction of Inspired Oxygen 04/21/25 04:04 Temperature Pulse Rate 70 Respiratory Rate Blood Pressure Pulse Oximetry Oxygen Delivery Fraction of Inspired Oxygen Intake/Output Intake/Output: Intake & Output 04/18/25 04/19/25 04/20/25 04/21/25 23:59 23:59 23:59 23:59 Intake Total 6310 1800 746 300 Output Total 1050 1570 2600 950 Balance 5235 120 -6950 -664 Meds/Results Medications: Active Medications Generic Name Dose Route Start Last Admin Trade Name Freq PRN Reason Stop Dose Admin Acetaminophen 650 mg 04/18/25 13:16 04/21/25 05:42 Acetaminophen 325 Mg Tablet PO 650 mg Q6H PRN Administration Mild Pain (1-3) or Fever Hydrocodone Bitart/Acetaminophen 1 tab 04/18/25 10:46 Hydrocodone/Acetaminophen (*Crx) 5-325 Mg Tablet PO Q4H PRN Pain Rated 4-6 Calcium Carbonate 200 mg 04/18/25 14:52 Calcium Carbonate (Tums) 500 Mg (200 Mg Elemental) PO BID PRN Dyspepsia Cyanocobalamin 1,000 mcg 04/19/25 09:00 04/20/25 09:50 Cyanocobalamin 1,000 Mcg Tablet PO 1,000 mcg DAILY MARY Administration Escitalopram Oxalate 10 mg 04/19/25 09:00 04/20/25 09:50 Escitalopram Oxalate 10 Mg Tablet PO 10 mg DAILY MARY Administration Ferrous Gluconate 324 mg 04/20/25 08:00 04/20/25 09:52 Ferrous Gluconate 324 Mg Tablet PO 324 mg DAILY@0800 MARY Administration Gabapentin 300 mg 04/18/25 21:00 04/20/25 20:20 Gabapentin 300 Mg Capsule PO 300 mg HS AMRY Administration Ceftriaxone Sodium 1 gm/ 50 mls @ 100 mls/hr 04/19/25 10:00 04/20/25 11:59 Sodium Chloride IVPB Infused Q24H MARY Infusion Levetiracetam 750 mg 04/18/25 21:00 04/20/25 20:20 Levetiracetam 250 Mg Tablet PO 750 mg Q12HR MARY Administration Lidocaine 1 patch 04/19/25 09:00 04/20/25 09:55 Lidocaine 5% Patch TRANSDERM Not Given DAILY [facility] Ondansetron HCl 4 mg 04/18/25 10:46 Ondansetron Inj 4 Mg/2 Ml Vial IV PUSH Q4H PRN Nausea Oxycodone HCl 5 mg 04/18/25 14:52 Oxycodone Hcl (*Crx) 5 Mg Tab Ir PO Q4H PRN Pain Rated 6 or Greater Pantoprazole Sodium 40 mg 04/19/25 09:00 04/20/25 09:50 Pantoprazole 40 Mg Tablet PO 40 mg QAM [facility] Administration Tamsulosin HCl 0.4 mg 04/18/25 16:00 04/20/25 16:55 Tamsulosin Hcl 0.4 Mg Capsule PO 0.4 mg 1600 MARY Administration Warfarin Sodium 6 mg 04/18/25 18:00 04/20/25 17:03 Warfarin (*Pbkc) 3 Mg Tablet PO 6 mg EVENING MARY Administration Radiology Results: ITS Impressions Chest X-Ray 04/18/25 09:05 IMPRESSION: 1. Mild opacity left lower lung zone and favor atelectasis over pneumonia. Upper Quadrant Ultrasound 04/20/25 11:02 IMPRESSION: 1: Status post cholecystectomy with expected prominence of the bile ducts. 2: Trace ascites. Small right pleural effusion. Labs Labs: Laboratory Results - last 24 hr 04/20/25 04/21/25 05:18 05:12 WBC 5.5 RBC 2.80 L Hgb 8.3 L Hct 26.6 L MCV 95.0 MCH 29.6 MCHC 31.2 L RDW 14.9 H Plt Count 217 MPV 9.4 Immature Gran % (Auto) 0.7 H Neut % (Auto) 71.2 Lymph % (Auto) 8.2 L [place] % (Auto) 13.8 H Eos % (Auto) 5.6 H Baso % (Auto) 0.5 Lymph # (Auto) 0.45 L [place] # (Auto) 0.8 H Eos # (Auto) 0.3 Baso # (Auto) 0.0 Abs Immat Gran (auto) 0.04 H Absolute Neuts (auto) 3.9 Absolute Nucleated RBC 0.000 Nucleated RBC % 0.0 PT 16.1 H INR 1.3 Sodium 136 L Potassium 3.9 Chloride 107 Carbon Dioxide 23 Anion Gap 6 BUN 31 H Creatinine 1.18 Estim Creat Clear Calc 52 Estimated GFR 59 Glucose 100 Calcium 8.4 Total Bilirubin 0.6 AST 117 H ALT 100 H Alkaline Phosphatase 251 H Total Creatine Kinase < 20 L Total Protein 6.0 L Albumin 2.9 L Hepatitis A IgM Ab Negative Hep Bs Antigen Negative Hep B Core IgM Ab Negative Hepatitis C Ab Screen Negative Quality VTE Prophylaxis VTE prophylaxis: pharmacologic ordered
[2025-04-21] MEDS: CYANOCOBALAMIN 1,000 MCG TABLET 1000 MCG PO (09:43)
[2025-04-21] MEDS: PANTOPRAZOLE 40 MG TABLET PO (09:43)
[2025-04-21] MEDS: FERROUS GLUCONATE 324 MG TABLET PO (09:43)
[2025-04-21] MEDS: ESCITALOPRAM OXALATE 10 MG TABLET PO (09:43)
[2025-04-21] MEDS: cefTRIAXone 1 GM in SODIUM CHLORIDE 0.9% IV 50 ML 100 ML IVPB ×2 (09:44→13:43)
[2025-04-21] MEDS: WARFARIN (*PBKC) 3 MG TABLET 6 MG PO (17:24)
[2025-04-21] MEDS: TAMSULOSIN HCL 0.4 MG CAPSULE PO (17:24)
[2025-04-21] MEDS: GABAPENTIN 300 MG CAPSULE PO (21:31)
[2025-04-22] VITALS (8 sets, daily range): BP systolic 99–126; BP diastolic 51–69; PULSE 58–86; RESP 16–19; TEMP 35.9–37.1; O2SAT 95–98
[2025-04-22 05:44] LABS: Hematocrit 25.4 % (42.0-52.0); Hemoglobin 7.9 g/dL (14.0-18.0); Immature Granulocyte Percent A 0.9 % (0-0.5); Lymphocytes Absolute Auto 0.45 K/mm3 (0.9-3.2); Mean Corpuscular HGB Conc 31.1 g/dl (32-36); Mean Corpuscular Hemoglobin 29.8 pg (26-34); Mean Corpuscular Volume 95.8 fl (80-100); Nucleated Red Blood Cells Absolute Auto 0.000 K/mm3 (0.0-0.012); Nucleated Red Blood Cells Perc 0.0 % (0.0-0.2); Platelet Count Result 234 k/mm3 (150-375); Red Blood Count 2.65 M/mm3 (4.6-6.20); White Blood Count 5.4 K/mm3 (4.5-10.0)
[2025-04-22 05:54] LABS: INR 1.3; Prothrombin Time 16.7 Seconds (11.1-14.7)
[2025-04-22 06:08] LABS: Alanine Aminotransferase 97 U/L (6-50); Albumin Level 2.7 g/dL (3.5-5.1); Alkaline Phosphatase 237 U/L (38-126); Anion Gap 5 mmol/L (4-12); Aspartate Amino Transferase 89 U/L (17-59); Bilirubin,Total 0.3 mg/dL (0.2-1.3); Blood Urea Nitrogen 31 mg/dL (9-20); Calcium 8.4 mg/dL (8.4-10.2); Carbon Dioxide 24 mmol/L (22-30); Chloride 108 mmol/L (98-107); Estimated CRCL calculation 51 ml/min; Estimated Glomerular Filt Rate 58; Glucose 102 mg/dL (65-110); Potassium 3.9 mmol/L (3.4-5.0); Sodium 137 mmol/L (137-145); Total Protein 5.8 g/dL (6.3-8.2)
--- NOTE | 2025-04-22 07:45 | P.PNIM_ITS ---
Progress Note: A&P Assessment and Plan (1) Gram-negative bacteremia: Code(s): R78.81 - Bacteremia Status: Acute Assessment and Plan: - blood cultures from admission positive for Serratia marcescens - suspcted urinary source, urine culture with gram negative bacilli - continue IV Rocephin, await sensitivities - clinically improving with known source, no need to repeat blood cultures (2) UTI (urinary tract infection): Qualifiers: Encounter type: initial encounter Indwelling urinary catheter type: nephrostomy catheter Urinary tract infection type: catheter-associated UTI Qualified Code(s): T83.512A - Infection and inflammatory reaction due to nephrostomy catheter, initial encounter; N39.0 - Urinary tract infection, site not specified Code(s): N39.0 - Urinary tract infection, site not specified Status: Acute Assessment and Plan: - UA: Turbid, 3+ protein, 2+ blood, 3+ leuk esterase, 51-100 RBC, greater than 100 WBC, 4+ bacteria with no epithelial cells - bilateral nephrostomy tubes present - no previous micro available for review - urine culture with gram negative bacilli (suspect Serratia). Awaiting speciation and sensitivities. - started on Ceftriaxone on 04/18. Clinically improving. Follow-up urine and blood cultures. (3) Sepsis: Qualifiers: Sepsis acute organ dysfunction status: without acute organ dysfunction Sepsis type: sepsis due to unspecified organism Qualified Code(s): A41.9 - Sepsis, unspecified organism Code(s): A41.9 - Sepsis, unspecified organism Status: Acute Assessment and Plan: - sepsis criteria met in ED with soft BP, HR 104, RR 20-22 - lactic acid: 1.3 - given 4L bolus in the ED - suspected source: UTI and bacteremia - started on ceftriaxone on 04/18 - blood cultures drawn on 04/18, follow - CXR concerning for a mild opacity in the left lower lung zone, however in favor of atelectasis over pneumonia. No current respiratory complaints. - monitor hemodynamic stability - sepsis resolved (4) Elevated LFTs: Code(s): R79.89 - Other specified abnormal findings of blood chemistry Status: Acute Assessment and Plan: - AST 89, ALT 97, alk phos 237 - downtrending - denied abdominal pain - CK WNL, hepatitis panel negative - RUQ US - s/p CCY, expected prominence of the bile ducts - likely secondary to sepsis, hypotension - monitor CMP (5) Chronic kidney disease, stage 3: Qualifiers: Chronic kidney disease stage 3 subtype: unspecified whether 3a or 3b Qualified Code(s): N18.30 - Chronic kidney disease, stage 3 unspecified Code(s): N18.30 - Chronic kidney disease, stage 3 unspecified Status: Chronic Assessment and Plan: - creatinine 1.48, BUN 30, GFR 46 upon admission. Downtrended with fluids. No baseline Cr available. - suspect prerenal due to sepsis/hypotension and dehydration - trend renal function - trend electrolytes, correct as needed (6) Atrial fibrillation, chronic: Code(s): I48.20 - Chronic atrial fibrillation, unspecified Status: Chronic Assessment and Plan: - chronic, has history of pacemaker. Initial EKG showed AV pacing with underlying Aflutter - INR subtherapeutic, 1.3 - Coumadin was held 04/19 due to downtrending Hgb. Unclear if he missed doses prior to admission as patient from SNF. - continue home Warfarin 6 mg daily and monitor trend. May benefit from additional dose 04/23. - monitor on tele - daily INR (7) Anemia: Code(s): D64.9 - Anemia, unspecified Status: Acute Assessment and Plan: - Hgb 9.1-->7.2. Normocytic. Now stable. - unclear baseline - no signs of bleeding - likely multifactorial in setting of hemodilution, sepsis superimposed on chronic disease - iron level low, ferritin normal in setting of acute infection - start PO iron (8) H/O insertion of nephrostomy tube: Code(s): Z98.890 - Other specified postprocedural states Status: Acute Assessment and Plan: - OSH records reviewed: patient with admission to [facility] 02/2025 for renal failure, bilateral hydronephrosis with concern for recurrent malignancy vs. radiation induced obstruction. Has retained R ureteral stent. Underwent bilateral nephrostomy tube placement. History of prostate cancer s/p IMRT and ADT in 2019 now with concern for recurrence. Needs outpatient follow-up with urology and outpatient PET scan. Plan DVT Prophylaxis: Warfarin Code Status: Full code Disposition: patient from [facility], will likely return when medically ready. PT/OT consulted. Subjective Date/time seen: 04/22/25 07:45 Interval history: 79 y/o M with PMH of CVA, seizure disorder, chronic AFib, pacemaker, CKD stage 3, nephrostomy, depression and hypertension presents here with weakness and hypotension. Patient seen and examined at bedside. States he is feeling better. Still weak, but improved from admission. Review of Systems Review of Systems: All systems reviewed & are unremarkable except as noted in HPI and below Exam Narrative: General: NAD, appears deconditioned Eyes: EOMI ENT: neck supple Cardiovascular: Regular rate and rhythm Respiratory: Clear to auscultation, respirations even and unlabored on RA Gastrointestinal: Soft, non tender Genitourinary: no suprapubic tenderness, bilateral nephrostomy tubes draining clear urine Musculoskeletal: No edema Skin: warm, dry Neuro: Alert. Psych: Mood appropriate Objective Data Vital Signs Vital Signs: Vital Signs - 24 hr 04/21/25 08:00 04/21/25 08:00 04/21/25 08:00 Temperature 97.1 F L Pulse Rate 69 70 Respiratory Rate 16 Blood Pressure 113/64 Pulse Oximetry 98 Oxygen Delivery Room Air Fraction of Inspired Oxygen 04/21/25 08:58 04/21/25 11:59 04/21/25 12:00 Temperature 97.8 F Pulse Rate 70 70 Respiratory Rate 18 Blood Pressure 94/59 L Pulse Oximetry 98 Oxygen Delivery Room Air Fraction of Inspired Oxygen 04/21/25 16:00 04/21/25 16:00 04/21/25 20:04 Temperature 97.9 F Pulse Rate 71 70 70 Respiratory Rate 18 Blood Pressure 107/71 Pulse Oximetry 97 Oxygen Delivery Fraction of Inspired Oxygen 04/21/25 20:35 04/21/25 21:16 04/21/25 21:31 Temperature 98.1 F Pulse Rate 70 68 Respiratory Rate 16 20 Blood Pressure 103/62 Pulse Oximetry 97 95 95 Oxygen Delivery Room Air Room Air Fraction of Inspired Oxygen 21 04/22/25 00:02 04/22/25 00:30 04/22/25 04:04 Temperature 97.7 F Pulse Rate 70 70 74 Respiratory Rate 18 Blood Pressure 105/66 Pulse Oximetry 97 Oxygen Delivery Fraction of Inspired Oxygen 04/22/25 05:05 Temperature 96.6 F L Pulse Rate 86 Respiratory Rate 16 Blood Pressure 99/51 L Pulse Oximetry 95 Oxygen Delivery Fraction of Inspired Oxygen Intake/Output Intake/Output: Intake & Output 04/19/25 04/20/25 04/21/25 04/22/25 23:59 23:59 23:59 23:59 Intake Total 9165 142 6854 Output Total 1570 2600 2400 1650 Balance 230 -6585 -1184 1651 Meds/Results Medications: Active Medications Generic Name Dose Route Start Last Admin Trade Name Freq PRN Reason Stop Dose Admin Hydrocodone Bitart/Acetaminophen 1 tab 04/18/25 10:46 Hydrocodone/Acetaminophen (*Crx) 5-325 Mg Tablet PO Q4H PRN Pain Rated 4-6 Calcium Carbonate 200 mg 04/18/25 14:52 Calcium Carbonate (Tums) 500 Mg (200 Mg Elemental) PO BID PRN Dyspepsia Cyanocobalamin 1,000 mcg 04/19/25 09:00 04/21/25 09:43 Cyanocobalamin 1,000 Mcg Tablet PO 1,000 mcg DAILY MARY Administration Escitalopram Oxalate 10 mg 04/19/25 09:00 04/21/25 09:43 Escitalopram Oxalate 10 Mg Tablet PO 10 mg DAILY MARY Administration Ferrous Gluconate 324 mg 04/20/25 08:00 04/21/25 09:43 Ferrous Gluconate 324 Mg Tablet PO 324 mg DAILY@0800 MARY Administration Gabapentin 300 mg 04/18/25 21:00 04/21/25 21:31 Gabapentin 300 Mg Capsule PO 300 mg HS MARY Administration Ceftriaxone Sodium 2 gm/ 100 mls @ 200 mls/hr 04/22/25 09:00 Sodium Chloride IVPB Q24H MARY Levetiracetam 750 mg 04/18/25 21:00 04/21/25 21:31 Levetiracetam 250 Mg Tablet PO 750 mg Q12HR MARY Administration Lidocaine 1 patch 04/19/25 09:00 04/21/25 09:52 Lidocaine 5% Patch TRANSDERM Not Given DAILY MARY Ondansetron HCl 4 mg 04/18/25 10:46 Ondansetron Inj 4 Mg/2 Ml Vial IV PUSH Q4H PRN Nausea Oxycodone HCl 5 mg 04/18/25 14:52 Oxycodone Hcl (*Crx) 5 Mg Tab Ir PO Q4H PRN Pain Rated 6 or Greater Pantoprazole Sodium 40 mg 04/19/25 09:00 04/21/25 09:43 Pantoprazole 40 Mg Tablet PO 40 mg QAM MARY Administration Tamsulosin HCl 0.4 mg 04/21/25 16:00 04/21/25 17:26 Tamsulosin Hcl 0.4 Mg Capsule PO Not Given DAILY@1600 MARY Warfarin Sodium 6 mg 04/18/25 18:00 04/21/25 17:24 Warfarin (*Pbkc) 3 Mg Tablet PO 6 mg EVENING MARY Administration Radiology Results: ITS Impressions Chest X-Ray 04/18/25 09:05 IMPRESSION: 1. Mild opacity left lower lung zone and favor atelectasis over pneumonia. Upper Quadrant Ultrasound 04/20/25 11:02 IMPRESSION: 1: Status post cholecystectomy with expected prominence of the bile ducts. 2: Trace ascites. Small right pleural effusion. Labs Labs: Laboratory Results - last 24 hr 04/22/25 05:13 WBC 5.4 RBC 2.65 L Hgb 7.9 L Hct 25.4 L MCV 95.8 MCH 29.8 MCHC 31.1 L RDW 14.9 H Plt Count 234 MPV 9.2 Immature Gran % (Auto) 0.9 H Neut % (Auto) 73.0 Lymph % (Auto) 8.3 L [place] % (Auto) 10.7 H Eos % (Auto) 6.5 H Baso % (Auto) 0.6 Lymph # (Auto) 0.45 L [place] # (Auto) 0.6 Eos # (Auto) 0.4 H Baso # (Auto) 0.0 Abs Immat Gran (auto) 0.05 H Absolute Neuts (auto) 4.0 Absolute Nucleated RBC 0.000 Nucleated RBC % 0.0 PT 16.7 H INR 1.3 Sodium 137 Potassium 3.9 Chloride 108 H Carbon Dioxide 24 Anion Gap 5 BUN 31 H Creatinine 1.21 Estim Creat Clear Calc 51 Estimated GFR 58 L Glucose 102 Calcium 8.4 Total Bilirubin 0.3 AST 89 H ALT 97 H Alkaline Phosphatase 237 H Total Protein 5.8 L Albumin 2.7 L Quality VTE Prophylaxis VTE prophylaxis: mechanical ordered and pharmacologic ordered
[2025-04-22] MEDS: ESCITALOPRAM OXALATE 10 MG TABLET PO (08:48)
[2025-04-22] MEDS: PANTOPRAZOLE 40 MG TABLET PO (08:48)
[2025-04-22] MEDS: FERROUS GLUCONATE 324 MG TABLET PO (08:48)
[2025-04-22] MEDS: CYANOCOBALAMIN 1,000 MCG TABLET 1000 MCG PO (08:48)
[2025-04-22] MEDS: cefTRIAXone 2 GM in SODIUM CHLORIDE 0.9% IV 100 ML 200 ML IVPB (08:48)
[2025-04-22] MEDS: TAMSULOSIN HCL 0.4 MG CAPSULE PO (17:45)
[2025-04-22] MEDS: WARFARIN (*PBKC) 3 MG TABLET 6 MG PO (17:45)
[2025-04-22] MEDS: GABAPENTIN 300 MG CAPSULE PO (21:17)
[2025-04-22] MEDS: HYDROcodone/acetaminophen (*CRX) 5-325 MG TABLET 1 TAB PO (23:44)
[2025-04-23] VITALS (10 sets, daily range): BP systolic 95–104; BP diastolic 55–66; PULSE 67–70; RESP 16–20; TEMP 36.1–36.6; O2SAT 96–99
[2025-04-23 05:59] LABS: Hematocrit 27.4 % (42.0-52.0); Hemoglobin 8.6 g/dL (14.0-18.0); Immature Granulocyte Percent A 1.0 % (0-0.5); Lymphocytes Absolute Auto 0.42 K/mm3 (0.9-3.2); Mean Corpuscular HGB Conc 31.4 g/dl (32-36); Mean Corpuscular Hemoglobin 30.0 pg (26-34); Mean Corpuscular Volume 95.5 fl (80-100); Nucleated Red Blood Cells Absolute Auto 0.000 K/mm3 (0.0-0.012); Nucleated Red Blood Cells Perc 0.0 % (0.0-0.2); Platelet Count Result 253 k/mm3 (150-375); Red Blood Count 2.87 M/mm3 (4.6-6.20); White Blood Count 7.0 K/mm3 (4.5-10.0)
[2025-04-23 06:15] LABS: INR 1.4; Prothrombin Time 17.6 Seconds (11.1-14.7)
[2025-04-23 06:19] LABS: Alanine Aminotransferase 85 U/L (6-50); Albumin Level 2.7 g/dL (3.5-5.1); Alkaline Phosphatase 240 U/L (38-126); Anion Gap 5 mmol/L (4-12); Aspartate Amino Transferase 67 U/L (17-59); Bilirubin,Total 0.4 mg/dL (0.2-1.3); Blood Urea Nitrogen 31 mg/dL (9-20); Calcium 8.3 mg/dL (8.4-10.2); Carbon Dioxide 25 mmol/L (22-30); Chloride 105 mmol/L (98-107); Estimated CRCL calculation 56 ml/min; Estimated Glomerular Filt Rate > 60; Glucose 102 mg/dL (65-110); Potassium 4.0 mmol/L (3.4-5.0); Sodium 135 mmol/L (137-145); Total Protein 5.7 g/dL (6.3-8.2)
--- NOTE | 2025-04-23 08:16 | ECG_ITS ---
Test Date: 2025-04-23 09:44:03 Measurements Intervals [place] Rate: 69 P: 0 VT: 0 QRS: -62 QRSD: 172 T: 89 QT: 479 QTc: 516 Interpretive Statements ELECTRONIC VENTRICULAR PACEMAKER UNDERLYING ATRIAL FLUTTER/TACHYCARDIA BASELINE ARTIFACT- I, II, III, AVR ABNORMAL ECG Compared to ECG 04/18/2025 08:29:10 NO SIGNIFICANT CHANGE Electronically Signed On 04-23-2025 10:12:24 CDT by Ketan Noe D.O.
[2025-04-23] MEDS: HYDROcodone/acetaminophen (*CRX) 5-325 MG TABLET 1 TAB PO (09:12)
[2025-04-23] MEDS: FERROUS GLUCONATE 324 MG TABLET PO (09:14)
[2025-04-23] MEDS: PANTOPRAZOLE 40 MG TABLET PO (09:14)
[2025-04-23] MEDS: CYANOCOBALAMIN 1,000 MCG TABLET 1000 MCG PO (09:14)
[2025-04-23] MEDS: ESCITALOPRAM OXALATE 10 MG TABLET PO (09:14)
[2025-04-23] MEDS: cefTRIAXone 2 GM in SODIUM CHLORIDE 0.9% IV 100 ML 200 ML IVPB (09:16)
--- NOTE | 2025-04-23 13:45 | P.PNIM_ITS ---
Progress Note: A&P Assessment and Plan (1) Gram-negative bacteremia: Code(s): R78.81 - Bacteremia Status: Acute Assessment and Plan: - blood cultures from admission positive for Serratia marcescens - suspcted urinary source, urine culture with gram negative bacilli - continue IV Rocephin, await sensitivities - clinically improving with known source, no need to repeat blood cultures (2) UTI (urinary tract infection): Qualifiers: Urinary tract infection type: catheter-associated UTI Indwelling urinary catheter type: nephrostomy catheter Encounter type: initial encounter Qualified Code(s): T83.512A - Infection and inflammatory reaction due to nephrostomy catheter, initial encounter; N39.0 - Urinary tract infection, site not specified Code(s): N39.0 - Urinary tract infection, site not specified Status: Acute Assessment and Plan: - UA: Turbid, 3+ protein, 2+ blood, 3+ leuk esterase, 51-100 RBC, greater than 100 WBC, 4+ bacteria with no epithelial cells - bilateral nephrostomy tubes present - no previous micro available for review - urine culture with gram negative bacilli (suspect Serratia). Awaiting speciation and sensitivities. - started on Ceftriaxone on 04/18. Clinically improving. Follow-up urine and blood cultures. - Discussed with ID pharmacist - recommend Rocephin until Friday 04/27 as QT is prolonged and resistant to Augmentin - Working with CC regarding placement and setting up midline for IV antibiotics in outpt setting (3) Sepsis: Qualifiers: Sepsis type: sepsis due to unspecified organism Sepsis acute organ dysfunction status: without acute organ dysfunction Qualified Code(s): A41.9 - Sepsis, unspecified organism Code(s): A41.9 - Sepsis, unspecified organism Status: Acute Assessment and Plan: - sepsis criteria met in ED with soft BP, HR 104, RR 20-22 - lactic acid: 1.3 - given 4L bolus in the ED - suspected source: UTI and bacteremia - started on ceftriaxone on 04/18 - blood cultures drawn on 04/18, follow - CXR concerning for a mild opacity in the left lower lung zone, however in favor of atelectasis over pneumonia. No current respiratory complaints. - monitor hemodynamic stability - sepsis resolved (4) Elevated LFTs: Code(s): R79.89 - Other specified abnormal findings of blood chemistry Status: Acute Assessment and Plan: - AST 89, ALT 97, alk phos 237 - downtrending - denied abdominal pain - CK WNL, hepatitis panel negative - RUQ US - s/p CCY, expected prominence of the bile ducts - likely secondary to sepsis, hypotension - monitor CMP (5) Chronic kidney disease, stage 3: Qualifiers: Chronic kidney disease stage 3 subtype: unspecified whether 3a or 3b Qualified Code(s): N18.30 - Chronic kidney disease, stage 3 unspecified Code(s): N18.30 - Chronic kidney disease, stage 3 unspecified Status: Chronic Assessment and Plan: - creatinine 1.48, BUN 30, GFR 46 upon admission. Downtrended with fluids. No baseline Cr available. - suspect prerenal due to sepsis/hypotension and dehydration - trend renal function - trend electrolytes, correct as needed (6) Atrial fibrillation, chronic: Code(s): I48.20 - Chronic atrial fibrillation, unspecified Status: Chronic Assessment and Plan: - chronic, has history of pacemaker. Initial EKG showed AV pacing with underl maggie Aflutter - INR subtherapeutic, 1.3 - Coumadin was held 04/19 due to downtrending Hgb. Unclear if he missed doses prior to admission as patient from SNF. - continue home Warfarin 6 mg daily and monitor trend. May benefit from additional dose 04/23. - monitor on tele - daily INR (7) Anemia: Code(s): D64.9 - Anemia, unspecified Status: Acute Assessment and Plan: - Hgb 9.1-->7.2. Normocytic. Now stable. - unclear baseline - no signs of bleeding - likely multifactorial in setting of hemodilution, sepsis superimposed on chronic disease - iron level low, ferritin normal in setting of acute infection - start PO iron - 04/23: Hgb 8.6 (8) H/O insertion of nephrostomy tube: Code(s): Z98.890 - Other specified postprocedural states Status: Acute Assessment and Plan: - OS records reviewed: patient with admission to [facility] 02/2025 for renal failure, bilateral hydronephrosis with concern for recurrent malignancy vs. radiation induced obstruction. Has retained R ureteral stent. Underwent bilateral nephrostomy tube placement. History of prostate cancer s/p IMRT and ADT in 2019 now with concern for recurrence. Needs outpatient follow-up with urology and outpatient PET scan. Plan DVT Prophylaxis: Warfarin Code Status: Full code Disposition: patient from [facility], will likely return when medically ready. PT/OT consulted. Subjective Date/time seen: 04/23/25 13:45 Interval history: 79 y/o M with PMH of CVA, seizure disorder, chronic AFib, pacemaker, CKD stage 3, nephrostomy, depression and hypertension presents here with weakness and hypotension. 04/23/2025 Patient sitting comfortably in bed at time of exam. Feels good today, denies any CP, SOB, n/v or abd pain. Sensitivities resulted - we are limited to Rocephin as QT remains prolonged and he is resistant to Augmentin. Working with CC regarding placement and pt needing a probably midline for IV antibiotics. Discussed with ID pharmacist who recommended Rocephin until Friday 04/27. Review of Systems Review of Systems: All systems reviewed & are unremarkable except as noted in HPI and below Exam Narrative: General: NAD, appears deconditioned Eyes: EOMI ENT: neck supple Cardiovascular: Regular rate and rhythm Respiratory: Clear to auscultation, respirations even and unlabored on RA Gastrointestinal: Soft, non tender Genitourinary: no suprapubic tenderness, bilateral nephrostomy tubes draining clear urine Musculoskeletal: No edema Skin: warm, dry Neuro: Alert. Psych: Mood appropriate Const: General: comfortable and no acute distress Other: , male, elderly, nontoxic appearance HENMT: Face/Nose/Sinus: Normal nares present Mouth: Yes moist mucous membranes Eyes: General: appearance normal, both eyes and all related structures Sclera: sclerae normal Pupils: Equal, round and reactive pupils present EOM: EOMs intact bilaterally Resp: Effort & Inspection: normal respiratory effort Auscultation: clear to auscultation bilaterally Cardio: Rate: regular rate Rhythm: regular rhythm Other: S1-S2 present without murmur, rub, ectopy GI: Other: Abdomen soft, nondistended, nontender. Normoactive bowel sounds in all quadrants. : Other: No tenderness or erythema to nephrostomy tube sites. Draining bilaterally with minimal sediment and dark yellow appearance. Skin: General skin exam: normal color and no rashes or lesions noted Wounds: no wounds Neuro: Cranial nerves: Yes Equal, round and reactive pupils present Speech: normal speech Sensory Exam: normal sensation Other: Generalized weakness, A&O x4 Extrem: General: normal to inspection Psych: Mental Status: mental status grossly normal Affect: normal affect Other: Good insight and judgment. Objective Data Vital Signs Vital Signs: Vital Signs - 24 hr 04/22/25 16:00 04/22/25 16:00 04/22/25 20:00 Temperature 97.1 F L 98.8 F Pulse Rate 83 83 70 Respiratory Rate 16 19 Blood Pressure 126/69 99/55 L Pulse Oximetry 98 97 Oxygen Delivery 04/22/25 20:00 04/22/25 21:17 04/23/25 00:00 Temperature Pulse Rate 70 70 Respiratory Rate Blood Pressure Pulse Oximetry Oxygen Delivery Room Air 04/23/25 00:00 04/23/25 04:00 04/23/25 04:00 Temperature 97.8 F 97.3 F L Pulse Rate 70 70 67 Respiratory Rate 20 18 Blood Pressure 102/61 101/66 Pulse Oximetry 97 97 Oxygen Delivery 04/23/25 09:00 04/23/25 12:00 Temperature 97.3 F L 97.6 F Pulse Rate 68 69 Respiratory Rate 16 18 Blood Pressure 96/60 L 104/60 Pulse Oximetry 97 96 Oxygen Delivery Intake/Output Intake/Output: Intake & Output 04/20/25 04/21/25 04/22/25 04/23/25 23:59 23:59 23:59 23:59 Intake Total 746 1216 2200 980 Output Total 2600 2400 3175 1680 Balance -1854 -1184 -975 -700 Meds/Results Medications: Active Medications Generic Name Dose Route Start Last Admin Trade Name Freq PRN Reason Stop Dose Admin Hydrocodone Bitart/Acetaminophen 1 tab 04/18/25 10:46 04/23/25 09:12 Hydrocodone/Acetaminophen (*Crx) 5-325 Mg Tablet PO 1 tab Q4H PRN Administration Pain Rated 4-6 Calcium Carbonate 200 mg 04/18/25 14:52 Calcium Carbonate (Tums) 500 Mg (200 Mg Elemental) PO BID PRN Dyspepsia Cyanocobalamin 1,000 mcg 04/19/25 09:00 04/23/25 09:14 Cyanocobalamin 1,000 Mcg Tablet PO 1,000 mcg DAILY MARY Administration Escitalopram Oxalate 10 mg 04/19/25 09:00 04/23/25 09:14 Escitalopram Oxalate 10 Mg Tablet PO 10 mg DAILY MARY Administration Ferrous Gluconate 324 mg 04/20/25 08:00 04/23/25 09:14 Ferrous Gluconate 324 Mg Tablet PO 324 mg DAILY@0800 MARY Administration Gabapentin 300 mg 04/18/25 21:00 04/22/25 21:17 Gabapentin 300 Mg Capsule PO 300 mg HS MARY Administration Ceftriaxone Sodium 2 gm/ 100 mls @ 200 mls/hr 04/22/25 09:00 04/23/25 09:16 Sodium Chloride IVPB 04/27/25 09:29 200 mls/hr Q24H MARY Administration Levetiracetam 750 mg 04/18/25 21:00 04/23/25 09:14 Levetiracetam 250 Mg Tablet PO 750 mg Q12HR MARY Administration Lidocaine 1 patch 04/19/25 09:00 04/23/25 09:15 Lidocaine 5% Patch TRANSDERM Not Given DAILY [facility] Ondansetron HCl 4 mg 04/18/25 10:46 Ondansetron Inj 4 Mg/2 Ml Vial IV PUSH Q4H PRN Nausea Oxycodone HCl 5 mg 04/18/25 14:52 Oxycodone Hcl (*Crx) 5 Mg Tab Ir PO Q4H PRN Pain Rated 6 or Greater Pantoprazole Sodium 40 mg 04/19/25 09:00 04/23/25 09:14 Pantoprazole 40 Mg Tablet PO 40 mg QAM MARY Administration Tamsulosin HCl 0.4 mg 04/21/25 16:00 04/22/25 17:45 Tamsulosin Hcl 0.4 Mg Capsule PO 0.4 mg DAILY@1600 MARY Administration Warfarin Sodium 6 mg 04/18/25 18:00 04/22/25 17:45 Warfarin (*Pbkc) 3 Mg Tablet PO 6 mg EVENING MARY Administration Radiology Results: ITS Impressions Chest X-Ray 04/18/25 09:05 IMPRESSION: 1. Mild opacity left lower lung zone and favor atelectasis over pneumonia. Upper Quadrant Ultrasound 04/20/25 11:02 IMPRESSION: 1: Status post cholecystectomy with expected prominence of the bile ducts. 2: Trace ascites. Small right pleural effusion. Labs Labs: Laboratory Results - last 24 hr 04/23/25 05:25 WBC 7.0 RBC 2.87 L Hgb 8.6 L Hct 27.4 L MCV 95.5 MCH 30.0 MCHC 31.4 L RDW 15.0 H Plt Count 253 MPV 9.2 Immature Gran % (Auto) 1.0 H Neut % (Auto) 76.8 H Lymph % (Auto) 6.0 L [place] % (Auto) 10.7 H Eos % (Auto) 4.9 H Baso % (Auto) 0.6 Lymph # (Auto) 0.42 L [place] # (Auto) 0.8 H Eos # (Auto) 0.3 Baso # (Auto) 0.0 Abs Immat Gran (auto) 0.07 H Absolute Neuts (auto) 5.4 Absolute Nucleated RBC 0.000 Nucleated RBC % 0.0 PT 17.6 H INR 1.4 Sodium 135 L Potassium 4.0 Chloride 105 Carbon Dioxide 25 Anion Gap 5 BUN 31 H Creatinine 1.09 Estim Creat Clear Calc 56 Estimated GFR > 60 Glucose 102 Calcium 8.3 L Total Bilirubin 0.4 AST 67 H ALT 85 H Alkaline Phosphatase 240 H Total Protein 5.7 L Albumin 2.7 L Quality VTE Prophylaxis VTE prophylaxis: mechanical ordered and pharmacologic ordered
--- NOTE | 2025-04-23 14:24 | PCOTNOTE ---
Attempted to see Patient, Patient in bed sleeping. Patient aroused easily, verbalized, Im sleeping , I needs rest , I'm back to bed to the evening, come back tomorrow. Patient declined to participate
[2025-04-23] MEDS: TAMSULOSIN HCL 0.4 MG CAPSULE PO (18:06)
[2025-04-23] MEDS: WARFARIN (*PBKC) 3 MG TABLET 6 MG PO (18:06)
[2025-04-23] MEDS: GABAPENTIN 300 MG CAPSULE PO (21:48)
[2025-04-24] VITALS: BP 104/51; PULSE 68; PULSE 72; RESP 20; TEMP 36.1; O2SAT 94
[2025-04-24] MEDS: HYDROcodone/acetaminophen (*CRX) 5-325 MG TABLET 1 TAB PO ×2 (03:38→14:47)
[2025-04-24 04:00] VITALS: PULSE 69
[2025-04-24 04:40] VITALS: BP 94/47; PULSE 70; RESP 16; TEMP 36.3; O2SAT 94
[2025-04-24 06:21] LABS: INR 1.7; Prothrombin Time 19.4 Seconds (11.1-14.7)
[2025-04-24 08:00] VITALS: BP 128/68; PULSE 68; RESP 20; O2SAT 95
[2025-04-24 09:25] VITALS: PULSE 70
[2025-04-24] MEDS: ESCITALOPRAM OXALATE 10 MG TABLET PO (09:55)
[2025-04-24] MEDS: cefTRIAXone 2 GM in SODIUM CHLORIDE 0.9% IV 100 ML 200 ML IVPB (09:55)
[2025-04-24] MEDS: PANTOPRAZOLE 40 MG TABLET PO (09:55)
[2025-04-24] MEDS: FERROUS GLUCONATE 324 MG TABLET PO (09:55)
[2025-04-24] MEDS: CYANOCOBALAMIN 1,000 MCG TABLET 1000 MCG PO (09:56)
[2025-04-24] MEDS: LIDOCAINE 1% LOCAL INJ 2 ML AMPUL 5 ML INFILTRATE (10:00)
--- NOTE | 2025-04-24 10:16 | PCOTNOTE ---
Patient refused to participate in OT treatment session at this time. Patient states its to early and just finished with breakfast, come back later
[2025-04-24 12:00] VITALS: BP 104/60; PULSE 68; RESP 16; TEMP 36.7; O2SAT 95
--- NOTE | 2025-04-24 13:19 | P.DS_ITS ---
DS: Admitting Diagnosis Discharge Date 04/24/2025 Admitting Diagnosis Sepsis, UTI DS: Discharge Diagnosis Discharge Diagnosis (1) Gram-negative bacteremia: Code(s): R78.81 - Bacteremia Status: Acute Assessment and Plan: - blood cultures from admission positive for Serratia marcescens - suspcted urinary source, urine culture with gram negative bacilli - continue IV Rocephin, await sensitivities - clinically improving with known source, no need to repeat blood cultures (2) UTI (urinary tract infection): Qualifiers: Encounter type: initial encounter Indwelling urinary catheter type: nephrostomy catheter Urinary tract infection type: catheter-associated UTI Qualified Code(s): T83.512A - Infection and inflammatory reaction due to nephrostomy catheter, initial encounter; N39.0 - Urinary tract infection, site not specified Code(s): N39.0 - Urinary tract infection, site not specified Status: Acute Assessment and Plan: - UA: Turbid, 3+ protein, 2+ blood, 3+ leuk esterase, 51-100 RBC, greater than 100 WBC, 4+ bacteria with no epithelial cells - bilateral nephrostomy tubes present - no previous micro available for review - urine culture with gram negative bacilli (suspect Serratia). Awaiting speciation and sensitivities. - started on Ceftriaxone on 04/18. Clinically improving. Follow-up urine and blood cultures. - Discussed with ID pharmacist - recommend Rocephin until Friday 04/27 as QT is prolonged and resistant to Augmentin - Working with CC regarding placement and setting up midline for IV antibiotics in outpt setting (3) Sepsis: Qualifiers: Sepsis acute organ dysfunction status: without acute organ dysfunction Sepsis type: sepsis due to unspecified organism Qualified Code(s): A41.9 - Sepsis, unspecified organism Code(s): A41.9 - Sepsis, unspecified organism Status: Acute Assessment and Plan: - sepsis criteria met in ED with soft BP, HR 104, RR 20-22 - lactic acid: 1.3 - given 4L bolus in the ED - suspected source: UTI and bacteremia - started on ceftriaxone on 04/18 - blood cultures drawn on 04/18, follow - CXR concerning for a mild opacity in the left lower lung zone, however in favor of atelectasis over pneumonia. No current respiratory complaints. - monitor hemodynamic stability - sepsis resolved (4) Elevated LFTs: Code(s): R79.89 - Other specified abnormal findings of blood chemistry Status: Acute Assessment and Plan: - AST 89, ALT 97, alk phos 237 - downtrending - denied abdominal pain - CK WNL, hepatitis panel negative - RUQ US - s/p CCY, expected prominence of the bile ducts - likely secondary to sepsis, hypotension - monitor CMP (5) Chronic kidney disease, stage 3: Qualifiers: Chronic kidney disease stage 3 subtype: unspecified whether 3a or 3b Qualified Code(s): N18.30 - Chronic kidney disease, stage 3 unspecified Code(s): N18.30 - Chronic kidney disease, stage 3 unspecified Status: Chronic Assessment and Plan: - creatinine 1.48, BUN 30, GFR 46 upon admission. Downtrended with fluids. No baseline Cr available. - suspect prerenal due to sepsis/hypotension and dehydration - trend renal function - trend electrolytes, correct as needed (6) Atrial fibrillation, chronic: Code(s): I48.20 - Chronic atrial fibrillation, unspecified Status: Chronic Assessment and Plan: - chronic, has history of pacemaker. Initial EKG showed AV pacing with underlying Aflutter - INR subtherapeutic, 1.3 - Coumadin was held 04/19 due to downtrending Hgb. Unclear if he missed doses prior to admission as patient from SNF. - continue home Warfarin 6 mg daily and monitor trend. May benefit from additional dose 04/23. - monitor on tele - daily INR (7) Anemia: Code(s): D64.9 - Anemia, unspecified Status: Acute Assessment and Plan: - Hgb 9.1-->7.2. Normocytic. Now stable. 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 Has retained R ureteral stent. Underwent bilateral nephrostomy tube placement. History of prostate cancer s/p IMRT and ADT in 2019 now with concern for recurrence. Needs outpatient follow-up with urology and outpatient PET scan. Plan DVT Prophylaxis: Warfarin Code Status: Full code Disposition: patient from [facility] skilled, will likely return when medically ready. PT/OT consulted. DS: Summary Hospital Course Reason for hospitalization: Weakness, Hypotension Hospital Course: 79 y/o M with PMH of CVA, seizure disorder, chronic AFib, pacemaker, CKD stage 3, nephrostomy, depression and hypertension presents here with weakness and hypotension. The patient presents here via EMS from [facility] on 04/18 for further evaluation of hypotension and weakness. Staff waking concerned when they found the patient to be hypotensive and febrile. EMS was called and upon their arrival they reported a systolic blood pressure in the 80s. He was started on IV fluids and arrived to the emergency department at 92/55. He reports over the last few days he has woken up diaphoretic and has felt more weak than usual. He denies associated hematuria, abdominal pain, nausea, vomiting, diarrhea, chills or body aches. He does have a history of bilateral nephrostomy tubes. These were recently placed approximately 5 weeks ago at [facility]. The patient is unsure why he had to have nephrostomy tubes placed, however reports the surgery was emergent. He denies a previous history of treatment resistant UTIs, however does report a history of frequent UTIs. Initial VS at presentation: 98? F, HR 70, R 20, 92/55, and 98% on RA. ED workup showed: No leukocytosis, hemoglobin 9.1, INR 1.5, sodium 133, creatinine 1.48 and GFR 46, lactic 1.3, albumin 2.9 with a calcium of 8.3, and UA consistent with UTI. Viral PCR negative. CXR showed mild opacity in the left lower lung zone in favor of atelectasis over pneumonia. EKG showed electronic ventricular pacemaker, underlying atrial flutter/tachycardia, baseline artifact, rate 69 with no further interpretation possible. Sepsis protocol orders were initiated upon admission for suspected source of UTI. Blood cultures were drawn and patient was started on ceftriaxone empirically. Chest x-ray showed concern for mild opacity in the left lower lung zone, however likely in favor of atelectasis over pneumonia given lack of respiratory complaints. Patient recently had nephrostomy tubes placed at [facility] for unclear reasons, without any previous micro available for review. Urine culture initially showed growth of Gram-negative bacilli continued on ceftriaxone. As for patient's atrial fibrillation, unknown dose of warfarin was continued and INR was monitored daily. Patient was also started on p.o. iron for down trending hemoglobin with no obvious signs of bleeding. Unclear what his baseline is but likely hemodilutional, possible component of anemia chronic disease. Urine culture continued to grow Gram-negative bacilli, Serratia Marcescens, resistent to Augmentin. Spoke with ID pharmacist, given antibiotic is stating and presence of QTC prolongation, patient will need to either continued to be admitted for IV antibiotics, likely ceftriaxone, or have a midline placed with the plan to continue IV antibiotic administration in the outpatient setting. Patient prefers to be discharged, midline was ordered and placed and patient will be scheduled to continue ceftriaxone 2 gm Q 24 hours until 04/27. Pt hemodynamically stable for discharge at this time. Status at Discharge Functional status at discharge: uses cane/walker Overall status at discharge: patient is progressing back to baseline Time Spent with Patient Time attestation: Total time spent providing and/or coordinating discharge services: 45 Exam Narrative: General: NAD, appears deconditioned Eyes: EOMI ENT: neck supple Cardiovascular: Regular rate and rhythm Respiratory: Clear to auscultation, respirations even and unlabored on RA Gastrointestinal: Soft, non tender Genitourinary: no suprapubic tenderness, bilateral nephrostomy tubes draining clear urine Musculoskeletal: No edema Skin: warm, dry Neuro: Alert. Psych: Mood appropriate Const: General: comfortable and no acute distress Other: , male, elderly, nontoxic appearance HENMT: Face/Nose/Sinus: Normal nares present Mouth: Yes moist mucous membranes Eyes: General: appearance normal, both eyes and all related structures Sclera: sclerae normal Pupils: Equal, round and reactive pupils present EOM: EOMs intact bilaterally Resp: Effort & Inspection: normal respiratory effort Auscultation: clear to auscultation bilaterally Cardio: Rate: regular rate Rhythm: regular rhythm Other: S1-S2 present without murmur, rub, ectopy GI: Other: Abdomen soft, nondistended, nontender. Normoactive bowel sounds in all quadr ants. : Other: No tenderness or erythema to nephrostomy tube sites. Draining bilaterally with minimal sediment and dark yellow appearance. Skin: General skin exam: normal color and no rashes or lesions noted Wounds: no wounds Neuro: Cranial nerves: Yes Equal, round and reactive pupils present Speech: normal speech Sensory Exam: normal sensation Other: Generalized weakness, A&O x4 Extrem: General: normal to inspection Psych: Mental Status: mental status grossly normal Affect: normal affect Other: Good insight and judgment. DS: Data Data Completed and Pending Labs on day of discharge: Labs from last 24 hours 04/24/25 05:53 PT 19.4 H INR 1.7 Preliminary micro results at discharge 04/20/25 05:18 Blood Culture - Preliminary Blood 04/20/25 05:18 Blood Culture - Preliminary Blood 04/18/25 09:10 Blood Culture - Preliminary Blood Serratia marcescens 04/18/25 09:00 Blood Culture - Preliminary Blood Discharge Plan Discharge Attending physician on discharge: Ruben Guerra Consulting providers: Josiane Leon; Corwin Pham Discharging Clinician: Corwin Pham Anticipated Discharge Date/Time: 04/24/25 13:16 Patient Disposition: SNF Activity: no straining Diet: heart healthy Discharge Instructions: Discharge disposition: [facility] Take medications as prescribed. You have been given a Midline to receive IV antibiotics through. You will be prescribed Ceftriaxone 2gm to be administered once daily until Monday (last dose ON 04/27). Monitor blood pressures Take caution while standing, rising, or moving Change positions slowly taking a break between each position change If you standing feel dizzy sit back down and take a break Encouraged to continue with yearly vaccinations Return to the emergency department if he developed sudden shortness of breath, chest pain, nausea, vomiting, upset stomach or intractable diarrhea Return to the emergency department if you develop fever greater than 101.5 Follow-up with the primary care physician within 1-2 weeks Thank you for choosing [facility] for your healthcare needs Patient Instructions: Warfarin (By mouth) Patient Language: Bhutanese Stand Alone Forms: General Discharge Information Follow-up/Referrals: PHYSICIAN NOT ON STAFF,NONSTAFF [Primary Care Provider] Discharge Medications: New ceftriaxone 2 gram recon soln 2 g IV DAILY Qty: 3 0RF Continued acetaminophen 500 mg capsule 1,000 mg PO Q6H PRN (Reason: pain) cyanocobalamin (vitamin B-12) 1,000 mcg capsule 1,000 mcg PO DAILY gabapentin 300 mg capsule 300 mg PO HS warfarin 3 mg tablet 6 mg PO DAILY levetiracetam 750 mg tablet 750 mg PO BID escitalopram oxalate 10 mg tablet 10 mg PO DAILY lidocaine [Lidocaine Pain Relief] 4 % adhesive patch,medicated 1 patch topical DAILY Patient Comments: L lower back Rx Instructions: may leave on for up to 12 hrs ondansetron 4 mg tablet,disintegrating 4 mg PO Q6H PRN (Reason: nausea and vomiting) oxycodone 5 mg capsule 5 mg PO Q4H PRN (Reason: pain) pantoprazole [address] for susp in packet 40 mg PO DAILY tamsulosin 0.4 mg capsule 0.4 mg PO 1600 calcium carbonate [Calcium Antacid] 200 mg calcium (500 mg) tablet,chewable 200 mg PO BID PRN (Reason: dyspepsia) Date of admission: 04/19/25 10:23 Primary Care Provider: PHYSICIAN NOT ON STAFF,NONSTAFF Admitting Provider: Tyler Barnes Attending physician on admission: Tyler Barnes Condition: Stable Quality VTE Prophylaxis VTE prophylaxis: mechanical ordered and pharmacologic ordered
== END 2025-04-24 15:25 | DRG 698 ==
LOC: ANHED 08:51 → ANH3MEDSUR 11:18
PROVIDERS: Physician Assistant; Student in an Organized Health Care Education/Training Program; Admitting Provider Internal Medicine; Emergency Provider Emergency Medicine; Visit Provider General Practice
DX: T83.512A Infection and inflammatory reaction due to nephrostomy catheter, initial encounter (principal); A41.9 Sepsis, unspecified organism; I48.20 Chronic atrial fibrillation, unspecified; J98.11 Atelectasis; N39.0 Urinary tract infection, site not specified; Z16.29 Resistance to other single specified antibiotic; B96.89 Other specified bacterial agents as the cause of diseases classified elsewhere; G40.909 Epilepsy, unspecified, not intractable, without status epilepticus; I12.9 Hypertensive chronic kidney disease with stage 1 through stage 4 chronic kidney disease, or unspecified chronic kidney disease; N18.30 Chronic kidney disease, stage 3 unspecified; D63.8 Anemia in other chronic diseases classified elsewhere; F32.A Depression, unspecified; Z95.0 Presence of cardiac pacemaker; Z96.659 Presence of unspecified artificial knee joint
CPT/HCPCS: 36415; 36569; 71045; 76705; 80048; 80053; 80074; 81001; 82550; 82607; 82728; 82746; 83540; 83550; 83605; 85014; 85018; 85025; 85610; 85730; 86850; 86900; 86901; 87040; 87086; 87637; 93005; 96361; 96365; 96366; 96367; 96375; 97162; 97165; 97530; 97535; 99285; A9270; C1751; G0378; J0696; J2003; J7030; P9047

== ENCOUNTER 2025-04-29 16:06 | Inpatient (IN) | payer MEDICARE, SELFPAY ==
[2025-04-29] VITALS (33 sets, daily range): BP systolic 85–114; BP diastolic 48–67; PULSE 70–92; RESP 14–24; TEMP 36.6; O2SAT 96–97
--- NOTE | ~2025-04-29 | CT_ITS ---
EXAMINATION: CTA chest abdomen pelvis DATE: 04/29/2025 20:05 CDT INDICATION: Chest pain and shortness of breath TECHNIQUE: Computed tomographic angiography (CTA) of the chest, abdomen, and pelvis was performed without and with 100 mL Omnipaque-350 intravenous contrast. The dose-length product was 1439.24 mGy-cm. Maximum intensity projection 3D- reconstructions of the aorta and other arteries were constructed by the technologist on a separate workstation. COMPARISON: None. FINDINGS: CHEST CTA: There are groundglass opacities in the right lower lobe. There is consolidation in the left lower lobe. Small left pleural effusion. No pneumothorax. Thoracic aorta within normal limits without evidence for aneurysm. No central pulmonary embolism. Small hiatal hernia. There is left upper lobe collapse. There is mediastinal shift to the left. ABDOMEN AND PELVIS CTA: There is bilateral renal atrophy. There are bilateral percutaneous nephrostomy catheters. There are bilateral renal stones. The liver, spleen, adrenal glands are unremarkable. There is pancreatic atrophy. There is a small 11 mm cystic mass of the pancreatic body. Bladder wall is thickened. Prostate gland is enlarged. There is a right internal ureteral stent. There is focal thickening posteriorly in the bladder wall, suspicious for transitional cell carcinoma. Nonobstructive bowel gas pattern. Severe thoracic and lumbar spondylosis. There is dextroscoliosis of the thoracic spine. Severe osteoarthritis of the hips. IMPRESSION: 1. Left upper lobe collapse. Focal consolidation left lower lobe may represent atelectasis and/or pneumonia. There is volume loss in the left thorax with mediastinal shift to the left. 2: Small left pleural effusion. 3: Bilateral renal atrophy with bilateral nephrolithiasis. Bilateral percutaneous nephrostomy catheters. Right internal ureteral stent. 4: Abnormal posterior bladder wall thickening, suspicious for malignancy. 5: Small 11 mm cystic mass pancreatic body. The differential diagnosis includes pseudocyst, intraductal papillary mucinous neoplasm (IPMN), mucinous cystic neoplasm (MCN), and the less common serous cystadenoma and neuroendocrine tumor. Reviewed, dictated and finalized at location O. IMPRESSION: 1. Left upper lobe collapse. Focal consolidation left lower lobe may represent atelectasis and/or pneumonia. There is volume loss in the left thorax with medi astinal shift to the left. 2: Small left pleural effusion. 3: Bilateral renal atrophy with bilateral nephrolithiasis. Bilateral percutaneo us nephrostomy catheters. Right internal ureteral stent. 4: Abnormal posterior bladder wall thickening, suspicious for malignancy. 5: Small 11 mm cystic mass pancreatic body. The differential diagnosis includes pseudocyst, intraductal papillary mucinous neoplasm (IPMN), mucinous cystic ne oplasm (MCN), and the less common serous cystadenoma and neuroendocrine tumor.
--- NOTE | ~2025-04-29 | XR_ITS ---
XR chest 1V portable 04/29/2025 16:49 Indication: Chest pain Procedure: AP portable chest Comparison: 04/18/2025 Findings: There is left-sided volume loss, compatible with atelectasis with mediastinal shift to the left. There is a left pleural effusion. No pneumothorax. Right lung clear. No acute osseous abnormality. Impression: 1: Left-sided volume loss with atelectasis and left pleural effusion. Mediastinal shift to the left. Cannot exclude superimposed pneumonia. Reviewed, dictated and finalized at location O. Impression: 1: Left-sided volume loss with atelectasis and left pleural effusion. Mediastin al shift to the left. Cannot exclude superimposed pneumonia.
--- NOTE | ~2025-04-29 | XR_ITS ---
XR chest 1V portable 05/01/2025 10:40 Indication: Pneumonia. Mucous plugging. Procedure: AP portable chest Comparison: 04/29/2025 Findings: Stable consolidation left lower lobe with mediastinal shift to the left, consistent with volume loss. Right lung clear. Severe thoracic spondylosis with dextrocurvature. No pneumothorax. Impression: 1: Stable left basilar consolidation with mediastinal shift to the left, consistent with left basilar atelectasis. Cannot exclude superimposed pneumonia. Reviewed, dictated and finalized at location O. Impression: 1: Stable left basilar consolidation with mediastinal shift to the left, consis tent with left basilar atelectasis. Cannot exclude superimposed pneumonia.
--- NOTE | ~2025-04-29 | XR_ITS ---
EXAMINATION: XR chest 1V portable DATE: 05/02/2025 06:08 INDICATION: Left lower lobe collapse TECHNIQUE: frontal view of the chest was obtained. COMPARISON: Chest radiograph dated 05/01/2025 FINDINGS: Patient is volume loss in left hemithorax with leftward shift of the heart and mediastinum. There is been some decrease in opacities in the left lower lung zone which could represent atelectasis or pneumonia. Couple calcified nodules in the left upper lung zone consistent with old granulomatous disease. Right lung remains clear. No pulmonary edema, pneumothorax or right pleural effusion. Heart size within normal limits for AP technique. Again seen are a couple likely intracardiac atrial and ventricular pacemaker devices. IMPRESSION: 1. Slight interval improvement in opacities in the left lower lung zone which could represent atelectasis or pneumonia. Reviewed, dictated and finalized at location A. IMPRESSION: 1. Slight interval improvement in opacities in the left lower lung zone which c ould represent atelectasis or pneumonia.
--- NOTE | ~2025-04-29 | XR_ITS ---
Examination: XR chest 1V portable Clinical History: f/u Left mucus plugging Comparison: 05/02/2025 Technique: Portable AP Findings: Cardiac devices as before. Heart size normal. Lungs clear. Trace CP angle blunting. No acute bony abnormality. IMPRESSION: 1. Significantly improved left lower lobe atelectasis. Reviewed, dictated and finalized at location A.
--- NOTE | 2025-04-29 16:26 | ECG_ITS ---
Test Date: 2025-04-29 16:15:03 Measurements Intervals [place] Rate: 69 P: 0 MS: 0 QRS: -54 QRSD: 172 T: 108 QT: 449 QTc: 483 Interpretive Statements ELECTRONIC VENTRICULAR PACEMAKER ATYPICAL ECG Electronically Signed On 04-30-2025 11:06:06 CDT by Cesario Frost M.D.
[2025-04-29 17:01] LABS: Hematocrit 33.2 % (42.0-52.0); Hemoglobin 10.3 g/dL (14.0-18.0); Immature Granulocyte Percent A 0.9 % (0-0.5); Lymphocytes Absolute Auto 0.33 K/mm3 (0.9-3.2); Mean Corpuscular HGB Conc 31.0 g/dl (32-36); Mean Corpuscular Hemoglobin 29.5 pg (26-34); Mean Corpuscular Volume 95.1 fl (80-100); Nucleated Red Blood Cells Absolute Auto 0.000 K/mm3 (0.0-0.012); Nucleated Red Blood Cells Perc 0.0 % (0.0-0.2); Platelet Count Result 287 k/mm3 (150-375); Red Blood Count 3.49 M/mm3 (4.6-6.20); White Blood Count 8.9 K/mm3 (4.5-10.0)
[2025-04-29 17:11] LABS: Alanine Aminotransferase 36 U/L (6-50); Albumin Level 3.3 g/dL (3.5-5.1); Alkaline Phosphatase 230 U/L (38-126); Anion Gap 8 mmol/L (4-12); Aspartate Amino Transferase 39 U/L (17-59); Bilirubin,Total 0.4 mg/dL (0.2-1.3); Blood Urea Nitrogen 26 mg/dL (9-20); Calcium 8.6 mg/dL (8.4-10.2); Carbon Dioxide 25 mmol/L (22-30); Chloride 103 mmol/L (98-107); Estimated CRCL calculation 52 ml/min; Estimated Glomerular Filt Rate 59; Glucose 123 mg/dL (65-110); Lipase 30 U/L (23-300); Potassium 4.3 mmol/L (3.4-5.0); Sodium 136 mmol/L (137-145); Total Protein 6.7 g/dL (6.3-8.2)
[2025-04-29 17:16] LABS: INR 2.2; Prothrombin Time 23.6 Seconds (11.1-14.7)
[2025-04-29 17:17] LABS: Partial Thromboplastin Time 49.3 Seconds (22.3-36.8)
[2025-04-29 17:22] LABS: Troponin I < 0.012 ng/mL (0.000-0.034)
--- OUTSIDE RECORDS SUMMARY | 2025-04-29 17:27 | XMS_ITS | Encounter Summary ---
Author Organization [facility] Address [address] [place] [address] Phone Care Team Providers Care Housing Installer Name Role Phone Vimal Cano MD Primary Care Provider [phone] Enoch Romero MD Unavailable Reason for Visit * Reason Comments Medication Refill Encounter Details Date Type Department Care Team (Late st Contact Info) Description 02/07/2025 Refill [facility] [address] [place] [address] Enoch Romero MD [address] [address] Medication Refill Social History Tobacco Use Types Packs/Day Years Used Date Smoking Tobacco: Former Smokeless Tobacco: Never Comments:QUIT 23 YRS AGO Alcohol Use Standard Drinks/Week Comments Yes 1 (1 standard drink = 0.6 oz pur e alcohol) ONCE EVERY 2-3 WKS [facility] Utilities Answer Date Recorded In the past 12 months has [employer] electric, gas, oil, or water company threatened [...] any time in the past 12 m [facility], were you homeless or living in a half-way (including now)? No 07/22/2024 Sexually Active Control [...] on filedocumented in this encounter Care Teams Housing Installer Relationship Specialty Start Date End Date Vimal Cano MD [address] [place] [address] PCP - General Internal Medicine 11/23/21 Enoch Romero MD [address] [facility] [address] [address] Consulting Physician Urology 06/16/22 documented as of this encounter
--- OUTSIDE RECORDS SUMMARY | 2025-04-29 17:27 | XMS_ITS | Encounter Summary ---
Author Organization [facility] Address [address] [place] [address] Phone Care Team Providers Care Production Counter Name Role Phone Vimal Cano MD Primary Care Provider [phone] Enoch Romero MD Unavailable Reason for Visit * Reason Comments Medication Refill Encounter Details Date Type Department Care Team (Late st Contact Info) Description 02/04/2025 Refill [facility] [address] [place] [address] Enoch Romero MD [address] [address] Medication Refill Social History Tobacco Use Types Packs/Day Years Used Date Smoking Tobacco: Former Smokeless Tobacco: Never Comments:QUIT 23 YRS AGO Alcohol Use Standard Drinks/Week Comments Yes 1 (1 standard drink = 0.6 oz pur e alcohol) ONCE EVERY 2-3 WKS [facility] Utilities Answer Date Recorded In the past 12 months has [employer] electric, gas, oil, or water company threatened [...] any time in the past [address] [facility], were you homeless or living in a custodial (including now)? No 07/22/2024 Sexually Active Control [...] on filedocumented in this encounter Care Teams Production Counter Relationship Specialty Start Date End Date Vimal Cano MD [address] [place] [address] PCP - General Internal Medicine 11/23/21 Enoch Romero MD [address] [facility] [address] [address] [place], [place] [address] [address] Consulting Physician Urology 06/16/22 documented as of this encounter
--- OUTSIDE RECORDS SUMMARY | 2025-04-29 17:27 | XMS_ITS | Clinical Summary ---
Author Organization [facility] [address] [facility] lto Address [address] [place] [address] Care Team Providers Care Legal Billing Coordinator Name Role Phone Vimal Cano MD Primary Care Provider [phone] Uriah Garg MD PhD Unavailable [phone] Sumit Craig MD Unavailable [phone] Allergies Active Allergy Reactions Criticality Noted [...] or as directed by MD. 03/27/20 25 Active ondansetron ODT (ZOFRAN-ODT) 4 mg disintegrating [...] mouth daily with dinner 03/27/20 25 Active Active Problems Problem Noted Date Diagnosed [...] Assessment & Plan (03/27/2025 2:40 PM CDT): [employer] 03/25 in AM for hypotension got 2 L IVF Pressures persistently soft here over the last few days Not on bp meds Diuretic held Lab Results Component Value Date TSH 1.67 03/25/2025 AM izaiah 7.2 Stim test wnl TTE 07/2024 unremarkable without active symtpoms suggesting decompensated CHF Will decrease flomax to om4 mg daily (was BID) Assessment & Plan (03/26/2025 2:35 PM CDT): [employer] 03/25 in AM for hypotension got 2 L IVF Pressures persistently soft here over the last few days Not on bp meds Diuretic held Lab Results Component Value Date TSH 1.67 03/25/2025 AM izaiah 7.2 Will get STIM test TTE 07/2024 unremarkable without active symtpoms suggesting decompensated CHF HR nl Assessment & Plan (03/25/2025 12:58 PM CDT): [employer] 03/25 in AM for hypotension got 2 [...] with bilateral hydronephrosis. Pt was admitted to [facility] in [place], [place] 03/06-03/13 for urinary retention, acute renal failure due to obstructive uropathy with bilateral hydronephrosis requiring Pierre catheter. Initial labs revealed creatinine 2.67 improved to 1.5 then got worse to 1.8, BUN 63 improved to 34, CO2 20 improved to 24, elevated transaminase in the 200, almost resolving, H&H 9/28.1, INR 1.9-1.3 after holding warfari, lasix renogram. 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 Transfer to [facility] for eventual bilateral nephrostomy tubes was recommended. [...] intermittently refusing therapy so was initially denied correction facility placement. He was encouraged to participate [...] with bilateral hydronephrosis. Pt was admitted to [facility] in [place], [place] 03/06-03/13 for urinary retention, acute renal [...] loses access to Rt kidney). Transfer to [facility] for eventual bilateral nephrostomy tubes was recommended. [...] intermittently refusing therapy so was initially denied correction facility placement. He was encouraged to participate [...] Future Assessment & Plan (08/25/2023 1:15 PM MANAGER LAND): Currently taking warfarin 6 mg 5 days per week and 9 mg 2 days per week. Seizure disorder 08/25/2023 Assessment & Plan (01/16/2025 11:00 AM CDT): Patient states he is not had a seizure since starting Keppra which was at least 10 years ago per patient. Assessment & Plan (08/25/2023 2:48 PM MANAGER LAND): Patient states he is not had a seizure since starting Keppra which was at least 10 years ago per patient. Advance care planning 08/25/2023 Assessment & Plan (08/25/2023 2:51 PM MANAGER LAND): Preventive exam; reviewed recommended preventive screenings and vaccinations. Encourage annual flu vaccine. Wear sunscreen/protective clothing when outdoors. Physical debility 02/13/2020 Assessment & Plan (02/13/2020 2:44 PM CDT): Patient would benefit greatly from motorized wheelchair. Staghorn calculus 09/12/2019 Overview (09/12/2019): Added automatically from request for surgery [id number] prostate cancer 03/13/2019 Chronic a-fib 03/05/2019 Assessment & Plan (01/16/2025 11:00 AM CDT): Stable and well controlled. Rate controlled, patient denies any shortness a breath, palpitations or dizziness. Continues warfarin. INR 2.1 today will continue with current warfarin regimen. Orders: Comprehensive metabolic panel; Future POCT INR Assessment & Plan (08/25/2023 2:46 PM MANAGER LAND): Rate controlled, patient denies any shortness a [...] 03/05/2019 Assessment & Plan (08/25/2023 2:46 PM MANAGER LAND): Patient with residual right-sided weakness. Patient was [...] Encounters Date Type Department Care Team Description 04/18/2025 Orders Only [facility] Health Information Management [address] [place] [address] Scanning, Provider 04/10/2025 Documentation [facility] Palliative Care [address] [place] [phone] Johana Elmore RN 03/16/2025 Orders Only Radiology [address] [place] [address] Lasha Tomas MD 03/15/2025 3:00 PM CDT - 03/28/2025 3:40 PM CDT Hospital Encounter [address] [phone] Cesario Rizvi MD Berhil, Anis, MD Yew, [...] Disposition: Discharge to SNF 03/15/2025 Orders Only [address] [phone] Mena Martino MD 03/15/2025 Orders Only [address] [phone] Cesario Rizvi MD 03/14/2025 Orders Only [facility] Health Information Management [address] [place] [address] Vimal Cano MD 03/13/2025 Telephone [facility] [address] [phone] Vimal Cano MD TAMIKO Questions 03/06/2025 11:54 AM CDT - 03/06/2025 11:59 PM CDT Hospital Encounter [facility] Emergency, Room R Discharge Disposition: Discharge to home or self care from Last 3 Months Immunizations Immunization Administration [...] ARTHROSCOPY 1993 Left Arthroscopy knee KNEE ARTHROPLASTY 1999 Right Knee replacement CARPAL TUNNEL RELEASE Bilateral Carpal tunnel release OPEN REDUCTION INTERNAL FIXATION 2013 Right ORIF OTHER SURGICAL HISTORY 2016 Abdominal Pain : Medical Management PERCUTANEOUS NEPHROSTOMY PCN BILATERAL 03/16/2025 Bilateral Medical History Medical History Date Comments Hx Other Medical 2004 Rotator cuff te ar (right); Laterality: right Anemia Anemia Hx Other Medical 2008 ruptured achill es tendon Hypertension Hypertension Osteoarthritis [...] drink = 0.6 oz pur e alcohol) [facility] Utilities Answer Date Recorded In the past 12 months has e [employer], gas, oil, or water [employer] threatened to shut off services in your [...] often do you attend chur ch or zoroastrianism services? 1 to 4 times per year 03/17/2025 Do you belong to any clubs o r organizations such as congregation groups, unions, fraternal or athletic groups, or [...] any time in the past 12 m [facility], were you homeless or living in a half-way (including now)? No 03/17/2025 Personal Safety Answer Date Recorded Have you ever been in or are you currently in a harmful physical or emotional relationship or is someone making you feel afraid or unsafe? Denies 03/15/2025 Sex and Gender Information Value Date Recorded Sex Assigned at Not on file Legal Sex Male 11:49 PM MANAGER LAND Gender Identity Not on file Sexual Orientation [...] history exists Pneumococcal vaccine 65+ Completed 01/31/2019, 08/2010 Abdominal Aortic Aneurysm (A AA) Screen Completed 03/10/2025, 08/10/2024, 07/31/2024, Additional history exists Medical Devices Implanted Type Area Ophthalmic Medical Technician Device Identifier Shelf Expiration Date Model / Serial / Lot [employer] Vascade Mvp 6-12fr Venous Closure [id number] - [id number] - [id number] Implanted:Qty: 1 on 08/06/2024 by Shon Alanis III, MD at [facility] Collagen [employer] 04/03/2026 [id number] / [id number] / [id number] [employer] Pacemaker Intracardiac 19.5fr 30.0mm Rv Aveir Strl Leadless [id number] - [id number] - [id number] Implanted:Qty: 1 on 08/06/2024 by Shon Alanis III, MD at [facility] Pacemaker [employer] [id number] 04/22/2025 [id number] / [id number] / [employer] System Closure Repair Femoral Artery Suture Mediated Perclose Prostyle 69498-39 - [id number] - [id number] Implanted:Qty: 1 on 08/06/2024 by Shon Alanis III, MD at [facility] [employer] 01/25/2026 [id number] / [id number] / [id number] [employer] Closure Repair Femoral Artery Suture Mediated Perclose Prostyle 87868-18 - [id number] - [id number] Implanted:Qty: 1 on 08/06/2024 by Shon Alanis III, MD at [facility] [employer] 05/27/2026 [id number] / [id number] / [id number] [employer] Pacemaker Intracardiac 19.5fr 32.2mm Ra Aveir Strl Leadless [id number] - [id number] - [id number] Implanted:Qty: 1 on 08/06/2024 by Shon Alanis III, MD at [facility] [employer] 06/13/2025 [id number] / [id number] / [employer] Amplatz 8.5fr 26cm 6 Sideport Introducer Catheter String [id number] - [id number] Implanted:Qty: 1 on 08/08/2024 at [facility] [employer] 04/15/2027 [id number] / [id number] Procedures Procedure Name Priority Date/Time Associated Diagnosis Comments SCAN - LABS 04/18/2025 SCAN - RADIOLOGY/IMAGING 04/18/2025 PROTIME-INR Routine 03/28/2025 5:26 AM CDT PROTIME-INR [...] 6:32 AM CDT DIFFERENTIAL AUTO Routine 03/18/2025 6:3 2 AM CDT CBC WITH AUTO DIFFERENTIAL Routine [...] 6:14 PM CDT SCAN - LABS 03/14/2025 CT ABDOMEN PELVIS WO CONTRAST IP Routine 08/10/2024 10:59 AM MANAGER LAND from Last 3 Months or Most Recently Relevant to Health Maintenance Results * SCAN - RADIOLOGY/IMAGING (04/18/2025) Anatomical Region Laterality Modality Other us Provider Scanning Final Result * SCAN - LABS (04/18/2025) us Provider Scanning Final Result * (ABNORMAL) Protime-INR (03/28/2025 5:26 AM CDT) PT 19.1(H) 9.7 - 13.0 sec INR 1.75(H) 0.90 - 1.20 [facility] Comment: Interpretive data Oral anticoagulant therapeutic ranges: Venous thromboembolism prophylaxis or treatment: 2.0-3.0 CARDIOLOGY Standard range: 2.0-3.0 High-intensity range: 2.5-3.5 Refer to indication-specific guidelines for appropriate target ranges for prosthetic heart valve replacement. Current interpretive data was last revised on 2019. Blood 03/28/2025 5:26 AM CDT 03/28/2025 5:57 AM CDT Chidi Viveros MD LAB BLOOD ORDERABLES Final Resu lt Performing Organization Address [facility] de Phone Number [facility] [address] [place] [address] * (ABNORMAL) Protime-INR (03/27/2025 5:44 AM CDT) PT 22.9(H) 9.7 - 13.0 sec INR 2.09(H) 0.90 - 1.20 [facility] Comment: Interpretive data Oral anticoagulant therapeutic ranges: Venous thromboembolism prophylaxis or treatment: 2.0-3.0 CARDIOLOGY Standard range: 2.0-3.0 High-intensity range: 2.5-3.5 Refer to indication-specific guidelines for appropriate target ranges for prosthetic heart valve replacement. Current interpretive data was last revised on 2019. Blood 03/27/2025 5:44 AM CDT 03/27/2025 6:41 AM CDT Chidi Viveros MD LAB BLOOD ORDERABLES Final Resu lt Performing Organization Address [facility] Co de Phone Number [facility] [address] [place] [address] * (ABNORMAL) Cortisol 60 min (03/26/2025 4:48 [...] to exclude adrenal failure. Literature References: 1. Angi BR, Betsy H, Tomi CHAVEZ, et al. New cutoffs for the biochemical diagnosis of adrenal insufficiency after ACTH stimulation using specific cortisol assays. J Endocr Soc. 2020;5(4):gopk106. 2. Jay FORTUNEP and Ramu MUSE. New cutoffs for the biochemical diagnosis of Adrenal insufficiency after ACTH stimulation using specific cortisol assays. J. Endocrine Soc 2020;5:1-2. Current interpret data was last revised 24 Blood 03/26/2025 4:48 PM CDT 03/26/2025 4:48 PM CDT Tiffani SCANLON [facility] - 03/26/2025 5:25 PM CDT First draw prior to administration of cosyntropin. Second draw 30 minutes after administration of drug. Third draw 60 minutes after administration of drug. Rome Burns MD LAB BLOOD ORDERABLES Fi nal Result [facility] [address] [place] [address] * (ABNORMAL) Cortisol 30 min (03/26/2025 3:22 PM CDT) Cortisol, 30 min 26.4(H) 4.8 - 19.5 [...] to exclude adrenal failure. Literature References: 1. Angi BR, Betsy H, Tomi TB, et al. New cutoffs for the biochemical diagnosis of adrenal insufficiency after ACTH stimulation using specific cortisol assays. J Endocr Soc. 2020;5(4):kubs318. 2. Jay FORTUNEP and Ramu MUSE. New cutoffs for the biochemical diagnosis of Adrenal insufficiency after ACTH stimulation using specific cortisol assays. J. Endocrine Soc 2020;5:1-2. Current interpret data was last revised 24 Blood 03/26/2025 3:22 PM CDT 03/26/2025 3:22 PM CDT [facility]ative [facility] - 03/26/2025 3:55 PM CDT First draw prior to administration of cosyntropin. Second draw 30 minutes after administration of drug. Third draw 60 minutes after administration of drug. Rome Burns MD LAB BLOOD ORDERABLES nal Result Performing Organization Address City/[facility]/ZIP Co de Phone Number [facility] [address] [place] [address] * Cortisol baseline (03/26/2025 2:07 PM CDT) [facility] Signature Cortisol, base 12.4 4.8 - 19.5 mcg/dl Blood 03/26/2025 2:07 PM CDT 03/26/2025 2:07 PM CDT [facility]ative [facility] 03/26/2025 2:43 PM CDT First draw prior to administration of cosyntropin. Second draw 30 minutes after administration of drug. Third draw 60 minutes after administration of drug. Rome Burns MD LAB BLOOD ORDERABLES nal Result [facility] [address] [place] [address] * (ABNORMAL) Protime-INR (03/26/2025 3:46 AM CDT) Pathologist [facility] PT 32.4(H) 9.7 - 13.0 sec INR 2.93(H) 0.90 - 1.20 [facility] Comment: Interpretive data Oral anticoagulant therapeutic ranges: Venous thromboembolism prophylaxis or treatment: 2.0-3.0 CARDIOLOGY Standard range: 2.0-3.0 High-intensity range: 2.5-3.5 Refer to indication-specific guidelines for appropriate target ranges for prosthetic heart valve replacement. Current interpretive data was last revised on 2019. Blood 03/26/2025 3:46 AM CDT 03/26/2025 4:30 AM CDT Chidi Viveros MD LAB BLOOD ORDERABLES Final Resu lt Performing Organization Address [facility] Co de Phone Number [facility] [address] [place] [address] * Cortisol (03/26/2025 3:46 AM CDT) [facility] Cortisol 7.2 4.8 - 19.5 mcg/dl Blood 03/26/2025 3:46 AM CDT 03/26/2025 4:46 AM CDT Rome Burns MD LAB BLOOD ORDERABLES Fi nal Result Performing Organization Address [facility] de Phone Number [facility] [address] [place] [address] * POCT glucose (03/25/2025 4:56 PM CDT) [facility] Glucose, POC 141 70 - 199 mg/dL Comment: For Glucose values <35 mg/dl when Hematocrit is >60 mg/dl,the test may not accurately detect significant hypoglycemia,and testing in the Laboratory should be considered if clinically indicated. Blood 03/25/2025 4:56 PM CDT 03/25/2025 4:56 PM CDT Rome Burns MD LAB POCT ORDERABLES - D EVICE Final Result Performing Organization Address [facility] Co de Phone Number [facility] [address] [facility] [address] * TSH reflex Free T4 - Add on lab test (03/25/2025 10:41 AM CDT) Acceptable Yes Blood 03/25/2025 10:4 1 AM CDT 03/25/2025 10:41 AM CDT Narrative [facility] - 03/25/2025 10:41 AM CDT Name of Test->TSH reflex Free T4 Rome Burns MD LAB BLOOD ORDERABLES Fi nal Result Performing Organization Address [facility] Co de Phone Number [facility] [address] [facility] [address] * Folate - Add on lab test (03/25/2025 8:34 AM CDT) Acceptable Yes Blood 03/25/2025 8:34 AM CDT 03/25/2025 8:34 AM CDT Narrative [facility] 03/25/2025 8:35 AM CDT Name of Test->Folate Rome Burns MD LAB BLOOD ORDERABLES Fi nal Result Performing Organization Address [facility] Co de Phone Number [facility] [address] [facility] [address] * Vitamin B12 - Add on lab test (03/25/2025 8:34 AM CDT) Acceptable Yes Blood 03/25/2025 8:34 AM CDT 03/25/2025 8:34 AM CDT Narrative [facility] 03/25/2025 8:35 AM CDT Name of Test->Vitamin B12 us Rome Burns MD LAB BLOOD ORDERABLES Fi nal Result [facility] [address] [facility] [place], [place] [id number] * Sepsis Lactate w/ Reflex (03/25/2025 4:12 AM CDT) Sepsis Lactate 0.7 0.7 - 2.0 mmol/L Blood 03/25/2025 4:12 AM CDT 03/25/2025 4:17 AM CDT Vincent GARCIA LAB BLOOD ORDERABLES Final Result Performing Organization Address [facility] Co de Phone Number [facility] [address] [place] [address] * (ABNORMAL) eGFR (03/25/2025 4:12 AM CDT) [...] 03/25/2025 5:16 AM CDT Bazgha Luciano Ahmad DO LAB BLOOD ORDERABLES Bianka l Result [facility] [address] [place] [address] * (ABNORMAL) Differential, auto (03/25/2025 4:12 AM CDT) Neutrophil abs 3.75 1.50 - 6.50 K/cumm Imm gran abs 0.07 0.00 - 0.10 K/cumm [facility] Lymphocyte abs 0.49(L) 0.80 - 3.30 K/cumm [facility] Monocyte abs 0.48 0.20 - 0.80 K/cumm [facility] Eosinophil abs 0.23 0.00 - 0.50 K/cumm [facility] Basophil abs 0.02 0.00 - 0.10 K/cumm [facility] Neutrophil pct 74.4 % [facility] Comment: Interpretive Data Percent cell count reference ranges are not reported, since discordance with absolute values may lead to misinterpretation of CBC data. Current Interpretive Data was last revised on 2017. Imm gran pct 1.4 % [facility] Comment: Interpretive Data Percent cell count reference ranges are not reported, since discordance with absolute values may lead to misinterpretation of CBC data. Current Interpretive Data was last revised on 2017. Lymphocyte pct 9.7 % [facility] Comment: Interpretive Data Percent cell count reference ranges are not reported, since discordance with absolute values may lead to misinterpretation of CBC data. Current Interpretive Data was last revised on 2017. Monocyte pct 9.5 % [facility] Comment: Interpretive Data Percent cell count reference ranges are not reported, since discordance with absolute values may lead to misinterpretation of CBC data. Current Interpretive Data was last revised on 2017. Eosinophil pct 4.6 % [facility] Comment: Interpretive Data Percent cell count reference ranges are not reported, since discordance with absolute values may lead to misinterpretation of CBC data. Current Interpretive Data was last revised on 2017. Basophil pct 0.4 % [facility] Comment: Interpretive Data Percent cell count reference ranges are not reported, since discordance with absolute values may lead to misinterpretation of CBC data. Current Interpretive Data was last revised on 2017. Blood 03/25/2025 4:12 AM CDT 03/25/2025 5:17 AM CDT Melo Luciano Refugiodavid PEDERSON LAB BLOOD ORDERABLES Bianka l Result Performing Organization Address City/[facility]/ZIP Co de Phone Number [facility] [address] Department [address] [place], [place] [id number] * Thyroid Function [place] (03/25/2025 4:12 AM CDT) [facility] TSH 1.67 0.30 - 4.20 mcIUnit/mL Blood 03/25/2025 4:12 AM CDT 03/25/2025 5:16 AM CDT Rome Burns MD LAB BLOOD ORDERABLES Fi nal Result Performing Organization Address [facility] Co de Phone Number [facility] [address] Department [address] [place], [place] [id number] * (ABNORMAL) CBC with auto differential (03/25/2025 4:12 AM CDT) [facility] WBC 5.04 3.80 - 9.90 K/cumm Hgb 8.3(L) 13.0 - 17.5 g/dL [facility] Hct 26.9(L) 38.9 - 50.3 % [facility] Plt 207 150 - 400 K/cumm [facility] MPV 9.4 9.1 - 12.3 fL [facility] RBC 2.75(L) 4.30 - 5.80 M/cumm [facility] MCV 97.8(H) 81.3 - 96.4 fL [facility] MCH 30.2 27.1 - 33.3 pg [facility] MCHC 30.9(L) 32.3 - 35.7 g/dL [facility] RDW CV 15.8(H) 11.1 - 14.9 % [facility] RDW SD 56.0(H) 35.7 - 48.1 fL [facility] NRBC abs 0.00 0.00 - 0.01 K/cumm [facility] Blood 03/25/2025 4:12 AM CDT 03/25/2025 5:17 AM CDT Elderelliot Luciano Patel DO LAB BLOOD ORDERABLES Bianka l Result Performing Organization Address City/[facility]/ZIP Co de Phone Number [facility] [address] [place] [address] * (ABNORMAL) Protime-INR (03/25/2025 4:12 AM CDT) PT 28.9(H) 9.7 - 13.0 sec INR 2.62(H) 0.90 - 1.20 [facility] Comment: Interpretive data Oral anticoagulant therapeutic ranges: Venous thromboembolism prophylaxis or treatment: 2.0-3.0 CARDIOLOGY Standard range: 2.0-3.0 High-intensity range: 2.5-3.5 Refer to indication-specific guidelines for appropriate target ranges for prosthetic heart valve replacement. Current interpretive data was last revised on 2019. Blood 03/25/2025 4:12 AM CDT 03/25/2025 5:17 AM CDT Chidi Viveros MD LAB BLOOD ORDERABLES Final Resu lt Performing Organization Address City/[facility]/ZIP Co de Phone Number [facility] [address] [place] [address] * Magnesium (03/25/2025 4:12 AM CDT) Magnesium 1.6 1.4 - 2.5 mg/dL Blood 03/25/2025 4:12 AM CDT 03/25/2025 5:16 AM CDT Abdoulzmarc Luciano Ahmad DO LAB BLOOD ORDERABLES Bianka l Result Performing Organization Address City/[facility]/ZIP Co de Phone Number [facility] [address] [facility] [address] * Folate (03/25/2025 4:12 AM CDT) [facility] Folic acid 15.8 >=5.0 ng/mL Blood 03/25/2025 4:12 AM CDT 03/25/2025 5:16 AM CDT Rome Burns MD LAB BLOOD ORDERABLES Fi nal Result Performing Organization Address [facility] Co de Phone Number [facility] [address] [place] [address] * (ABNORMAL) Vitamin B12 (03/25/2025 4:12 AM CDT) [facility] Vitamin B12 185(L) 230 - 1,250 pg/mL Blood 03/25/2025 4:12 AM CDT 03/25/2025 5:16 AM CDT Rome Burns MD LAB BLOOD ORDERABLES Fi nal Result Performing Organization Address [facility] Co de Phone Number [facility] [address] [place] [address] * (ABNORMAL) Comprehensive metabolic panel (03/25/2025 4:12 AM CDT) [facility] Sodium 140 135 - 145 mmol/L Potassium, pl 4.2 3.3 - 4.9 mmol/L [facility] Chloride 106 97 - 110 mmol/L [facility] CO2 26 22 - 32 mmol/L [facility] Anion gap 8 2 - 15 mmol/L [facility] BUN 32(H) 6 - 25 mg/dL [facility] Creatinine 1.24 0.80 - 1.30 mg/dL [facility] Glucose 95 70 - 199 mg/dL [facility] Comment: Interpretive Data Fasting glucose >/= 126 [...] 2022. Calcium 8.1(L) 8.5 - 10.3 mg/dL [facility] Bilirubin, total 0.2 0.1 - 1.2 mg/dL [facility] Protein, pl 5.5(L) 6.5 - 8.5 g/dL [facility] Albumin 2.3(L) 3.5 - 5.0 g/dL [facility] [facility] Alk phos 190(H) 40 - 130 Units/L [facility] ALT 34 7 - 55 Units/L [facility] AST 30 10 - 50 Units/L [facility] Blood 03/25/2025 4:12 AM CDT 03/25/2025 5:16 AM CDT Bazgha Luciano Ahmad DO LAB BLOOD ORDERABLES Bianka l Result [facility] [address] [place] [address] * eGFR (03/24/2025 12:37 PM CDT) eGFR [...] 7 PM CDT 03/24/2025 1:12 PM CDT us Abdoulzvaleria Luciano Ahmad DO LAB BLOOD ORDERABLES Bianka l Result [facility] [address] [place] [address] * (ABNORMAL) Basic metabolic panel (03/24/2025 12:37 PM CDT) Sodium 138 135 - 145 mmol/L Potassium, pl 4.3 3.3 - 4.9 mmol/L [facility] Chloride 104 97 - 110 mmol/L [facility] CO2 24 22 - 32 mmol/L [facility] Anion gap 10 2 - 15 mmol/L [facility] BUN 31(H) 6 - 25 mg/dL [facility] Creatinine 1.18 0.80 - 1.30 mg/dL [facility] Glucose 135 70 - 199 mg/dL [facility] Comment: Interpretive Data Fasting glucose >/= 126 [...] 2022. Calcium 8.3(L) 8.5 - 10.3 mg/dL [facility] Blood 03/24/2025 12:3 7 PM CDT 03/24/2025 1:12 PM CDT Abdoulzmarc Luciano Ahmad DO LAB BLOOD ORDERABLES Bianka l Result [facility] [address] [place] [address] * (ABNORMAL) Differential, auto (03/24/2025 12:35 PM CDT) Neutrophil abs 5.27 1.50 - 6.50 K/cumm Imm gran abs 0.10 0.00 - 0.10 K/cumm [facility] Lymphocyte abs 0.46(L) 0.80 - 3.30 K/cumm [facility] Monocyte abs 0.56 0.20 - 0.80 K/cumm [facility] Eosinophil abs 0.20 0.00 - 0.50 K/cumm [facility] Basophil abs 0.03 0.00 - 0.10 K/cumm [facility] Neutrophil pct 79.6 % [facility] Comment: Interpretive Data Percent cell count reference ranges are not reported, since discordance with absolute values may lead to misinterpretation of CBC data. Current Interpretive Data was last revised on 2017. Imm gran pct 1.5 % [facility] Comment: Interpretive Data Percent cell count reference ranges are not reported, since discordance with absolute values may lead to misinterpretation of CBC data. Current Interpretive Data was last revised on 2017. Lymphocyte pct 6.9 % [facility] Comment: Interpretive Data Percent cell count reference ranges are not reported, since discordance with absolute values may lead to misinterpretation of CBC data. Current Interpretive Data was last revised on 2017. Monocyte pct 8.5 % [facility] Comment: Interpretive Data Percent cell count reference ranges are not reported, since discordance with absolute values may lead to misinterpretation of CBC data. Current Interpretive Data was last revised on 2017. Eosinophil pct 3.0 % [facility] Comment: Interpretive Data Percent cell count reference ranges are not reported, since discordance with absolute values may lead to misinterpretation of CBC data. Current Interpretive Data was last revised on 2017. Basophil pct 0.5 % [facility] Comment: Interpretive Data Percent cell count reference ranges are not reported, since discordance with absolute values may lead to misinterpretation of CBC data. Current Interpretive Data was last revised on 2017. Blood 03/24/2025 12:3 5 PM CDT 03/24/2025 1:12 PM CDT us Bazgha Luciano Ahmad DO LAB BLOOD ORDERABLES Bianka l Result [facility] [address] [place] [address] * (ABNORMAL) CBC with auto differential (03/24/2025 12:35 PM CDT) WBC 6.62 3.80 - 9.90 K/cumm Hgb 9.0(L) 13.0 - 17.5 g/dL [facility] Hct 29.1(L) 38.9 - 50.3 % [facility] Plt 224 150 - 400 K/cumm [facility] MPV 8.6(L) 9.1 - 12.3 fL [facility] RBC 2.98(L) 4.30 - 5.80 M/cumm [facility] MCV 97.7(H) 81.3 - 96.4 fL [facility] MCH 30.2 27.1 - 33.3 pg [facility] MCHC 30.9(L) 32.3 - 35.7 g/dL [facility] RDW CV 15.6(H) 11.1 - 14.9 % [facility] RDW SD 55.7(H) 35.7 - 48.1 fL [facility] NRBC abs 0.00 0.00 - 0.01 K/cumm [facility] Blood 03/24/2025 12:3 5 PM CDT 03/24/2025 1:12 PM CDT us Bazgha Luciano Ahmad DO LAB BLOOD ORDERABLES Bianka l Result Performing Organization Address City/[facility]/ZIP Co de Phone Number [facility] [address] [facility] [address] * (ABNORMAL) Protime-INR (03/24/2025 5:18 AM CDT) PT 25.4(H) 9.7 - 13.0 sec INR 2.31(H) 0.90 - 1.20 [facility] Comment: Interpretive data Oral anticoagulant therapeutic ranges: Venous thromboembolism prophylaxis or treatment: 2.0-3.0 CARDIOLOGY Standard range: 2.0-3.0 High-intensity range: 2.5-3.5 Refer to indication-specific guidelines for appropriate target ranges for prosthetic heart valve replacement. Current interpretive data was last revised on 2019. Blood 03/24/2025 5:18 AM CDT 03/24/2025 5:48 AM CDT Chidi Viveros MD LAB BLOOD ORDERABLES Final Resu lt Performing Organization Address City/[facility]/ZIP Co de Phone Number [facility] [address] [facility] [address] * (ABNORMAL) Protime-INR (03/23/2025 4:12 AM CDT) PT 24.6(H) 9.7 - 13.0 sec INR 2.24(H) 0.90 - 1.20 [facility] Comment: Interpretive data Oral anticoagulant therapeutic ranges: Venous thromboembolism prophylaxis or treatment: 2.0-3.0 CARDIOLOGY Standard range: 2.0-3.0 High-intensity range: 2.5-3.5 Refer to indication-specific guidelines for appropriate target ranges for prosthetic heart valve replacement. Current interpretive data was last revised on 2019. Blood 03/23/2025 4:12 AM CDT 03/23/2025 4:22 AM CDT us Seow Voon Yew MD LAB BLOOD ORDERABLES Final Resu lt Performing Organization Address [facility] Co de Phone Number [facility] [address] [place] [address] * eGFR (03/22/2025 10:14 AM CDT) Pathologist [facility] eGFR 71 >=60 mL/min/1. 73 m2 Comment: [...] AM CDT 03/22/2025 10:14 AM CDT Melo Patel DO LAB BLOOD ORDERABLES Bianka l Result Performing Organization Address City/[facility]/ZIP Co de Phone Number [facility] [address] Department of Laboratories [place], [place] [id number] * (ABNORMAL) Differential, auto (03/22/2025 10:14 AM CDT) Pathologist [facility] Neutrophil abs 3.62 1.50 - 6.50 K/cumm Imm gran abs 0.04 0.00 - 0.10 K/cumm [facility] Lymphocyte abs 0.39(L) 0.80 - 3.30 K/cumm [facility] Monocyte abs 0.42 0.20 - 0.80 K/cumm [facility] Eosinophil abs 0.19 0.00 - 0.50 K/cumm [facility] Basophil abs 0.03 0.00 - 0.10 K/cumm [facility] Neutrophil pct 77.1 % [facility] Comment: Interpretive Data Percent cell count reference ranges are not reported, since discordance with absolute values may lead to misinterpretation of CBC data. Current Interpretive Data was last revised on 2017. Imm gran pct 0.9 % [facility] Comment: Interpretive Data Percent cell count reference ranges are not reported, since discordance with absolute values may lead to misinterpretation of CBC data. Current Interpretive Data was last revised on 2017. Lymphocyte pct 8.3 % [facility] Comment: Interpretive Data Percent cell count reference ranges are not reported, since discordance with absolute values may lead to misinterpretation of CBC data. Current Interpretive Data was last revised on 2017. Monocyte pct 9.0 % [facility] Comment: Interpretive Data Percent cell count reference ranges are not reported, since discordance with absolute values may lead to misinterpretation of CBC data. Current Interpretive Data was last revised on 2017. Eosinophil pct 4.1 % [facility] Comment: Interpretive Data Percent cell count reference ranges are not reported, since discordance with absolute values may lead to misinterpretation of CBC data. Current Interpretive Data was last revised on 2017. Basophil pct 0.6 % [facility] Comment: Interpretive Data Percent cell count reference ranges are not reported, since discordance with absolute values may lead to misinterpretation of CBC data. Current Interpretive Data was last revised on 2017. Blood 03/22/2025 10:1 4 AM CDT 03/22/2025 10:14 AM CDT us bAdoulzgha Luciano Ahmad DO LAB BLOOD ORDERABLES Bianka ellis Result [facility] [address] [place] [address] * (ABNORMAL) CBC with auto differential (03/22/2025 10:14 AM CDT) [facility] WBC 4.69 3.80 - 9.90 K/cumm Hgb 8.6(L) 13.0 - 17.5 g/dL [facility] Hct 27.3(L) 38.9 - 50.3 % [facility] Plt 200 150 - 400 K/cumm [facility] MPV 9.3 9.1 - 12.3 fL [facility] RBC 2.88(L) 4.30 - 5.80 M/cumm [facility] MCV 94.8 81.3 - 96.4 fL [facility] MCH 29.9 27.1 - 33.3 pg [facility] MCHC 31.5(L) 32.3 - 35.7 g/dL [facility] RDW CV 15.5(H) 11.1 - 14.9 % [facility] RDW SD 53.5(H) 35.7 - 48.1 fL [facility] NRBC abs 0.00 0.00 - 0.01 K/cumm [facility] Blood 03/22/2025 10:1 4 AM CDT 03/22/2025 10:14 AM CDT Melo Patel DO LAB BLOOD ORDERABLES Bianka l Result [facility] [address] [place] [address] * (ABNORMAL) Basic metabolic panel (03/22/2025 10:14 AM CDT) [facility] Sodium 139 135 - 145 mmol/L Potassium, pl 3.9 3.3 - 4.9 mmol/L [facility] Chloride 107 97 - 110 mmol/L [facility] CO2 23 22 - 32 mmol/L [facility] Anion gap 9 2 - 15 mmol/L [facility] BUN 21 6 - 25 mg/dL [facility] Creatinine 1.06 0.80 - 1.30 mg/dL [facility] Glucose 112 70 - 199 mg/dL [facility] Comment: Interpretive Data Fasting glucose >/= 126 [...] 2022. Calcium 7.8(L) 8.5 - 10.3 mg/dL [facility] Blood 03/22/2025 10:1 4 AM CDT 03/22/2025 10:14 AM CDT us Bazgha Luciano Ahmad DO LAB BLOOD ORDERABLES Bianka l Result [facility] [address] [place] [address] * eGFR (03/22/2025 6:11 AM CDT) eGFR [...] MD LAB BLOOD ORDERABLES Final Resu lt [facility] [address] [place] [address] * (ABNORMAL) Differential, auto (03/22/2025 6:11 AM CDT) Neutrophil abs 3.53 1.50 - 6.50 K/cumm Imm gran abs 0.04 0.00 - 0.10 K/cumm [facility] Lymphocyte abs 0.49(L) 0.80 - 3.30 K/cumm [facility] Monocyte abs 0.49 0.20 - 0.80 K/cumm [facility] Eosinophil abs 0.28 0.00 - 0.50 K/cumm [facility] Basophil abs 0.03 0.00 - 0.10 K/cumm [facility] Neutrophil pct 72.6 % [facility] Comment: Interpretive Data Percent cell count reference ranges are not reported, since discordance with absolute values may lead to misinterpretation of CBC data. Current Interpretive Data was last revised on 2017. Imm gran pct 0.8 % [facility] Comment: Interpretive Data Percent cell count reference ranges are not reported, since discordance with absolute values may lead to misinterpretation of CBC data. Current Interpretive Data was last revised on 2017. Lymphocyte pct 10.1 % [facility] Comment: Interpretive Data Percent cell count reference ranges are not reported, since discordance with absolute values may lead to misinterpretation of CBC data. Current Interpretive Data was last revised on 2017. Monocyte pct 10.1 % [facility] Comment: Interpretive Data Percent cell count reference ranges are not reported, since discordance with absolute values may lead to misinterpretation of CBC data. Current Interpretive Data was last revised on 2017. Eosinophil pct 5.8 % [facility] Comment: Interpretive Data Percent cell count reference ranges are not reported, since discordance with absolute values may lead to misinterpretation of CBC data. Current Interpretive Data was last revised on 2017. Basophil pct 0.6 % [facility] Comment: Interpretive Data Percent cell count reference ranges are not reported, since discordance with absolute values may lead to misinterpretation of CBC data. Current Interpretive Data was last revised on 2017. Blood 03/22/2025 6:11 AM CDT 03/22/2025 7:19 AM CDT us Chidi Viveros MD LAB BLOOD ORDERABLES Final Resu lt Performing Organization Address [facility]/ZIP Co de Phone Number [facility] [address] [place] [address] * (ABNORMAL) CBC with auto differential (03/22/2025 6:11 AM CDT) WBC 4.86 3.80 - 9.90 K/cumm Hgb 8.1(L) 13.0 - 17.5 g/dL [facility] Hct 25.3(L) 38.9 - 50.3 % [facility] Plt 210 150 - 400 K/cumm [facility] MPV 9.1 9.1 - 12.3 fL [facility] RBC 2.63(L) 4.30 - 5.80 M/cumm [facility] MCV 96.2 81.3 - 96.4 fL [facility] MCH 30.8 27.1 - 33.3 pg [facility] MCHC 32.0(L) 32.3 - 35.7 g/dL [facility] RDW CV 15.6(H) 11.1 - 14.9 % [facility] RDW SD 54.7(H) 35.7 - 48.1 fL [facility] NRBC abs 0.00 0.00 - 0.01 K/cumm [facility] Blood 03/22/2025 6:11 AM CDT 03/22/2025 7:19 AM CDT us Chidi Viveros MD LAB BLOOD ORDERABLES Final Resu lt Performing Organization Address City/[facility]/ZIP Co de Phone Number [facility] [address] [place] [address] * (ABNORMAL) Protime-INR (03/22/2025 6:11 AM CDT) PT 20.2(H) 9.7 - 13.0 sec INR 1.85(H) 0.90 - 1.20 [facility] Comment: Interpretive data Oral anticoagulant therapeutic ranges: Venous thromboembolism prophylaxis or treatment: 2.0-3.0 CARDIOLOGY Standard range: 2.0-3.0 High-intensity range: 2.5-3.5 Refer to indication-specific guidelines for appropriate target ranges for prosthetic heart valve replacement. Current interpretive data was last revised on 2019. Blood 03/22/2025 6:11 AM CDT 03/22/2025 7:19 AM CDT Chidi Viveros MD LAB BLOOD ORDERABLES Final Resu lt Performing Organization Address [facility] Co de Phone Number [facility] [address] [place] [address] * (ABNORMAL) Basic metabolic panel (03/22/2025 6:11 AM CDT) Sodium 140 135 - 145 mmol/L Potassium, pl 3.9 3.3 - 4.9 mmol/L [facility] Chloride 108 97 - 110 mmol/L [facility] CO2 24 22 - 32 mmol/L [facility] Anion gap 8 2 - 15 mmol/L [facility] BUN 21 6 - 25 mg/dL [facility] Creatinine 1.04 0.80 - 1.30 mg/dL [facility] Glucose 88 70 - 199 mg/dL [facility] Comment: Interpretive Data Fasting glucose >/= 126 [...] 2022. Calcium 8.0(L) 8.5 - 10.3 mg/dL [facility] Blood 03/22/2025 6:11 AM CDT 03/22/2025 7:18 AM CDT Chidi Viveros MD LAB BLOOD ORDERABLES Final Resu lt Performing Organization Address [facility]/ZIP Co de Phone Number [facility] [address] [place] [address] * eGFR (03/21/2025 5:20 AM CDT) eGFR [...] ORDERABLES Final Resu lt Performing Organization Address City/[facility]/ZIP Co de Phone Number [facility] [address] [place] [address] * (ABNORMAL) Differential, auto (03/21/2025 5:20 AM CDT) Neutrophil abs 4.05 1.50 - 6.50 K/cumm Imm gran abs 0.03 0.00 - 0.10 K/cumm [facility] Lymphocyte abs 0.56(L) 0.80 - 3.30 K/cumm [facility] Monocyte abs 0.56 0.20 - 0.80 K/cumm [facility] Eosinophil abs 0.23 0.00 - 0.50 K/cumm [facility] Basophil abs 0.03 0.00 - 0.10 K/cumm [facility] Neutrophil pct 74.2 % [facility] Comment: Interpretive Data Percent cell count reference ranges are not reported, since discordance with absolute values may lead to misinterpretation of CBC data. Current Interpretive Data was last revised on 2017. Imm gran pct 0.5 % [facility] Comment: Interpretive Data Percent cell count reference ranges are not reported, since discordance with absolute values may lead to misinterpretation of CBC data. Current Interpretive Data was last revised on 2017. Lymphocyte pct 10.3 % [facility] Comment: Interpretive Data Percent cell count reference ranges are not reported, since discordance with absolute values may lead to misinterpretation of CBC data. Current Interpretive Data was last revised on 2017. Monocyte pct 10.3 % [facility] Comment: Interpretive Data Percent cell count reference ranges are not reported, since discordance with absolute values may lead to misinterpretation of CBC data. Current Interpretive Data was last revised on 2017. Eosinophil pct 4.2 % [facility] Comment: Interpretive Data Percent cell count reference ranges are not reported, since discordance with absolute values may lead to misinterpretation of CBC data. Current Interpretive Data was last revised on 2017. Basophil pct 0.5 % [facility] Comment: Interpretive Data Percent cell count reference ranges are not reported, since discordance with absolute values may lead to misinterpretation of CBC data. Current Interpretive Data was last revised on 2017. Blood 03/21/2025 5:20 AM CDT 03/21/2025 5:52 AM CDT us Chidi Viveros MD LAB BLOOD ORDERABLES Final Resu lt Performing Organization Address [facility] Co de Phone Number [facility] [address] [facility] [address] * (ABNORMAL) CBC with auto differential (03/21/2025 5:20 AM CDT) WBC 5.46 3.80 - 9.90 K/cumm Hgb 8.2(L) 13.0 - 17.5 g/dL [facility] Hct 25.5(L) 38.9 - 50.3 % [facility] Plt 190 150 - 400 K/cumm [facility] MPV 9.3 9.1 - 12.3 fL [facility] RBC 2.66(L) 4.30 - 5.80 M/cumm [facility] MCV 95.9 81.3 - 96.4 fL [facility] MCH 30.8 27.1 - 33.3 pg [facility] MCHC 32.2(L) 32.3 - 35.7 g/dL [facility] RDW CV 15.6(H) 11.1 - 14.9 % [facility] RDW SD 54.4(H) 35.7 - 48.1 fL [facility] NRBC abs 0.00 0.00 - 0.01 K/cumm [facility] Blood 03/21/2025 5:20 AM CDT 03/21/2025 5:52 AM CDT us Chidi Viveros MD LAB BLOOD ORDERABLES Final Resu lt [facility] [address] [facility] [place] [address] * (ABNORMAL) Protime-INR (03/21/2025 5:20 AM CDT) PT 17.0(H) 9.7 - 13.0 sec INR 1.56(H) 0.90 - 1.20 [facility] Comment: Interpretive data Oral anticoagulant therapeutic ranges: Venous thromboembolism prophylaxis or treatment: 2.0-3.0 CARDIOLOGY Standard range: 2.0-3.0 High-intensity range: 2.5-3.5 Refer to indication-specific guidelines for appropriate target ranges for prosthetic heart valve replacement. Current interpretive data was last revised on 2019. Blood 03/21/2025 5:20 AM CDT 03/21/2025 5:52 AM CDT us Chidi Viveros MD LAB BLOOD ORDERABLES Final Resu lt [facility] [address] [place] [address] * (ABNORMAL) Basic metabolic panel (03/21/2025 5:20 AM CDT) Sodium 139 135 - 145 mmol/L Potassium, pl 3.9 3.3 - 4.9 mmol/L [facility] Chloride 108 97 - 110 mmol/L [facility] CO2 23 22 - 32 mmol/L [facility] Anion gap 8 2 - 15 mmol/L [facility] BUN 27(H) 6 - 25 mg/dL [facility] Creatinine 1.02 0.80 - 1.30 mg/dL [facility] Glucose 102 70 - 199 mg/dL [facility] Comment: Interpretive Data Fasting glucose >/= 126 [...] 2022. Calcium 7.5(L) 8.5 - 10.3 mg/dL [facility] Blood 03/21/2025 5:20 AM CDT 03/21/2025 5:52 AM CDT Chidi Viveros MD LAB BLOOD ORDERABLES Final Resu lt Performing Organization Address City/[facility]/ZIP Co de Phone Number [facility] [address] Department [address] [place], [place] [id number] * eGFR (03/20/2025 5:45 AM CDT) eGFR [...] MD LAB BLOOD ORDERABLES Final Resu lt [facility] [address] [place] [address] * (ABNORMAL) Differential, auto (03/20/2025 5:45 AM CDT) Neutrophil abs 4.60 1.50 - 6.50 K/cumm Imm gran abs 0.04 0.00 - 0.10 K/cumm [facility] Lymphocyte abs 0.45(L) 0.80 - 3.30 K/cumm [facility] Monocyte abs 0.51 0.20 - 0.80 K/cumm [facility] Eosinophil abs 0.18 0.00 - 0.50 K/cumm [facility] Basophil abs 0.02 0.00 - 0.10 K/cumm [facility] Neutrophil pct 79.3 % [facility] Comment: Interpretive Data Percent cell count reference ranges are not reported, since discordance with absolute values may lead to misinterpretation of CBC data. Current Interpretive Data was last revised on 2017. Imm gran pct 0.7 % [facility] Comment: Interpretive Data Percent cell count reference ranges are not reported, since discordance with absolute values may lead to misinterpretation of CBC data. Current Interpretive Data was last revised on 2017. Lymphocyte pct 7.8 % [facility] Comment: Interpretive Data Percent cell count reference ranges are not reported, since discordance with absolute values may lead to misinterpretation of CBC data. Current Interpretive Data was last revised on 2017. Monocyte pct 8.8 % [facility] Comment: Interpretive Data Percent cell count reference ranges are not reported, since discordance with absolute values may lead to misinterpretation of CBC data. Current Interpretive Data was last revised on 2017. Eosinophil pct 3.1 % [facility] Comment: Interpretive Data Percent cell count reference ranges are not reported, since discordance with absolute values may lead to misinterpretation of CBC data. Current Interpretive Data was last revised on 2017. Basophil pct 0.3 % [facility] Comment: Interpretive Data Percent cell count reference ranges are not reported, since discordance with absolute values may lead to misinterpretation of CBC data. Current Interpretive Data was last revised on 2017. Blood 03/20/2025 5:45 AM CDT 03/20/2025 6:21 AM CDT us Chidi Viveros MD LAB BLOOD ORDERABLES Final Resu lt [facility] [address] [place] [address] * (ABNORMAL) CBC with auto differential (03/20/2025 5:45 AM CDT) [facility] WBC 5.80 3.80 - 9.90 K/cumm Hgb 8.3(L) 13.0 - 17.5 g/dL [facility] Hct 26.0(L) 38.9 - 50.3 % [facility] Plt 181 150 - 400 K/cumm [facility] MPV 9.3 9.1 - 12.3 fL [facility] RBC 2.73(L) 4.30 - 5.80 M/cumm [facility] MCV 95.2 81.3 - 96.4 fL [facility] MCH 30.4 27.1 - 33.3 pg [facility] MCHC 31.9(L) 32.3 - 35.7 g/dL [facility] RDW CV 15.6(H) 11.1 - 14.9 % [facility] RDW SD 53.1(H) 35.7 - 48.1 fL [facility] NRBC abs 0.00 0.00 - 0.01 K/cumm [facility] Blood 03/20/2025 5:45 AM CDT 03/20/2025 6:21 AM CDT us Chidi Viveros MD LAB BLOOD ORDERABLES Final Resu lt [facility] [address] [place] [address] * (ABNORMAL) Protime-INR (03/20/2025 5:45 AM CDT) [facility] PT 15.1(H) 9.7 - 13.0 sec INR 1.39(H) 0.90 - 1.20 [facility] Comment: Interpretive data Oral anticoagulant therapeutic ranges: Venous thromboembolism prophylaxis or treatment: 2.0-3.0 CARDIOLOGY Standard range: 2.0-3.0 High-intensity range: 2.5-3.5 Refer to indication-specific guidelines for appropriate target ranges for prosthetic heart valve replacement. Current interpretive data was last revised on 2019. Blood 03/20/2025 5:45 AM CDT 03/20/2025 6:21 AM CDT us Chidi Viveros MD LAB BLOOD ORDERABLES Final Resu lt Performing Organization Address City/[facility]/ZIP Co de Phone Number [facility] [address] [place] [address] * (ABNORMAL) Basic metabolic panel (03/20/2025 5:45 AM CDT) Sodium 140 135 - 145 mmol/L Potassium, pl 3.8 3.3 - 4.9 mmol/L [facility] Chloride 109 97 - 110 mmol/L [facility] CO2 22 22 - 32 mmol/L [facility] Anion gap 9 2 - 15 mmol/L [facility] BUN 27(H) 6 - 25 mg/dL [facility] Creatinine 1.09 0.80 - 1.30 mg/dL [facility] Glucose 103 70 - 199 mg/dL [facility] Comment: Interpretive Data Fasting glucose >/= 126 [...] 2022. Calcium 7.4(L) 8.5 - 10.3 mg/dL [facility] Blood 03/20/2025 5:45 AM CDT 03/20/2025 6:21 AM CDT us Chidi Viveros MD LAB BLOOD ORDERABLES Final Resu lt Performing Organization Address City/[facility]/ZIP Co de Phone Number [facility] [address] [place] [address] * (ABNORMAL) eGFR (03/19/2025 5:21 AM CDT) Pathologist [facility] eGFR 58(L) >=60 mL/min/1. 73 [...] MD LAB BLOOD ORDERABLES Final Resu lt [facility] [address] [place] [address] * (ABNORMAL) Differential, auto (03/19/2025 5:21 AM CDT) Pathologist [facility] Neutrophil abs 4.66 1.50 - 6.50 K/cumm Imm gran abs 0.04 0.00 - 0.10 K/cumm [facility] Lymphocyte abs 0.40(L) 0.80 - 3.30 K/cumm [facility] Monocyte abs 0.55 0.20 - 0.80 K/cumm [facility] Eosinophil abs 0.10 0.00 - 0.50 K/cumm [facility] Basophil abs 0.03 0.00 - 0.10 K/cumm [facility] Neutrophil pct 80.7 % [facility] Comment: Interpretive Data Percent cell count reference ranges are not reported, since discordance with absolute values may lead to misinterpretation of CBC data. Current Interpretive Data was last revised on 2017. Imm gran pct 0.7 % [facility] Comment: Interpretive Data Percent cell count reference ranges are not reported, since discordance with absolute values may lead to misinterpretation of CBC data. Current Interpretive Data was last revised on 2017. Lymphocyte pct 6.9 % [facility] Comment: Interpretive Data Percent cell count reference ranges are not reported, since discordance with absolute values may lead to misinterpretation of CBC data. Current Interpretive Data was last revised on 2017. Monocyte pct 9.5 % [facility] Comment: Interpretive Data Percent cell count reference ranges are not reported, since discordance with absolute values may lead to misinterpretation of CBC data. Current Interpretive Data was last revised on 2017. Eosinophil pct 1.7 % [facility] Comment: Interpretive Data Percent cell count reference ranges are not reported, since discordance with absolute values may lead to misinterpretation of CBC data. Current Interpretive Data was last revised on 2017. Basophil pct 0.5 % [facility] Comment: Interpretive Data Percent cell count reference ranges are not reported, since discordance with absolute values may lead to misinterpretation of CBC data. Current Interpretive Data was last revised on 2017. Blood 03/19/2025 5:21 AM CDT 03/19/2025 6:25 AM CDT us Chidi Viveros MD LAB BLOOD ORDERABLES Final Resu lt [facility] [address] [place] [address] * (ABNORMAL) CBC with auto differential (03/19/2025 5:21 AM CDT) WBC 5.78 3.80 - 9.90 K/cumm Hgb 7.8(L) 13.0 - 17.5 g/dL [facility] Hct 24.4(L) 38.9 - 50.3 % [facility] Plt 167 150 - 400 K/cumm [facility] MPV 9.5 9.1 - 12.3 fL [facility] RBC 2.54(L) 4.30 - 5.80 M/cumm [facility] MCV 96.1 81.3 - 96.4 fL [facility] MCH 30.7 27.1 - 33.3 pg [facility] MCHC 32.0(L) 32.3 - 35.7 g/dL [facility] RDW CV 15.5(H) 11.1 - 14.9 % [facility] RDW SD 54.4(H) 35.7 - 48.1 fL [facility] NRBC abs 0.00 0.00 - 0.01 K/cumm [facility] Blood 03/19/2025 5:21 AM CDT 03/19/2025 6:25 AM CDT us Chidi Viveros MD LAB BLOOD ORDERABLES Final Resu lt [facility] [address] [place] [address] * (ABNORMAL) Protime-INR (03/19/2025 5:21 AM CDT) PT 14.1(H) 9.7 - 13.0 sec INR 1.30(H) 0.90 - 1.20 [facility] Comment: Interpretive data Oral anticoagulant therapeutic ranges: Venous thromboembolism prophylaxis or treatment: 2.0-3.0 CARDIOLOGY Standard range: 2.0-3.0 High-intensity range: 2.5-3.5 Refer to indication-specific guidelines for appropriate target ranges for prosthetic heart valve replacement. Current interpretive data was last revised on 2019. Blood 03/19/2025 5:21 AM CDT 03/19/2025 6:26 AM CDT us Chidi Viveros MD LAB BLOOD ORDERABLES Final Resu lt [facility] [address] [place] [address] * (ABNORMAL) Basic metabolic panel (03/19/2025 5:21 AM CDT) Sodium 138 135 - 145 mmol/L Potassium, pl 3.6 3.3 - 4.9 mmol/L [facility] Chloride 108 97 - 110 mmol/L [facility] CO2 22 22 - 32 mmol/L [facility] Anion gap 8 2 - 15 mmol/L [facility] BUN 27(H) 6 - 25 mg/dL [facility] Creatinine 1.26 0.80 - 1.30 mg/dL [facility] Glucose 92 70 - 199 mg/dL [facility] Comment: Interpretive Data Fasting glucose >/= 126 [...] 2022. Calcium 7.3(L) 8.5 - 10.3 mg/dL [facility] Blood 03/19/2025 5:21 AM CDT 03/19/2025 6:25 AM CDT us Chidi Viveros MD LAB BLOOD ORDERABLES [facility] [address] [place] [address] * (ABNORMAL) Protime-INR (03/18/2025 11:24 AM CDT) Pathologist [facility] PT 13.3(H) 9.7 - 13.0 sec INR 1.23(H) 0.90 - 1.20 [facility] Comment: Interpretive data Oral anticoagulant therapeutic ranges: Venous thromboembolism prophylaxis or treatment: 2.0-3.0 CARDIOLOGY Standard range: 2.0-3.0 High-intensity range: 2.5-3.5 Refer to indication-specific guidelines for appropriate target ranges for prosthetic heart valve replacement. Current interpretive data was last revised on 2019. Blood 03/18/2025 11:2 4 AM CDT 03/18/2025 11:27 AM CDT us Chidi Viveros MD LAB BLOOD ORDERABLES Final Resu lt [facility] [address] [place] [address] * (ABNORMAL) eGFR (03/18/2025 6:32 AM CDT) [...] 6:32 AM CDT 03/18/2025 7:09 AM CDT Chidi Viveros MD LAB BLOOD ORDERABLES Final Resu lt [facility] [address] Department of Laboratories [place], [place] [id number] * (ABNORMAL) Differential, auto (03/18/2025 6:32 AM CDT) Neutrophil abs 6.55(H) 1.50 - 6.50 K/cumm Imm gran abs 0.04 0.00 - 0.10 K/cumm [facility] Lymphocyte abs 0.33(L) 0.80 - 3.30 K/cumm [facility] Monocyte abs 0.69 0.20 - 0.80 K/cumm [facility] Eosinophil abs 0.07 0.00 - 0.50 K/cumm [facility] Basophil abs 0.02 0.00 - 0.10 K/cumm [facility] Neutrophil pct 85.0 % [facility] Comment: Interpretive Data Percent cell count reference ranges are not reported, since discordance with absolute values may lead to misinterpretation of CBC data. Current Interpretive Data was last revised on 2017. Imm gran pct 0.5 % [facility] Comment: Interpretive Data Percent cell count reference ranges are not reported, since discordance with absolute values may lead to misinterpretation of CBC data. Current Interpretive Data was last revised on 2017. Lymphocyte pct 4.3 % [facility] Comment: Interpretive Data Percent cell count reference ranges are not reported, since discordance with absolute values may lead to misinterpretation of CBC data. Current Interpretive Data was last revised on 2017. Monocyte pct 9.0 % [facility] Comment: Interpretive Data Percent cell count reference ranges are not reported, since discordance with absolute values may lead to misinterpretation of CBC data. Current Interpretive Data was last revised on 2017. Eosinophil pct 0.9 % [facility] Comment: Interpretive Data Percent cell count reference ranges are not reported, since discordance with absolute values may lead to misinterpretation of CBC data. Current Interpretive Data was last revised on 2017. Basophil pct 0.3 % [facility] Comment: Interpretive Data Percent cell count reference ranges are not reported, since discordance with absolute values may lead to misinterpretation of CBC data. Current Interpretive Data was last revised on 2017. Blood 03/18/2025 6:32 AM CDT 03/18/2025 7:10 AM CDT Chidi Viveros MD LAB BLOOD ORDERABLES Final Resu lt Performing Organization Address [facility] Co de Phone Number [facility] [address] [place] [place] [address] * (ABNORMAL) CBC with auto differential (03/18/2025 6:32 AM CDT) WBC 7.70 3.80 - 9.90 K/cumm Hgb 8.1(L) 13.0 - 17.5 g/dL [facility] Hct 25.7(L) 38.9 - 50.3 % [facility] Plt 181 150 - 400 K/cumm [facility] MPV 9.7 9.1 - 12.3 fL [facility] RBC 2.65(L) 4.30 - 5.80 M/cumm [facility] MCV 97.0(H) 81.3 - 96.4 fL [facility] MCH 30.6 27.1 - 33.3 pg [facility] MCHC 31.5(L) 32.3 - 35.7 g/dL [facility] RDW CV 15.4(H) 11.1 - 14.9 % [facility] RDW SD 53.9(H) 35.7 - 48.1 fL [facility] NRBC abs 0.00 0.00 - 0.01 K/cumm [facility] Blood 03/18/2025 6:32 AM CDT 03/18/2025 7:10 AM CDT Chidi Viveros MD LAB BLOOD ORDERABLES Final Resu lt Performing Organization Address City/[facility]/ZIP Co de Phone Number [facility] [address] [facility] [place] [address] * (ABNORMAL) Basic metabolic panel (03/18/2025 6:32 AM CDT) Sodium 137 135 - 145 mmol/L Potassium, pl 4.3 3.3 - 4.9 mmol/L [facility] Chloride 106 97 - 110 mmol/L [facility] CO2 20(L) 22 - 32 mmol/L [facility] Anion gap 11 2 - 15 mmol/L [facility] BUN 32(H) 6 - 25 mg/dL [facility] Creatinine 1.45(H) 0.80 - 1.30 mg/dL [facility] Glucose 111 70 - 199 mg/dL [facility] Comment: Interpretive Data Fasting glucose >/= 126 [...] 2022. Calcium 7.5(L) 8.5 - 10.3 mg/dL [facility] Blood 03/18/2025 6:32 AM CDT 03/18/2025 7:09 AM CDT Chidi Viveros MD LAB BLOOD ORDERABLES Final Resu lt [facility] [address] [place] [address] * Blood culture Blood (03/17/2025 8:57 AM CDT) Pathologist [facility] Report Final Report: No growth Blood 03/17/2025 8:57 AM CDT 03/17/2025 8:57 AM CDT Narrative [facility] - 03/22/2025 1:00 PM CDT From a [...] organism identification may be performed using the [employer] Blood Culture Identification panel. This assay detects microbial DNA in a blood culture broth. This assay has been cleared by the [facility] Food and Drug Administration and its performance characteristics have been verified by the [facility] Microbiology Laboratory. Interpretive data was last revised on September 29, 2022. Chidi Viveros MD LAB MICROBIOLOGY - GENERAL [employer] HERCAM[employer] Final Result Performing Organization Address City/[facility]/ZIP Co de Phone Number [facility] [address] [place] [place] [address] * Blood culture Blood (03/17/2025 8:39 AM CDT) Report Final Report: No growth Blood 03/17/2025 8:39 AM CDT 03/17/2025 8:39 AM CDT Narrative [facility] 03/22/2025 1:00 PM CDT Collection->Peripheral Interpretive [...] organism identification may be performed using the [employer] Blood Culture Identification panel. This assay detects microbial DNA in a blood culture broth. This assay has been cleared by the [place] Food and Drug Administration and its performance characteristics have been verified by the [facility] Microbiology Laboratory. Interpretive data was last revised on September 29, 2022. Chidi Viveros MD LAB MICROBIOLOGY - GENERAL [employer] Final Result Performing Organization Address City/[facility]/ZIP Co de Phone Number [facility] [address] [place] [address] * (ABNORMAL) eGFR (03/17/2025 5:09 AM CDT) Pathologist [facility] eGFR 41(L) >=60 mL/min/1. 73 m2 Comment: [...] MD LAB BLOOD ORDERABLES Final Resu lt [facility] [address] [place] [address] * (ABNORMAL) Differential, auto (03/17/2025 5:09 AM CDT) Pathologist [facility] Neutrophil abs 10.63(H) 1.50 - 6.50 K/cumm Imm gran abs 0.08 0.00 - 0.10 K/cumm [facility] Lymphocyte abs 0.18(L) 0.80 - 3.30 K/cumm [facility] Monocyte abs 0.76 0.20 - 0.80 K/cumm [facility] Eosinophil abs 0.00 0.00 - 0.50 K/cumm [facility] Basophil abs 0.01 0.00 - 0.10 K/cumm [facility] Neutrophil pct 91.2 % [facility] Comment: Interpretive Data Percent cell count reference ranges are not reported, since discordance with absolute values may lead to misinterpretation of CBC data. Current Interpretive Data was last revised on 2017. Imm gran pct 0.7 % [facility] Comment: Interpretive Data Percent cell count reference ranges are not reported, since discordance with absolute values may lead to misinterpretation of CBC data. Current Interpretive Data was last revised on 2017. Lymphocyte pct 1.5 % [facility] Comment: Interpretive Data Percent cell count reference ranges are not reported, since discordance with absolute values may lead to misinterpretation of CBC data. Current Interpretive Data was last revised on 2017. Monocyte pct 6.5 % [facility] Comment: Interpretive Data Percent cell count reference ranges are not reported, since discordance with absolute values may lead to misinterpretation of CBC data. Current Interpretive Data was last revised on 2017. Eosinophil pct 0.0 % [facility] Comment: Interpretive Data Percent cell count reference ranges are not reported, since discordance with absolute values may lead to misinterpretation of CBC data. Current Interpretive Data was last revised on 2017. Basophil pct 0.1 % [facility] Comment: Interpretive Data Percent cell count reference ranges are not reported, since discordance with absolute values may lead to misinterpretation of CBC data. Current Interpretive Data was last revised on 2017. Blood 03/17/2025 5:09 AM CDT 03/17/2025 5:51 AM CDT us Chidi Viveros MD LAB BLOOD ORDERABLES Final Resu lt [facility] [address] [place] [address] * (ABNORMAL) CBC with auto differential (03/17/2025 5:09 AM CDT) WBC 11.66(H) 3.80 - 9.90 K/cumm Hgb 9.8(L) 13.0 - 17.5 g/dL [facility] Hct 31.0(L) 38.9 - 50.3 % [facility] Plt 225 150 - 400 K/cumm [facility] MPV 9.7 9.1 - 12.3 fL [facility] RBC 3.19(L) 4.30 - 5.80 M/cumm [facility] MCV 97.2(H) 81.3 - 96.4 fL [facility] MCH 30.7 27.1 - 33.3 pg [facility] MCHC 31.6(L) 32.3 - 35.7 g/dL [facility] RDW CV 15.1(H) 11.1 - 14.9 % [facility] RDW SD 53.5(H) 35.7 - 48.1 fL [facility] NRBC abs 0.00 0.00 - 0.01 K/cumm [facility] Blood 03/17/2025 5:09 AM CDT 03/17/2025 5:51 AM CDT us Chidi Viveros MD LAB BLOOD ORDERABLES Final Resu lt [facility] [address] [place] [address] * (ABNORMAL) Protime-INR (03/17/2025 5:09 AM CDT) PT 13.3(H) 9.7 - 13.0 sec INR 1.23(H) 0.90 - 1.20 [facility] Comment: Interpretive data Oral anticoagulant therapeutic ranges: Venous thromboembolism prophylaxis or treatment: 2.0-3.0 CARDIOLOGY Standard range: 2.0-3.0 High-intensity range: 2.5-3.5 Refer to indication-specific guidelines for appropriate target ranges for prosthetic heart valve replacement. Current interpretive data was last revised on 2019. Blood 03/17/2025 5:09 AM CDT 03/17/2025 5:49 AM CDT us Chidi Viveros MD LAB BLOOD ORDERABLES Final Resu lt Performing Organization Address [facility]/ZIP Co de Phone Number [facility] [address] [facility] [employer] [place], [place] [id number] * (ABNORMAL) Hepatic function panel (03/17/2025 5:09 AM CDT) Pathologist [facility] Bilirubin, total 0.6 0.1 - 1.2 mg/dL Bilirubin, direct 0.3 0.1 - 0.3 mg/dL [facility] Protein, pl 5.9(L) 6.5 - 8.5 g/dL [facility] Albumin 2.4(L) 3.5 - 5.0 g/dL [facility] Alk phos 259(H) 40 - 130 Units/L [facility] ALT 41 7 - 55 Units/L [facility] AST 46 10 - 50 Units/L [facility] Blood 03/17/2025 5:09 AM CDT 03/17/2025 5:51 AM CDT Chidi Viveros MD LAB BLOOD ORDERABLES Final Resu lt Performing Organization Address [facility] Co de Phone Number [facility] [address] [facility] [place] [address] * (ABNORMAL) Basic metabolic panel (03/17/2025 5:09 AM CDT) Pathologist [facility] Sodium 135 135 - 145 mmol/L Potassium, pl 4.3 3.3 - 4.9 mmol/L [facility] Chloride 105 97 - 110 mmol/L [facility] CO2 18(L) 22 - 32 mmol/L [facility] Anion gap 12 2 - 15 mmol/L [facility] BUN 35(H) 6 - 25 mg/dL [facility] Creatinine 1.67(H) 0.80 - 1.30 mg/dL [facility] Glucose 135 70 - 199 mg/dL [facility] Comment: Interpretive Data Fasting glucose >/= 126 [...] Calcium 7.7(L) 8.5 - 10.3 mg/dL [facility] Blood 03/17/2025 5:09 AM CDT 03/17/2025 5:51 AM CDT us Chidi Viveros MD LAB BLOOD ORDERABLES Final Resu lt [facility] [address] [place] [address] * IR Percutaneous Nephrostomy Bilateral (03/16/2025 11:47 [...] with bilateral hydronephrosis. Pt was admitted to [facility] in [place], [place] from 03/06 through 03/13 for urinary [...] was obtained. Prior to beginning the procedure, Tignall Protocol was performed to confirm the patient's [...] The tract was serially dilated to 10 Spanish before, before placing a 10 Spanish cope loop catheter. The retaining loop was [...] The tract was serially dilated to 10 Spanish followed by placement of a 10 Spanish cope loop catheter. The retaining loop was [...] with bilateral hydronephrosis. Pt was admitted to [facility] in [place], [place] from 03/06 through 03/13 for urinary [...] was obtained. Prior to beginning the procedure, Tignall Protocol was performed to confirm the patient's [...] The tract was serially dilated to 10 Spanish before, before placing a 10 Spanish cope loop catheter. The retaining loop was [...] The tract was serially dilated to 10 Spanish followed by placement of a 10 Spanish cope loop catheter. The retaining loop was [...] wheelchair. Electronically signed by: Lasha Moulton M.D. Des Owusu MD IMG IR PROCEDURES Final [...] MD LAB BLOOD ORDERABLES Final Resul t [facility] [address] [place] [address] * (ABNORMAL) Differential, auto (03/16/2025 5:58 AM CDT) Neutrophil abs 4.79 1.50 - 6.50 K/cumm Imm gran abs 0.08 0.00 - 0.10 K/cumm [facility] Lymphocyte abs 0.46(L) 0.80 - 3.30 K/cumm [facility] Monocyte abs 0.54 0.20 - 0.80 K/cumm [facility] Eosinophil abs 0.28 0.00 - 0.50 K/cumm [facility] Basophil abs 0.03 0.00 - 0.10 K/cumm [facility] Neutrophil pct 77.6 % [facility] Comment: Interpretive Data Percent cell count reference ranges are not reported, since discordance with absolute values may lead to misinterpretation of CBC data. Current Interpretive Data was last revised on 2017. Imm gran pct 1.3 % [facility] Comment: Interpretive Data Percent cell count reference ranges are not reported, since discordance with absolute values may lead to misinterpretation of CBC data. Current Interpretive Data was last revised on 2017. Lymphocyte pct 7.4 % [facility] Comment: Interpretive Data Percent cell count reference ranges are not reported, since discordance with absolute values may lead to misinterpretation of CBC data. Current Interpretive Data was last revised on 2017. Monocyte pct 8.7 % [facility] Comment: Interpretive Data Percent cell count reference ranges are not reported, since discordance with absolute values may lead to misinterpretation of CBC data. Current Interpretive Data was last revised on 2017. Eosinophil pct 4.5 % [facility] Comment: Interpretive Data Percent cell count reference ranges are not reported, since discordance with absolute values may lead to misinterpretation of CBC data. Current Interpretive Data was last revised on 2017. Basophil pct 0.5 % [facility] Comment: Interpretive Data Percent cell count reference ranges are not reported, since discordance with absolute values may lead to misinterpretation of CBC data. Current Interpretive Data was last revised on 2017. Blood 03/16/2025 5:58 AM CDT 03/16/2025 6:58 AM CDT Des Owusu MD LAB BLOOD ORDERABLES Final Resul t Performing Organization Address [facility] de Phone Number [facility] [address] [place] [address] * PSA screen (03/16/2025 5:58 AM CDT) [...] ORDERABLES Final Resul t Performing Organization Address City/[facility] Co de Phone Number [facility] [address] [place] [place] [address] * (ABNORMAL) CBC with auto differential (03/16/2025 5:58 AM CDT) WBC 6.18 3.80 - 9.90 K/cumm Hgb 8.4(L) 13.0 - 17.5 g/dL [facility] Hct 26.4(L) 38.9 - 50.3 % [facility] Plt 231 150 - 400 K/cumm [facility] MPV 9.7 9.1 - 12.3 fL [facility] RBC 2.77(L) 4.30 - 5.80 M/cumm [facility] MCV 95.3 81.3 - 96.4 fL [facility] MCH 30.3 27.1 - 33.3 pg [facility] MCHC 31.8(L) 32.3 - 35.7 g/dL [facility] RDW CV 15.1(H) 11.1 - 14.9 % [facility] RDW SD 51.8(H) 35.7 - 48.1 fL [facility] NRBC abs 0.00 0.00 - 0.01 K/cumm [facility] Blood 03/16/2025 5:58 AM CDT 03/16/2025 6:58 AM CDT us Des Owusu MD LAB BLOOD ORDERABLES Final Resul t [facility] [address] [place] [address] * Protime-INR (03/16/2025 5:58 AM CDT) Pathologist [facility] PT 13.0 9.7 - 13.0 sec INR 1.20 0.90 - 1.20 [facility] Comment: Interpretive data Oral anticoagulant therapeutic ranges: Venous thromboembolism prophylaxis or treatment: 2.0-3.0 CARDIOLOGY Standard range: 2.0-3.0 High-intensity range: 2.5-3.5 Refer to indication-specific guidelines for appropriate target ranges for prosthetic heart valve replacement. Current interpretive data was last revised on 2019. Blood 03/16/2025 5:58 AM CDT 03/16/2025 6:58 AM CDT Des Owusu MD LAB BLOOD ORDERABLES Final Resul t Performing Organization Address City/[facility]/ZIP Co de Phone Number [facility] [address] [facility] [employer] [place], [place] [id number] * Phosphorus (03/16/2025 5:58 AM CDT) Pathologist [facility] Phosphorus, pl 2.6 2.3 - 4.5 mg/dL Blood 03/16/2025 5:58 AM CDT 03/16/2025 6:58 AM CDT Des Owusu MD LAB BLOOD ORDERABLES Final Resul t Performing Organization Address [facility] Co de Phone Number [facility] [address] [facility] [place] [address] * Magnesium (03/16/2025 5:58 AM CDT) [facility] Magnesium 1.7 1.4 - 2.5 mg/dL Blood 03/16/2025 5:58 AM CDT 03/16/2025 6:58 AM CDT Des Owusu MD LAB BLOOD ORDERABLES Final Resul t Performing Organization Address [facility] Co de Phone Number [facility] [address] [facility] [address] * (ABNORMAL) Comprehensive metabolic panel (03/16/2025 5:58 AM CDT) Pathologist [facility] Sodium 139 135 - 145 mmol/L Potassium, pl 3.9 3.3 - 4.9 mmol/L [facility] Chloride 107 97 - 110 mmol/L [facility] CO2 23 22 - 32 mmol/L [facility] Anion gap 9 2 - 15 mmol/L [facility] BUN 36(H) 6 - 25 mg/dL [facility] Creatinine 1.64(H) 0.80 - 1.30 mg/dL [facility] Glucose 107 70 - 199 mg/dL [facility] Comment: Interpretive Data Fasting glucose >/= 126 [...] 2022. Calcium 8.0(L) 8.5 - 10.3 mg/dL [facility] Bilirubin, total 0.2 0.1 - 1.2 mg/dL [facility] Protein, pl 5.8(L) 6.5 - 8.5 g/dL [facility] Albumin 2.6(L) 3.5 - 5.0 g/dL [facility] Alk phos 191(H) 40 - 130 Units/L [facility] ALT 37 7 - 55 Units/L [facility] AST 35 10 - 50 Units/L [facility] Blood 03/16/2025 5:58 AM CDT 03/16/2025 6:58 AM CDT Des Owusu MD LAB BLOOD ORDERABLES Final Resul t Performing Organization Address City/[facility]/ZIP Co de Phone Number [facility] [address] [place] [address] * CT Body Outside Reference (03/15/2025 8:17 PM CDT) Narrative RAD_PACS_OUTSIDE_FILM_[facility] - 03/15/2025 8:17 PM CDT This order has been auto-finalized and does not contain a result. Des Owusu MD IMG CT PROCEDURES Final Result RAD_PACS_OUTSIDE_FILM_[facility] * ECG 12 lead (03/15/2025 6:14 PM CDT) 03/15/2025 6:14 PM CDT Narrative [facility] - 03/16/2025 4:33 PM CDT Vent Rate: 71 bpm RR Interval: 837 msec [place] Interval: 203 msec QRS Duration: 173 msec QT Interval: 471 msec QTC Interval: 494 msec P-R-T Perkins: 244 - -54 - 115 degrees IMPRESSION: ELECTRONIC ATRIAL PACEMAKER ELECTRONIC VENTRICULAR PACEMAKER ABNORMAL RHYTHM ECG Electronically Signed By: Woo Kelley [facility] Card us Des Owusu MD ECG ORDERABLES Final Result [facility] * SCAN - LABS (03/14/2025) us Vimal Cano MD Final Res ult from Last 3 Months Insurance MEDICARE [facility] Address: [address] [address] [place] [address] [employer] MEDICARE [facility]LY [facility] MEDICARE MEDICARE [facility]LY [facility] [employer] MEDICARE Advance Directives For more information, please contact: [phone] * LIMITED - No CPR (Latest Code [...] 11:18 PM 03/13/2019 6:55 PM Care Teams Legal Billing Coordinator Relationship Specialty Start Date End Date Vimal Cano MD [address] [place] [id number] PCP - General 11/25/16 Uriah Garg MD PhD [address] [place] [id number] Radiation Oncologist Radiation Oncology 04/11/19 Sumit Craig MD [address] [place] [id number] Referring Physician Urology 04/11/19
--- OUTSIDE RECORDS SUMMARY | 2025-04-29 17:27 | XMS_ITS | Clinical Summary ---
Author Organization [facility] Address [address] [place] [address] Care Team Providers Care Supervisor Weaving Name Role Phone Unavailable Primary Care Provider [...]
--- OUTSIDE RECORDS SUMMARY | 2025-04-29 17:27 | XMS_ITS | Encounter Summary ---
Author Organization [facility] Address [address] [place] [address] Care Team Providers Care Public Relations Writer Name Role Phone Vimal Cano MD Primary Care Provider [phone] Uriah Garg MD PhD Unavailable [phone] Sumit Craig MD Unavailable [phone] Jackie Flores LEVELING MACHINE OPERATOR Unavailable [phone] Chaz Pinon RN Unavailable [phone] Mary Dolan LEVELING MACHINE OPERATOR Unavailable [phone] Reason for Visit * Reason Onset Date Comments Test Results 11/05/2019 normal PSA resul t..pt has appointment on Monday Encounter Details Date Type Department Care Team (Late st Contact Info) Description 11/05/2019 Telephone [facility] Radiation Oncology [address] [place] [address] Lexi Good RN Test Results (normal [...] on file Legal Sex 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 Gender Identity Not on file Sexual Orientation [...] gram neg/ESBL 11/07/2022 11/07/2022 08/12/2024 9:46 AM ELEVATOR REPAIRER APPRENTICE Rhino/Enterovirus 08/01/2024 08/01/2024 08/12/2024 9:46 AM ELEVATOR REPAIRER APPRENTICE documented as of this encounter Care Teams Public Relations Writer Relationship Specialty Start Date End Date Vimal Cano MD [address] [place] [address] PCP - General 11/25/16 Uriah Garg MD PhD [address] [place] [address] Radiation Oncologist Radiation Oncology 04/11/19 Sumit Craig MD [address] [place] [address] Referring Physician Urology 04/11/19 Jackie Flores, LEVELING MACHINE OPERATOR [address] [place] [address] [address] [place] [address] Bonding Machine Tender 07/05/21 07/15/21 Chaz Pinon, THANH [address] [place], [place] [id number] Saddle Mechanic 09/16/24 10/15/24 Mary Dolan, LEVELING MACHINE OPERATOR [address] [place] [address] Bonding Machine Tender Mechanical Lead 09/17/24 11/03/24 documented as of this encounter
--- OUTSIDE RECORDS SUMMARY | 2025-04-29 17:27 | XMS_ITS | Encounter Summary ---
Author Organization [facility] Address [address] [place] [address] Phone Care Team Providers Care Side Seam Tender Name Role Phone Vimal Cano MD Primary Care Provider [phone] Enoch Romero MD Unavailable Reason for Visit * Reason Comments Medication Refill Encounter Details Date Type Department Care Team (Late st Contact Info) Description 12/11/2024 Refill [facility] [address] [place] [address] Enoch Romero MD [address] [address] Medication Refill Social History Tobacco Use Types Packs/Day Years Used Date Smoking Tobacco: Former Smokeless Tobacco: Never Comments:QUIT 23 YRS AGO Alcohol Use Standard Drinks/Week Comments Yes 1 (1 standard drink = 0.6 oz pur e alcohol) ONCE EVERY 2-3 WKS [facility] Utilities Answer Date Recorded In the past 12 months has [employer] electric, gas, oil, or water company threatened [...] any time in the past [address] [facility], were you homeless or living in a [place] health care facility (including now)? No 07/22/2024 Sexually Active Control [...] on filedocumented in this encounter Care Teams Side Seam Tender Relationship Specialty Start Date End Date Vimal Cano MD [address] [facility] [place] [address] PCP - General Internal Medicine 11/23/21 Enoch Romero MD [address] [facility] [place] [address] [address] Consulting Physician Urology 06/16/22 documented as of this encounter
--- OUTSIDE RECORDS SUMMARY | 2025-04-29 17:27 | XMS_ITS | Encounter Summary ---
Author Organization [facility] Address [address] [facility] [place] [address] Phone Care Team Providers Care Coin Box Inspector Name Role Phone Vimal Cano MD Primary Care Provider [phone] Enoch Romero MD Unavailable Reason for Visit * Reason Comments Medication Refill Encounter Details Date Type Department Care Team (Late st Contact Info) Description 01/11/2025 Refill [facility] [address] [place] [address] Enoch Romero MD #[address] [address] Medication Refill Social History Tobacco Use Types Packs/Day Years Used Date Smoking Tobacco: Former Smokeless Tobacco: Never Comments:QUIT 23 YRS AGO Alcohol Use Standard Drinks/Week Comments Yes 1 (1 standard drink = 0.6 oz pur e alcohol) ONCE EVERY 2-3 WKS [facility] Utilities Answer Date Recorded In the past 12 months has [employer] electric, gas, oil, or water company threatened [...] any time in the past 12 m [facility], were you homeless or living in a senior living (including now)? No 07/22/2024 Sexually Active Control [...] on filedocumented in this encounter Care Teams Coin Box Inspector Relationship Specialty Start Date End Date Vimal Cano MD [address] [facility] [place] [address] PCP - General Internal Medicine 11/23/21 Enoch Romero MD [address]2 [facility] [place] [address] [address] Consulting Physician Urology 06/16/22 documented as of this encounter
--- OUTSIDE RECORDS SUMMARY | 2025-04-29 17:27 | XMS_ITS ---
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 03/25 in AM for hypotension got 2 L IVF Pressures persistently soft here over the last few days Not on bp meds Diuretic held Lab Results Component Value Date TSH 1.67 03/25/2025 AM izaiah 7.2 Stim test wnl TTE 07/2024 unremarkable without active symtpoms suggesting decompensated CHF Will decrease flomax to om4 mg daily (was BID) Assessment & Plan (03/26/2025 2:35 PM CDT): 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 Roemro History of seizure on keppra Assessment & [...] with bilateral hydronephrosis. Pt was admitted to [facility] in [place], [place] 03/06-03/13 for urinary retention, acute renal [...] loses access to Rt kidney). Transfer to [facility] for eventual bilateral nephrostomy tubes was recommended. [...] intermittently refusing therapy so was initially denied jail facility placement. He was encouraged to participate [...] with bilateral hydronephrosis. Pt was admitted to [facility] in [place], [place] 03/06-03/13 for urinary retention, acute renal [...] loses access to Rt kidney). Transfer to [facility] for eventual bilateral nephrostomy tubes was recommended. [...] intermittently refusing therapy so was initially denied jail facility placement. He was encouraged to participate [...] Future Assessment & Plan (08/25/2023 1:15 PM RECONCILIATION SPECIALIST): Currently taking warfarin 6 mg 5 days per week and 9 mg 2 days per week. Seizure disorder 08/25/2023 Assessment & Plan (01/16/2025 11:00 AM CDT): Patient states he is not had a seizure since starting Keppra which was at least 10 years ago per patient. Assessment & Plan (08/25/2023 2:48 PM RECONCILIATION SPECIALIST): Patient states he is not had a seizure since starting Keppra which was at least 10 years ago per patient. Advance care planning 08/25/2023 Assessment & Plan (08/25/2023 2:51 PM RECONCILIATION SPECIALIST): Preventive exam; reviewed recommended preventive screenings and vaccinations. Encourage annual flu vaccine. Wear sunscreen/protective clothing when outdoors. Physical debility 02/13/2020 Assessment & Plan (02/13/2020 2:44 PM CDT): Patient would benefit greatly from motorized wheelchair. Staghorn calculus 09/12/2019 Overview (09/12/2019): Added automatically from request for surgery [id number] prostate cancer 03/13/2019 Chronic a-fib 03/05/2019 Assessment & Plan (01/16/2025 11:00 AM CDT): Stable and well controlled. Rate controlled, patient denies any shortness a breath, palpitations or dizziness. Continues warfarin. INR 2.1 today will continue with current warfarin regimen. Orders: Comprehensive metabolic panel; Future POCT INR Assessment & Plan (08/25/2023 2:46 PM RECONCILIATION SPECIALIST): Rate controlled, patient denies any shortness a [...] 03/05/2019 Assessment & Plan (08/25/2023 2:46 PM RECONCILIATION SPECIALIST): Patient with residual right-sided weakness. Patient was [...] PhD Radiation Treatments * Course C1 PROSTATE 2019 05/23/2019 - 08/02/2019 Treatment Period Energy Fraction Dose Fractions Total Dose Plans Planned PROST_SV [facility] 07/03/2019 - 08/02/2019 180 19 / 3,420 PELVIS 05/23/2019 - 06/28/2019 180 25 / 4,500 Reference Points Delivered PROST_SV [facility] 07/03/2019 - 08/02/2019 3,420 Pelvis 05/23/2019 - 06/28/2019 4,500 Lifetime Dose Tracking * Chemical Lifetime Dose Automatic Entry Manual Entr y Fluoro Time 63.2 minutes 36.2 minutes 27 minutes Air kerma at the reference point (Ka,r) 606 mGy 3 33 mGy 273 mGy DAP 18.4 Gy-cm2 0 Gy-cm2 18.4 Gy-cm2 Resolved Problems Problem Noted Date Diagnosed Date [...]
--- OUTSIDE RECORDS SUMMARY | 2025-04-29 17:27 | XMS_ITS | Encounter Summary ---
Author Organization [facility] Address [address] [place] [address] Phone Care Team Providers Care Seed Service Advisor Name Role Phone Vimal Cano MD Primary Care Provider [phone] Enoch Romero MD Unavailable Reason for Visit * Reason Comments Medication Refill Encounter Details Date Type Department Care Team (Late st Contact Info) Description 11/07/2023 Refill [facility] #[address] [place] [address] Enoch Romero MD #[address] [address] Medication Refill Social History Tobacco Use Types [...] Provider Dept 03/30/23 Telemedicine Enoch Romero MD [facility] [place] Showing recent visits within past 365 days [...] - 19 07/22/2024 07/22/2024 07/22/2024 6:38 PM [employer]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
--- OUTSIDE RECORDS SUMMARY | 2025-04-29 17:28 | XMS_ITS | Clinical Summary ---
Author Organization [facility] Address [address] [place] [address] Phone Care Team Providers Care Director Of Campus Recreation Name Role Phone Vimal Cano MD Primary Care Provider [phone] Enoch Romero MD Unavailable Allergies Active Allergy [...] 3 4 Active Heparin, Porcine, in NaCl 41403-7.45 UT/500ML-% Solution 300-3,000 Units/hr by Intravenous route continuous. 500 mL 4 Active warfarin (Jantoven) 3 MG Tablet Take 3 mg by mouth daily. Take one tablet two times a week on Monday and Active tamsulosin (FLOMAX) 0.4 MG Capsule Take 0.4 mg by mouth 2 times daily. Active ergocalciferol (VITAMIN D) 99719 UNIT Capsule Take 1 Capsule by mouth [...] Type Department Care Team Description 03/21/2025 Telephone [facility] UROLOGY [address] [place] [address] Dejuan Arellano APRN, [facility] Care Management; Appointment 03/14/2025 1:40 PM CDT - 03/14/2025 2:40 PM CDT Surgery [facility] Periop [address] [place] [address] Amanda Quintero MD DIAGNOSTIC CYSTOSCOPY 03/14/2025 1:38 PM CDT [facility] [address] [place] [address] Jose Raul Wong MD 03/13/2025 Telephone [facility] UR[facility] [address] [place] [address] Amanda Quintero MD Surgery 03/11/2025 Telephone [facility] [address] [place] [address] Amanda Quintero MD 03/06/2025 9:32 PM CDT - 03/15/2025 2:10 PM CDT Hospital [facility] [address] [place] [address] Furry, MD Don Dee Naveen Kumar, MD Patel, Satyen V, MD Dianati, Behfar, MD Acute kidney injury superimposed on CKD (HCC) Discharge Disposition: Short Term Hospital for Inpt Care 03/06/2025 Travel 02/07/2025 Refill [facility] UROLOGY [address] [place] [address] Enoch Romero MD Medication Refill 02/04/2025 Refill [facility] [address] [place] [address] Enoch Romero MD Medication Refill from Last [...] any time in the past 12 m [facility], were you homeless or living in a residential (including now)? No 07/22/2024 Social Connection and Isolation Panel Answer Date Recorded In a typical week, how many times do you talk on the phone with family, friends, or neighbors? Three times a week 03/07/2025 How often do you get togethe r with friends or relatives? Three times a week 03/07/2025 How often do you attend chur or synagogue services? Never 03/07/2025 Do you belong to any clubs o r organizations such as scientology groups, unions, fraternal or athletic groups, or [...] and heating? Not hard at all 03/07/2025 [facility] [place] of Occupat ional Health - Occupational Stress [...] any time in the past 12 m [facility], were you homeless or living in a residential (including now)? No 03/07/2025 [facility] Utilities Answer Date Recorded In the past 12 months has [place], gas, oil, or water company threatened to [...] 4.00 - 12.00 10(3)/mcL 03/15/2025 5:01 AM [facility] RBC 2.95(L) 4.40 - 5.80 10(6)/mcL 03/15/2025 5:01 AM [facility] HEMOGLOBIN (HGB) 9.0(L) 13.0 - 16.5 g/dL 03/15/2025 5:01 AM [facility] HEMATOCRIT (HCT) 28.1(L) 38.0 - 50.0 % 03/15/2025 5:01 AM [facility] MCV 95.3 82.0 - 96.0 fL 03/15/2025 5:01 AM [facility] MCH 30.5 26.0 - 32.0 pg 03/15/2025 5:01 AM CDT [facility] MCHC 32.0 31.0 - 36.0 g/dL 03/15/2025 5:01 AM [facility] PLATELET COUNT 249 140 - 440 10(3)/[facility] 03/15/2025 5:01 AM [facility] RDW 15.0 11.8 - 15.5 % 03/15/2025 5:01 AM [facility] MPV 9.1 8.0 - 12.6 fL 03/15/2025 5:01 AM [facility] NEUTROPHILS 84.2(H) 40.0 - 68.0 % 03/15/2025 5:01 AM [facility] LYMPHOCYTES 5.2(L) 19.0 - 49.0 % 03/15/2025 5:01 AM [facility] MONOCYTES 7.7 3.0 - 13.0 % 03/15/2025 5:01 AM T [facility] EOSINOPHILS 1.8 0.0 - 8.0 % 03/15/2025 5:01 AM CDT [facility] BASOPHILS 0.2 0.0 - 1.0 % 03/15/2025 5:01 AM CDT [facility] IMMATURE GRANULOCYTE 0.9(H) 0.0 - 0.4 % 03/15/2025 5:01 AM CDT [facility] Comment:Immature Granulocyte s includes Metamyelocytes, Myelocytes, and Promyelocytes. ABSOLUTE NEUTROPHILS 7.59(H) 1.40 - 5.30 10(3)/mcL 03/15/2025 5:01 AM CDT [facility] ABSOLUTE LYMPHOCYTES 0.47(L) 0.90 - 3.30 10(3)/mcL 03/15/2025 5:01 AM CDT [facility] ABSOLUTE MONOCYTES 0.69 0.10 - 0.90 10(3)/mcL 03/15/2025 5:01 AM CDT [facility] ABSOLUTE EOSINOPHIL 0.16 0.00 - 0.50 10(3)/mcL 03/15/2025 5:01 AM CDT [facility] ABSOLUTE BASOPHILS 0.02 0.00 - 0.10 10(3)/mcL 03/15/2025 5:01 AM CDT [facility] ABSOLUTE IMMATURE GRANULOCYTE 0.08(H) 0.00 - 0.03 10 (3) mcL. 03/15/2025 5:01 AM CDT [facility] NRBC PER 100 WBC 0 03/15/20 25 5:01 AM CDT [facility] Blood Venipuncture / Unknown 03/15/2025 4:35 AM CDT 03/15/2025 4:57 AM CDT us Regine Do MISDRAW HAND, CAR REPAIRER HELPER HEMATOLOGY ORDERABLES Fin al Result [facility] [address] [place] [address] * (ABNORMAL) Hepatic Function Panel (03/15/2025 4:35 AM CDT) Only the most recent of9 resultswithin the time period is included. T BILI 0.5 0.2 - 1.2 mg/dL 03/15/2025 5:32 AM CDT [facility] BILIRUBIN,DIRECT 0.3 0.0 - 0.5 mg/dL 03/15/2025 5:32 AM CDT [facility] ALKALINE PHOSPHATASE 200(H) 40 - 150 U/L 03/15/2025 5:32 AM CDT [facility] SGOT (AST) 50(H) <43 U/L 03/15/2025 5:32 AM CDT [facility] SGPT (ALT) 49 <56 U/L 03/15/2025 5:32 AM CDT [facility] TOTAL PROTEIN 6.2 6.0 - 8.0 g/dL 03/15/2025 5:32 AM CDT [facility] ALBUMIN 2.5(L) 3.5 - 5.0 g/dL 03/15/2025 5:32 AM CDT [facility] Blood Venipuncture / Unknown 03/15/2025 4:35 AM CDT 03/15/2025 4:58 AM CDT us Regine Do MISDRAW HAND, CAR REPAIRER HELPER CHEMISTRY ORDERABLES Bianka l Result [facility] [address] [place] [address] * (ABNORMAL) BMP with Ca, Total (03/15/2025 4:35 AM CDT) Only the most recent of9 resultswithin the time period is included. Pathologist [facility] SODIUM 135(L) 136 - 145 mmol/L 03/15/2025 5:32 AM CDT [facility] POTASSIUM 4.0 3.5 - 5.1 mmol/L 03/15/2025 5:32 AM CDT [facility] CHLORIDE 106 98 - 107 mmol/L 03/15/2025 5:32 AM CDT [facility] CO2, VENOUS 24 22 - 30 mmol/L 03/15/2025 5:32 AM CDT [facility] ANION GAP 9.0 <18.0 mmol/L 03/15/2025 5:32 AM CDT [facility] GLUCOSE 113(H) 70 - 99 mg/dL 03/15/2025 5:32 AM CDT [facility] BUN 34(H) 8 - 26 mg/dL 03/15/2025 5:32 AM CDT [facility] CREATININE, BLOOD 1.80(H) 0.70 - 1.30 mg/dL 03/15/2025 5:32 AM CDT [facility] BUN/CREATININE RATIO 19 12 - 20 ratio 03/15/2025 5:32 AM CDT [facility] CALCIUM 8.0(L) 8.7 - 10.5 mg/dL 03/15/2025 5:32 AM CDT [facility] GFR, ESTIMATED 38(L) >=60 03/15/2025 5:32 AM CDT [facility] Comment: Creatinine Clearance is the preferred criteria for selecting drug dose adjustments in renally impaired patients. The GFR is provided as additional pertinent clinical information. GFR is reported in mL/min/1.73 sq m. Calculation based on the Chronic Kidney Disease Epidemiology Collaboration (CKD- EPI) equation refit without adjustment for race. GFR, EST. 44(L) >=60 025 5:32 AM CDT [facility] GFR, EST. NONAFRICAN 36(L) >=60 03/15/2025 5:32 AM CDT [facility] Blood Venipuncture / Unknown 03/15/2025 4:35 AM CDT 03/15/2025 4:58 AM CDT us Regine Do MISDRAW HAND, CAR REPAIRER HELPER CHEMISTRY ORDERABLES Bianka l Result [facility] [address] [place] [address] * PSA Free & Total (03/14/2025 9:44 PM CDT) Prostatic Specific Antigen, Free 0.65 ng/mL 03/15/2025 3:09 PM CDT [facility] PSA, TOTAL (PROSTATIC SPECIFIC ANTIGEN) 1.52 <4.00 ng/mL 03/15/2025 3:09 PM CDT [facility] PSA, % FREE 42.8 % 03/15/2025 3:09 PM CDT [facility] Blood Venipuncture / Unknown 03/14/2025 9:44 PM CDT 03/14/2025 9:45 PM CDT Narrative [facility] - 03/15/2025 3:09 PM CDT PSA [...] Lott MD CHEMISTRY ORDERABLES Final Res ult [facility] [address] [place] [address], [place] * XR CYSTOGRAM (03/14/2025 2:44 PM CDT) Amanda Lott MD IMG FLUOROSCOPY ORDERABLES Fin al Result * Pathology Surgical (03/14/2025 2:27 PM CDT) Case Report Surgical Pathology Report Case: [id number] Authorizing Provider: Amanda Quintero MD Collected: 03/14/2025 02:27 PM Ordering Location: [facility] Received: 03/17/2025 09:02 AM [facility] Main OR Pathologist: Stalin Chaudhry MD PhD Specimen: Bladder, DEBRIDED BLADDER TISSUE 03/18/2025 10:51 AM CDT [facility] FINAL DIAGNOSIS Urinary bladder, debrided tissue: - Abundant acute and chronic inflammatory cells and necrosis - Reactive epithelial cells present, negative for definitive evidence of neoplasm or malignancy 03/18/2025 10:51 AM CDT [facility] at 1051 CDT Pre-Operative Diagnosis BILATERAL HYDRONEPHROSIS 03/18/2025 10:51 AM CDT [facility] Gross Description A. DEBRIDED BLADDER TISSUE [...] and 4 minutes. 03/18/2025 10:51 AM CDT [facility] Microscopic Description Microscopic examination was performed which supports the final diagnosis. All control tissues stained appropriately. 03/18/2025 10:51 AM CDT [facility] Tissue URINARY BLADDER STRUCTURE / Unknown 03/14/2025 2:27 PM CDT 03/17/2025 9:02 AM CDT us Amanda Lott MD PATHOLOGY/CYTOLOGY ORDERABLES Final Result [facility] [address] [place] [address] * LMA (03/14/2025 1:58 PM CDT) Narrative [...] CDT EXAM DESCRIPTION: NM RENAL FUNCTION FLOW [facility] PHARM RADIOPHARMACEUTICAL: 10.4 mCi Tc-99m MAG3 and [...] Rashard Yun M.D. LB: RUBY Report ID: [id number] Reading Location: [id number] Procedure Note Rashard Yun MD - 03/14/2025 EXAM DESCRIPTION: NM RENAL FUNCTION FLOW [facility] PHARM RADIOPHARMACEUTICAL: 10.4 mCi Tc-99m MAG3 and [...] Rashard Yun M.D. LB: RUBY Report ID: [id number] Reading Location: [id number] IMPRESSION: 1. Abnormal split function with 60% function from the left kidney and 40% function from the right kidney. 2. The left kidney shows continued rise of radiotracer concentration with mild excretion after diuretic. The T1/2 time is in the obstructive range. 3. The right kidney does not significantly excrete radiotracer even after diuretic consistent with obstruction. Dejuan Ellis StewartArellano MISDRAW HAND, CAR REPAIRER HELPER IMG NM ORDERABLES Bianka corral Result * Vitamin D, 25 Hydroxy Total (03/13/2025 10:18 AM CDT) VITAMIN D, 25 HYDROX 23.9 ng/mL 03/13/2025 11:17 AM CDT [facility] Blood Venipuncture / Unknown 03/13/2025 10:18 AM CDT 03/13/2025 10:22 AM CDT Narrative [facility] - 03/13/2025 11:17 AM CDT Published reference ranges for Vitamin D vary depending on time and place and method of testing, and on patient's age, sex, ethnicity and levels of other measured analytes such as parathormone, calcium and phosphorus. The result should be evaluated in conjunction with clinical findings and suspicions. [place] [employer] and Endocrine Clinical Practice Guidelines: Status Vitamin D levels (ng/mL) Deficient <=20 At risk of inadequacy 21-29 Sufficient 30-100 Centers of Disease Control and Prevention Guidelines: Status Vitamin D levels (ng/mL) Deficient <13 At risk of inadequacy 13-19 Sufficient 20-50 Possibly harmful >50 References: [place] [employer], 2010 Dietary reference intakes for calcium and vitamin D. [place]: The National Academies Press. Jodee M, Jenn N, Jayson SERRANO, et al., Evaluation, treatment, and prevention of Vitamin D deficiency: an Endocrinology Clinical Practice Guideline. JCEM 2011 96: 7 0629-7412. Consuelo A, Zuhair C, Jess D, et al., Vitamin D Status: [place], 1804-1517, [facility] data brief, no. 59, MD Esdras: National Center for Health Statistics. 2010. Fransisca Samayoa MD CHEMISTRY ORDERABLES Final Res ult [facility] [address] [place] [address] * US RENAL COMPLETE (03/13/2025 7:53 AM [...] Shaji Young M.D. KR: CHRIS Report ID: [id number] Reading Location: [id number] Procedure Note Shaji Young MD - 03/13/2025 [...] Shaji Young M.D. KR: CHRIS Report ID: [id number] Reading Location: [place] [address] IMPRESSION: 1. Mild right hydronephrosis appears improved. Moderate left hydronephrosis is not significantly changed. 2. Bilateral nephrolithiasis. us Dejuan Arellano MISDRAW HAND, CAR REPAIRER HELPER IMG US ORDERABLES Bianka ellis Result * [...] Mehran Navarro M.D. AR: ALICE Report ID: [id number] Reading Location: [place] [address] Procedure Note Mehran Navarro MD - 03/11/2025 [...] Mehran Navarro M.D. AR: ALICE Report ID: [id number] Reading Location: [id number] IMPRESSION: Severe bilateral hydroureteronephrosis of uncertain acuity. Right ureteral stent in position. Chronic findings as above. us Dejuan Arellano MISDRAW HAND, CAR REPAIRER HELPER IMG CT ORDERABLES Bianka l Result * US ABDOMEN LIMITED LEVEL [...] by Carlo Corrigan M.D. CH: Report ID: [id number] Reading Location: [id number] Procedure Note Carlo Corrigan Jr., MD - [...] by Carlo Corrigan M.D. CH: Report ID: [id number] Reading Location: [id number] IMPRESSION: 1. Mild hepatic steatosis. 2. Moderate right hydronephrosis. 3. Multiple right renal calculi. 4. Cholecystectomy. us Satyen Mann V, MD [facility] US ORDERABLES Final Resul t * (ABNORMAL) PT/INR Routine (03/10/2025 3:53 AM CDT) Only the most recent of4 resultswithin the time period is included. Pathologist [facility] PROTIME-PATIENT 16.2(H) 11.6 - 14.8 sec 03/10/2025 5:42 AM CDT [facility] INR 1.3(H) 0.9 - 1.2 03/10/2025 5:42 AM CDT [facility] Comment: Therapeutic Ranges INR = 2.0-3.0: Venous thromb, atrial fib, pul embolism, tissue heart valve, ami. INR = 2.5-3.5: Mechanical heart valve Critical value for INR is >/= 4.5 Blood BLOOD SPECIMEN / Unknown Venipuncture / Unknown 03/10/2025 3:53 AM CDT 03/10/2025 5:27 AM CDT Aida Fuentes MD HEMATOLOGY ORDERABLES Final R esult [facility] [address] [place] [address] * Hepatitis Panel Acute (AHP) (03/09/2025 5:23 AM CDT) [facility] HEPATITIS A IGM ANTIBODY NON DETECTED NON DETECTED 03/09/2025 4:45 PM CDT [facility] Comment: IGM Antibodies to HAV not detected. Does not exclude early acute or recovered HAV infection. HEP B CORE AB (IGM) NON DETECTED NON DETECTED 03/09/2025 4:45 PM CDT [facility] Comment:IGM anti-HBC not det ected. Does not exclude the possibility of exposure to or infection with HBV. HEPATITIS B SURFACE ANTIGEN NON DETECTED NON DETECTED 03/09/2025 4:45 PM CDT [facility] Comment:A nonreactive test r esult does [...] 0.12 <1 S/CO 03/09/2025 4:45 PM CDT [facility] Comment: Signal/Cutoff ratio < 0.79 is Nondetected Signal/Cutoff ratio 0.80-0.99 is Grayzone Signal/Cutoff ratio > 0.99 is Detected Supplemental assays are recommended if signal/cutoff ratio is >/=1.00. Signal/cutoff ratio result >/= 5.00 is 97% predictive of positivity for recombinant immunoblot assay (RIBA) and will be reported to the [place] Department of Public Health as required. Blood Venipuncture / Unknown 03/09/2025 5:23 AM CDT 03/09/2025 5:45 AM CDT Aida Fuentes MD HEMATOLOGY ORDERABLES Final R esult Performing Organization Address City/[facility]/ZIP Co de Phone Number [facility] [address] [place] [address], * (ABNORMAL) Creatine Kinase (CK) Total (03/07/2025 6:09 AM CDT) [facility] CK (CPK) 21(L) 30 - 200 U/L 03/07/2025 10:34 AM CDT [facility] Blood Venipuncture / Unknown 03/07/2025 6:09 AM CDT 03/07/2025 7:09 AM CDT Aida Fuentes MD CHEMISTRY ORDERABLES Final Re sult [facility] [address] [place] [address] * (ABNORMAL) URINALYSIS REFLEX IF INDICATED BY ABNORMAL RESULTS (03/06/2025 11:47 PM CDT) SPECIFIC GRAVITY 1.010 1.003 - 1.030 03/07/2025 12:15 AM CDT [facility] URINE PH 7.0 5.0 - 9.0 03/07/2025 12:15 AM CDT [facility] WBC ESTERASE 500 /uL(A) Negative 03/07/2025 12:15 AM CDT [facility] NITRITE Negative Negative 03/07/2025 12:15 AM CDT [facility] PROTEIN, RANDOM URINE 500 mg/dL(A) Negative 03/07/2025 12:15 AM CDT [facility] URINE GLUCOSE, QUAL Negative Negative 03/07/2025 12:15 AM CDT [facility] URINE KETONES Negative Negative 03/07/2025 12:15 AM CDT [facility] UROBILINOGEN Normal Normal mg/dL 03/07/2025 12:15 AM CDT [facility] URINE BLOOD 250 /uL(A) Negative aayush/ul 03/07/2025 12:15 AM CDT [facility] URINALYSIS COLOR Yellow 03/07/20 12:15 AM CDT [facility] URINALYSIS CLARITY Slightly Cloudy 03/07/2025 12:15 AM CDT [facility] WBC (Urine) 21-50(A) Negative, 0-5 /hpf 03/07/2025 12:15 AM CDT [facility] URINE RBC'S 6-10(A) Negative, 0-2 /hpf 03/07/2025 12:15 AM CDT [facility] EPITHELIAL CELLS Negative /lpf 03/07/20 12:15 AM CDT [facility] BACTERIA, URINE Few(A) Negative /hpf 03/07/2025 12:15 AM CDT [facility] Urine URINE SPECIMEN OBTAINED BY CLEAN CATCH PROCEDURE / Unknown Non-Phlebotomy Collection / Unknown 03/06/2025 11:47 PM CDT 03/06/2025 11:59 PM CDT Vimal Ellison MD URINE ORDERABLES Final Re sult [facility] [address] [place] [address] * Culture, Urine (03/06/2025 11:47 PM CDT) Pathologist [facility] CULTURE RESULTS Mixed Growth of One or More Distal Urethral Contaminants 03/08/2025 12:05 PM CDT [facility] Urine URINE SPECIMEN OBTAINED BY CLEAN CATCH PROCEDURE / Unknown Non-Phlebotomy Collection / Unknown 03/06/2025 11:47 PM CDT 03/06/2025 11:59 PM CDT Vimal Ellison MD MICROBIOLOGY - GENERAL OR DERABLES Final Result Performing Organization Address [facility] Co de Phone Number [facility] [address] [place] [address], [place] * TROPONIN I, HIGH SENSITIVITY (HSTRP) (03/06/2025 11:43 PM CDT) Pathologist [facility] TROPONIN I, HIGH SENSITIVITY- RAE 15 <=35 ng/L 03/07/2025 12:24 AM CDT [facility] Comment: High-sensitivity troponin I results are reported in ng/L making the result appear to be 1,000 times higher than the contemporary troponin I value which is reported in ng/ml. Results from Rae. Blood Venipuncture / Unknown 03/06/2025 11:43 PM CDT 03/06/2025 11:58 PM CDT Vimal Ellison MD CHEMISTRY ORDERABLES Bianka l Result Performing Organization Address City/[facility]/ZIP Co de Phone Number [facility] [address] [place] [address] * (ABNORMAL) CMP (Comprehensive Metabolic Panel) (03/06/2025 11:43 PM CDT) Pathologist [facility] SODIUM 135(L) 136 - 145 mmol/L 03/07/2025 12:22 AM CDT [facility] POTASSIUM 4.7 3.5 - 5.1 mmol/L 03/07/2025 12:22 AM T [facility] CHLORIDE 106 98 - 107 mmol/L 03/07/2025 12:22 AM [facility] CO2, VENOUS 20(L) 22 - 30 mmol/L 03/07/2025 12:22 AM [facility] ANION GAP 13.7 <18.0 mmol/L 03/07/2025 12:22 AM T [facility] GLUCOSE 133(H) 70 - 99 mg/dL 03/07/2025 12:22 AM [facility] BUN 63(H) 8 - 26 mg/dL 03/07/2025 12:22 AM [facility] CREATININE, BLOOD 2.67(H) 0.70 - 1.30 mg/dL 03/07/2025 12:22 AM [facility] BUN/CREATININE RATIO 24(H) 12 - 20 ratio 03/07/2025 12:22 AM [facility] TOTAL PROTEIN 6.8 6.0 - 8.0 g/dL 03/07/2025 12:22 AM [facility] ALBUMIN 2.8(L) 3.5 - 5.0 g/dL 03/07/2025 12:22 AM [facility] A/G RATIO 0.7(L) 1.0 - 2.2 03/07/2025 12:22 AM [facility] CALCIUM 8.4(L) 8.7 - 10.5 mg/dL 03/07/2025 12:22 AM [facility] T BILI 0.5 0.2 - 1.2 mg/dL 03/07/2025 12:22 AM T [facility] SGOT (AST) 186(H) <43 U/L 03/07/2025 12:22 AM T [facility] SGPT (ALT) 208(H) <56 U/L 03/07/2025 12:22 AM CDT [facility] ALKALINE PHOSPHATASE 281(H) 40 - 150 U/L 03/07/2025 12:22 AM CDT [facility] GFR, ESTIMATED 23(L) >=60 03/07/2025 12:22 AM CDT [facility] Comment: Creatinine Clearance is the preferred criteria for selecting drug dose adjustments in renally impaired patients. The GFR is provided as additional pertinent clinical information. GFR is reported in mL/min/1.73 sq m. Calculation based on the Chronic Kidney Disease Epidemiology Collaboration (CKD- EPI) equation refit without adjustment for race. GFR, EST. 28(L) >=60 025 12:22 AM CDT [facility] GFR, EST. NONAFRICAN 23(L) >=60 03/07/2025 12:22 AM CDT [facility] Blood Venipuncture / Unknown 03/06/2025 11:43 PM CDT 03/06/2025 11:58 PM CDT us Vimal Ellison MD CHEMISTRY ORDERABLES Bianka corral Result [facility] [address] [place] [address] * EKG 12 LEAD (03/06/2025 11:30 PM CDT) Ventricular Rate 75 BPM EXTERNAL EKG Atrial Rate 70 BPM EXTERNAL EKG QRS Duration 172 ms EXTERNAL EKG Q-T Duration 432 ms EXTERNAL EKG QTC CALCULATION 482 ms EXTERNAL EKG R [place] -54 degrees EXTERNAL EKG T [place] 103 degrees EXTERNAL EKG 03/06/2025 11:3 0 PM CDT Impressions EXTERNAL EKG - 03/08/2025 10:57 AM CDT Ventricular-paced rhythm with frequent AV dual-paced complexes Abnormal ECG When compared with ECG of 22-JUL-2024 16:42, Electronic ventricular pacemaker has replaced Atrial fibrillation Vent. rate has increased BY 28 BPM Confirmed by Cathy Breen ([id number]) on 03/08/2025 10:57:44 AM Narrative Procedure Note Cathy Breen MD - 03/08/2025 IMPRESSION: Ventricular-paced rhythm with frequent AV dual-paced complexes Abnormal ECG When compared with ECG of 22-JUL-2024 16:42, Electronic ventricular pacemaker has replaced Atrial fibrillation Vent. rate has increased BY 28 BPM Confirmed by Cathy Breen ([id number]) on 03/08/2025 10:57:44 AM us Vimal Ellison [...] Olga Tinoco M.D. SN: SN Report ID: [id number] Reading Location: [id number] Procedure Note Olga Tinoco MD - 03/07/2025 [...] by Olga Tinoco M.D. SN: Report ID: [id number] Reading Location: [id number] IMPRESSION: 1. No acute intracranial abnormality. 2. [...] by Olga Tinoco M.D. SN: Report ID: [id number] Reading Location: [id number] Procedure Note Olga Tinoco MD - 03/06/2025 [...] by Olga Tinoco M.D. SN: Report ID: [id number] Reading Location: [id number] IMPRESSION: 1. No acute fracture or dislocation [...] by Olga Tinoco M.D. SN: Report ID: [id number] Reading Location: [id number] Procedure Note Olga Tinoco MD - 03/06/2025 [...] Olga Tinoco M.D. SN: SN Report ID: [id number] Reading Location: [id number] IMPRESSION: No acute cardiopulmonary abnormality. Vimal Ellison [...] measures to stabilize the patient. Care Teams Director Of Campus Recreation Relationship Specialty Start Date End Date [place] [address] PCP - General Internal Medicine 11/23/21 Enoch Romero MD #[id number] [address] Consulting Physician Urology 06/16/22
--- OUTSIDE RECORDS SUMMARY | 2025-04-29 17:28 | XMS_ITS | Clinical Summary ---
Author Organization [facility] Amarin Address [address] [place] [address] Care Team Providers Care Environmental Monitoring Technician Name Role Phone Unavailable Primary Care Provider Unavailabl e Source Comments [facility],non-owned Affiliates and Associated Physician Practices is amultiple site organization consisting of ambulatory clinics and hospital sitesin [place], [place], [place] and [place]. This disclosure is being madepursuant to the Care Everywhere program and may not contain all information available regarding this patient. Last updated 18.[facility] Amarin Allergies Active Allergy Reactions Criticality Noted Date [...] and heating? Not hard at all 07/24/2024 [facility] - [...] any time in the past 12 [facility], were you homeless or living in a skilled nursing (including now)? No 07/24/2024 Sex and Gender Information Value Date Recorded Sex Assigned at Not on file Legal Sex Male 9:33 AM CDT Gender Identity Not on file Sexual Orientation Not on file Last Filed Vital Signs Vital Sign Reading Time Taken Comments Blood Pressure 115/61 08/01/2024 6:15 PM [employer] Pulse 75 08/01/2024 6:15 PM [employer] Temperature 36.7 C (98 F) 08/01/2024 4:00 PM [employer] Respiratory Rate 13 08/01/2024 6:15 PM [employer] Oxygen Saturation 97% 08/01/2024 6:15 PM [employer] Inhaled Oxygen Concentration - - Weight 102.1 kg (225 lb) 08/01/2024 4:00 PM [employer] Height 180.3 cm (5' 11) 07/30/2024 6:00 AM [employer] Body Mass Index 31.38 07/30/2024 6:00 AM [employer] Plan of Treatment Health Maintenance Due Date [...] complete this topic Insurance MEDICARE [facility] MEDICARE [employer] MEDICARE ADV Advance Directives * Full Code (Latest Code Status on File) Date Activated Date Inactivated Comments 07/23/2024 11:25 PM 08/01/2024 9:45 PM
[2025-04-29] MEDS: SODIUM CHLORIDE 0.9% IV 1,000 ML 999 ML IV CONT ×2 (18:39→21:55)
[2025-04-29 19:35] LABS: Lipase 26 U/L (23-300)
[2025-04-29 19:37] LABS: INR 2.4; Prothrombin Time 25.5 Seconds (11.1-14.7)
[2025-04-29 19:38] LABS: Partial Thromboplastin Time 50.0 Seconds (22.3-36.8)
--- NOTE | 2025-04-29 19:52 | ECG_ITS ---
Test Date: 2025-04-29 20:07:16 Measurements Intervals [place] Rate: 70 P: 266 [place]: 199 QRS: -64 QRSD: 177 T: 112 QT: 475 QTc: 514 Interpretive Statements ELECTRONIC ATRIAL PACEMAKER ELECTRONIC VENTRICULAR PACEMAKER ATYPICAL ECG Compared to ECG 04/29/2025 16:15:03 No significant changes Electronically Signed On 04-30-2025 11:09:13 CDT by Cesario Frost M.D.
[2025-04-29 19:57] LABS: Influenza A QL RT-PCR Negative (Negative); Influenza B QL RT-PCR Negative (Negative); RSV RNA, RT-PCR Negative (Negative); SARS-CoV-2 RNA PCR Negative (Negative)
[2025-04-29 19:58] LABS: Add Urine Microscopic? YES; Appearance Urine Cloudy (Clear); Glucose Urine UA Negative (Negative); Leukocyte Esterase Ur 2+ LEU/UL (Negative); Need Manual Microscopic Reviewed; Nitrate Urine Negative (Negative); Specific Grav Ur 1.017 (1.001-1.035)
[2025-04-29 20:27] LABS: Troponin I < 0.012 ng/mL (0.000-0.034)
--- NOTE | 2025-04-29 20:44 | ED.GENADULT ---
HPI - General Adult General Chief complaint: Chest Pain Stated complaint: cp Time Seen by Provider: 04/29/25 17:18 History of Present Illness HPI narrative: This is an 79-year-old male presenting ED with chief complaint chest pain and shortness of breath. Patient said pain started 4 days ago. He describes as a pain in center of his chest that is nonradiating and 3/10 intensity. Associated with a dry cough. Patient endorses chills but denies fevers, nausea, vomiting or diarrhea. No abdominal pain. no traumatic injuries. Patient has bilateral nephrostomy tubes. He has been receiving antibiotics through a midline. Related Data Home Medications ?Medication ?Instructions ?Recorded ?Confirmed ?Last Taken ?Type acetaminophen 500 mg capsule 1,000 mg PO Q6H PRN pain 04/18/25 04/18/25 Unknown History calcium carbonate (Calcium Antacid) 200 mg PO BID PRN dyspepsia 04/18/25 04/18/25 Unknown History cyanocobalamin (vitamin B-12) 1,000 mcg PO DAILY 04/18/25 04/18/25 Unknown History 1,000 mcg capsule escitalopram oxalate 10 mg tablet 10 mg PO DAILY 04/18/25 04/18/25 Unknown History gabapentin 300 mg capsule 300 mg PO HS 04/18/25 04/18/25 Unknown History levetiracetam 750 mg tablet 750 mg PO BID 04/18/25 04/18/25 Unknown History lidocaine 4 % topical patch 1 patch topical DAILY 04/18/25 04/18/25 Unknown History (Lidocaine Pain Relief) ondansetron 4 mg disintegrating 4 mg PO Q6H PRN nausea and vomiting 04/18/25 04/18/25 Unknown History tablet oxycodone 5 mg capsule 5 mg PO Q4H PRN pain 04/18/25 04/18/25 Unknown History pantoprazole 40 mg granules 40 mg PO DAILY 04/18/25 04/18/25 Unknown History delayed-release for susp in packet tamsulosin 0.4 mg capsule 0.4 mg PO 1600 04/18/25 04/18/25 Unknown History warfarin 3 mg tablet 6 mg PO DAILY 04/18/25 04/18/25 Unknown History Allergies Allergy/AdvReac Type Severity Reaction Status Date / Time Sulfa (Sulfonamide Allergy Unknown Verified 04/29/25 16:20 Antibiotics) [facility] Past Medical History Medical History Seizure disorder History of CVA (cerebrovascular accident) Atrial fibrillation, chronic Pacemaker Chronic kidney disease, stage 3 Nephrostomy present Essential hypertension Major depressive disorder Surgical History Surgical History History of nephrostomy Bilateral, placed in February of 2025 at [facility] History of knee replacement, total Social History Social History Smoking status: Never smoker Alcohol intake: never Substance use: never Lack of Transportation: No Lack of Food: Never True Current Housing: I Have Housing Concerned About Future Housing: No Difficulty Paying Gas/Electric Bills: No Difficulty Paying for Meds: No Currently Unemployed: No Education: Bachelor's Degree Difficulty w/ Childcare or Family Care: No Spiritual care concerns: No Exam Narrative: APPEARANCE: No apparent distress. Head: atraumatic. EYES: EOMI, NOSE: Atraumatic NECK: Trachea midline RESPIRATORY: No increased rate of breathing, decreased lung sounds in the left with scattered rhonchi CARDIOVASCULAR: RRR, no peripheral edema, midline left upper extremity ABDOMINAL: Non-distended soft nontender, nephrostomy tubes in place MUSCULOSKELETAl: No obvious deformities NEURO: Alert. Moving 4/4 extremities SKIN:: Warm, dry. Normal color PSYCHIATRIC: Normal affect Course Vital Signs Vital signs: Vital Signs Temperature 97.8 F 04/29/25 16:05 Pulse Rate 70 04/29/25 16:05 Respiratory Rate 14 04/29/25 16:05 Blood Pressure 106/67 04/29/25 16:05 Pulse Oximetry 97 04/29/25 16:05 Oxygen Delivery Room Air 04/29/25 16:05 Temperature 97.8 F 04/29/25 16:19 Pulse Rate 70 04/29/25 16:20 Respiratory Rate 14 04/29/25 16:19 Blood Pressure 106/67 04/29/25 16:19 Pulse Oximetry 97 04/29/25 16:19 Oxygen Delivery Room Air 04/29/25 16:16 Medical Decision Making MDM Narrative Medical decision making narrative: -Course: 79-year-old male presenting with 4 days of chest pain/shortness of breath. CTA negative for PE or dissection. However it did show significant lung collapse on the left side with areas of consolidation. He now has a mediastinal shift to the left. Compared to x-rays from 04/18 this is significantly worse. Patient will be started on antibiotics for hospital-acquired pneumonia. Patient will require pulmonary toilet to see if that improves his respiratory conditon. Patient's blood pressures are soft although review of the EMR shows that he runs low in general. Given 1 L of normal saline. EKG showed paced rhythm. He has troponins negative x2. White count not elevated however he has been on antibiotics for his urine. Case discussed with Heriberto. Patient will be admitted the hospital for further management. -DDX includes but is not limited to: ACS PE dissection pneumonia pneumothorax Vital Signs Vital Signs: Vital Signs Temperature 97.8 F 04/29/25 16:05 Pulse Rate 70 04/29/25 16:05 Respiratory Rate 14 04/29/25 16:05 Blood Pressure 106/67 04/29/25 16:05 Pulse Oximetry 97 04/29/25 16:05 Oxygen Delivery Room Air 04/29/25 16:05 Temperature 97.8 F 04/29/25 16:19 Pulse Rate 70 04/29/25 16:20 Respiratory Rate 14 04/29/25 16:19 Blood Pressure 106/67 04/29/25 16:19 Pulse Oximetry 97 04/29/25 16:19 Oxygen Delivery Room Air 04/29/25 16:16 Lab Data 04/29/25 16:56 04/29/25 16:56 Labs: Lab Results 04/29/25 04/29/25 04/29/25 Range/Units 16:56 19:10 19:58 WBC 8.9 (4.5-10.0) K/mm3 RBC 3.49 L (4.6-6.20) M/mm3 Hgb 10.3 L (14.0-18.0) g/dL Hct 33.2 L (42.0-52.0) % MCV 95.1 (80-100) fl MCH 29.5 (26-34) pg MCHC 31.0 L (32-36) g/dl RDW 15.1 H (11.5-14.5) % Plt Count 287 (150-375) k/mm3 MPV 8.4 (7.4-10.4) fl Immature Gran % (Auto) 0.9 H (0-0.5) % Neut % (Auto) 86.6 H (45.5-73.1) % Lymph % (Auto) 3.7 L (18.3-44.2) % Dunn % (Auto) 7.3 (2.6-8.5) % Eos % (Auto) 1.1 (0-4.4) % Baso % (Auto) 0.4 (0.2-1.2) % Lymph # (Auto) 0.33 L (0.9-3.2) K/mm3 Dunn # (Auto) 0.7 H (0.1-0.6) K/mm3 Eos # (Auto) 0.1 (0-0.3) K/mm3 Baso # (Auto) 0.0 (0.0-0.1) K/mm3 Abs Immat Gran (auto) 0.08 H (0.00-0.031) K/mm3 Absolute Neuts (auto) 7.7 H (1.3-6.7) K/mm3 Absolute Nucleated RBC 0.000 (0.0-0.012) K/mm3 Nucleated RBC % 0.0 (0.0-0.2) % PT 23.6 H D 25.5 H (11.1-14.7) Seconds INR 2.2 2.4 APTT 49.3 H 50.0 H (22.3-36.8) Seconds Sodium 136 L (137-145) mmol/L Potassium 4.3 (3.4-5.0) mmol/L Chloride 103 (98-107) mmol/L Carbon Dioxide 25 (22-30) mmol/L Anion Gap 8 (4-12) mmol/L BUN 26 H (9-20) mg/dL Creatinine 1.19 (0.7-1.3) mg/dL Estim Creat Clear Calc 52 ml/min Estimated GFR 59 (59 - ) Glucose 123 H (65-110) mg/dL Lactic Acid 1.5 (0.7-2.0) mmol/L Calcium 8.6 (8.4-10.2) mg/dL Total Bilirubin 0.4 (0.2-1.3) mg/dL AST 39 (17-59) U/L ALT 36 (6-50) U/L Alkaline Phosphatase 230 H (38-126) U/L Troponin I < 0.012 < 0.012 (0.000-0.034) ng/mL Total Protein 6.7 (6.3-8.2) g/dL Albumin 3.3 L (3.5-5.1) g/dL Lipase 30 26 (23-300) U/L Urine Color Yellow (Yellow) Urine Appearance Cloudy H (Clear) Urine pH 7.0 (5.0-9.0) Ur Specific [place] 1.017 (1.001-1.035) Urine Protein 4+ H (Negative) mg/dL Urine Glucose (UA) Negative (Negative) mg/dL Urine Ketones Negative (Negative) mg/dL Ur Blood (Man) 2+ H (Negative) Urine Nitrate Negative (Negative) Urine Bilirubin Negative (Negative) Urine Urobilinogen 0.2 (<2.0) mg/dL Add Ur Microanalysis Reviewed Leukocyte Esterase Rfl 2+ H (Negative) JOHNATHON/UL Urine RBC >100 H (0-2) /hpf Urine WBC >100 H (0-3) /hpf Ur Squamous Epith Cells None seen (Few) /hpf Urine Bacteria Rare /hpf Urine Casts 6-10 Influenza A (RT-PCR) Negative (Negative) Influenza B (RT-PCR) Negative (Negative) RSV (RT-PCR) Negative (Negative) SARS-CoV-2 RNA (RT-PCR) Negative (Negative) Discharge Plan Discharge Clinical Impression: Chest pain, Collapse of lung Patient Disposition: Still a Patient Condition: Stable Patient Language: Lao Prescriptions: No Action acetaminophen 500 mg capsule 1,000 mg PO Q6H PRN (Reason: pain) cyanocobalamin (vitamin B-12) 1,000 mcg capsule 1,000 mcg PO DAILY gabapentin 300 mg capsule 300 mg PO HS warfarin 3 mg tablet 6 mg PO DAILY levetiracetam 750 mg tablet 750 mg PO BID escitalopram oxalate 10 mg tablet 10 mg PO DAILY lidocaine [Lidocaine Pain Relief] 4 % adhesive patch,medicated 1 patch topical DAILY Patient Comments: L lower back Rx Instructions: may leave on for up to 12 hrs ondansetron 4 mg tablet,disintegrating 4 mg PO Q6H PRN (Reason: nausea and vomiting) oxycodone 5 mg capsule 5 mg PO Q4H PRN (Reason: pain) pantoprazole [address] for susp in packet 40 mg PO DAILY tamsulosin 0.4 mg capsule 0.4 mg PO 1600 calcium carbonate [Calcium Antacid] 200 mg calcium (500 mg) tablet,chewable 200 mg PO BID PRN (Reason: dyspepsia) ceftriaxone 2 gram recon soln 2 g IV DAILY Qty: 3 0RF Follow-up/Referrals: UNKNOWN,DOCTOR [Primary Care Provider]
[2025-04-29] MEDS: CEFEPIME 2 GM in SODIUM CHLORIDE 0.9% IV 50 ML 100 ML IVPB (21:53)
[2025-04-29] MEDS: AZITHROMYCIN IV 500 MG in SODIUM CHLORIDE 0.9% IV 250 ML IVPB (21:53)
[2025-04-29 22:57] LABS: MRSA (PCR) NOT DETECTED (NOT DETECTE)
[2025-04-29] MEDS: VANCOMYCIN 1,250 MG/NS 250 ML 1,250 MG/250 ML BAG 166.67 MG IVPB (23:08)
[2025-04-30] VITALS (13 sets, daily range): BP systolic 98–125; BP diastolic 52–61; PULSE 68–92; RESP 18–20; TEMP 36.5–36.9; O2SAT 93–98; BMI 29.7
--- NOTE | 2025-04-30 00:55 | ADMGEN ---
This patient, Gino Marquez, was admitted to Medical Room 249-01. Patient/family oriented to hospital policies and general routines including ID bracelet, bed and alarms, visiting hours, pain management, procedures, bathroom and other care routines, personal items, smoking policy, room service/diet, and visiting hours. Information on how to activate the Rapid Response Team has been discussed. Patient/Family are encouraged to report perceived risks to care and to ask questions if they do not understand what they are told or what they should do.
[2025-04-30] MEDS: VANCOMYCIN 1,250 MG/NS 250 ML 1,250 MG/250 ML BAG 166.67 MG IVPB (01:31)
[2025-04-30 02:16] LABS: Estimated CRCL calculation 50 ml/min; Estimated Glomerular Filt Rate > 60
[2025-04-30 02:28] LABS: Troponin I 0.015 ng/mL (0.000-0.034)
--- NOTE | 2025-04-30 06:41 | PM.IMHP ---
H&P: HPI History of Present Illness Date/Time: 04/30/25 06:41 Chief Complaint: Chest pain Narrative: This is a 79-year-old male patient who came in with shortness of breath and chest discomfort. Patient stated that this pain started approximately 4 days ago. The patient was recently discharged from this facility on 04/24/2025 due to bacteremia. The patient had been positive for Serratia marcescens and the patient had been on Rocephin. The patient denied any fever or chills. He has not been on any oxygen. Chest x-ray was read as left-sided volume loss with atelectasis and left pleural effusion. Mediastinal shift to the left. Cannot exclude superimposed pneumonia. CTA was read as the following 1. Left upper lobe collapse. Focal consolidation left lower lobe may represent atelectasis and/or pneumonia. There is volume loss in the left thorax with mediastinal shift to the left. 2: Small left pleural effusion. 3: Bilateral renal atrophy with bilateral nephrolithiasis. Bilateral percutaneous nephrostomy catheters. Right internal ureteral stent. 4: Abnormal posterior bladder wall thickening, suspicious for malignancy. 5: Small 11 mm cystic mass pancreatic body. The differential diagnosis includes pseudocyst, intraductal papillary mucinous neoplasm (IPMN), mucinous cystic neoplasm (MCN), and the less common serous cystadenoma and neuroendocrine tumor. The patient was started on a septum I sent vanco and cefepime. EKG was read as atrial pacemaker. The patient is being admitted to inpatient status on a medical-surgical floor on the date of service of 04/30/2025. Review of Systems Constitutional: Constitutional: Reports as per HPI and Reports no additional constitutional complaints Eyes: Eyes: Reports as per HPI and Reports no additional eye complaints ENT: Reports system reviewed and no additional complaints, except as documented and Reports Normal hearing present Respiratory: Respiratory: Reports as per HPI, Reports cough and Reports dyspnea Gastrointestinal: Gastrointestinal: Reports as per HPI and Reports no additional gastrointestinal complaints Genitourinary: Genitourinary: Reports other (Bilateral nephrostomy tubes) Musculoskeletal: Musculoskeletal: Reports no additional musculoskeletal complaints Integumentary/Breasts: Skin/Breast: Reports system reviewed and no additional complaints, except as docu Neurologic: Reports system reviewed and no additional complaints, except as documented and Reports Normal hearing present Psychiatric: Psychiatric: Reports no additional psychiatric complaints and Reports as per HPI Hematologic/Lymphatic: Hematologic/Lymphatic: Reports no additional hematologic/lymphatic complaints Allergic/Immunologic: Allergic/Immunologic: Reports no additional allergic/immunologic complaints [facility] Past Medical History Medical History Seizure disorder History of CVA (cerebrovascular accident) Atrial fibrillation, chronic Pacemaker Chronic kidney disease, stage 3 Nephrostomy present Essential hypertension Major depressive disorder Surgical History Surgical History History of nephrostomy Bilateral, placed in February of 2025 at [facility] History of knee replacement, total Family History Family History (Updated 04/30/25 @ 01:30 by Anjali Gilliland RN) Father Prostate carcinoma Mother Acute myocardial infarction Social History Social History Smoking status: Never smoker Alcohol intake: never Substance use: never Lack of Transportation: No Lack of Food: Never True Current Housing: I Have Housing Concerned About Future Housing: No Difficulty Paying Gas/Electric Bills: No Difficulty Paying for Meds: No Currently Unemployed: No Education: Bachelor's Degree Difficulty w/ Childcare or Family Care: No Spiritual care concerns: No Meds Home Medications and Allergies Home Medications ?Medication ?Instructions ?Recorded ?Confirmed ?Type acetaminophen 500 mg capsule 1,000 mg PO Q6H pain 04/18/25 04/30/25 History calcium carbonate (Calcium Antacid) 200 mg PO BID PRN dyspepsia 04/18/25 04/30/25 History cyanocobalamin (vitamin B-12) 1,000 mcg PO DAILY 04/18/25 04/30/25 History 1,000 mcg capsule escitalopram oxalate 10 mg tablet 10 mg PO DAILY 04/18/25 04/30/25 History gabapentin 300 mg capsule 300 mg PO HS 04/18/25 04/30/25 History levetiracetam 750 mg tablet 750 mg PO BID 04/18/25 04/30/25 History lidocaine 4 % topical patch 1 patch topical DAILY 04/18/25 04/30/25 History (Lidocaine Pain Relief) ondansetron 4 mg disintegrating 4 mg PO Q6H PRN nausea and vomiting 04/18/25 04/30/25 History tablet oxycodone 5 mg capsule 5 mg PO Q4H PRN pain 04/18/25 04/30/25 History pantoprazole 40 mg granules 40 mg PO DAILY 04/18/25 04/30/25 History delayed-release for susp in packet tamsulosin 0.4 mg capsule 0.4 mg PO 1600 04/18/25 04/30/25 History warfarin 3 mg tablet 6 mg PO DAILY 04/18/25 04/30/25 History ceftriaxone 2 gram solution for 2 g IV DAILY #3 ea 04/24/25 04/30/25 Rx injection Allergies Allergy/AdvReac Type Severity Reaction Status Date / Time Sulfa (Sulfonamide Allergy Unknown Verified 04/29/25 16:20 Antibiotics) Vital Signs Vital Signs - 24 hr 04/29/25 16:05 04/29/25 16:16 04/29/25 16:19 Temperature 97.8 F 97.8 F Pulse Rate 70 70 Respiratory Rate 14 14 Blood Pressure 106/67 106/67 Pulse Oximetry 97 97 97 Oxygen Delivery Room Air Room Air 04/29/25 16:20 04/29/25 16:25 04/29/25 16:30 Temperature Pulse Rate 70 70 73 Respiratory Rate 19 20 Blood Pressure Pulse Oximetry 96 96 Oxygen Delivery 04/29/25 16:49 04/29/25 17:06 04/29/25 17:32 Temperature Pulse Rate 82 70 70 Respiratory Rate 17 19 18 Blood Pressure Pulse Oximetry 96 96 96 Oxygen Delivery 04/29/25 17:45 04/29/25 17:46 04/29/25 18:10 Temperature Pulse Rate 70 70 70 Respiratory Rate 16 16 17 Blood Pressure 88/48 L Pulse Oximetry 96 96 97 Oxygen Delivery 04/29/25 18:15 04/29/25 18:16 04/29/25 18:30 Temperature Pulse Rate 75 76 70 Respiratory Rate 17 18 16 Blood Pressure 102/53 L Pulse Oximetry 97 96 97 Oxygen Delivery 04/29/25 18:31 04/29/25 18:57 04/29/25 19:00 Temperature Pulse Rate 74 73 87 Respiratory Rate 17 16 16 Blood Pressure 88/48 L Pulse Oximetry 96 Oxygen Delivery 04/29/25 19:01 04/29/25 19:15 04/29/25 19:16 Temperature Pulse Rate 77 82 71 Respiratory Rate 17 17 18 Blood Pressure 91/55 L 106/54 L Pulse Oximetry Oxygen Delivery 04/29/25 19:48 04/29/25 20:01 04/29/25 20:02 Temperature Pulse Rate 77 70 70 Respiratory Rate 18 17 17 Blood Pressure 99/56 L Pulse Oximetry 97 97 Oxygen Delivery 04/29/25 20:55 04/29/25 21:00 04/29/25 21:01 Temperature Pulse Rate 77 92 78 Respiratory Rate 17 17 18 Blood Pressure 104/57 L Pulse Oximetry Oxygen Delivery 04/29/25 21:21 04/29/25 21:30 04/29/25 21:31 Temperature Pulse Rate 76 79 88 Respiratory Rate 24 H 17 18 Blood Pressure 114/55 L Pulse Oximetry Oxygen Delivery 04/29/25 21:45 04/29/25 21:46 04/29/25 22:43 Temperature Pulse Rate 74 79 86 Respiratory Rate 19 18 18 Blood Pressure 85/63 L 102/51 L Pulse Oximetry 97 Oxygen Delivery 04/30/25 00:20 04/30/25 00:50 04/30/25 01:06 Temperature 98.1 F Pulse Rate 75 69 69 Respiratory Rate 18 18 20 Blood Pressure 99/58 L 117/60 125/61 Pulse Oximetry 97 98 94 Oxygen Delivery 04/30/25 01:08 04/30/25 04:00 04/30/25 04:00 Temperature 97.7 F Pulse Rate 70 71 Respiratory Rate 20 Blood Pressure 98/54 L Pulse Oximetry 93 Oxygen Delivery Room Air 04/30/25 05:18 Temperature 97.7 F Pulse Rate 71 Respiratory Rate 20 Blood Pressure 98/54 L Pulse Oximetry 93 Oxygen Delivery Exam Const: General: cooperative, comfortable, no acute distress, well developed, awake, Physically active, average body habitus and well nourished Nutritional Appearance: average body habitus and well nourished Orientation/consciousness: oriented to person, oriented to place, oriented to time and patient oriented x3 Limitations: no limitations HENMT: Head: normal to inspection, normocephalic, atraumatic and abrasion Ears: hearing grossly normal bilaterally and external ears normal Face/Nose/Sinus: Normal external nose present Eyes: General: appearance normal, both eyes and all related structures Alignment and Position: alignment normal Periorbital: periorbital findings normal Eyelids: eyelids normal EOM: EOMs intact bilaterally Neck: Neck: normal visual inspection and full ROM Chest: Chest palpation & inspection: normal inspection of the chest Resp: Effort & Inspection: normal respiratory effort Cardio: Rate: regular rate Rhythm: regular rhythm Peripheral pulses: Peripheral pulses 2+ throughout GI: Inspection: normal to inspection Auscultation: normal bowel sounds Rectal Exam: deferred : General: Yes other (Bilateral nephrostomy tubes intact draining an david cloudy urine) Urinary Catheter: Urinary Catheter: other (Bilateral nephrostomy tubes intact and draining david cloudy urine) Skin: General skin exam: normal color Lesions: no lesions Rashes: no rashes Trauma: no lacerations or abrasions Wounds: no wounds Neuro: General: oriented to person, oriented to place, oriented to time and patient oriented x3 Cranial nerves: Yes Normal hearing present Cognition (Neuro): normal cognition Speech: normal speech Sensory Exam: normal sensation Extrem: General: normal to inspection Right upper extremity: normal to inspection Psych: Appearance: grossly normal Mental Status: mental status grossly normal Speech and movement: Normal speech and movement present Affect: normal affect Attitude: cooperative Thought process: Normal thought process present Thought content: Yes Normal thought content present Insight: Fair insight present (Psych) Judgement: Fair judgement present (Psych) H&P: Results Labs Labs: Short CBC 04/29/25 Range/Units 16:56 WBC 8.9 (4.5-10.0) K/mm3 Hgb 10.3 L (14.0-18.0) g/dL Hct 33.2 L (42.0-52.0) % Plt Count 287 (150-375) k/mm3 BMP 04/29/25 04/30/25 16:56 01:27 Sodium 136 L Potassium 4.3 Chloride 103 Carbon Dioxide 25 BUN 26 H Creatinine 1.19 1.07 Glucose 123 H Calcium 8.6 Cardiac Enzymes 04/29/25 04/29/25 04/30/25 Range/Units 16:56 19:58 01:27 Troponin I < 0.012 < 0.012 0.015 D (0.000-0.034) ng/mL Liver Function 04/29/25 Range/Units 16:56 Total Bilirubin 0.4 (0.2-1.3) mg/dL AST 39 (17-59) U/L ALT 36 (6-50) U/L Alkaline Phosphatase 230 H (38-126) U/L Albumin 3.3 L (3.5-5.1) g/dL Urine 04/29/25 Range/Units 19:10 Urine Color Yellow (Yellow) Urine Appearance Cloudy H (Clear) Urine pH 7.0 (5.0-9.0) Ur Specific [place] 1.017 (1.001-1.035) Urine Protein 4+ H (Negative) mg/dL Urine Glucose (UA) Negative (Negative) mg/dL Assessment and Plan Assessment and plan (1) Collapse of lung: Code(s): J98.19 - Other pulmonary collapse Status: Acute Assessment and Plan: -CT was read as 1. Left upper lobe collapse. Focal consolidation left lower lobe may represent atelectasis and/or pneumonia. There is volume loss in the left thorax with mediastinal shift to the left. 2: Small left pleural effusion. 3: Bilateral renal atrophy with bilateral nephrolithiasis. Bilateral percutaneous nephrostomy catheters. Right internal ureteral stent. 4: Abnormal posterior bladder wall thickening, suspicious for malignancy. 5: Small 11 mm cystic mass pancreatic body. The differential diagnosis includes pseudocyst, intraductal papillary mucinous neoplasm (IPMN), mucinous cystic neoplasm (MCN), and the less common serous cystadenoma and neuroendocrine tumor. The patient stated that he does not want any further workup for this cystic mass. -surgery consult greatly be appreciated for the left upper lobe collapse for possible chest tube. The patient is on room air and is not in any respiratory distress. -the patient was started on azithromycin, cefepime, and vancomycin. -sputum and blood cultures are pending. -pulmonary consult was greatly be appreciated. (2) Atrial fibrillation, chronic: Code(s): I48.20 - Chronic atrial fibrillation, unspecified Status: Chronic Assessment and Plan: -patient is unclear if he is on warfarin. He believes that he had not taken it his last admission. However it was noted on his discharge 04/24/2025 that he was subtherapeutic and continue with home Coumadin. The patient is not sure if he has been taking it at home. -daily PT INR -holding his warfarin at this time to monitor for PT INR. Will resume if therapeutic. -patient has atrial pacemaker. (3) H/O insertion of nephrostomy tube: Code(s): Z98.890 - Other specified postprocedural states Status: Acute Assessment and Plan: -nephrostomy tubes are intact at this time. (4) Chronic kidney disease, stage 3: Qualifiers: Chronic kidney disease stage 3 subtype: unspecified whether 3a or 3b Qualified Code(s): N18.30 - Chronic kidney disease, stage 3 unspecified Code(s): N18.30 - Chronic kidney disease, stage 3 unspecified Status: Chronic Assessment and Plan: -daily BMPs -patient continues to be at his baseline. (5) Essential hypertension: Code(s): I10 - Essential (primary) hypertension Status: Chronic Assessment and Plan: -patient's blood pressure is currently 98/54. -continue to monitor blood pressure. The patient does not appear to be on any blood pressure medicine. (6) Pancreatic cyst: Code(s): K86.2 - Cyst of pancreas Status: Acute Assessment and Plan: -patient is aware of the cyst on the pancreas. The patient stated that he wants no further workup. Quality VTE Prophylaxis VTE prophylaxis: pharmacologic ordered (Depending on PT INR.)
[2025-04-30] MEDS: ACETAMINOPHEN 500 MG TABLET 1000 MG PO ×4 (07:04→23:53)
[2025-04-30 07:30] LABS: INR 2.2; Prothrombin Time 23.7 Seconds (11.1-14.7)
[2025-04-30] MEDS: ESCITALOPRAM OXALATE 10 MG TABLET PO (08:43)
[2025-04-30] MEDS: CEFEPIME 2 GM in SODIUM CHLORIDE 0.9% IV 50 ML 100 ML IVPB ×2 (08:43→20:37)
[2025-04-30] MEDS: CYANOCOBALAMIN 1,000 MCG TABLET 1000 MCG PO (08:43)
[2025-04-30] MEDS: LIDOCAINE 5% PATCH 1 PATCH TOPICAL (08:47)
--- NOTE | 2025-04-30 09:28 | PM.CNGS ---
Assessment and Plan Assessment and plan (1) Collapse of lung: Code(s): J98.19 - Other pulmonary collapse Status: Acute Assessment and Plan: The patient presents with 4 days of chest pain and shortness of breath. Imaging reviewed and the CTA chest showed TORRI collapse with focal consolidation in the LLL that could represent atelectasis or pneumonia with volume loss in the left thorax with mediastinal shift to the left. There is no evidence of a pneumothorax and no indication for a chest tube. Would recommend Pulmonology consultation to evaluate need for bronchoscopy as he could have an obstructing lesion or mucous plugging causing the lung collapse. (2) Pneumonia: Code(s): J18.9 - Pneumonia, unspecified organism Status: Acute Assessment and Plan: Being treated with antibiotics for possible pneumonia by primary service. (3) Atrial fibrillation, chronic: Code(s): I48.20 - Chronic atrial fibrillation, unspecified Status: Chronic Assessment and Plan: Patient on warfarin for atrial fibrillation. INR 2.2 and warfarin on hold. Apparently there is question if he is still taking this medication or not following his recent discharge with bacteremia. (4) H/O insertion of nephrostomy tube: Code(s): Z98.890 - Other specified postprocedural states Status: Acute Assessment and Plan: Placed at [facility] a few months ago. Plan I have discussed the patient's case and plan of care with Dr. Leal. History of Present Illness Consult details Consult date: 04/30/25 Reason for consult: other (Left upper lobe collapse, possible chest tube) Requesting physician: Jazmine Louis, [employer] INVESTIGATOR Narrative: This is an 79-year-old male with history of CVA, seizure disorder, chronic Afib, pacemaker, multiple previous UTIs with bilateral nephrostomy tubes in place, and hypertension, who presented to the ED from [facility] with chest pain and SOB x 3-4 days. The patient is a poor historian, and majority of his history is obtained by review of the EMR. He was recently admitted for bacteremia, UTI and was discharged on IV antibiotics. He apparently has been having chest pain for the past few days and brought back in from the group home yesterday. He had a chest x-ray in the ED that showed left-sided volume loss with atelectasis and left pleural effusion with mediastinal shift to the left, cannot exclude superimposed pneumonia. He then had a CTA of the chest, abdomen, and pelvis that showed left upper lobe collapse with focal consolidation of the left lower lobe that may represent atelectasis and/or pneumonia. There is also volume loss in the left thorax with mediastinal shift to the left. Small left pleural effusion. Bilateral renal atrophy with bilateral nephrolithiasis and percutaneous nephrostomy tube catheters with right internal ureteral stent, abnormal bladder wall thickening, and cystic mass in the pancreas. Our service was consulted due to the findings of left upper lobe collapse with mediastinal shift and evaluation for a possible chest tube. The patient is now seen on the medical floor. He is alert and answering questions appropriately. He does not appear to be in any distress and is on room air. Review of Systems Review of Systems: All systems reviewed & are unremarkable except as noted in HPI and below PMFSH Past Medical History Medical History Seizure disorder History of CVA (cerebrovascular accident) Atrial fibrillation, chronic Pacemaker Chronic kidney disease, stage 3 Nephrostomy present Essential hypertension Major depressive disorder Surgical History Surgical History History of nephrostomy Bilateral, placed in February of 2025 at [facility] History of knee replacement, total Family History Family History (Updated 04/30/25 @ 01:30 by Anjali Gilliland RN) Father Prostate carcinoma Mother Acute myocardial infarction Social History Social History Smoking status: Never smoker Alcohol intake: never Substance use: never Lack of Transportation: No Lack of Food: Never True Current Housing: I Have Housing Concerned About Future Housing: No Difficulty Paying Gas/Electric Bills: No Difficulty Paying for Meds: No Currently Unemployed: No Education: Bachelor's Degree Difficulty w/ Childcare or Family Care: No Spiritual care concerns: No Meds Home Medications and Allergies Home Medications ?Medication ?Instructions ?Recorded ?Confirmed ?Type acetaminophen 500 mg capsule 1,000 mg PO Q6H pain 04/18/25 04/30/25 History calcium carbonate (Calcium Antacid) 200 mg PO BID PRN dyspepsia 04/18/25 04/30/25 History cyanocobalamin (vitamin B-12) 1,000 mcg PO DAILY 04/18/25 04/30/25 History 1,000 mcg capsule escitalopram oxalate 10 mg tablet 10 mg PO DAILY 04/18/25 04/30/25 History gabapentin 300 mg capsule 300 mg PO HS 04/18/25 04/30/25 History levetiracetam 750 mg tablet 750 mg PO BID 04/18/25 04/30/25 History lidocaine 4 % topical patch 1 patch topical DAILY 04/18/25 04/30/25 History (Lidocaine Pain Relief) ondansetron 4 mg disintegrating 4 mg PO Q6H PRN nausea and vomiting 04/18/25 04/30/25 History tablet oxycodone 5 mg capsule 5 mg PO Q4H PRN pain 04/18/25 04/30/25 History pantoprazole 40 mg granules 40 mg PO DAILY 04/18/25 04/30/25 History delayed-release for susp in packet tamsulosin 0.4 mg capsule 0.4 mg PO 1600 04/18/25 04/30/25 History warfarin 3 mg tablet 6 mg PO DAILY 04/18/25 04/30/25 History ceftriaxone 2 gram solution for 2 g IV DAILY #3 ea 04/24/25 04/30/25 Rx injection Allergies Allergy/AdvReac Type Severity Reaction Status Date / Time Sulfa (Sulfonamide Allergy Unknown Verified 04/29/25 16:20 Antibiotics) Vital Signs Vital Signs - 24 hr 04/29/25 16:05 04/29/25 16:16 04/29/25 16:19 Temperature 97.8 F 97.8 F Pulse Rate 70 70 Respiratory Rate 14 14 Blood Pressure 106/67 106/67 Pulse Oximetry 97 97 97 Oxygen Delivery Room Air Room Air 04/29/25 16:20 04/29/25 16:25 04/29/25 16:30 Temperature Pulse Rate 70 70 73 Respiratory Rate 19 20 Blood Pressure Pulse Oximetry 96 96 Oxygen Delivery 04/29/25 16:49 04/29/25 17:06 04/29/25 17:32 Temperature Pulse Rate 82 70 70 Respiratory Rate 17 19 18 Blood Pressure Pulse Oximetry 96 96 96 Oxygen Delivery 04/29/25 17:45 04/29/25 17:46 04/29/25 18:10 Temperature Pulse Rate 70 70 70 Respiratory Rate 16 16 17 Blood Pressure 88/48 L Pulse Oximetry 96 96 97 Oxygen Delivery 04/29/25 18:15 04/29/25 18:16 04/29/25 18:30 Temperature Pulse Rate 75 76 70 Respiratory Rate 17 18 16 Blood Pressure 102/53 L Pulse Oximetry 97 96 97 Oxygen Delivery 04/29/25 18:31 04/29/25 18:57 04/29/25 19:00 Temperature Pulse Rate 74 73 87 Respiratory Rate 17 16 16 Blood Pressure 88/48 L Pulse Oximetry 96 Oxygen Delivery 04/29/25 19:01 04/29/25 19:15 04/29/25 19:16 Temperature Pulse Rate 77 82 71 Respiratory Rate 17 17 18 Blood Pressure 91/55 L 106/54 L Pulse Oximetry Oxygen Delivery 04/29/25 19:48 04/29/25 20:01 04/29/25 20:02 Temperature Pulse Rate 77 70 70 Respiratory Rate 18 17 17 Blood Pressure 99/56 L Pulse Oximetry 97 97 Oxygen Delivery 04/29/25 20:55 04/29/25 21:00 04/29/25 21:01 Temperature Pulse Rate 77 92 78 Respiratory Rate 17 17 18 Blood Pressure 104/57 L Pulse Oximetry Oxygen Delivery 04/29/25 21:21 04/29/25 21:30 04/29/25 21:31 Temperature Pulse Rate 76 79 88 Respiratory Rate 24 H 17 18 Blood Pressure 114/55 L Pulse Oximetry Oxygen Delivery 04/29/25 21:45 04/29/25 21:46 04/29/25 22:43 Temperature Pulse Rate 74 79 86 Respiratory Rate 19 18 18 Blood Pressure 85/63 L 102/51 L Pulse Oximetry 97 Oxygen Delivery 04/30/25 00:20 04/30/25 00:50 04/30/25 01:06 Temperature 98.1 F Pulse Rate 75 69 69 Respiratory Rate 18 18 20 Blood Pressure 99/58 L 117/60 125/61 Pulse Oximetry 97 98 94 Oxygen Delivery 04/30/25 01:08 04/30/25 04:00 04/30/25 04:00 Temperature 97.7 F Pulse Rate 70 71 Respiratory Rate 20 Blood Pressure 98/54 L Pulse Oximetry 93 Oxygen Delivery Room Air 04/30/25 05:18 Temperature 97.7 F Pulse Rate 71 Respiratory Rate 20 Blood Pressure 98/54 L Pulse Oximetry 93 Oxygen Delivery Exam Const: General: comfortable and no acute distress Nutritional Appearance: average body habitus Orientation/consciousness: patient oriented x3 HENMT: Head: normocephalic and atraumatic Ears: hearing grossly normal bilaterally Mouth: Yes moist mucous membranes Eyes: General: appearance normal, both eyes and all related structures Pupils: Equal, round and reactive pupils present Neck: Neck: normal visual inspection and full ROM Resp: Effort & Inspection: no respiratory distress Auscultation: diminished lung sounds on the left throughout Cardio: Rate: regular rate Rhythm: abnormal rhythm irregularly irregular GI: Inspection: non-distended GI Palp: Yes Soft to palpation, No Tenderness to palpation present (GI), No Guarding due to palpation present (GI) and No Rebound tenderness present Auscultation: normal bowel sounds Skin: General skin exam: normal color Neuro: General: moves all extremities and no focal motor deficits Speech: normal speech Extrem: General: normal to inspection and no edema Psych: Mental Status: mental status grossly normal Attitude: cooperative Insight: Fair insight present (Psych) Results Labs 04/29/25 16:56 04/30/25 01:27 Labs: Abnormal lab results 04/29/25 04/29/25 04/30/25 Range/Units 16:56 19:10 07:09 RBC 3.49 L (4.6-6.20) M/mm3 Hgb 10.3 L (14.0-18.0) g/dL Hct 33.2 L (42.0-52.0) % MCHC 31.0 L (32-36) g/dl RDW 15.1 H (11.5-14.5) % Immature Gran % (Auto) 0.9 H (0-0.5) % Neut % (Auto) 86.6 H (45.5-73.1) % Lymph % (Auto) 3.7 L (18.3-44.2) % Lymph # (Auto) 0.33 L (0.9-3.2) K/mm3 Burt # (Auto) 0.7 H (0.1-0.6) K/mm3 Abs Immat Gran (auto) 0.08 H (0.00-0.031) K/mm3 Absolute Neuts (auto) 7.7 H (1.3-6.7) K/mm3 PT 23.6 H D 25.5 H 23.7 H (11.1-14.7) Seconds APTT 49.3 H 50.0 H (22.3-36.8) Seconds Sodium 136 L (137-145) mmol/L BUN 26 H (9-20) mg/dL Glucose 123 H (65-110) mg/dL Alkaline Phosphatase 230 H (38-126) U/L Albumin 3.3 L (3.5-5.1) g/dL Urine Appearance Cloudy H (Clear) Urine Protein 4+ H (Negative) mg/dL Ur Blood (Man) 2+ H (Negative) Leukocyte Esterase Rfl 2+ H (Negative) JOHNATHON/UL Urine RBC >100 H (0-2) /hpf Urine WBC >100 H (0-3) /hpf Diabetes panel 04/29/25 04/30/25 Range/Units 16:56 01:27 Sodium 136 L (137-145) mmol/L Potassium 4.3 (3.4-5.0) mmol/L Chloride 103 (98-107) mmol/L Carbon Dioxide 25 (22-30) mmol/L BUN 26 H (9-20) mg/dL Creatinine 1.19 1.07 (0.7-1.3) mg/dL Glucose 123 H (65-110) mg/dL Calcium 8.6 (8.4-10.2) mg/dL AST 39 (17-59) U/L ALT 36 (6-50) U/L Alkaline Phosphatase 230 H (38-126) U/L Total Protein 6.7 (6.3-8.2) g/dL Albumin 3.3 L (3.5-5.1) g/dL Calcium panel 04/29/25 Range/Units 16:56 Calcium 8.6 (8.4-10.2) mg/dL Albumin 3.3 L (3.5-5.1) g/dL Pituitary panel 04/29/25 04/30/25 Range/Units 16:56 01:27 Sodium 136 L (137-145) mmol/L Potassium 4.3 (3.4-5.0) mmol/L Chloride 103 (98-107) mmol/L Carbon Dioxide 25 (22-30) mmol/L BUN 26 H (9-20) mg/dL Creatinine 1.19 1.07 (0.7-1.3) mg/dL Glucose 123 H (65-110) mg/dL Calcium 8.6 (8.4-10.2) mg/dL Adrenal panel 04/29/25 04/30/25 Range/Units 16:56 01:27 Sodium 136 L (137-145) mmol/L Potassium 4.3 (3.4-5.0) mmol/L Chloride 103 (98-107) mmol/L Carbon Dioxide 25 (22-30) mmol/L BUN 26 H (9-20) mg/dL Creatinine 1.19 1.07 (0.7-1.3) mg/dL Glucose 123 H (65-110) mg/dL Calcium 8.6 (8.4-10.2) mg/dL Total Bilirubin 0.4 (0.2-1.3) mg/dL AST 39 (17-59) U/L ALT 36 (6-50) U/L Alkaline Phosphatase 230 H (38-126) U/L Total Protein 6.7 (6.3-8.2) g/dL Albumin 3.3 L (3.5-5.1) g/dL All other labs normal. Imaging Additional studies: ITS Impressions Chest X-Ray 04/29/25 17:05 Impression: 1: Left-sided volume loss with atelectasis and left pleural effusion. Mediastinal shift to the left. Cannot exclude superimposed pneumonia. Chest/Abdomen/Pelvis CTA 04/29/25 20:05 IMPRESSION: 1. Left upper lobe collapse. Focal consolidation left lower lobe may represent atelectasis and/or pneumonia. There is volume loss in the left thorax with mediastinal shift to the left. 2: Small left pleural effusion. 3: Bilateral renal atrophy with bilateral nephrolithiasis. Bilateral percutaneous nephrostomy catheters. Right internal ureteral stent. 4: Abnormal posterior bladder wall thickening, suspicious for malignancy. 5: Small 11 mm cystic mass pancreatic body. The differential diagnosis includes pseudocyst, intraductal papillary mucinous neoplasm (IPMN), mucinous cystic neoplasm (MCN), and the less common serous cystadenoma and neuroendocrine tumor.
[2025-04-30] MEDS: SALINE LOCK FLUSH 10 ML IV PUSH ×2 (12:26→22:15)
[2025-04-30] MEDS: TAMSULOSIN HCL 0.4 MG CAPSULE PO (16:07)
[2025-04-30] MEDS: AZITHROMYCIN 250 MG TABLET 500 MG PO (20:37)
[2025-04-30] MEDS: GABAPENTIN 300 MG CAPSULE PO (20:37)
[2025-05-01] VITALS (12 sets, daily range): BP systolic 102–110; BP diastolic 44–56; PULSE 68–77; RESP 18–20; TEMP 36.3–36.8; O2SAT 93–100
[2025-05-01 04:56] LABS: Hematocrit 28.1 % (42.0-52.0); Hemoglobin 8.6 g/dL (14.0-18.0); Immature Granulocyte Percent A 0.6 % (0-0.5); Lymphocytes Absolute Auto 0.56 K/mm3 (0.9-3.2); Mean Corpuscular HGB Conc 30.6 g/dl (32-36); Mean Corpuscular Hemoglobin 29.4 pg (26-34); Mean Corpuscular Volume 95.9 fl (80-100); Nucleated Red Blood Cells Absolute Auto 0.000 K/mm3 (0.0-0.012); Nucleated Red Blood Cells Perc 0.0 % (0.0-0.2); Platelet Count Result 233 k/mm3 (150-375); Red Blood Count 2.93 M/mm3 (4.6-6.20); White Blood Count 4.9 K/mm3 (4.5-10.0)
[2025-05-01 05:12] LABS: Alanine Aminotransferase 23 U/L (6-50); Albumin Level 2.7 g/dL (3.5-5.1); Alkaline Phosphatase 174 U/L (38-126); Anion Gap 2 mmol/L (4-12); Aspartate Amino Transferase 29 U/L (17-59); Bilirubin,Total 0.2 mg/dL (0.2-1.3); Blood Urea Nitrogen 22 mg/dL (9-20); Calcium 8.3 mg/dL (8.4-10.2); Carbon Dioxide 26 mmol/L (22-30); Chloride 109 mmol/L (98-107); Estimated CRCL calculation 47 ml/min; Estimated Glomerular Filt Rate > 60; Glucose 94 mg/dL (65-110); Potassium 4.0 mmol/L (3.4-5.0); Sodium 137 mmol/L (137-145); Total Protein 5.9 g/dL (6.3-8.2)
[2025-05-01 05:22] LABS: INR 2.1; Prothrombin Time 23.3 Seconds (11.1-14.7)
[2025-05-01] MEDS: ACETAMINOPHEN 500 MG TABLET 1000 MG PO ×4 (05:52→23:46)
[2025-05-01] MEDS: SALINE LOCK FLUSH 10 ML IV PUSH ×3 (06:03→20:41)
--- NOTE | 2025-05-01 07:17 | P.PNIM_ITS ---
Progress Note: A&P Assessment and Plan (1) Collapse of lung: Code(s): J98.19 - Other pulmonary collapse Status: Acute Assessment and Plan: -CT was read as 1. Left upper lobe collapse. Focal consolidation left lower lobe may represent atelectasis and/or pneumonia. There is volume loss in the left thorax with mediastinal shift to the left. 2: Small left pleural effusion. 3: Bilateral renal atrophy with bilateral nephrolithiasis. Bilateral percutaneous nephrostomy catheters. Right internal ureteral stent. 4: Abnormal posterior bladder wall thickening, suspicious for malignancy. 5: Small 11 mm cystic mass pancreatic body. The differential diagnosis includes pseudocyst, intraductal papillary mucinous neoplasm (IPMN), mucinous cystic neoplasm (MCN), and the less common serous cystadenoma and neuroendocrine tumor. The patient stated that he does not want any further workup for this cystic mass. -surgery consulted an no intervention recommended, recommended pulmonary consult -the patient was started on azithromycin, cefepime, and vancomycin. -sputum and blood cultures are pending. -pulmonary consult pending (2) Atrial fibrillation, chronic: Code(s): I48.20 - Chronic atrial fibrillation, unspecified Status: Chronic Assessment and Plan: -patient is unclear if he is on warfarin. He believes that he had not taken it his last admission. However it was noted on his discharge 04/24/2025 that he was subtherapeutic and continue with home Coumadin. The patient is not sure if he has been taking it at home. -daily PT INR -INR 2.1 this AM -continue home dose of warfarin 6 mg on ,,Mon,Mon,Mon and 9 mg on / (3) H/O insertion of nephrostomy tube: Code(s): Z98.890 - Other specified postprocedural states Status: Acute Assessment and Plan: -nephrostomy tubes are intact at this time. (4) Chronic kidney disease, stage 3: Qualifiers: Chronic kidney disease stage 3 subtype: unspecified whether 3a or 3b Qualified Code(s): N18.30 - Chronic kidney disease, stage 3 unspecified Code(s): N18.30 - Chronic kidney disease, stage 3 unspecified Status: Chronic Assessment and Plan: -daily BMPs -patient continues to be at his baseline. (5) Essential hypertension: Code(s): I10 - Essential (primary) hypertension Status: Chronic Assessment and Plan: -patient's blood pressure appears to run on low side -continue to monitor blood pressure. The patient does not appear to be on any blood pressure medicine. 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 The patient stated that he wants no further workup. (7) Pneumonia: Code(s): J18.9 - Pneumonia, unspecified organism Status: Acute Assessment and Plan: the patient was started on azithromycin, cefepime, and vancomycin. sputum and blood cultures are pending. IV vancomycin stopped - MRSA swab negative pulmonary consulted AM labs Subjective Date/time seen: 05/01/25 07:17 Interval history: Patient is an 79 year old male who presented with complaints of shortness of breath and chest discomfort for 4 days. Patient was recently discharged from this facility on 04/24/2025 due to bacteremia with Serratia marcescens and has been recieving IV Rocephin. Patient was discharged to a rehab facility for IV antibiotics and rehab. Patient was admitted with left upper lobe collapse and left lower lobe pneumonia. Patient was started on IV vacomycin and IV azithromycin and IV cefepime. General surgery was consulted and recommended a pulmonary consult. MRSA swab was negative and vancomycin was stopped. PT/OT consulted. Awaiting further recommendations from pulmonary. Review of Systems Review of Systems: All systems reviewed & are unremarkable except as noted in HPI and below Exam 2 Narrative: General: elderly, no acute distress HEENT: normocephalic, . Mucous membranes moist. EOMI Respiratory: clear to ascultation right side. No air movement TORRI, minimal air movement LLL with few rales. Cardiovascular: Regular rate and rhythm, normal S1-S2 upon ascultation. No murmurs, rubs, or clicks. Abdomen: Soft, round, no pulsatile masses, nondistended and nontender. No rebound, no guarding. Bowel sounds present to all four quadrants Extremities: No cyanosis, clubbing, or edema present. Neuro: Alert and orientated x 4. Cranial nerves 2-12 intact without focal deficit. Poor historian. Skin: Warm, dry, and intact, without rash, erythema, or lesion.? Psych: pleasant, cooperative, normal speech, normal affect Objective Data Vital Signs Vital Signs: Vital Signs - 24 hr 04/30/25 08:00 04/30/25 08:45 04/30/25 09:37 Temperature Pulse Rate 73 Respiratory Rate Blood Pressure Pulse Oximetry 94 94 Oxygen Delivery Room Air Room Air 04/30/25 10:35 04/30/25 12:00 04/30/25 14:05 Temperature 97.7 F 98 F Pulse Rate 69 92 68 Respiratory Rate 19 18 Blood Pressure 98/59 L 101/58 L Pulse Oximetry 94 96 Oxygen Delivery 04/30/25 16:00 04/30/25 16:00 04/30/25 20:00 Temperature 98 F Pulse Rate 75 68 Respiratory Rate 18 Blood Pressure 106/60 Pulse Oximetry 97 Oxygen Delivery Room Air 04/30/25 20:00 04/30/25 20:00 05/01/25 00:00 Temperature 98.4 F Pulse Rate 77 71 71 Respiratory Rate 20 Blood Pressure 105/52 L Pulse Oximetry 96 Oxygen Delivery 05/01/25 00:00 05/01/25 04:00 05/01/25 04:00 Temperature 98.2 F 97.7 F Pulse Rate 71 71 70 Respiratory Rate 18 20 Blood Pressure 103/44 L 107/50 L Pulse Oximetry 100 95 Oxygen Delivery Intake/Output Intake/Output: Intake & Output 04/28/25 04/29/25 04/30/25 05/01/25 23:59 23:59 23:59 23:59 Intake Total 2300 2420 200 Output Total 2100 Balance 2300 320 200 Meds/Results Medications: Active Medications Generic Name Dose Route Start Last Admin Trade Name Freq PRN Reason Stop Dose Admin Acetaminophen 1,000 mg 04/30/25 06:50 05/01/25 05:52 Acetaminophen 500 Mg Tablet PO 1,000 mg Q6HR MARY Administration Azithromycin 500 mg 04/30/25 21:00 04/30/25 20:37 Azithromycin 250 Mg Tablet PO 05/03/25 21:01 500 mg QHS MARY Administration Calcium Carbonate 200 mg 04/30/25 06:50 Calcium Carbonate (Tums) 500 Mg (200 Mg Elemental) PO BID PRN Dyspepsia Cyanocobalamin 1,000 mcg 04/30/25 09:00 04/30/25 08:43 Cyanocobalamin 1,000 Mcg Tablet PO 1,000 mcg DAILY MARY Administration Escitalopram Oxalate 10 mg 04/30/25 09:00 04/30/25 08:43 Escitalopram Oxalate 10 Mg Tablet PO 10 mg DAILY MARY Administration Gabapentin 300 mg 04/30/25 21:00 04/30/25 20:37 Gabapentin 300 Mg Capsule PO 300 mg HS [facility] Administration Cefepime HCl 2 gm/ Sodium 50 mls @ 100 mls/hr 04/30/25 09:00 04/30/25 20:37 Chloride IVPB 100 mls/hr Q12HR MARY Administration Levetiracetam 750 mg 04/30/25 09:00 04/30/25 20:37 Levetiracetam 250 Mg Tablet PO 750 mg Q12HR MARY Administration Lidocaine 1 patch 04/30/25 09:00 04/30/25 08:47 Lidocaine 5% Patch TOPICAL 05/30/25 08:59 1 patch DAILY [facility] Administration Ondansetron HCl 4 mg 04/30/25 06:50 Ondansetron Hcl Odt 4 Mg Tablet PO Q6H PRN Nausea And Vomiting Oxycodone HCl 5 mg 04/30/25 06:50 Oxycodone Hcl (*Crx) 5 Mg Tab Ir PO Q4H PRN Pain 7-10 Pantoprazole Sodium 40 mg 04/30/25 09:00 04/30/25 08:49 Pantoprazole 40 Mg Tablet PO 05/30/25 08:59 Not Given DAILY [facility] Sodium Chloride 10 ml 04/30/25 14:00 05/01/25 06:03 Saline Lock Flush IV PUSH 10 ml Q8HR MARY Administration Sodium Chloride 10 ml 04/30/25 06:36 Saline Lock Flush IV PUSH PRN PRN Flush Sodium Chloride 20 ml 04/30/25 06:36 Saline Lock Flush IV PUSH PRN PRN after blood draws Tamsulosin HCl 0.4 mg 04/30/25 16:00 04/30/25 16:07 Tamsulosin Hcl 0.4 Mg Capsule PO 0.4 mg 1600 [facility] Administration Warfarin Sodium 3 mg 05/01/25 17:00 Warfarin (*Pbkc) 3 Mg Tablet PO DAILY@1700 [facility] Radiology Results: ITS Impressions Chest X-Ray 04/29/25 17:05 Impression: 1: Left-sided volume loss with atelectasis and left pleural effusion. Mediastinal shift to the left. Cannot exclude superimposed pneumonia. Chest/Abdomen/Pelvis CTA 04/29/25 20:05 IMPRESSION: 1. Left upper lobe collapse. Focal consolidation left lower lobe may represent atelectasis and/or pneumonia. There is volume loss in the left thorax with mediastinal shift to the left. 2: Small left pleural effusion. 3: Bilateral renal atrophy with bilateral nephrolithiasis. Bilateral percutaneous nephrostomy catheters. Right internal ureteral stent. 4: Abnormal posterior bladder wall thickening, suspicious for malignancy. 5: Small 11 mm cystic mass pancreatic body. The differential diagnosis includes pseudocyst, intraductal papillary mucinous neoplasm (IPMN), mucinous cystic neoplasm (MCN), and the less common serous cystadenoma and neuroendocrine tumor. Labs Labs: Laboratory Results - last 24 hr 04/30/25 05/01/25 07:09 04:36 WBC 4.9 RBC 2.93 L Hgb 8.6 L Hct 28.1 L MCV 95.9 MCH 29.4 MCHC 30.6 L RDW 15.0 H Plt Count 233 MPV 8.5 Immature Gran % (Auto) 0.6 H Neut % (Auto) 71.0 Lymph % (Auto) 11.4 L Grundy % (Auto) 10.3 H Eos % (Auto) 6.1 H Baso % (Auto) 0.6 Lymph # (Auto) 0.56 L Grundy # (Auto) 0.5 Eos # (Auto) 0.3 Baso # (Auto) 0.0 Abs Immat Gran (auto) 0.03 Absolute Neuts (auto) 3.5 Absolute Nucleated RBC 0.000 Nucleated RBC % 0.0 PT 23.7 H 23.3 H INR 2.2 2.1 Sodium 137 Potassium 4.0 Chloride 109 H Carbon Dioxide 26 Anion Gap 2 L BUN 22 H Creatinine 1.14 Estim Creat Clear Calc 47 Estimated GFR > 60 Glucose 94 Calcium 8.3 L Total Bilirubin 0.2 AST 29 ALT 23 Alkaline Phosphatase 174 H Total Protein 5.9 L Albumin 2.7 L Quality VTE Prophylaxis VTE prophylaxis: pharmacologic ordered
[2025-05-01 07:48] LABS: CRP 1.9 mg/dL (<1.0); NT Pro B Type Natriuretic Pept 1070 pg/mL (19.9-100)
[2025-05-01 07:57] LABS: Procalcitonin 0.1 ng/mL
[2025-05-01] MEDS: CYANOCOBALAMIN 1,000 MCG TABLET 1000 MCG PO (08:40)
[2025-05-01] MEDS: ESCITALOPRAM OXALATE 10 MG TABLET PO (08:40)
[2025-05-01] MEDS: CEFEPIME 2 GM in SODIUM CHLORIDE 0.9% IV 50 ML 100 ML IVPB ×2 (08:40→20:41)
[2025-05-01] MEDS: LIDOCAINE 5% PATCH 1 PATCH TOPICAL (08:41)
--- NOTE | 2025-05-01 11:24 | PM.CNPUL ---
Assessment and Plan Assessment and plan (1) Collapse of lung: Code(s): J98.19 - Other pulmonary collapse Status: Acute Assessment and Plan: Patient presents with worsening shortness of breath, cough and feeling like he had an upper respiratory tract infection. He he had no leukocytosis, his procalcitonin 0.1, CRP is 1.9. CT scan of the chest shows left upper lobe collapse with cut off consistent with mucus plugging. Patient had a chest x-ray on 04/18/2025 with no collapse. Plan: Suspect that this is mucus plugging as patient is weak, laying in bed and has difficulty expectorating. I will continue treatment for possible pneumonia with cefepime and azithromycin, will place the patient on DuoNebs q.6 hours, Mucomyst 200 mg q.6 hours, guaifenesin 1200 mg p.o. b.i.d., Cornet flutter valve. I will not perform vest therapy as the patient has bilateral nephrostomy tubes in place. Will follow patient x-ray to assess for re-expansion. Discussed with Lora Adame, will follow with you. (2) Pneumonia: Code(s): J18.9 - Pneumonia, unspecified organism Status: Acute Assessment and Plan: Patient presents with shortness of breath, worsening cough and feeling like he has an upper respiratory tract infection. He has been afebrile. He has no leukocytosis, his procalcitonin is 0.1 and his CRP is 1.9. MRSA swab negative, COVID influenza and RSV RT PCR negative. Plan: Low likelihood that patient has a bacterial infection but at this time will continue cefepime and azithromycin. Blood cultures are pending. I will order sputum Gram stain and culture. I have ordered respiratory pathogen panel, urine Legionella, urine pneumococcal and serum mycoplasma IgM. History of Present Illness History of Present Illness Consult date: 05/01/25 Chief complaint: Collapsed lung Narrative: 05/01/2025: This is a new pulmonary consult for collapse of left upper lobe. 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 patient smoked tobacco from [id number] at 2 cigarettes a week, 0.33 PY, smoked 1 cigar a week for many years. 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 At baseline he can walk 3-4 steps because of balance problems and hip pain from his stroke. He denies any shortness of breath at rest or dyspnea on exertion. 04/18/25 to 04/24/25: Patient admitted with a UTI and bacteremia with Serratia marcescens. For 1 year he has complained of a dry cough. Over the last week he has stated that his phlegm has increased to 5 to 7 times a day, he does not know the color. He has had shortness of breath for 4 days and felt like he had an upper respiratory tract infection. He developed chest pain and presented to the emergency room on 04/29/2025. Blood pressure 106/67, heart rate 70, respirations 14, saturations on room air 97%. Decreased breath sounds on the left. White blood cell count 8.9, creatinine 1.19, troponin negative x2, MRSA swab negative, COVID influenza and RSV RT PCR assay negative, UA with positive leukocyte esterase, white blood cell greater than 100 and rare bacteria. Patient had a CT angiogram of the chest with no PE, left upper lobe collapse With cut off in the left mainstem, infiltrate left lower lobe, minimal ground-glass infiltrate right lower lobe posteriorly. Patient was started on vancomycin, cefepime and azithromycin. 05/01/2025: Patient states that he is breathing 80-90% back to normal. His cough is 80-90% back to normal. He has minimal phlegm and no hemoptysis. His room air saturations are 96%. He is afebrile. White blood cell count 4.9, creatinine 1.14, INR 2.1. BNP is 1070, procalcitonin 0.1, CRP 1.9. Chest x-ray today demonstrates left lower lobe collapse with no change from 04/29/2025. When I asked the patient to cough up phlegm he had a difficult time expectorating but was able to expectorate some thick yellow phlegm. DATA: 04/29/2025: EXAMINATION: CTA chest abdomen pelvis INDICATION: Chest pain and shortness of breath COMPARISON: None. FINDINGS: CHEST CTA: There are groundglass opacities in the right lower lobe. There is consolidation in the left lower lobe. Small left pleural effusion. No pneumothorax. Thoracic aorta within normal limits without evidence for aneurysm. No central pulmonary embolism. Small hiatal hernia. There is left upper lobe collapse. There is mediastinal shift to the left. ABDOMEN AND PELVIS CTA: There is bilateral renal atrophy. There are bilateral percutaneous nephrostomy catheters. There are bilateral renal stones. The liver, spleen, adrenal glands are unremarkable. There is pancreatic atrophy. There is a small 11 mm cystic mass of the pancreatic body. Bladder wall is thickened. Prostate gland is enlarged. There is a right internal ureteral stent. There is focal thickening posteriorly in the bladder wall, suspicious for transitional cell carcinoma. Nonobstructive bowel gas pattern. Severe thoracic and lumbar spondylosis. There is dextroscoliosis of the thoracic spine. Severe osteoarthritis of the hips. IMPRESSION: 1. Left upper lobe collapse. Focal consolidation left lower lobe may represent atelectasis and/or pneumonia. There is volume loss in the left thorax with mediastinal shift to the left. 2: Small left pleural effusion. 3: Bilateral renal atrophy with bilateral nephrolithiasis. Bilateral percutaneous nephrostomy catheters. Right internal ureteral stent. 4: Abnormal posterior bladder wall thickening, suspicious for malignancy. 5: Small 11 mm cystic mass pancreatic body. The differential diagnosis includes pseudocyst, intraductal papillary mucinous neoplasm (IPMN), mucinous cystic neoplasm (MCN), and the less common serous cystadenoma and neuroendocrine tumor. 04/18/25: EXAMINATION: XR chest 1V portable DATE: 04/18/2025 08:57 INDICATION: Cough and weakness TECHNIQUE: frontal view of the chest was obtained. COMPARISON: Chest radiograph dated none FINDINGS: Full or near and bandlike opacities at the left lower lung zone and favor atelectasis over pneumonia. Subtle increased opacity of the left lung relative to the right likely artifactual with similar asymmetry to the density of the soft tissues of the more lateral left and right chest wall. The cardiomediastinal silhouette is normal. A couple likely implantable diagnostic cardiac sonographer is projected over the lower chest. Widening of the right acromioclavicular joint consistent with age-indeterminate acromioclavicular joint separation. IMPRESSION: 1. Mild opacity left lower lung zone and favor atelectasis over pneumonia. Review of Systems Constitutional: Constitutional: Reports no additional constitutional complaints Eyes: Eyes: Reports no additional eye complaints ENT: Reports system reviewed and no additional complaints, except as documented Cardiovascular: Cardiovascular: Reports no additional cardiovascular complaints Respiratory: Respiratory: Reports no additional respiratory complaints Gastrointestinal: Gastrointestinal: Reports no additional gastrointestinal complaints Musculoskeletal: Musculoskeletal: Reports no additional musculoskeletal complaints Neurologic: Reports system reviewed and no additional complaints, except as documented Psychiatric: Psychiatric: Reports no additional psychiatric complaints Endocrine: Endocrine: Reports no additional endocrine complaints Hematologic/Lymphatic: Hematologic/Lymphatic: Reports no additional hematologic/lymphatic complaints Allergic/Immunologic: Allergic/Immunologic: Reports no additional allergic/immunologic complaints [facility] Past Medical History Medical History Seizure disorder History of CVA (cerebrovascular accident) Atrial fibrillation, chronic Pacemaker Chronic kidney disease, stage 3 Nephrostomy present Essential hypertension Major depressive disorder Surgical History Surgical History History of nephrostomy Bilateral, placed in February of 2025 at [facility] History of knee replacement, total Family History Family History (Updated 04/30/25 @ 01:30 by Anjali Gilliland RN) Father Prostate carcinoma Mother Acute myocardial infarction Social History Social History Smoking status: Never smoker Alcohol intake: never Substance use: never Lack of Transportation: No Lack of Food: Never True Current Housing: I Have Housing Concerned About Future Housing: No Difficulty Paying Gas/Electric Bills: No Difficulty Paying for Meds: No Currently Unemployed: No Education: Bachelor's Degree Difficulty w/ Childcare or Family Care: No Spiritual care concerns: No Meds Home Medications and Allergies Home Medications ?Medication ?Instructions ?Recorded ?Confirmed ?Type acetaminophen 500 mg capsule 1,000 mg PO Q6H pain 04/18/25 04/30/25 History calcium carbonate (Calcium Antacid) 200 mg PO BID PRN dyspepsia 04/18/25 04/30/25 History cyanocobalamin (vitamin B-12) 1,000 mcg PO DAILY 04/18/25 04/30/25 History 1,000 mcg capsule escitalopram oxalate 10 mg tablet 10 mg PO DAILY 04/18/25 04/30/25 History gabapentin 300 mg capsule 300 mg PO HS 04/18/25 04/30/25 History levetiracetam 750 mg tablet 750 mg PO BID 04/18/25 04/30/25 History lidocaine 4 % topical patch 1 patch topical DAILY 04/18/25 04/30/25 History (Lidocaine Pain Relief) ondansetron 4 mg disintegrating 4 mg PO Q6H PRN nausea and vomiting 04/18/25 04/30/25 History tablet oxycodone 5 mg capsule 5 mg PO Q4H PRN pain 04/18/25 04/30/25 History pantoprazole 40 mg granules 40 mg PO DAILY 04/18/25 04/30/25 History delayed-release for susp in packet tamsulosin 0.4 mg capsule 0.4 mg PO 1600 04/18/25 04/30/25 History warfarin 3 mg tablet 6 mg PO DAILY 04/18/25 04/30/25 History ceftriaxone 2 gram solution for 2 g IV DAILY #3 ea 04/24/25 04/30/25 Rx injection Allergies Allergy/AdvReac Type Severity Reaction Status Date / Time Sulfa (Sulfonamide Allergy Unknown Verified 04/29/25 16:20 Antibiotics) Vital Signs Vital Signs - 24 hr 04/30/25 12:00 04/30/25 14:05 04/30/25 16:00 Temperature 36.6 C Pulse Rate 92 68 75 Respiratory Rate 18 Blood Pressure 101/58 L Pulse Oximetry 96 Oxygen Delivery 04/30/25 16:00 04/30/25 20:00 04/30/25 20:00 Temperature 36.6 C Pulse Rate 68 77 Respiratory Rate 18 Blood Pressure 106/60 Pulse Oximetry 97 Oxygen Delivery Room Air 04/30/25 20:00 05/01/25 00:00 05/01/25 00:00 Temperature 36.9 C 36.8 C Pulse Rate 71 71 71 Respiratory Rate 20 18 Blood Pressure 105/52 L 103/44 L Pulse Oximetry 96 100 Oxygen Delivery 05/01/25 04:00 05/01/25 04:00 05/01/25 08:00 Temperature 36.5 C Pulse Rate 71 70 76 Respiratory Rate 20 Blood Pressure 107/50 L Pulse Oximetry 95 Oxygen Delivery 05/01/25 08:00 05/01/25 08:40 Temperature 36.4 C L Pulse Rate 69 Respiratory Rate 20 Blood Pressure 103/53 L Pulse Oximetry 95 Oxygen Delivery Room Air Exam Const: General: cooperative, healthy appearing and comfortable Orientation/consciousness: oriented to person, oriented to place and oriented to time HENMT: Head: normal to inspection Ears: hearing grossly normal bilaterally Eyes: General: appearance normal, both eyes and all related structures Neck: Neck: normal visual inspection Chest: Chest palpation & inspection: normal inspection of the chest Resp: Effort & Inspection: normal respiratory effort and able to speak in complete sentences Auscultation: no crackles, no rales, no rhonchi, no wheezes and diminished lung sounds Other: Left lung Cardio: Jugular venous distension: no JVD GI: Inspection: normal to inspection GI Palp: No abdominal tenderness Back/Spine/Pelvis: Other: bilateral nephrostomy tubes in place Skin: General skin exam: normal color Neuro: General: oriented to person, oriented to place and oriented to time Extrem: General: normal to inspection and no edema Psych: Appearance: grossly normal Results Laboratory Findings 05/01/25 04:36 05/01/25 04:36 ABG, PT/INR, D-dimer: PT/INR, D-dimer PT 23.3 Seconds (11.1-14.7) H 05/01/25 04:36 INR 2.1 05/01/25 04:36 Abnormal lab findings: Abnormal Labs 04/29/25 04/29/25 04/30/25 16:56 19:10 07:09 RBC 3.49 L Hgb 10.3 L Hct 33.2 L MCHC 31.0 L RDW 15.1 H Immature Gran % (Auto) 0.9 H Neut % (Auto) 86.6 H Lymph % (Auto) 3.7 L Ida % (Auto) Eos % (Auto) Lymph # (Auto) 0.33 L Ida # (Auto) 0.7 H Abs Immat Gran (auto) 0.08 H Absolute Neuts (auto) 7.7 H PT 23.6 H D 25.5 H 23.7 H APTT 49.3 H 50.0 H Sodium 136 L Chloride Anion Gap BUN 26 H Glucose 123 H Calcium Alkaline Phosphatase 230 H C-Reactive Protein NT-Pro-B Natriuret Pep Total Protein Albumin 3.3 L Urine Appearance Cloudy H Urine Protein 4+ H Ur Blood (Man) 2+ H Leukocyte Esterase Rfl 2+ H Urine RBC >100 H Urine WBC >100 H 05/01/25 04:36 RBC 2.93 L Hgb 8.6 L Hct 28.1 L MCHC 30.6 L RDW 15.0 H Immature Gran % (Auto) 0.6 H Neut % (Auto) Lymph % (Auto) 11.4 L Ida % (Auto) 10.3 H Eos % (Auto) 6.1 H Lymph # (Auto) 0.56 L Ida # (Auto) Abs Immat Gran (auto) Absolute Neuts (auto) PT 23.3 H APTT Sodium Chloride 109 H Anion Gap 2 L BUN 22 H Glucose Calcium 8.3 L Alkaline Phosphatase 174 H C-Reactive Protein 1.9 H NT-Pro-B Natriuret Pep 1070 H Total Protein 5.9 L Albumin 2.7 L Urine Appearance Urine Protein Ur Blood (Man) Leukocyte Esterase Rfl Urine RBC Urine WBC Diagnostic Findings Additional studies: ITS Impressions Chest X-Ray 04/29/25 17:05 Impression: 1: Left-sided volume loss with atelectasis and left pleural effusion. Mediastinal shift to the left. Cannot exclude superimposed pneumonia. Chest/Abdomen/Pelvis CTA 04/29/25 20:05
[2025-05-01] MEDS: guaiFENesin 12 HR 600 MG TABCR 1200 MG PO ×2 (12:56→20:40)
[2025-05-01] MEDS: IPRATROPIUM 0.5 MG/ALBUTEROL SULFATE 2.5 MG AMPUL.NEB 3 ML INHALATION ×2 (13:45→20:17)
[2025-05-01] MEDS: ACETYLCYSTEINE 20% INHAL SOLN 800 MG/4 ML VIAL 200 MG INHALATION ×2 (13:45→20:18)
[2025-05-01] MEDS: TAMSULOSIN HCL 0.4 MG CAPSULE PO (16:40)
[2025-05-01] MEDS: WARFARIN (*PBKC) 3 MG TABLET PO (16:40)
[2025-05-01] MEDS: WARFARIN (*PBKC) 3 MG TABLET 6 MG PO (16:40)
[2025-05-01] MEDS: GABAPENTIN 300 MG CAPSULE PO (20:40)
[2025-05-01] MEDS: AZITHROMYCIN 250 MG TABLET 500 MG PO (20:40)
[2025-05-02] VITALS (17 sets, daily range): BP systolic 98–105; BP diastolic 49–58; PULSE 64–97; RESP 16–20; TEMP 36.3–36.6; O2SAT 95–97
[2025-05-02] MEDS: ACETYLCYSTEINE 20% INHAL SOLN 800 MG/4 ML VIAL 200 MG INHALATION ×4 (02:08→20:11)
[2025-05-02] MEDS: IPRATROPIUM 0.5 MG/ALBUTEROL SULFATE 2.5 MG AMPUL.NEB 3 ML INHALATION ×4 (02:08→20:11)
[2025-05-02 05:03] LABS: Hematocrit 29.6 % (42.0-52.0); Hemoglobin 9.0 g/dL (14.0-18.0); Immature Granulocyte Percent A 0.4 % (0-0.5); Lymphocytes Absolute Auto 0.65 K/mm3 (0.9-3.2); Mean Corpuscular HGB Conc 30.4 g/dl (32-36); Mean Corpuscular Hemoglobin 29.2 pg (26-34); Mean Corpuscular Volume 96.1 fl (80-100); Nucleated Red Blood Cells Absolute Auto 0.000 K/mm3 (0.0-0.012); Nucleated Red Blood Cells Perc 0.0 % (0.0-0.2); Platelet Count Result 216 k/mm3 (150-375); Red Blood Count 3.08 M/mm3 (4.6-6.20); White Blood Count 7.4 K/mm3 (4.5-10.0)
[2025-05-02 05:14] LABS: INR 1.8; Prothrombin Time 20.5 Seconds (11.1-14.7)
[2025-05-02 05:18] LABS: Alanine Aminotransferase 22 U/L (6-50); Albumin Level 2.9 g/dL (3.5-5.1); Alkaline Phosphatase 176 U/L (38-126); Anion Gap 4 mmol/L (4-12); Aspartate Amino Transferase 28 U/L (17-59); Bilirubin,Total 0.4 mg/dL (0.2-1.3); Blood Urea Nitrogen 20 mg/dL (9-20); Calcium 8.5 mg/dL (8.4-10.2); Carbon Dioxide 25 mmol/L (22-30); Chloride 108 mmol/L (98-107); Estimated CRCL calculation 50 ml/min; Estimated Glomerular Filt Rate > 60; Glucose 96 mg/dL (65-110); Potassium 3.7 mmol/L (3.4-5.0); Sodium 137 mmol/L (137-145); Total Protein 6.1 g/dL (6.3-8.2)
[2025-05-02] MEDS: ACETAMINOPHEN 500 MG TABLET 1000 MG PO ×4 (06:01→23:53)
[2025-05-02] MEDS: SALINE LOCK FLUSH 10 ML IV PUSH ×3 (06:02→20:43)
[2025-05-02] MEDS: ESCITALOPRAM OXALATE 10 MG TABLET PO (08:17)
[2025-05-02] MEDS: CYANOCOBALAMIN 1,000 MCG TABLET 1000 MCG PO (08:17)
[2025-05-02] MEDS: guaiFENesin 12 HR 600 MG TABCR 1200 MG PO ×2 (08:18→20:41)
[2025-05-02] MEDS: PANTOPRAZOLE 40 MG TABLET PO (08:18)
[2025-05-02] MEDS: LIDOCAINE 5% PATCH 1 PATCH TOPICAL (08:18)
[2025-05-02] MEDS: CEFEPIME 2 GM in SODIUM CHLORIDE 0.9% IV 50 ML 100 ML IVPB (08:18)
--- NOTE | 2025-05-02 09:02 | P.PNPL_ITS ---
Progress Note: A&P Assessment and Plan (1) Collapse of lung: Code(s): J98.19 - Other pulmonary collapse Status: Acute Assessment and Plan: Patient presents with worsening shortness of breath, cough and feeling like he had an upper respiratory tract infection. He he had no leukocytosis, his procalcitonin 0.1, CRP is 1.9. CT scan of the chest shows left upper lobe collapse with cut off consistent with mucus plugging. Patient had a chest x-ray on 04/18/2025 with no collapse. Plan: Suspect that this is mucus plugging as patient is weak, laying in bed and has difficulty expectorating. I will continue treatment for possible pneumonia with cefepime and azithromycin, will place the patient on DuoNebs q.6 hours, Mucomyst 200 mg q.6 hours, guaifenesin 1200 mg p.o. b.i.d., Cornet flutter valve. I will not perform vest therapy as the patient has bilateral nephrostomy tubes in place. Will follow patient x-ray to assess for re- expansion. 05/02/25: Patient tells me that he is 95 % back to his normal. He has no shortness of breath. He denies fever, chills, rigors. He says the phlegm still is getting stuck in his throat. He has no hemoptysis. His room air saturations are 97%. He is afebrile with a white blood cell count of 7.4, creatinine 1.07. Chest x-ray today shows mild improvement in his left lower lobe with aeration compared with 05/01/2025. I placed the patient right side down and put him in Trendelenburg for 10 minutes and performed chest physical therapy and he was able to expectorate 1 thick yellow expectoration. Plan: Patient has improved with DuoNebs q.6 hours, Mucomyst q.6 hours, guaifenesin 1200 p.o. b.i.d., and Cornet flutter valve. Chest x-ray shows better aeration. he is also being treated for possible pneumonia with cefepime and azithromycin. Continue this treatment while patient is in the hospital. Patient tells me that the nebulizer treatments to help him expectorate. Patient is essentially bed bound, he does get up to go in a wheelchair, he has a weak cough that is inefficient and he does not clear her secretions well. I have encouraged him to be out of bed, continue physical therapy with a goal of walking so that he can increase his strength and hopefully his cough will also improved. In the meantime, he is at high risk for respiratory complications due to retained secretions. From a pulmonary perspective he is ready for discharge on these pulmonary medications. Levofloxacin 750 mg p.o. q.day x3 days DuoNebs b.i.d. Guaifenesin 1200 mg p.o. b.i.d. Cornet flutter valve q.2 hours while awake Discussed with Lora Adame, will follow with you. (2) Pneumonia: Code(s): J18.9 - Pneumonia, unspecified organism Status: Acute Assessment and Plan: Patient presents with shortness of breath, worsening cough and feeling like he has an upper respiratory tract infection. He has been afebrile. He has no leukocytosis, his procalcitonin is 0.1 and his CRP is 1.9. MRSA swab negative, COVID influenza and RSV RT PCR negative. Plan: Low likelihood that patient has a bacterial infection but at this time will continue cefepime and azithromycin. Blood cultures are pending. I will order sputum Gram stain and culture. I have ordered respiratory pathogen panel, urine Legionella, urine pneumococcal and serum mycoplasma IgM. 05/02/25: He denies fever, chills, rigors. He says the phlegm still is getting stuck in his throat. He has no hemoptysis. His room air saturations are 97%. He is afebrile with a white blood cell count of 7.4, creatinine 1.07. Chest x- ray today shows mild improvement in his left lower lobe with aeration compared with 05/01/2025. Plan: Agree with treatment while he was in the hospital with cefepime, today is day 4 and would discontinue after 7 days. Continue azithromycin, today is day 4 and will give total of 5 days emma WIN. Subjective Date/time seen: 05/02/25 09:02 Interval history: 05/01/2025: This is a new pulmonary consult for collapse of left upper lobe. 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 patient smoked tobacco from [id number] at 2 cigarettes a week, 0.33 PY, smoked 1 cigar a week for many years. 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 At baseline he can walk 3-4 steps because of balance problems and hip pain from his stroke. He denies any shortness of breath at rest or dyspnea on exertion. 04/18/25 to 04/24/25: Patient admitted with a UTI and bacteremia with Serratia marcescens. For 1 year he has complained of a dry cough. Over the last week he has stated that his phlegm has increased to 5 to 7 times a day, he does not know the color. He has had shortness of breath for 4 days and felt like he had an upper respiratory tract infection. He developed chest pain and presented to the emergency room on 04/29/2025. Blood pressure 106/67, heart rate 70, respirations 14, saturations on room air 97%. Decreased breath sounds on the left. White blood cell count 8.9, creatinine 1.19, troponin negative x2, MRSA swab negative, COVID influenza and RSV RT PCR assay negative, UA with positive leukocyte esterase, white blood cell greater than 100 and rare bacteria. Patient had a CT angiogram of the chest with no PE, left upper lobe collapse With cut off in the left mainstem, infiltrate left lower lobe, minimal ground- glass infiltrate right lower lobe posteriorly. Patient was started on vancomycin, cefepime and azithromycin. 05/01/2025: Patient states that he is breathing 80-90% back to normal. His cough is 80-90% back to normal. He has minimal phlegm and no hemoptysis. His room air saturations are 96%. He is afebrile. White blood cell count 4.9, creatinine 1.14, INR 2.1. BNP is 1070, procalcitonin 0.1, CRP 1.9. Chest x- ray today demonstrates left lower lobe collapse with no change from 04/29/2025. When I asked the patient to cough up phlegm he had a difficult time expectorating but was able to expectorate some thick yellow phlegm. 05/02/25: Patient tells me that he is 95 % back to his normal. He has no shortness of breath. He denies fever, chills, rigors. He says the phlegm still is getting stuck in his throat. He has no hemoptysis. His room air saturations are 97%. He is afebrile with a white blood cell count of 7.4, creatinine 1.07. Chest x-ray today shows mild improvement in his left lower lobe with aeration compared with 05/01/2025. I placed the patient right side down and put him in Trendelenburg for 10 minutes and performed chest physical therapy and he was able to expectorate 1 thick yellow expectoration. DATA: 04/29/2025: EXAMINATION: CTA chest abdomen pelvis INDICATION: Chest pain and shortness of breath COMPARISON: None. FINDINGS: CHEST CTA: There are groundglass opacities in the right lower lobe. There is consolidation in the left lower lobe. Small left pleural effusion. No pneumothorax. Thoracic aorta within normal limits without evidence for aneurysm. No central pulmonary embolism. Small hiatal hernia. There is left upper lobe collapse. There is mediastinal shift to the left. ABDOMEN AND PELVIS CTA: There is bilateral renal atrophy. There are bilateral percutaneous nephrostomy catheters. There are bilateral renal stones. The liver, spleen, adrenal glands are unremarkable. There is pancreatic atrophy. There is a small 11 mm cystic mass of the pancreatic body. Bladder wall is thickened. Prostate gland is enlarg ed. There is a right internal ureteral stent. There is focal thickening posteriorly in the bladder wall, suspicious for transitional cell carcinoma. Nonobstructive bowel gas pattern. Severe thoracic and lumbar spondylosis. There is dextroscoliosis of the thoracic spine. Severe osteoarthritis of the hips. IMPRESSION: 1. Left upper lobe collapse. Focal consolidation left lower lobe may represent atelectasis and/or pneumonia. There is volume loss in the left thorax with mediastinal shift to the left. 2: Small left pleural effusion. 3: Bilateral renal atrophy with bilateral nephrolithiasis. Bilateral percutaneous nephrostomy catheters. Right internal ureteral stent. 4: Abnormal posterior bladder wall thickening, suspicious for malignancy. 5: Small 11 mm cystic mass pancreatic body. The differential diagnosis includes pseudocyst, intraductal papillary mucinous neoplasm (IPMN), mucinous cystic neoplasm (MCN), and the less common serous cystadenoma and neuroendocrine tumor. 04/18/25: EXAMINATION: XR chest 1V portable DATE: 04/18/2025 08:57 INDICATION: Cough and weakness TECHNIQUE: frontal view of the chest was obtained. COMPARISON: Chest radiograph dated none FINDINGS: Full or near and bandlike opacities at the left lower lung zone and favor atelectasis over pneumonia. Subtle increased opacity of the left lung relative to the right likely artifactual with similar asymmetry to the density of the soft tissues of the more lateral left and right chest wall. The cardiomediastinal silhouette is normal. A couple likely implantable playground monitor is projected over the lower chest. Widening of the right acromioclavicular joint consistent with age-indeterminate acromioclavicular joint separation. IMPRESSION: 1. Mild opacity left lower lung zone and favor atelectasis over pneumonia. Review of Systems Constitutional: Constitutional: Reports no additional constitutional complaints Eyes: Eyes: Reports no additional eye complaints ENT: Reports system reviewed and no additional complaints, except as documented Cardiovascular: Cardiovascular: Reports no additional cardiovascular complaints Respiratory: Respiratory: Reports no additional respiratory complaints Gastrointestinal: Gastrointestinal: Reports no additional gastrointestinal complaints Musculoskeletal: Musculoskeletal: Reports no additional musculoskeletal complaints Neurologic: Reports system reviewed and no additional complaints, except as documented Psychiatric: Psychiatric: Reports no additional psychiatric complaints Endocrine: Endocrine: Reports no additional endocrine complaints Hematologic/Lymphatic: Hematologic/Lymphatic: Reports no additional hematologic/lymphatic complaints Allergic/Immunologic: Allergic/Immunologic: Reports no additional allergic/immunologic complaints Exam Const: General: cooperative, healthy appearing and comfortable Orientation/consciousness: oriented to person, oriented to place and oriented to time HENMT: Head: normal to inspection Ears: hearing grossly normal bilaterally Eyes: General: appearance normal, both eyes and all related structures Neck: Neck: normal visual inspection Chest: Chest palpation & inspection: normal inspection of the chest Resp: Effort & Inspection: normal respiratory effort and able to speak in complete sentences Auscultation: no crackles, no rales, no rhonchi, no wheezes and lung sounds not diminished Other: improved BS Left lung Cardio: Jugular venous distension: no JVD GI: Inspection: normal to inspection Back/Spine/Pelvis: Other: bilateral nephrostomy tubes in place Skin: General skin exam: normal color Neuro: General: oriented to person, oriented to place and oriented to time Extrem: General: normal to inspection and no edema Psych: Appearance: grossly normal Objective Data Vital Signs Vital Signs: Vital Signs - 24 hr 05/01/25 12:00 05/01/25 12:00 05/01/25 13:46 Temperature 36.3 C L Pulse Rate 77 71 75 Respiratory Rate 18 18 Blood Pressure 102/54 L Pulse Oximetry 96 Oxygen Delivery 05/01/25 13:50 05/01/25 13:55 05/01/25 16:00 Temperature Pulse Rate 75 70 74 Respiratory Rate 18 18 Blood Pressure Pulse Oximetry 95 Oxygen Delivery Room Air 05/01/25 16:00 05/01/25 19:38 05/01/25 20:00 Temperature 36.3 C L 36.5 C Pulse Rate 71 76 Respiratory Rate 18 20 Blood Pressure 110/56 L 108/55 L Pulse Oximetry 98 93 Oxygen Delivery Room Air 05/01/25 20:00 05/01/25 20:20 05/01/25 20:20 Temperature Pulse Rate 75 68 Respiratory Rate 18 Blood Pressure Pulse Oximetry 95 Oxygen Delivery Room Air 05/01/25 20:32 05/02/25 00:00 05/02/25 00:00 Temperature 36.4 C Pulse Rate 72 70 97 Respiratory Rate 18 20 Blood Pressure 100/51 L Pulse Oximetry 95 Oxygen Delivery 05/02/25 02:11 05/02/25 02:23 05/02/25 04:00 Temperature Pulse Rate 64 67 70 Respiratory Rate 16 16 Blood Pressure Pulse Oximetry Oxygen Delivery 05/02/25 04:00 Temperature 36.3 C L Pulse Rate 70 Respiratory Rate 20 Blood Pressure 98/52 L Pulse Oximetry 95 Oxygen Delivery Intake/Output Intake/Output: Intake & Output 04/29/25 04/30/25 05/01/25 05/02/25 23:59 23:59 23:59 23:59 Intake Total 2300 2470 1500 390 Output Total 2100 1110 1675 Balance 2300 370 390 -1285 Meds/Results Medications: Active Medications Generic Name Dose Route Start Last Admin Trade Name Freq PRN Reason Stop Dose Admin Acetaminophen 1,000 mg 04/30/25 06:50 05/02/25 06:01 Acetaminophen 500 Mg Tablet PO 1,000 mg Q6HR MARY Administration Acetylcysteine 200 mg 05/01/25 14:00 05/02/25 02:08 Acetylcysteine 20% Inhal Soln 800 Mg/4 Ml Vial INHALATION 200 mg Q6HRT MARY Administration Albuterol/Ipratropium 3 ml 05/01/25 14:00 05/02/25 02:08 Ipratropium 0.5 Mg/Albuterol Sulfate 2.5 Mg Ampul.Neb 3 Ml INHALATION 3 ml Q6HRT MARY Administration Azithromycin 500 mg 04/30/25 21:00 05/01/25 20:40 Azithromycin 250 Mg Tablet PO 05/03/25 21:01 500 mg QHS MARY Administration Calcium Carbonate 200 mg 04/30/25 06:50 Calcium Carbonate (Tums) 500 Mg (200 Mg Elemental) PO BID PRN Dyspepsia Cyanocobalamin 1,000 mcg 04/30/25 09:00 05/02/25 08:17 Cyanocobalamin 1,000 Mcg Tablet PO 1,000 mcg DAILY MARY Administration Escitalopram Oxalate 10 mg 04/30/25 09:00 05/02/25 08:17 Escitalopram Oxalate 10 Mg Tablet PO 10 mg DAILY MARY Administration Gabapentin 300 mg 04/30/25 21:00 05/01/25 20:40 Gabapentin 300 Mg Capsule PO 300 mg HS MARY Administration Guaifenesin 1,200 mg 05/01/25 10:50 05/02/25 08:18 Guaifenesin 12 Hr 600 Mg Tabcr PO 1,200 mg Q12HR MARY Administration Cefepime HCl 2 gm/ Sodium 50 mls @ 100 mls/hr 04/30/25 09:00 05/02/25 08:18 Chloride IVPB 100 mls/hr Q12HR MARY Administration Levetiracetam 750 mg 04/30/25 09:00 05/02/25 08:18 Levetiracetam 250 Mg Tablet PO 750 mg Q12HR MARY Administration Lidocaine 1 patch 04/30/25 09:00 05/02/25 08:18 Lidocaine 5% Patch TOPICAL 05/30/25 08:59 1 patch DAILY MARY Administration Ondansetron HCl 4 mg 04/30/25 06:50 Ondansetron Hcl Odt 4 Mg Tablet PO Q6H PRN Nausea And Vomiting Oxycodone HCl 5 mg 04/30/25 06:50 Oxycodone Hcl (*Crx) 5 Mg Tab Ir PO Q4H PRN Pain 7-10 Pantoprazole Sodium 40 mg 04/30/25 09:00 05/02/25 08:18 Pantoprazole 40 Mg Tablet PO 05/30/25 08:59 40 mg DAILY MARY Administration Polyethylene Glycol 17 gm 05/02/25 09:00 05/02/25 08:17 Polyethylene Glycol 3350 17 Gm Powd.Pack PO 17 gm QAM MARY Administration Sodium Chloride 10 ml 04/30/25 14:00 05/02/25 06:02 Saline Lock Flush IV PUSH 10 ml Q8HR MARY Administration Sodium Chloride 10 ml 04/30/25 06:36 Saline Lock Flush IV PUSH PRN PRN Flush Sodium Chloride 20 ml 04/30/25 06:36 Saline Lock Flush IV PUSH PRN PRN after blood draws Tamsulosin HCl 0.4 mg 04/30/25 16:00 05/01/25 16:40 Tamsulosin Hcl 0.4 Mg Capsule PO 0.4 mg 1600 MARY Administration Warfarin Sodium 3 mg 05/01/25 17:00 05/01/25 16:40 Warfarin (*Pbkc) 3 Mg Tablet PO 3 mg MoTh@1700 MARY Administration Warfarin Sodium 6 mg 05/01/25 17:00 05/01/25 16:40 Warfarin (*Pbkc) 3 Mg Tablet PO 6 mg DAILY@1700 MARY Administration Radiology Results: ITS Impressions Chest/Abdomen/Pelvis CTA 04/29/25 20:05 IMPRESSION: 1. Left upper lobe collapse. Focal consolidation left lower lobe may represent atelectasis and/or pneumonia. There is volume loss in the left thorax with mediastinal shift to the left. 2: Small left pleural effusion. 3: Bilateral renal atrophy with bilateral nephrolithiasis. Bilateral percutaneous nephrostomy catheters. Right internal ureteral stent. 4: Abnormal posterior bladder wall thickening, suspicious for malignancy. 5: Small 11 mm cystic mass pancreatic body. The differential diagnosis includes pseudocyst, intraductal papillary mucinous neoplasm (IPMN), mucinous cystic neoplasm (MCN), and the less common serous cystadenoma and neuroendocrine tumor. Chest X-Ray 05/02/25 08:16 IMPRESSION: 1. Slight interval improvement in opacities in the left lower lung zone which could represent atelectasis or pneumonia. Labs Labs: Laboratory Results - last 24 hr 05/01/25 05/02/25 12:40 04:52 WBC 7.4 RBC 3.08 L Hgb 9.0 L Hct 29.6 L MCV 96.1 MCH 29.2 MCHC 30.4 L RDW 15.0 H Plt Count 216 MPV 8.4 Immature Gran % (Auto) 0.4 Neut % (Auto) 79.5 H Lymph % (Auto) 8.8 L Kimball % (Auto) 7.8 Eos % (Auto) 2.8 Baso % (Auto) 0.7 Lymph # (Auto) 0.65 L Kimball # (Auto) 0.6 Eos # (Auto) 0.2 Baso # (Auto) 0.1 Abs Immat Gran (auto) 0.03 Absolute Neuts (auto) 5.9 Absolute Nucleated RBC 0.000 Nucleated RBC % 0.0 PT 20.5 H INR 1.8 Sodium 137 Potassium 3.7 Chloride 108 H Carbon Dioxide 25 Anion Gap 4 BUN 20 Creatinine 1.07 Estim Creat Clear Calc 50 Estimated GFR > 60 Glucose 96 Calcium 8.5 Total Bilirubin 0.4 AST 28 ALT 22 Alkaline Phosphatase 176 H Total Protein 6.1 L Albumin 2.9 L Urine Pneumococcal Ag Cancelled
--- NOTE | 2025-05-02 11:52 | PCOTNOTE ---
Attempted to see pt for OT evaluation. Pt states he needs to have a bowel movement soon and declines getting up. Offered to get pt to a commode and pt declines stating he doesn't need to have one yet. Offered to get pt to a chair and have commode in room and ready for him and pt still declines and wants to use a bedpan. Pt educated on importance of getting up and moving but still declines at this time.
--- NOTE | 2025-05-02 14:55 | P.PNIM_ITS ---
Progress Note: A&P Assessment and Plan (1) Collapse of lung: Code(s): J98.19 - Other pulmonary collapse Status: Acute Assessment and Plan: -CT was read as 1. Left upper lobe collapse. Focal consolidation left lower lobe may represent atelectasis and/or pneumonia. There is volume loss in the left thorax with mediastinal shift to the left. 2: Small left pleural effusion. 3: Bilateral renal atrophy with bilateral nephrolithiasis. Bilateral percutaneous nephrostomy catheters. Right internal ureteral stent. 4: Abnormal posterior bladder wall thickening, suspicious for malignancy. 5: Small 11 mm cystic mass pancreatic body. The differential diagnosis includes pseudocyst, intraductal papillary mucinous neoplasm (IPMN), mucinous cystic neoplasm (MCN), and the less common serous cystadenoma and neuroendocrine tumor. The patient stated that he does not want any further workup for this cystic mass. -surgery consulted an no intervention recommended, recommended pulmonary consult -the patient was started on azithromycin, cefepime, and vancomycin. Vancomycin stopped, MRSA swab negative. -sputum and blood cultures are pending. -pulmonary following -CXR this AM with some improvement noted -pulmonary started patient on nebulizer treatments, flutter valve, guiafenisen -okay to switch to PO antibiotics on discharge Augmentin and Azithromycin (2) Atrial fibrillation, chronic: Code(s): I48.20 - Chronic atrial fibrillation, unspecified Status: Chronic Assessment and Plan: -patient is unclear if he is on warfarin. He believes that he had not taken it his last admission. However it was noted on his discharge 04/24/2025 that he was subtherapeutic and continue with home Coumadin. The patient is not sure if he has been taking it at home. -daily PT INR -INR 2.1 this AM -continue home dose of warfarin 6 mg on ,,Mon,Mon,Mon and 9 mg on / (3) H/O insertion of nephrostomy tube: Code(s): Z98.890 - Other specified postprocedural states Status: Acute Assessment and Plan: -nephrostomy tubes are intact at this time. (4) Chronic kidney disease, stage 3: Qualifiers: Chronic kidney disease stage 3 subtype: unspecified whether 3a or 3b Qualified Code(s): N18.30 - Chronic kidney disease, stage 3 unspecified Code(s): N18.30 - Chronic kidney disease, stage 3 unspecified Status: Chronic Assessment and Plan: -daily BMPs -patient continues to be at his baseline. (5) Essential hypertension: Code(s): I10 - Essential (primary) hypertension Status: Chronic Assessment and Plan: -patient's blood pressure appears to run on low side -continue to monitor blood pressure. The patient does not appear to be on any blood pressure medicine. 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 The patient stated that he wants no further workup. (7) Pneumonia: Code(s): J18.9 - Pneumonia, unspecified organism Status: Acute Assessment and Plan: the patient was started on azithromycin, cefepime, and vancomycin. sputum and blood cultures are pending. IV vancomycin stopped - MRSA swab negative pulmonary following okay to switch to PO Augmentin to complete 7 days of treatment and PO Azithro mycin to complete 5 days of treatment AM labs Subjective Date/time seen: 05/02/25 14:55 Interval history: Patient is an 79 year old male who presented with complaints of shortness of breath and chest discomfort for 4 days. Patient was recently discharged from this facility on 04/24/2025 due to bacteremia with Serratia marcescens and has been recieving IV Rocephin. Patient was discharged to a rehab facility for IV antibiotics and rehab. Patient was admitted with left upper lobe collapse and left lower lobe pneumonia. Patient was started on IV vacomycin and IV azithromycin and IV cefepime. General surgery was consulted and recommended a pulmonary consult. MRSA swab was negative and vancomycin was stopped. Pulmonary recommended continued treatment of pneumonia, flutter valve, nebulizer treatments and guaifenesin. Pulmonary vest was considered but unable to be used due to bilateral nephrostomy tubes. Repeat CXR from this AM improved per pulmonary. Patient is okay for discharge but will continue on PO antibiotics for pneumonia. Patient completed his course of IV ceftriaxone as of 04/27/25 per previous discharge summary. Patient will need rehab on discharge but is requesting not to return to his previous facility. Case management working on new placement. Patient seen and examined. Patient lying in bed, in no acute distress. Patient denies acute pain. patient reports no bowel movement and was started on Miralax. PRN medications added as well. Review of Systems Review of Systems: All systems reviewed & are unremarkable except as noted in HPI and below Exam Narrative: General: elderly, no acute distress HEENT: normocephalic, . Mucous membranes moist. EOMI Respiratory: clear to ascultation right side. No air movement TORRI, minimal air movement LLL with few rales. Cardiovascular: Regular rate and rhythm, normal S1-S2 upon ascultation. No murmurs, rubs, or clicks. Abdomen: Soft, round, no pulsatile masses, nondistended and nontender. No rebound, no guarding. Bowel sounds present to all four quadrants Extremities: No cyanosis, clubbing, or edema present. Neuro: Alert and orientated x 4. Cranial nerves 2-12 intact without focal deficit. Poor historian. Skin: Warm, dry, and intact, without rash, erythema, or lesion.? Psych: pleasant, cooperative, normal speech, normal affect Objective Data Vital Signs Vital Signs: Vital Signs - 24 hr 05/01/25 16:00 05/01/25 16:00 05/01/25 19:38 Temperature 97.3 F L 97.7 F Pulse Rate 74 71 76 Respiratory Rate 18 20 Blood Pressure 110/56 L 108/55 L Pulse Oximetry 98 93 Oxygen Delivery 05/01/25 20:00 05/01/25 20:00 05/01/25 20:20 Temperature Pulse Rate 75 Respiratory Rate Blood Pressure Pulse Oximetry 95 Oxygen Delivery Room Air Room Air 05/01/25 20:20 05/01/25 20:32 05/02/25 00:00 Temperature Pulse Rate 68 72 70 Respiratory Rate 18 18 Blood Pressure Pulse Oximetry Oxygen Delivery 05/02/25 00:00 05/02/25 02:11 05/02/25 02:23 Temperature 97.6 F Pulse Rate 97 64 67 Respiratory Rate 20 16 16 Blood Pressure 100/51 L Pulse Oximetry 95 Oxygen Delivery 05/02/25 04:00 05/02/25 04:00 05/02/25 08:00 Temperature 97.4 F L Pulse Rate 70 70 Respiratory Rate 20 Blood Pressure 98/52 L Pulse Oximetry 95 Oxygen Delivery Room Air 05/02/25 08:00 05/02/25 09:38 05/02/25 09:45 Temperature Pulse Rate 76 68 69 Respiratory Rate 16 16 Blood Pressure Pulse Oximetry Oxygen Delivery 05/02/25 09:51 05/02/25 10:38 05/02/25 12:00 Temperature 97.9 F Pulse Rate 70 70 Respiratory Rate 20 Blood Pressure 102/58 L Pulse Oximetry 96 Oxygen Delivery Room Air 05/02/25 14:40 Temperature Pulse Rate 72 Respiratory Rate 16 Blood Pressure Pulse Oximetry Oxygen Delivery Intake/Output Intake/Output: Intake & Output 04/29/25 04/30/25 05/01/25 05/02/25 23:59 23:59 23:59 23:59 Intake Total 2300 2470 1500 590 Output Total 2100 1110 1675 Balance 2300 370 390 -1085 Meds/Results Medications: Active Medications Generic Name Dose Route Start Last Admin Trade Name Freq PRN Reason Stop Dose Admin Acetaminophen 1,000 mg 04/30/25 06:50 05/02/25 12:04 Acetaminophen 500 Mg Tablet PO 1,000 mg Q6HR MARY Administration Acetylcysteine 200 mg 05/01/25 14:00 05/02/25 14:39 Acetylcysteine 20% Inhal Soln 800 Mg/4 Ml Vial INHALATION 200 mg Q6HRT MARY Administration Albuterol/Ipratropium 3 ml 05/01/25 14:00 05/02/25 14:39 Ipratropium 0.5 Mg/Albuterol Sulfate 2.5 Mg Ampul.Neb 3 Ml INHALATION 3 ml Q6HRT MARY Administration Amoxicillin/Clavulanate Potassium 1 tablet 05/02/25 21:00 Amoxicillin/Clavulanate K 875-125 Mg Tab PO 05/05/25 21:01 Q12HR MARY Azithromycin 500 mg 04/30/25 21:00 05/01/25 20:40 Azithromycin 250 Mg Tablet PO 05/03/25 21:01 500 mg QHS MARY Administration Calcium Carbonate 200 mg 04/30/25 06:50 Calcium Carbonate (Tums) 500 Mg (200 Mg Elemental) PO BID PRN Dyspepsia Cyanocobalamin 1,000 mcg 04/30/25 09:00 05/02/25 08:17 Cyanocobalamin 1,000 Mcg Tablet PO 1,000 mcg DAILY MARY Administration Escitalopram Oxalate 10 mg 04/30/25 09:00 05/02/25 08:17 Escitalopram Oxalate 10 Mg Tablet PO 10 mg DAILY MARY Administration Gabapentin 300 mg 04/30/25 21:00 05/01/25 20:40 Gabapentin 300 Mg Capsule PO 300 mg HS MARY Administration Guaifenesin 1,200 mg 05/01/25 10:50 05/02/25 08:18 Guaifenesin 12 Hr 600 Mg Tabcr PO 1,200 mg Q12HR MARY Administration Levetiracetam 750 mg 04/30/25 09:00 05/02/25 08:18 Levetiracetam 250 Mg Tablet PO 750 mg Q12HR MARY Administration Lidocaine 1 patch 04/30/25 09:00 05/02/25 08:18 Lidocaine 5% Patch TOPICAL 05/30/25 08:59 1 patch DAILY MARY Administration Ondansetron HCl 4 mg 04/30/25 06:50 Ondansetron Hcl Odt 4 Mg Tablet PO Q6H PRN Nausea And Vomiting Oxycodone HCl 5 mg 04/30/25 06:50 Oxycodone Hcl (*Crx) 5 Mg Tab Ir PO Q4H PRN Pain 7-10 Pantoprazole Sodium 40 mg 04/30/25 09:00 05/02/25 08:18 Pantoprazole 40 Mg Tablet PO 05/30/25 08:59 40 mg DAILY MARY Administration Polyethylene Glycol 17 gm 05/02/25 09:00 05/02/25 08:17 Polyethylene Glycol 3350 17 Gm Powd.Pack PO 17 gm QAM MARY Administration Sodium Chloride 10 ml 04/30/25 14:00 05/02/25 06:02 Saline Lock Flush IV PUSH 10 ml Q8HR MARY Administration Sodium Chloride 10 ml 04/30/25 06:36 Saline Lock Flush IV PUSH PRN PRN Flush Sodium Chloride 20 ml 04/30/25 06:36 Saline Lock Flush IV PUSH PRN PRN after blood draws Tamsulosin HCl 0.4 mg 04/30/25 16:00 05/01/25 16:40 Tamsulosin Hcl 0.4 Mg Capsule PO 0.4 mg 1600 MARY Administration Warfarin Sodium 3 mg 05/01/25 17:00 05/01/25 16:40 Warfarin (*Pbkc) 3 Mg Tablet PO 3 mg MoTh@1700 MARY Administration Warfarin Sodium 6 mg 05/01/25 17:00 05/01/25 16:40 Warfarin (*Pbkc) 3 Mg Tablet PO 6 mg DAILY@1700 MARY Administration Radiology Results: ITS Impressions Chest/Abdomen/Pelvis CTA 04/29/25 20:05 IMPRESSION: 1. Left upper lobe collapse. Focal consolidation left lower lobe may represent atelectasis and/or pneumonia. There is volume loss in the left thorax with mediastinal shift to the left. 2: Small left pleural effusion. 3: Bilateral renal atrophy with bilateral nephrolithiasis. Bilateral percutaneous nephrostomy catheters. Right internal ureteral stent. 4: Abnormal posterior bladder wall thickening, suspicious for malignancy. 5: Small 11 mm cystic mass pancreatic body. The differential diagnosis includes pseudocyst, intraductal papillary mucinous neoplasm (IPMN), mucinous cystic neoplasm (MCN), and the less common serous cystadenoma and neuroendocrine tumor. Chest X-Ray 05/02/25 08:16 IMPRESSION: 1. Slight interval improvement in opacities in the left lower lung zone which could represent atelectasis or pneumonia. Labs Labs: Laboratory Results - last 24 hr 05/02/25 04:52 WBC 7.4 RBC 3.08 L Hgb 9.0 L Hct 29.6 L MCV 96.1 MCH 29.2 MCHC 30.4 L RDW 15.0 H Plt Count 216 MPV 8.4 Immature Gran % (Auto) 0.4 Neut % (Auto) 79.5 H Lymph % (Auto) 8.8 L [place] % (Auto) 7.8 Eos % (Auto) 2.8 Baso % (Auto) 0.7 Lymph # (Auto) 0.65 L [place] # (Auto) 0.6 Eos # (Auto) 0.2 Baso # (Auto) 0.1 Abs Immat Gran (auto) 0.03 Absolute Neuts (auto) 5.9 Absolute Nucleated RBC 0.000 Nucleated RBC % 0.0 PT 20.5 H INR 1.8 Sodium 137 Potassium 3.7 Chloride 108 H Carbon Dioxide 25 Anion Gap 4 BUN 20 Creatinine 1.07 Estim Creat Clear Calc 50 Estimated GFR > 60 Glucose 96 Calcium 8.5 Total Bilirubin 0.4 AST 28 ALT 22 Alkaline Phosphatase 176 H Total Protein 6.1 L Albumin 2.9 L Quality VTE Prophylaxis VTE prophylaxis: pharmacologic ordered
[2025-05-02] MEDS: TAMSULOSIN HCL 0.4 MG CAPSULE PO (16:48)
[2025-05-02] MEDS: WARFARIN (*PBKC) 3 MG TABLET 6 MG PO (16:49)
[2025-05-02] MEDS: MAGNESIUM HYDROXIDE SUSP 30 ML UDC PO (16:55)
[2025-05-02] MEDS: GABAPENTIN 300 MG CAPSULE PO (20:41)
[2025-05-02] MEDS: AZITHROMYCIN 250 MG TABLET 500 MG PO (20:41)
[2025-05-03] VITALS (15 sets, daily range): BP systolic 99–116; BP diastolic 45–72; PULSE 65–78; RESP 18–22; TEMP 36.5–36.9; O2SAT 91–97
[2025-05-03] MEDS: ACETYLCYSTEINE 20% INHAL SOLN 800 MG/4 ML VIAL 200 MG INHALATION ×4 (02:10→20:22)
[2025-05-03] MEDS: IPRATROPIUM 0.5 MG/ALBUTEROL SULFATE 2.5 MG AMPUL.NEB 3 ML INHALATION ×4 (02:10→20:21)
[2025-05-03] MEDS: ACETAMINOPHEN 500 MG TABLET 1000 MG PO ×3 (05:46→17:32)
[2025-05-03] MEDS: ESCITALOPRAM OXALATE 10 MG TABLET PO (08:18)
[2025-05-03] MEDS: CYANOCOBALAMIN 1,000 MCG TABLET 1000 MCG PO (08:18)
[2025-05-03] MEDS: guaiFENesin 12 HR 600 MG TABCR 1200 MG PO ×2 (08:18→20:10)
[2025-05-03] MEDS: PANTOPRAZOLE 40 MG TABLET PO (08:18)
[2025-05-03] MEDS: LIDOCAINE 5% PATCH 1 PATCH TOPICAL (08:19)
[2025-05-03] MEDS: BISACODYL 10 MG SUPPOSITORY RECTAL (10:13)
[2025-05-03 10:17] LABS: Hematocrit 28.7 % (42.0-52.0); Hemoglobin 8.6 g/dL (14.0-18.0); Immature Granulocyte Percent A 0.5 % (0-0.5); Lymphocytes Absolute Auto 0.31 K/mm3 (0.9-3.2); Mean Corpuscular HGB Conc 30.0 g/dl (32-36); Mean Corpuscular Hemoglobin 29.5 pg (26-34); Mean Corpuscular Volume 98.3 fl (80-100); Nucleated Red Blood Cells Absolute Auto 0.000 K/mm3 (0.0-0.012); Nucleated Red Blood Cells Perc 0.0 % (0.0-0.2); Platelet Count Result 185 k/mm3 (150-375); Red Blood Count 2.92 M/mm3 (4.6-6.20); White Blood Count 4.0 K/mm3 (4.5-10.0)
[2025-05-03 10:28] LABS: INR 2.2; Prothrombin Time 23.8 Seconds (11.1-14.7)
[2025-05-03 10:29] LABS: Anion Gap 6 mmol/L (4-12); Blood Urea Nitrogen 16 mg/dL (9-20); Calcium 8.6 mg/dL (8.4-10.2); Carbon Dioxide 24 mmol/L (22-30); Chloride 107 mmol/L (98-107); Estimated CRCL calculation 58 ml/min; Estimated Glomerular Filt Rate > 60; Glucose 110 mg/dL (65-110); Potassium 3.9 mmol/L (3.4-5.0); Sodium 137 mmol/L (137-145)
--- NOTE | 2025-05-03 10:51 | P.PNIM_ITS ---
Progress Note: A&P Assessment and Plan (1) Collapse of lung: Code(s): J98.19 - Other pulmonary collapse Status: Acute Assessment and Plan: -CT was read as 1. Left upper lobe collapse. Focal consolidation left lower lobe may represent atelectasis and/or pneumonia. There is volume loss in the left thorax with mediastinal shift to the left. 2: Small left pleural effusion. 3: Bilateral renal atrophy with bilateral nephrolithiasis. Bilateral percutaneous nephrostomy catheters. Right internal ureteral stent. 4: Abnormal posterior bladder wall thickening, suspicious for malignancy. 5: Small 11 mm cystic mass pancreatic body. The differential diagnosis includes pseudocyst, intraductal papillary mucinous neoplasm (IPMN), mucinous cystic neoplasm (MCN), and the less common serous cystadenoma and neuroendocrine tumor. The patient stated that he does not want any further workup for this cystic mass. -surgery consulted an no intervention recommended, recommended pulmonary consult -the patient was started on azithromycin, cefepime, and vancomycin. Vancomycin stopped, MRSA swab negative. -sputum and blood cultures are pending. -pulmonary following -CXR on 05/02 with some improvement noted -pulmonary started patient on nebulizer treatments, flutter valve, guiafenisen -PO antibiotics on discharge Augmentin and Azithromycin (2) Atrial fibrillation, chronic: Code(s): I48.20 - Chronic atrial fibrillation, unspecified Status: Chronic Assessment and Plan: -patient is unclear if he is on warfarin. He believes that he had not taken it his last admission. However it was noted on his discharge 04/24/2025 that he was subtherapeutic and continue with home Coumadin. The patient is not sure if he has been taking it at home. -daily PT INR -INR 2.2 this AM -continue home dose of warfarin 6 mg on ,,Mon,Mon,Mon and 9 mg on / (3) H/O insertion of nephrostomy tube: Code(s): Z98.890 - Other specified postprocedural states Status: Acute Assessment and Plan: -nephrostomy tubes are intact at this time. (4) Chronic kidney disease, stage 3: Qualifiers: Chronic kidney disease stage 3 subtype: unspecified whether 3a or 3b Qualified Code(s): N18.30 - Chronic kidney disease, stage 3 unspecified Code(s): N18.30 - Chronic kidney disease, stage 3 unspecified Status: Chronic Assessment and Plan: -avoid nephrotoxics as able -patient continues to be at his baseline. (5) Essential hypertension: Code(s): I10 - Essential (primary) hypertension Status: Chronic Assessment and Plan: -patient's blood pressure appears to run on low side -continue to monitor blood pressure. The patient does not appear to be on any blood pressure medicine. 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 The patient stated that he wants no further workup. (7) Pneumonia: Code(s): J18.9 - Pneumonia, unspecified organism Status: Acute Assessment and Plan: the patient was started on azithromycin, cefepime, and vancomycin. sputum and blood cultures are pending. IV vancomycin stopped - MRSA swab negative pulmonary following PO Augmentin to complete 7 days of treatment and PO Azithromycin to complete 5 days of treatment Subjective Date/time seen: 05/03/25 10:51 Interval history: Patient is an 79 year old male who presented with complaints of shortness of breath and chest discomfort for 4 days. Patient was recently discharged from this facility on 04/24/2025 due to bacteremia with Serratia marcescens and has been recieving IV Rocephin. Patient was discharged to a rehab facility for IV antibiotics and rehab. Patient was admitted with left upper lobe collapse and left lower lobe pneumonia. Patient was started on IV vacomycin and IV azithromycin and IV cefepime. General surgery was consulted and recommended a pulmonary consult. MRSA swab was negative and vancomycin was stopped. Pulmonary recommended continued treatment of pneumonia, flutter valve, nebulizer treatments and guaifenesin. Pulmonary vest was considered but unable to be used due to bilateral nephrostomy tubes. Repeat CXR from yesterday 05/02 improved per pulmonary. Patient is okay for discharge but will continue on PO antibiotics for pneumonia. Patient completed his course of IV ceftriaxone as of 04/27/25 per previous discharge summary. Patient will need rehab on discharge but is requesting not to return to his previous facility. Case management working on new placement and insurance auth pending. Patient seen in his room, sitting up in the chair, in no acute distress. Patient had a large bowel movement after Miralax and a dulcolax suppository. Patient denies acute pain. Patient denies acute complaints. Labs and vitals reviewed. Review of Systems Review of Systems: All systems reviewed & are unremarkable except as noted in HPI and below Exam Narrative: General: elderly, no acute distress HEENT: normocephalic, . Mucous membranes moist. EOMI Respiratory: clear to ascultation right side. Minimal air movement TORRI, minimal air movement LLL with few rales. Cardiovascular: Regular rate and rhythm, normal S1-S2 upon ascultation. No murmurs, rubs, or clicks. Abdomen: Soft, round, no pulsatile masses, nondistended and nontender. No rebound, no guarding. Bowel sounds present to all four quadrants Extremities: No cyanosis, clubbing, or edema present. Neuro: Alert and orientated x 4. Cranial nerves 2-12 intact without focal deficit. Poor historian. Skin: Warm, dry, and intact, without rash, erythema, or lesion.? Psych: pleasant, cooperative, normal speech, normal affect Objective Data Vital Signs Vital Signs: Vital Signs - 24 hr 05/02/25 12:00 05/02/25 14:40 05/02/25 15:05 Temperature 97.4 F L Pulse Rate 70 72 70 Respiratory Rate 16 18 Blood Pressure 100/52 L Pulse Oximetry 97 Oxygen Delivery Fraction of Inspired Oxygen 05/02/25 16:00 05/02/25 19:58 05/02/25 20:00 Temperature 97.6 F Pulse Rate 74 70 Respiratory Rate 20 Blood Pressure 105/49 L Pulse Oximetry 97 Oxygen Delivery Room Air Fraction of Inspired Oxygen 05/02/25 20:00 05/02/25 20:12 05/02/25 20:15 Temperature Pulse Rate 79 74 74 Respiratory Rate 18 Blood Pressure Pulse Oximetry 95 Oxygen Delivery Room Air Fraction of Inspired Oxygen 05/02/25 20:27 05/03/25 00:00 05/03/25 00:00 Temperature 97.7 F Pulse Rate 72 65 73 Respiratory Rate 18 20 Blood Pressure 99/54 L Pulse Oximetry 91 Oxygen Delivery Fraction of Inspired Oxygen 05/03/25 02:10 05/03/25 02:22 05/03/25 03:39 Temperature 97.7 F Pulse Rate 72 73 70 Respiratory Rate 18 18 20 Blood Pressure 99/48 L Pulse Oximetry 97 Oxygen Delivery Fraction of Inspired Oxygen 05/03/25 04:00 05/03/25 08:00 05/03/25 08:40 Temperature Pulse Rate 72 70 Respiratory Rate 18 Blood Pressure Pulse Oximetry 97 Oxygen Delivery Room Air Room Air Fraction of Inspired Oxygen 21 05/03/25 08:40 05/03/25 08:55 Temperature Pulse Rate 70 74 Respiratory Rate 18 18 Blood Pressure Pulse Oximetry Oxygen Delivery Fraction of Inspired Oxygen Intake/Output Intake/Output: Intake & Output 04/30/25 05/01/25 05/02/25 05/03/25 23:59 23:59 23:59 23:59 Intake Total 2470 1500 1450 720 Output Total 2100 1110 2075 650 Balance 370 390 -625 70 Meds/Results Medications: Active Medications Generic Name Dose Route Start Last Admin Trade Name Freq PRN Reason Stop Dose Admin Acetaminophen 1,000 mg 04/30/25 06:50 05/03/25 05:46 Acetaminophen 500 Mg Tablet PO 1,000 mg Q6HR MARY Administration Acetylcysteine 200 mg 05/01/25 14:00 05/03/25 08:40 Acetylcysteine 20% Inhal Soln 800 Mg/4 Ml Vial INHALATION 200 mg Q6HRT MARY Administration Albuterol/Ipratropium 3 ml 05/01/25 14:00 05/03/25 08:40 Ipratropium 0.5 Mg/Albuterol Sulfate 2.5 Mg Ampul.Neb 3 Ml INHALATION 3 ml Q6HRT MARY Administration Amoxicillin/Clavulanate Potassium 1 tablet 05/02/25 21:00 05/03/25 08:18 Amoxicillin/Clavulanate K 875-125 Mg Tab PO 05/05/25 21:01 1 tablet Q12HR MARY Administration Azithromycin 500 mg 04/30/25 21:00 05/02/25 20:41 Azithromycin 250 Mg Tablet PO 05/03/25 21:01 500 mg QHS MARY Administration Bisacodyl 10 mg 05/02/25 16:37 05/03/25 10:13 Bisacodyl 10 Mg Suppository RECTAL 10 mg QAM PRN Administration Constipation Calcium Carbonate 200 mg 04/30/25 06:50 Calcium Carbonate (Tums) 500 Mg (200 Mg Elemental) PO BID PRN Dyspepsia Cyanocobalamin 1,000 mcg 04/30/25 09:00 05/03/25 08:18 Cyanocobalamin 1,000 Mcg Tablet PO 1,000 mcg DAILY MARY Administration Escitalopram Oxalate 10 mg 04/30/25 09:00 05/03/25 08:18 Escitalopram Oxalate 10 Mg Tablet PO 10 mg DAILY MARY Administration Gabapentin 300 mg 04/30/25 21:00 05/02/25 20:41 Gabapentin 300 Mg Capsule PO 300 mg HS MARY Administration Guaifenesin 1,200 mg 05/01/25 10:50 05/03/25 08:18 Guaifenesin 12 Hr 600 Mg Tabcr PO 1,200 mg Q12HR MARY Administration Levetiracetam 750 mg 04/30/25 09:00 05/03/25 08:18 Levetiracetam 250 Mg Tablet PO 750 mg Q12HR MARY Administration Lidocaine 1 patch 04/30/25 09:00 05/03/25 08:19 Lidocaine 5% Patch TOPICAL 05/30/25 08:59 1 patch DAILY MARY Administration Magnesium Hydroxide 30 ml 05/02/25 16:36 05/02/25 16:55 Magnesium Hydroxide Susp 30 Ml Udc PO 30 ml QAM PRN Administration Constipation Ondansetron HCl 4 mg 04/30/25 06:50 Ondansetron Hcl Odt 4 Mg Tablet PO Q6H PRN Nausea And Vomiting Oxycodone HCl 5 mg 04/30/25 06:50 Oxycodone Hcl (*Crx) 5 Mg Tab Ir PO Q4H PRN Pain 7-10 Pantoprazole Sodium 40 mg 04/30/25 09:00 05/03/25 08:18 Pantoprazole 40 Mg Tablet PO 05/30/25 08:59 40 mg DAILY MARY Administration Polyethylene Glycol 17 gm 05/02/25 09:00 05/03/25 08:19 Polyethylene Glycol 3350 17 Gm Powd.Pack PO 17 gm QAM MARY Administration Sodium Chloride 10 ml 04/30/25 14:00 05/03/25 08:15 Saline Lock Flush IV PUSH Not Given Q8HR MARY Sodium Chloride 10 ml 04/30/25 06:36 Saline Lock Flush IV PUSH PRN PRN Flush Sodium Chloride 20 ml 04/30/25 06:36 Saline Lock Flush IV PUSH PRN PRN after blood draws Tamsulosin HCl 0.4 mg 04/30/25 16:00 05/02/25 16:48 Tamsulosin Hcl 0.4 Mg Capsule PO 0.4 mg 1600 MARY Administration Warfarin Sodium 3 mg 05/01/25 17:00 05/01/25 16:40 Warfarin (*Pbkc) 3 Mg Tablet PO 3 mg MoTh@1700 MARY Administration Warfarin Sodium 6 mg 05/01/25 17:00 05/02/25 16:49 Warfarin (*Pbkc) 3 Mg Tablet PO 6 mg DAILY@1700 MARY Administration Radiology Results: ITS Impressions Chest/Abdomen/Pelvis CTA 04/29/25 20:05 IMPRESSION: 1. Left upper lobe collapse. Focal consolidation left lower lobe may represent atelectasis and/or pneumonia. There is volume loss in the left thorax with mediastinal shift to the left. 2: Small left pleural effusion. 3: Bilateral renal atrophy with bilateral nephrolithiasis. Bilateral percutaneous nephrostomy catheters. Right internal ureteral stent. 4: Abnormal posterior bladder wall thickening, suspicious for malignancy. 5: Small 11 mm cystic mass pancreatic body. The differential diagnosis includes pseudocyst, intraductal papillary mucinous neoplasm (IPMN), mucinous cystic neoplasm (MCN), and the less common serous cystadenoma and neuroendocrine tumor. Chest X-Ray 05/02/25 08:16 IMPRESSION: 1. Slight interval improvement in opacities in the left lower lung zone which could represent atelectasis or pneumonia. Labs Labs: Laboratory Results - last 24 hr 05/01/25 05/03/25 12:58 10:12 WBC 4.0 L RBC 2.92 L Hgb 8.6 L Hct 28.7 L MCV 98.3 MCH 29.5 MCHC 30.0 L RDW 15.2 H Plt Count 185 MPV 8.0 Immature Gran % (Auto) 0.5 Neut % (Auto) 78.6 H Lymph % (Auto) 7.7 L [place] % (Auto) 8.0 Eos % (Auto) 4.5 H Baso % (Auto) 0.7 Lymph # (Auto) 0.31 L [place] # (Auto) 0.3 Eos # (Auto) 0.2 Baso # (Auto) 0.0 Abs Immat Gran (auto) 0.02 Absolute Neuts (auto) 3.2 Absolute Nucleated RBC 0.000 Nucleated RBC % 0.0 PT 23.8 H INR 2.2 Sodium 137 Potassium 3.9 Chloride 107 Carbon Dioxide 24 Anion Gap 6 BUN 16 Creatinine 1.05 Estim Creat Clear Calc 58 Estimated GFR > 60 Glucose 110 Calcium 8.6 Chlamy pneumoniae PCR Not detected Adenovirus (PCR) Not detected B. pertussis DNA (PCR) Not detected B.parapertussis DNA PCR Not detected Coronavirus OC43 (PCR) Not detected Coronavirus HKU1 (PCR) Not detected Coronavirus 229E (PCR) Not detected Coronavirus NL63 (PCR) Not detected Human Metapneumovir PCR Not detected Influenza A (H1) PCR Not detected Influ A (H1/09) PCR Not detected Influenza A (H3) PCR Not detected Influenza Type A (PCR) Not detected Influenza Type B (PCR) Not detected M. pneumoniae (PCR) Not detected Parainfluenza 1 (PCR) Not detected Parainfluenza 2 (PCR) Not detected Parainfluenza 3 (PCR) Not detected Parainfluenza 4 (PCR) Not detected RSV (PCR) Not detected Entero/Rhino (PCR) Not detected SARS-CoV-2 (PCR) Not detected Quality VTE Prophylaxis VTE prophylaxis: pharmacologic ordered
[2025-05-03] MEDS: SALINE LOCK FLUSH 10 ML IV PUSH ×2 (14:06→23:32)
[2025-05-03] MEDS: TAMSULOSIN HCL 0.4 MG CAPSULE PO (16:49)
[2025-05-03] MEDS: WARFARIN (*PBKC) 3 MG TABLET 6 MG PO (16:49)
[2025-05-03] MEDS: AZITHROMYCIN 250 MG TABLET 500 MG PO (20:09)
[2025-05-03] MEDS: GABAPENTIN 300 MG CAPSULE PO (20:10)
[2025-05-04] VITALS (14 sets, daily range): BP systolic 99–117; BP diastolic 44–57; PULSE 50–76; RESP 16–20; TEMP 36.4–36.9; O2SAT 93–99
[2025-05-04] MEDS: ACETAMINOPHEN 500 MG TABLET 1000 MG PO ×5 (00:56→23:46)
[2025-05-04] MEDS: IPRATROPIUM 0.5 MG/ALBUTEROL SULFATE 2.5 MG AMPUL.NEB 3 ML INHALATION ×4 (02:46→19:44)
[2025-05-04] MEDS: ACETYLCYSTEINE 20% INHAL SOLN 800 MG/4 ML VIAL 200 MG INHALATION ×4 (02:46→19:44)
[2025-05-04 05:10] LABS: INR 2.5; Prothrombin Time 25.8 Seconds (11.1-14.7)
[2025-05-04] MEDS: SALINE LOCK FLUSH 10 ML IV PUSH ×3 (06:15→21:24)
[2025-05-04] MEDS: guaiFENesin 12 HR 600 MG TABCR 1200 MG PO ×2 (08:07→21:24)
[2025-05-04] MEDS: ESCITALOPRAM OXALATE 10 MG TABLET PO (08:07)
[2025-05-04] MEDS: PANTOPRAZOLE 40 MG TABLET PO (08:07)
[2025-05-04] MEDS: CYANOCOBALAMIN 1,000 MCG TABLET 1000 MCG PO (08:07)
[2025-05-04] MEDS: LIDOCAINE 5% PATCH 1 PATCH TOPICAL (08:08)
--- NOTE | 2025-05-04 09:36 | P.PNIM_ITS ---
Progress Note: A&P Assessment and Plan (1) Collapse of lung: Code(s): J98.19 - Other pulmonary collapse Status: Acute Assessment and Plan: -CT was read as 1. Left upper lobe collapse. Focal consolidation left lower lobe may represent atelectasis and/or pneumonia. There is volume loss in the left thorax with mediastinal shift to the left. 2: Small left pleural effusion. 3: Bilateral renal atrophy with bilateral nephrolithiasis. Bilateral percutaneous nephrostomy catheters. Right internal ureteral stent. 4: Abnormal posterior bladder wall thickening, suspicious for malignancy. 5: Small 11 mm cystic mass pancreatic body. The differential diagnosis includes pseudocyst, intraductal papillary mucinous neoplasm (IPMN), mucinous cystic neoplasm (MCN), and the less common serous cystadenoma and neuroendocrine tumor. The patient stated that he does not want any further workup for this cystic mass. -surgery consulted an no intervention recommended, recommended pulmonary consult -the patient was started on azithromycin, cefepime, and vancomycin. Vancomycin stopped, MRSA swab negative. -sputum and blood cultures are pending. -pulmonary following -CXR on 05/02 with some improvement noted -pulmonary started patient on nebulizer treatments, flutter valve, guaifenesin -PO antibiotics on discharge Augmentin and Azithromycin (2) Atrial fibrillation, chronic: Code(s): I48.20 - Chronic atrial fibrillation, unspecified Status: Chronic Assessment and Plan: -patient is unclear if he is on warfarin. He believes that he had not taken it his last admission. However it was noted on his discharge 04/24/2025 that he was subtherapeutic and continue with home Coumadin. The patient is not sure if he has been taking it at home. -daily PT INR -INR 2.5 this AM -continue home dose of warfarin 6 mg on ,,Mon,Mon,Mon and 9 mg on / (3) H/O insertion of nephrostomy tube: Code(s): Z98.890 - Other specified postprocedural states Status: Acute Assessment and Plan: -nephrostomy tubes are intact at this time. (4) Chronic kidney disease, stage 3: Qualifiers: Chronic kidney disease stage 3 subtype: unspecified whether 3a or 3b Qualified Code(s): N18.30 - Chronic kidney disease, stage 3 unspecified Code(s): N18.30 - Chronic kidney disease, stage 3 unspecified Status: Chronic Assessment and Plan: -avoid nephrotoxics as able -patient continues to be at his baseline. (5) Essential hypertension: Code(s): I10 - Essential (primary) hypertension Status: Chronic Assessment and Plan: -patient's blood pressure appears to run on low side -continue to monitor blood pressure. The patient does not appear to be on any blood pressure medicine. -encourage PO fluids (6) Pancreatic cyst: Code(s): K86.2 - Cyst of pancreas Status: Acute Assessment and Plan: patient is aware of the cyst on the pancreas. The patient stated that he wants no further workup. (7) Pneumonia: Code(s): J18.9 - Pneumonia, unspecified organism Status: Acute Assessment and Plan: the patient was started on azithromycin, cefepime, and vancomycin. sputum and blood cultures are pending. IV vancomycin stopped - MRSA swab negative pulmonary following PO Augmentin to complete 7 days of treatment and PO Azithromycin to complete 5 days of treatment Subjective Date/time seen: 05/04/25 09:36 Interval history: Patient is an 79 year old male who presented with complaints of shortness of breath and chest discomfort for 4 days. Patient was recently discharged from this facility on 04/24/2025 due to bacteremia with Serratia marcescens and has been recieving IV Rocephin. Patient was discharged to a rehab facility for IV antibiotics and rehab. Patient was admitted with left upper lobe collapse and left lower lobe pneumonia. Patient was started on IV vacomycin and IV azithromycin and IV cefepime. General surgery was consulted and recommended a pulmonary consult. MRSA swab was negative and vancomycin was stopped. Pulmonary recommended continued treatment of pneumonia, flutter valve, nebulizer treatments and guaifenesin. Pulmonary vest was considered but unable to be used due to bilateral nephrostomy tubes. Repeat CXR from yesterday 05/02 improved per pulmonary. Patient is okay for discharge but will continue on PO antibiotics for pneumonia. Patient completed his course of IV ceftriaxone as of 04/27/25 per previous discharge summary. Patient will need rehab on discharge but is requesting not to return to his previous facility. Case management working on new placement at [facility] and insurance auth pending. Patient reports he had trouble sleeping last night and has been tired today. He reports he has not gotten out of bed to the chair today. Patient denies acute pain. Patient reports his breathing is stable, he reports a productive cough. INR therapeutic at 2.5. Review of Systems Review of Systems: All systems reviewed & are unremarkable except as noted in HPI and below Exam Narrative: General: elderly, no acute distress HEENT: normocephalic, . Mucous membranes moist. EOMI Respiratory: clear to ascultation right side. Minimal air movement TORRI, minimal air movement LLL with few rales and crackles Cardiovascular: Regular rate and rhythm, normal S1-S2 upon ascultation. No murmurs, rubs, or clicks. Abdomen: Soft, round, no pulsatile masses, nondistended and nontender. No rebound, no guarding. Bowel sounds present to all four quadrants Extremities: No cyanosis, clubbing, or edema present. Neuro: Alert and orientated x 4. Cranial nerves 2-12 intact without focal deficit. Poor historian. Skin: Warm, dry, and intact, without rash, erythema, or lesion.? Psych: pleasant, cooperative, normal speech, normal affect Objective Data Vital Signs Vital Signs: Vital Signs - 24 hr 05/03/25 12:00 05/03/25 12:00 05/03/25 13:25 Temperature 97.8 F Pulse Rate 78 78 Respiratory Rate 18 Blood Pressure 112/72 Pulse Oximetry 95 Oxygen Delivery Room Air 05/03/25 16:00 05/03/25 16:00 05/03/25 20:00 Temperature 98.4 F 97.8 F Pulse Rate 70 68 70 Respiratory Rate 22 H 18 Blood Pressure 116/56 L 102/45 L Pulse Oximetry 95 95 Oxygen Delivery 05/03/25 20:00 05/03/25 20:00 05/03/25 20:24 Temperature Pulse Rate 70 71 Respiratory Rate 18 Blood Pressure Pulse Oximetry Oxygen Delivery Room Air 05/03/25 20:25 05/03/25 20:37 05/03/25 23:43 Temperature 98.1 F Pulse Rate 76 71 Respiratory Rate 18 18 Blood Pressure 104/48 L Pulse Oximetry 97 96 Oxygen Delivery Room Air 05/04/25 00:00 05/04/25 02:47 05/04/25 04:00 Temperature 97.5 F L Pulse Rate 76 71 73 Respiratory Rate 18 16 Blood Pressure 100/50 L Pulse Oximetry 95 Oxygen Delivery 05/04/25 04:00 05/04/25 07:53 05/04/25 08:00 Temperature 97.7 F Pulse Rate 74 66 74 Respiratory Rate 16 Blood Pressure 105/57 L Pulse Oximetry 93 Oxygen Delivery Intake/Output Intake/Output: Intake & Output 05/01/25 05/02/25 05/03/25 05/04/25 23:59 23:59 23:59 23:59 Intake Total 1500 1450 3180 440 Output Total 1110 2075 1825 1070 Balance 390 -625 1355 -630 Meds/Results Medications: Active Medications Generic Name Dose Route Start Last Admin Trade Name Freq PRN Reason Stop Dose Admin Acetaminophen 1,000 mg 04/30/25 06:50 05/04/25 06:14 Acetaminophen 500 Mg Tablet PO 1,000 mg Q6HR MARY Administration Acetylcysteine 200 mg 05/01/25 14:00 05/04/25 07:53 Acetylcysteine 20% Inhal Soln 800 Mg/4 Ml Vial INHALATION 200 mg Q6HRT MARY Administration Albuterol/Ipratropium 3 ml 05/01/25 14:00 05/04/25 07:53 Ipratropium 0.5 Mg/Albuterol Sulfate 2.5 Mg Ampul.Neb 3 Ml INHALATION 3 ml Q6HRT MARY Administration Amoxicillin/Clavulanate Potassium 1 tablet 05/02/25 21:00 05/04/25 08:07 Amoxicillin/Clavulanate K 875-125 Mg Tab PO 05/05/25 21:01 1 tablet Q12HR MARY Administration Bisacodyl 10 mg 05/02/25 16:37 05/03/25 10:13 Bisacodyl 10 Mg Suppository RECTAL 10 mg QAM PRN Administration Constipation Calcium Carbonate 200 mg 04/30/25 06:50 Calcium Carbonate (Tums) 500 Mg (200 Mg Elemental) PO BID PRN Dyspepsia Cyanocobalamin 1,000 mcg 04/30/25 09:00 05/04/25 08:07 Cyanocobalamin 1,000 Mcg Tablet PO 1,000 mcg DAILY MARY Administration Escitalopram Oxalate 10 mg 04/30/25 09:00 05/04/25 08:07 Escitalopram Oxalate 10 Mg Tablet PO 10 mg DAILY MARY Administration Gabapentin 300 mg 04/30/25 21:00 05/03/25 20:10 Gabapentin 300 Mg Capsule PO 300 mg HS MRAY Administration Guaifenesin 1,200 mg 05/01/25 10:50 05/04/25 08:07 Guaifenesin 12 Hr 600 Mg Tabcr PO 1,200 mg Q12HR MARY Administration Levetiracetam 750 mg 04/30/25 09:00 05/04/25 08:07 Levetiracetam 250 Mg Tablet PO 750 mg Q12HR MARY Administration Lidocaine 1 patch 04/30/25 09:00 05/04/25 08:08 Lidocaine 5% Patch TOPICAL 05/30/25 08:59 1 patch DAILY MARY Administration Magnesium Hydroxide 30 ml 05/02/25 16:36 05/02/25 16:55 Magnesium Hydroxide Susp 30 Ml Udc PO 30 ml QAM PRN Administration Constipation Ondansetron HCl 4 mg 04/30/25 06:50 Ondansetron Hcl Odt 4 Mg Tablet PO Q6H PRN Nausea And Vomiting Oxycodone HCl 5 mg 04/30/25 06:50 Oxycodone Hcl (*Crx) 5 Mg Tab Ir PO Q4H PRN Pain 7-10 Pantoprazole Sodium 40 mg 04/30/25 09:00 05/04/25 08:07 Pantoprazole 40 Mg Tablet PO 05/30/25 08:59 40 mg DAILY MARY Administration Polyethylene Glycol 17 gm 05/02/25 09:00 05/04/25 08:08 Polyethylene Glycol 3350 17 Gm Powd.Pack PO 17 gm QAM MARY Administration Sodium Chloride 10 ml 04/30/25 14:00 05/04/25 06:15 Saline Lock Flush IV PUSH 10 ml Q8HR MARY Administration Sodium Chloride 10 ml 04/30/25 06:36 Saline Lock Flush IV PUSH PRN PRN Flush Sodium Chloride 20 ml 04/30/25 06:36 Saline Lock Flush IV PUSH PRN PRN after blood draws Tamsulosin HCl 0.4 mg 04/30/25 16:00 05/03/25 16:49 Tamsulosin Hcl 0.4 Mg Capsule PO 0.4 mg 1600 MARY Administration Warfarin Sodium 3 mg 05/01/25 17:00 05/01/25 16:40 Warfarin (*Pbkc) 3 Mg Tablet PO 3 mg MoTh@1700 MARY Administration Warfarin Sodium 6 mg 05/01/25 17:00 05/03/25 16:49 Warfarin (*Pbkc) 3 Mg Tablet PO 6 mg DAILY@1700 MARY Administration Radiology Results: ITS Impressions Chest/Abdomen/Pelvis CTA 04/29/25 20:05 IMPRESSION: 1. Left upper lobe collapse. Focal consolidation left lower lobe may represent atelectasis and/or pneumonia. There is volume loss in the left thorax with mediastinal shift to the left. 2: Small left pleural effusion. 3: Bilateral renal atrophy with bilateral nephrolithiasis. Bilateral percutaneous nephrostomy catheters. Right internal ureteral stent. 4: Abnormal posterior bladder wall thickening, suspicious for malignancy. 5: Small 11 mm cystic mass pancreatic body. The differential diagnosis includes pseudocyst, intraductal papillary mucinous neoplasm (IPMN), mucinous cystic yadiel plasm (MCN), and the less common serous cystadenoma and neuroendocrine tumor. Chest X-Ray 05/02/25 08:16 IMPRESSION: 1. Slight interval improvement in opacities in the left lower lung zone which could represent atelectasis or pneumonia. Labs Labs: Laboratory Results - last 24 hr 05/02/25 05/03/25 05/03/25 04:52 10:12 12:04 WBC 4.0 L RBC 2.92 L Hgb 8.6 L Hct 28.7 L MCV 98.3 MCH 29.5 MCHC 30.0 L RDW 15.2 H Plt Count 185 MPV 8.0 Immature Gran % (Auto) 0.5 Neut % (Auto) 78.6 H Lymph % (Auto) 7.7 L Hutchinson % (Auto) 8.0 Eos % (Auto) 4.5 H Baso % (Auto) 0.7 Lymph # (Auto) 0.31 L Hutchinson # (Auto) 0.3 Eos # (Auto) 0.2 Baso # (Auto) 0.0 Abs Immat Gran (auto) 0.02 Absolute Neuts (auto) 3.2 Absolute Nucleated RBC 0.000 Nucleated RBC % 0.0 PT 23.8 H INR 2.2 Sodium 137 Potassium 3.9 Chloride 107 Carbon Dioxide 24 Anion Gap 6 BUN 16 Creatinine 1.05 Estim Creat Clear Calc 58 Estimated GFR > 60 Glucose 110 POC Capillary Glucose 104 Calcium 8.6 M.pneumoniae IgM Titer <770 05/04/25 04:32 WBC RBC Hgb Hct MCV MCH MCHC RDW Plt Count MPV Immature Gran % (Auto) Neut % (Auto) Lymph % (Auto) Hutchinson % (Auto) Eos % (Auto) Baso % (Auto) Lymph # (Auto) Hutchinson # (Auto) Eos # (Auto) Baso # (Auto) Abs Immat Gran (auto) Absolute Neuts (auto) Absolute Nucleated RBC Nucleated RBC % PT 25.8 H INR 2.5 Sodium Potassium Chloride Carbon Dioxide Anion Gap BUN Creatinine Estim Creat Clear Calc Estimated GFR Glucose POC Capillary Glucose Calcium M.pneumoniae IgM Titer Quality VTE Prophylaxis VTE prophylaxis: pharmacologic ordered
[2025-05-04] MEDS: WARFARIN (*PBKC) 3 MG TABLET 6 MG PO (17:22)
[2025-05-04] MEDS: TAMSULOSIN HCL 0.4 MG CAPSULE PO (17:23)
[2025-05-04] MEDS: CALCIUM CARBONATE (TUMS) 500 MG (200 MG ELEMENTAL) PO (17:25)
[2025-05-04] MEDS: GABAPENTIN 300 MG CAPSULE PO (21:27)
[2025-05-05] VITALS (20 sets, daily range): BP systolic 99–108; BP diastolic 43–60; PULSE 57–86; RESP 15–20; TEMP 36.2–36.9; O2SAT 90–97
[2025-05-05] MEDS: ACETYLCYSTEINE 20% INHAL SOLN 800 MG/4 ML VIAL 200 MG INHALATION ×4 (02:09→19:55)
[2025-05-05] MEDS: IPRATROPIUM 0.5 MG/ALBUTEROL SULFATE 2.5 MG AMPUL.NEB 3 ML INHALATION ×4 (02:10→19:55)
[2025-05-05 04:54] LABS: Hematocrit 28.9 % (42.0-52.0); Hemoglobin 8.9 g/dL (14.0-18.0); Immature Granulocyte Percent A 0.4 % (0-0.5); Lymphocytes Absolute Auto 0.50 K/mm3 (0.9-3.2); Mean Corpuscular HGB Conc 30.8 g/dl (32-36); Mean Corpuscular Hemoglobin 29.6 pg (26-34); Mean Corpuscular Volume 96.0 fl (80-100); Nucleated Red Blood Cells Absolute Auto 0.000 K/mm3 (0.0-0.012); Nucleated Red Blood Cells Perc 0.0 % (0.0-0.2); Platelet Count Result 209 k/mm3 (150-375); Red Blood Count 3.01 M/mm3 (4.6-6.20); White Blood Count 5.3 K/mm3 (4.5-10.0)
[2025-05-05 05:10] LABS: Alanine Aminotransferase 20 U/L (6-50); Albumin Level 3.0 g/dL (3.5-5.1); Alkaline Phosphatase 175 U/L (38-126); Anion Gap 3 mmol/L (4-12); Aspartate Amino Transferase 32 U/L (17-59); Bilirubin,Total 0.4 mg/dL (0.2-1.3); Blood Urea Nitrogen 17 mg/dL (9-20); Calcium 8.6 mg/dL (8.4-10.2); Carbon Dioxide 25 mmol/L (22-30); Chloride 109 mmol/L (98-107); Estimated CRCL calculation 53 ml/min; Estimated Glomerular Filt Rate > 60; Glucose 95 mg/dL (65-110); Potassium 3.9 mmol/L (3.4-5.0); Sodium 137 mmol/L (137-145); Total Protein 6.2 g/dL (6.3-8.2)
[2025-05-05 05:14] LABS: INR 2.8; Prothrombin Time 28.7 Seconds (11.1-14.7)
[2025-05-05] MEDS: ACETAMINOPHEN 500 MG TABLET 1000 MG PO ×4 (05:23→23:27)
[2025-05-05] MEDS: SALINE LOCK FLUSH 10 ML IV PUSH ×3 (05:23→21:00)
[2025-05-05] MEDS: LIDOCAINE 5% PATCH 1 PATCH TOPICAL (09:34)
[2025-05-05] MEDS: CYANOCOBALAMIN 1,000 MCG TABLET 1000 MCG PO (09:34)
[2025-05-05] MEDS: ESCITALOPRAM OXALATE 10 MG TABLET PO (09:34)
[2025-05-05] MEDS: PANTOPRAZOLE 40 MG TABLET PO (09:34)
[2025-05-05] MEDS: guaiFENesin 12 HR 600 MG TABCR 1200 MG PO ×2 (09:34→20:59)
--- NOTE | 2025-05-05 10:16 | PCPTNOTE ---
Patient declined PT at this time stating he is very tired from not sleeping and he does not want to get out of bed at this time. PT will continue to follow.
--- NOTE | 2025-05-05 12:34 | P.PNPL_ITS ---
Progress Note: A&P Assessment and Plan (1) Collapse of lung: Code(s): J98.19 - Other pulmonary collapse Status: Acute Assessment and Plan: 05/05/25; he still coughs some sputum, feels better. He is on room air. I will repeat his CXR today to see if he has improved expansion of the left lung. - Patient presents with worsening shortness of breath, cough and feeling like he had an upper respiratory tract infection. He he had no leukocytosis, his procalcitonin 0.1, CRP is 1.9. CT scan of the chest shows left upper lobe collapse with cut off consistent with mucus plugging. Patient had a chest x-ray on 04/18/2025 with no collapse. Plan: Suspect that this is mucus plugging as patient is weak, lying in bed and has difficulty expectorating. Continue treatment for possible pneumonia with cefepime and azithromycin, will place the patient on DuoNebs q.6 hours, Mucomyst 200 mg q.6 hours, guaifenesin 1200 mg p.o. b.i.d., Cornet flutter valve. I will not perform vest therapy as the patient has bilateral nephrostomy tubes in place. Will follow patient x-ray to assess for re-expansion. 05/02/25: Patient tells me that he is 95 % back to his normal. He has no shortness of breath. He denies fever, chills, rigors. He says the phlegm still is getting stuck in his throat. He has no hemoptysis. His room air saturations are 97%. He is afebrile with a white blood cell count of 7.4, creatinine 1.07. Chest x-ray today shows mild improvement in his left lower lobe with aeration compared with 05/01/2025. I placed the patient right side down and put him in Trendelenburg for 10 minutes and performed chest physical therapy and he was able to expectorate 1 thick yellow expectoration. Plan: Patient has improved with DuoNebs q.6 hours, Mucomyst q.6 hours, guaifenesin 1200 p.o. b.i.d., and Cornet flutter valve. Chest x-ray shows better aeration. he is also being treated for possible pneumonia with cefepime and azithromycin. Continue this treatment while patient is in the hospital. Patient tells me that the nebulizer treatments to help him expectorate. Patient is essentially bed bound, he does get up to go in a wheelchair, he has a weak cough that is inefficient and he does not clear her secretions well. I have encouraged him to be out of bed, continue physical therapy with a goal of walking so that he can increase his strength and hopefully his cough will also improved. In the meantime, he is at high risk for respiratory complications due to retained secretions. From a pulmonary perspective he is ready for discharge on these pulmonary medications. Augmentin 875-125 p.o. bid x 5 days total, started 05/02/25. DuoNebs b.i.d. Guaifenesin 1200 mg p.o. b.i.d. Cornet flutter valve q.2 hours while awake (2) Pneumonia: Code(s): J18.9 - Pneumonia, unspecified organism Status: Acute Assessment and Plan: 05/05/25; He has less shortness of breath, less sputum, and exam show improvement in breath sounds on left side. All studies are negative for a pathogen, Urine antigens and respiratory pathogen panel. - Patient presents with shortness of breath, worsening cough and feeling like he has an upper respiratory tract infection. He has been afebrile. He has no leukocytosis, his procalcitonin is 0.1 and his CRP is 1.9. MRSA swab negative, COVID influenza and RSV RT PCR negative. Plan: Low likelihood that patient has a bacterial infection but at this time will continue cefepime and azithromycin. Blood cultures are pending. I will order sputum Gram stain and culture. I have ordered respiratory pathogen panel, urine Legionella, urine pneumococcal and serum mycoplasma IgM. 05/02/25: He denies fever, chills, rigors. He says the phlegm still is getting stuck in his throat. He has no hemoptysis. His room air saturations are 97%. He is afebrile with a white blood cell count of 7.4, creatinine 1.07. Chest x- ray today shows mild improvement in his left lower lobe with aeration compared with 05/01/2025. Plan: Agree with treatment while he was in the hospital with cefepime, today is day 4 and would discontinue after 7 days. Continue azithromycin, today is day 4 and will give total of 5 days emma WIN. Plan plan: portable CXR today for Left sided volume loss, atelectasis and mucus plugging. I showed him the x-rays from April compared to May 02, improved but still has volume loss. Increased resistance on Cornet valve, moved the setting from 1 to 3 out of 5. Use tid 10 exhalations each time he uses it. Continue medications; Augmentin 875/1251 b.i.d., started on May 02. He has had 6 of 7 doses. DuoNeb b.i.d., Mucinex 1200 b.i.d. He told me that he wanted to see a urologist because of his renin level, wanted to know what the leve lis, and low levels will cause his BP to be low. His BP today is 99/52, low. His BP has been low for several readings. I passed his request to the charge nurse. Subjective Date/time seen: 05/05/25 12:34 Interval history: ESTABLISHED: I am taking over care form Dr Miguel, last saw the patient May 02. Gino Marquez is an 79-year-old man with left upper lobe collapse, improved with bronchodilators, Mucomyst, PEP valve, guaifenesin. I increased the resistance on the Cornet valve, form 1 to 3, and he is able to blow without too much effort. He feels better, is on room air. He continues to cough, he produces less sputum. Gram stain from 05/03/2025 shows moderate white blood cells, few epithelial cells, moderate Gram Positive cocci and few Gram-negative rods, preliminary growth does not show pathogens. 05/01/25 Urine antigens for strep pneumoniae and Legionella are negative. Respiratory pathogen panel from 05/01/2025 is negative. His CXR has improved from Apr to compared to May 02. He still has some atelectasis in the left base with volume loss. May 02 Apr 29 HISTORY = = = = = = = = = = = 05/01/2025: This is a new pulmonary consult for collapse of left upper lobe. 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 patient smoked tobacco from [id number] at 2 cigarettes a week, 0.33 PY, smoked 1 cigar a week for many years. 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 At baseline he can walk 3-4 steps because of balance problems and hip pain from his stroke. He denies any shortness of breath at rest or dyspnea on exertion. 04/18/25 to 04/24/25: Patient admitted with a UTI and bacteremia with Serratia marcescens. For 1 year he has complained of a dry cough. Over the last week he has stated that his phlegm has increased to 5 to 7 times a day, he does not know the color. He has had shortness of breath for 4 days and felt like he had an upper respiratory tract infection. He developed chest pain and presented to the emergency room on 04/29/2025. Blood pressure 106/67, heart rate 70, respirations 14, saturations on room air 97%. Decreased breath sounds on the left. White blood cell count 8.9, creatinine 1.19, troponin negative x2, MRSA swab negative, COVID influenza and RSV RT PCR assay negative, UA with positive leukocyte esterase, white blood cell greater than 100 and rare bacteria. Patient had a CT angiogram of the chest with no PE, left upper lobe collapse With cut off in the left mainstem, infiltrate left lower lobe, minimal ground- glass infiltrate right lower lobe posteriorly. Patient was started on vancomycin, cefepime and azithromycin. 05/01/2025: Patient states that he is breathing 80-90% back to normal. His cough is 80-90% back to normal. He has minimal phlegm and no hemoptysis. His room air saturations are 96%. He is afebrile. White blood cell count 4.9, creatinine 1.14, INR 2.1. BNP is 1070, procalcitonin 0.1, CRP 1.9. Chest x- ray today demonstrates left lower lobe collapse with no change from 04/29/2025. When I asked the patient to cough up phlegm he had a difficult time expectorating but was able to expectorate some thick yellow phlegm. 05/02/25: Patient tells me that he is 95 % back to his normal. He has no shortness of breath. He denies fever, chills, rigors. He says the phlegm still is getting stuck in his throat. He has no hemoptysis. His room air saturations are 97%. He is afebrile with a white blood cell count of 7.4, creatinine 1.07. Chest x-ray today shows mild improvement in his left lower lobe with aeration compared with 05/01/2025. I placed the patient right side down and put him in Trendelenburg for 10 minutes and performed chest physical therapy and he was able to expectorate 1 thick yellow expectoration. DATA: 04/29/2025: EXAMINATION: CTA chest abdomen pelvis INDICATION: Chest pain and shortness of breath COMPARISON: None. FINDINGS: CHEST CTA: There are groundglass opacities in the right lower lobe. There is consolidation in the left lower lobe. Small left pleural effusion. No pneumothorax. Thoracic aorta within normal limits without evidence for aneurysm. No central pulmonary embolism. Small hiatal hernia. There is left upper lobe collapse. There is mediastinal shift to the left. ABDOMEN AND PELVIS CTA: There is bilateral renal atrophy. There are bilateral percutaneous nephrostomy catheters. There are bilateral renal stones. The liver, spleen, adrenal glands are unremarkable. There is pancreatic atrophy. There is a small 11 mm cystic mass of the pancreatic body. Bladder wall is thickened. Prostate gland is enlarged. There is a right internal ureteral stent. There is focal thickening posteriorly in the bladder wall, suspicious for transitional cell carcinoma. Nonobstructive bowel gas pattern. Severe thoracic and lumbar spondylosis. There is dextroscoliosis of the thoracic spine. Severe osteoarthritis of the hips. IMPRESSION: 1. Left upper lobe collapse. Focal consolidation left lower lobe may represent atelectasis and/or pneumonia. There is volume loss in the left thorax with mediastinal shift to the left. 2: Small left pleural effusion. 3: Bilateral renal atrophy with bilateral nephrolithiasis. Bilateral percutaneous nephrostomy catheters. Right internal ureteral stent. 4: Abnormal posterior bladder wall thickening, suspicious for malignancy. 5: Small 11 mm cystic mass pancreatic body. The differential diagnosis includes pseudocyst, intraductal papillary mucinous neoplasm (IPMN), mucinous cystic neoplasm (MCN), and the less common serous cystadenoma and neuroendocrine tumor. 04/18/25: EXAMINATION: XR chest 1V portable DATE: 04/18/2025 08:57 INDICATION: Cough and weakness TECHNIQUE: frontal view of the chest was obtained. COMPARISON: Chest radiograph dated none FINDINGS: Full or near and bandlike opacities at the left lower lung zone and favor atelectasis over pneumonia. Subtle increased opacity of the left lung relative to the right likely artifactual with similar asymmetry to the density of the soft tissues of the more lateral left and right chest wall. The cardiomediastinal silhouette is normal. A couple likely implantable cardiac cath lab technologist is projected over the lower chest. Widening of the right acromioclavicular joint consistent with age-indeterminate acromioclavicular joint separation. IMPRESSION: 1. Mild opacity left lower lung zone and favor atelectasis over pneumonia. Review of Systems 2 Review of Systems: All systems reviewed & are unremarkable except as noted in HPI and below Exam 2 Const: General: cooperative, healthy appearing and comfortable O rientation/consciousness: oriented to person, oriented to place and oriented to time HENMT: Head: normal to inspection Ears: hearing grossly normal bilaterally Eyes: General: appearance normal, both eyes and all related structures Neck: Neck: normal visual inspection Chest: Chest palpation & inspection: normal inspection of the chest Resp: Effort & Inspection: normal respiratory effort and able to speak in complete sentences Auscultation: no crackles, no rales, no rhonchi, no wheezes and lung sounds not diminished Other: improved BS Left lung Cardio: Jugular venous distension: no JVD GI: Inspection: normal to inspection Back/Spine/Pelvis: Other: bilateral nephrostomy tubes in place Skin: General skin exam: normal color Neuro: General: oriented to person, oriented to place and oriented to time Extrem: General: normal to inspection and no edema Psych: Appearance: grossly normal Objective Data Vital Signs Vital Signs: Vital Signs - 24 hr 05/04/25 14:30 05/04/25 14:30 05/04/25 16:00 Temperature 36.5 C Pulse Rate 71 71 72 Respiratory Rate 20 20 16 Blood Pressure 99/45 L Pulse Oximetry 96 94 Oxygen Delivery Room Air Fraction of Inspired Oxygen 21 05/04/25 16:00 05/04/25 19:45 05/04/25 19:47 Temperature Pulse Rate 72 69 69 Respiratory Rate 20 20 Blood Pressure Pulse Oximetry 97 Oxygen Delivery Room Air Fraction of Inspired Oxygen 05/04/25 20:00 05/04/25 20:00 05/04/25 20:56 Temperature 36.9 C Pulse Rate 72 71 Respiratory Rate 18 Blood Pressure 99/47 L Pulse Oximetry 99 Oxygen Delivery Room Air Fraction of Inspired Oxygen 05/04/25 23:36 05/05/25 00:00 05/05/25 02:10 Temperature 36.5 C Pulse Rate 50 L 70 69 Respiratory Rate 18 20 Blood Pressure 117/48 L Pulse Oximetry 98 Oxygen Delivery Fraction of Inspired Oxygen 05/05/25 03:45 05/05/25 04:00 05/05/25 07:55 Temperature 36.2 C L 36.3 C L Pulse Rate 68 70 69 Respiratory Rate 18 17 Blood Pressure 100/47 L 108/58 L Pulse Oximetry 95 97 Oxygen Delivery Fraction of Inspired Oxygen 05/05/25 08:00 05/05/25 08:17 05/05/25 08:21 Temperature Pulse Rate 70 70 70 Respiratory Rate 20 Blood Pressure Pulse Oximetry 96 Oxygen Delivery Room Air Fraction of Inspired Oxygen 05/05/25 08:24 Temperature Pulse Rate 69 Respiratory Rate 20 Blood Pressure Pulse Oximetry Oxygen Delivery Fraction of Inspired Oxygen Intake/Output Intake/Output: Intake & Output 05/02/25 05/03/25 05/04/25 05/05/25 23:59 23:59 23:59 23:59 Intake Total 1450 3180 680 240 Output Total 9046 1822 1820 1025 Balance -625 1355 -1140 -785 Meds/Results Medications: Active Medications Generic Name Dose Route Start Last Admin Trade Name Freq PRN Reason Stop Dose Admin Acetaminophen 1,000 mg 04/30/25 06:50 05/05/25 05:23 Acetaminophen 500 Mg Tablet PO 1,000 mg Q6HR MARY Administration Acetylcysteine 200 mg 05/01/25 14:00 05/05/25 08:16 Acetylcysteine 20% Inhal Soln 800 Mg/4 Ml Vial INHALATION 200 mg Q6HRT MARY Administration Albuterol/Ipratropium 3 ml 05/01/25 14:00 05/05/25 08:17 Ipratropium 0.5 Mg/Albuterol Sulfate 2.5 Mg Ampul.Neb 3 Ml INHALATION 3 ml Q6HRT MARY Administration Amoxicillin/Clavulanate Potassium 1 tablet 05/02/25 21:00 05/05/25 09:34 Amoxicillin/Clavulanate K 875-125 Mg Tab PO 05/05/25 21:01 1 tablet Q12HR MARY Administration Bisacodyl 10 mg 05/02/25 16:37 05/03/25 10:13 Bisacodyl 10 Mg Suppository RECTAL 10 mg QAM PRN Administration Constipation Calcium Carbonate 200 mg 04/30/25 06:50 05/04/25 17:25 Calcium Carbonate (Tums) 500 Mg (200 Mg Elemental) PO 200 mg BID PRN Administration Dyspepsia Cyanocobalamin 1,000 mcg 04/30/25 09:00 05/05/25 09:34 Cyanocobalamin 1,000 Mcg Tablet PO 1,000 mcg DAILY MARY Administration Escitalopram Oxalate 10 mg 04/30/25 09:00 05/05/25 09:34 Escitalopram Oxalate 10 Mg Tablet PO 10 mg DAILY MARY Administration Gabapentin 300 mg 04/30/25 21:00 05/04/25 21:27 Gabapentin 300 Mg Capsule PO 300 mg HS MARY Administration Guaifenesin 1,200 mg 05/01/25 10:50 05/05/25 09:34 Guaifenesin 12 Hr 600 Mg Tabcr PO 1,200 mg Q12HR MARY Administration Levetiracetam 750 mg 04/30/25 09:00 05/05/25 09:34 Levetiracetam 250 Mg Tablet PO 750 mg Q12HR MARY Administration Lidocaine 1 patch 04/30/25 09:00 05/05/25 09:34 Lidocaine 5% Patch TOPICAL 05/30/25 08:59 1 patch DAILY MARY Administration Magnesium Hydroxide 30 ml 05/02/25 16:36 05/02/25 16:55 Magnesium Hydroxide Susp 30 Ml Udc PO 30 ml QAM PRN Administration Constipation Ondansetron HCl 4 mg 04/30/25 06:50 Ondansetron Hcl Odt 4 Mg Tablet PO Q6H PRN Nausea And Vomiting Oxycodone HCl 5 mg 04/30/25 06:50 Oxycodone Hcl (*Crx) 5 Mg Tab Ir PO Q4H PRN Pain 7-10 Pantoprazole Sodium 40 mg 04/30/25 09:00 05/05/25 09:34 Pantoprazole 40 Mg Tablet PO 05/30/25 08:59 40 mg DAILY MARY Administration Polyethylene Glycol 17 gm 05/02/25 09:00 05/05/25 09:34 Polyethylene Glycol 3350 17 Gm Powd.Pack PO 17 gm QAM MARY Administration Sodium Chloride 10 ml 04/30/25 14:00 05/05/25 05:23 Saline Lock Flush IV PUSH 10 ml Q8HR MARY Administration Sodium Chloride 10 ml 04/30/25 06:36 Saline Lock Flush IV PUSH PRN PRN Flush Sodium Chloride 20 ml 04/30/25 06:36 Saline Lock Flush IV PUSH PRN PRN after blood draws Tamsulosin HCl 0.4 mg 04/30/25 16:00 05/04/25 17:23 Tamsulosin Hcl 0.4 Mg Capsule PO 0.4 mg 1600 MARY Administration Warfarin Sodium 3 mg 05/01/25 17:00 05/01/25 16:40 Warfarin (*Pbkc) 3 Mg Tablet PO 3 mg MoTh@1700 [facility] Administration Warfarin Sodium 6 mg 05/01/25 17:00 05/04/25 17:22 Warfarin (*Pbkc) 3 Mg Tablet PO 6 mg DAILY@1700 [facility] Administration Radiology Results: ITS Impressions Chest/Abdomen/Pelvis CTA 04/29/25 20:05 IMPRESSION: 1. Left upper lobe collapse. Focal consolidation left lower lobe may represent atelectasis and/or pneumonia. There is volume loss in the left thorax with mediastinal shift to the left. 2: Small left pleural effusion. 3: Bilateral renal atrophy with bilateral nephrolithiasis. Bilateral percutaneous nephrostomy catheters. Right internal ureteral stent. 4: Abnormal posterior bladder wall thickening, suspicious for malignancy. 5: Small 11 mm cystic mass pancreatic body. The differential diagnosis includes pseudocyst, intraductal papillary mucinous neoplasm (IPMN), mucinous cystic neoplasm (MCN), and the less common serous cystadenoma and neuroendocrine tumor. Chest X-Ray 05/02/25 08:16 IMPRESSION: 1. Slight interval improvement in opacities in the left lower lung zone which could represent atelectasis or pneumonia. Labs Labs: Laboratory Results - last 24 hr 05/05/25 04:45 WBC 5.3 RBC 3.01 L Hgb 8.9 L Hct 28.9 L MCV 96.0 MCH 29.6 MCHC 30.8 L RDW 15.1 H Plt Count 209 MPV 9.1 Immature Gran % (Auto) 0.4 Neut % (Auto) 73.4 H Lymph % (Auto) 9.5 L Moffat % (Auto) 9.3 H Eos % (Auto) 6.1 H Baso % (Auto) 1.3 H Lymph # (Auto) 0.50 L Moffat # (Auto) 0.5 Eos # (Auto) 0.3 Baso # (Auto) 0.1 Abs Immat Gran (auto) 0.02 Absolute Neuts (auto) 3.9 Absolute Nucleated RBC 0.000 Nucleated RBC % 0.0 PT 28.7 H INR 2.8 Sodium 137 Potassium 3.9 Chloride 109 H Carbon Dioxide 25 Anion Gap 3 L BUN 17 Creatinine 1.02 Estim Creat Clear Calc 53 Estimated GFR > 60 Glucose 95 Calcium 8.6 Total Bilirubin 0.4 AST 32 ALT 20 Alkaline Phosphatase 175 H Total Protein 6.2 L Albumin 3.0 L
--- NOTE | 2025-05-05 14:57 | PM.IMPN ---
Progress Note: A&P Assessment and Plan (1) Collapse of lung: Code(s): J98.19 - Other pulmonary collapse Status: Acute Assessment and Plan: -CT was read as 1. Left upper lobe collapse. Focal consolidation left lower lobe may represent atelectasis and/or pneumonia. There is volume loss in the left thorax with mediastinal shift to the left. 2: Small left pleural effusion. 3: Bilateral renal atrophy with bilateral nephrolithiasis. Bilateral percutaneous nephrostomy catheters. Right internal ureteral stent. 4: Abnormal posterior bladder wall thickening, suspicious for malignancy. 5: Small 11 mm cystic mass pancreatic body. The differential diagnosis includes pseudocyst, intraductal papillary mucinous neoplasm (IPMN), mucinous cystic neoplasm (MCN), and the less common serous cystadenoma and neuroendocrine tumor. The patient stated that he does not want any further workup for this cystic mass. -surgery consulted an no intervention recommended, recommended pulmonary consult -the patient was started on azithromycin, cefepime, and vancomycin. Vancomycin stopped, MRSA swab negative. -sputum and blood cultures are pending. -pulmonary following -CXR on 05/02 with some improvement noted -pulmonary started patient on nebulizer treatments, flutter valve, guaifenesin -PO antibiotics on discharge Augmentin and Azithromycin -encourage activity (2) Atrial fibrillation, chronic: Code(s): I48.20 - Chronic atrial fibrillation, unspecified Status: Chronic Assessment and Plan: -patient is unclear if he is on warfarin. He believes that he had not taken it his last admission. However it was noted on his discharge 04/24/2025 that he was subtherapeutic and continue with home Coumadin. The patient is not sure if he has been taking it at home. -daily PT INR -INR 2.8 this AM -continue home dose of warfarin 6 mg on ,,Mon,Mon,Mon and 9 mg on / (3) H/O insertion of nephrostomy tube: Code(s): Z98.890 - Other specified postprocedural states Status: Acute Assessment and Plan: -nephrostomy tubes are intact at this time. (4) Chronic kidney disease, stage 3: Qualifiers: Chronic kidney disease stage 3 subtype: unspecified whether 3a or 3b Qualified Code(s): N18.30 - Chronic kidney disease, stage 3 unspecified Code(s): N18.30 - Chronic kidney disease, stage 3 unspecified Status: Chronic Assessment and Plan: -avoid nephrotoxics as able -patient continues to be at his baseline. (5) Essential hypertension: Code(s): I10 - Essential (primary) hypertension Status: Chronic Assessment and Plan: -patient's blood pressure appears to run on low side -continue to monitor blood pressure. The patient does not appear to be on any blood pressure medicine. -encourage PO fluids (6) Pancreatic cyst: Code(s): K86.2 - Cyst of pancreas Status: Acute Assessment and Plan: patient is aware of the cyst on the pancreas. The patient stated that he wants no further workup. (7) Pneumonia: Code(s): J18.9 - Pneumonia, unspecified organism Status: Acute Assessment and Plan: the patient was started on azithromycin, cefepime, and vancomycin. sputum and blood cultures are pending. IV vancomycin stopped - MRSA swab negative pulmonary following PO Augmentin to complete 7 days of treatment and PO Azithromycin to complete 5 days of treatment encourage activity patient will discharge to inpatient rehab once insurance auth is obtained for continued PT/OT Subjective Date/time seen: 05/05/25 14:57 Interval history: Patient is an 79 year old male who presented with complaints of shortness of breath and chest discomfort for 4 days. Patient was recently discharged from this facility on 04/24/2025 due to bacteremia with Serratia marcescens and has been receiving IV Rocephin. Patient was discharged to a rehab facility for IV antibiotics and rehab. Patient was admitted with left upper lobe collapse and left lower lobe pneumonia. Patient was started on IV vancomycin and IV azithromycin and IV cefepime. General surgery was consulted and recommended a pulmonary consult. MRSA swab was negative and vancomycin was stopped. Pulmonary recommended continued treatment of pneumonia, flutter valve, nebulizer treatments and guaifenesin. Pulmonary vest was considered but unable to be used due to bilateral nephrostomy tubes. Repeat CXR from 05/02 improved per pulmonary. Patient is okay for discharge but will continue on PO antibiotics for pneumonia. Patient completed his course of IV ceftriaxone as of 04/27/25 per previous discharge summary. Patient is awaiting insurance auth for rehab. patient will discharge to [facility] once insurance auth is obtained. Patient seen today for follow up. Patient sitting up in chair, denies acute pain, in no distress. Patients labs reviewed and appear stable. Monitor INR and adjust warfarin as needed. Review of Systems Review of Systems: All systems reviewed & are unremarkable except as noted in HPI and below Exam Narrative: General: elderly, no acute distress HEENT: normocephalic, . Mucous membranes moist. EOMI Respiratory: clear to ascultation right side. Minimal air movement TORRI, minimal air movement LLL with few rales and crackles Cardiovascular: Regular rate and rhythm, normal S1-S2 upon ascultation. No murmurs, rubs, or clicks. Abdomen: Soft, round, no pulsatile masses, nondistended and nontender. No rebound, no guarding. Bowel sounds present to all four quadrants Extremities: No cyanosis, clubbing, or edema present. Neuro: Alert and orientated x 4. Cranial nerves 2-12 intact without focal deficit. Poor historian. Skin: Warm, dry, and intact, without rash, erythema, or lesion.? Psych: pleasant, cooperative, normal speech, normal affect Objective Data Vital Signs Vital Signs: Vital Signs - 24 hr 05/04/25 16:00 05/04/25 16:00 05/04/25 19:45 Temperature 97.7 F Pulse Rate 72 72 69 Respiratory Rate 16 20 Blood Pressure 99/45 L Pulse Oximetry 94 Oxygen Delivery Fraction of Inspired Oxygen 05/04/25 19:47 05/04/25 20:00 05/04/25 20:00 Temperature Pulse Rate 69 72 Respiratory Rate 20 Blood Pressure Pulse Oximetry 97 Oxygen Delivery Room Air Room Air Fraction of Inspired Oxygen 21 05/04/25 20:56 05/04/25 23:36 05/05/25 00:00 Temperature 98.4 F 97.7 F Pulse Rate 71 50 L 70 Respiratory Rate 18 18 Blood Pressure 99/47 L 117/48 L Pulse Oximetry 99 98 Oxygen Delivery Fraction of Inspired Oxygen 05/05/25 02:10 05/05/25 03:45 05/05/25 04:00 Temperature 97.1 F L Pulse Rate 69 68 70 Respiratory Rate 20 18 Blood Pressure 100/47 L Pulse Oximetry 95 Oxygen Delivery Fraction of Inspired Oxygen 05/05/25 07:55 05/05/25 08:00 05/05/25 08:00 Temperature 97.3 F L Pulse Rate 69 70 Respiratory Rate 17 Blood Pressure 108/58 L Pulse Oximetry 97 Oxygen Delivery Room Air Fraction of Inspired Oxygen 05/05/25 08:17 05/05/25 08:21 05/05/25 08:24 Temperature Pulse Rate 70 70 69 Respiratory Rate 20 20 Blood Pressure Pulse Oximetry 96 Oxygen Delivery Room Air Fraction of Inspired Oxygen 05/05/25 12:22 Temperature 97.2 F L Pulse Rate 65 Respiratory Rate 17 Blood Pressure 99/52 L Pulse Oximetry 90 Oxygen Delivery Fraction of Inspired Oxygen Intake/Output Intake/Output: Intake & Output 05/02/25 05/03/25 05/04/25 05/05/25 23:59 23:59 23:59 23:59 Intake Total 1450 3180 680 480 Output Total 9765 1826 1820 1025 [facility]025 [id number] [id number] Meds/Results Medications: Active Medications Generic Name Dose Route Start Last Admin Trade Name Freq PRN Reason Stop Dose Admin Acetaminophen 1,000 mg 04/30/25 06:50 05/05/25 12:42 Acetaminophen 500 Mg Tablet PO 1,000 mg Q6HR MARY Administration Acetylcysteine 200 mg 05/01/25 14:00 05/05/25 08:16 Acetylcysteine 20% Inhal Soln 800 Mg/4 Ml Vial INHALATION 200 mg Q6HRT MARY Administration Albuterol/Ipratropium 3 ml 05/01/25 14:00 05/05/25 08:17 Ipratropium 0.5 Mg/Albuterol Sulfate 2.5 Mg Ampul.Neb 3 Ml INHALATION 3 ml Q6HRT MARY Administration Amoxicillin/Clavulanate Potassium 1 tablet 05/02/25 21:00 05/05/25 09:34 Amoxicillin/Clavulanate K 875-125 Mg Tab PO 05/05/25 21:01 1 tablet Q12HR MARY Administration Bisacodyl 10 mg 05/02/25 16:37 05/03/25 10:13 Bisacodyl 10 Mg Suppository RECTAL 10 mg QAM PRN Administration Constipation Calcium Carbonate 200 mg 04/30/25 06:50 05/04/25 17:25 Calcium Carbonate (Tums) 500 Mg (200 Mg Elemental) PO 200 mg BID PRN Administration Dyspepsia Cyanocobalamin 1,000 mcg 04/30/25 09:00 05/05/25 09:34 Cyanocobalamin 1,000 Mcg Tablet PO 1,000 mcg DAILY MARY Administration Escitalopram Oxalate 10 mg 04/30/25 09:00 05/05/25 09:34 Escitalopram Oxalate 10 Mg Tablet PO 10 mg DAILY MARY Administration Gabapentin 300 mg 04/30/25 21:00 05/04/25 21:27 Gabapentin 300 Mg Capsule PO 300 mg HS MARY Administration Guaifenesin 1,200 mg 05/01/25 10:50 05/05/25 09:34 Guaifenesin 12 Hr 600 Mg Tabcr PO 1,200 mg Q12HR MARY Administration Levetiracetam 750 mg 04/30/25 09:00 05/05/25 09:34 Levetiracetam 250 Mg Tablet PO 750 mg Q12HR MARY Administration Lidocaine 1 patch 04/30/25 09:00 05/05/25 09:34 Lidocaine 5% Patch TOPICAL 05/30/25 08:59 1 patch DAILY MARY Administration Magnesium Hydroxide 30 ml 05/02/25 16:36 05/02/25 16:55 Magnesium Hydroxide Susp 30 Ml Udc PO 30 ml QAM PRN Administration Constipation Ondansetron HCl 4 mg 04/30/25 06:50 Ondansetron Hcl Odt 4 Mg Tablet PO Q6H PRN Nausea And Vomiting Oxycodone HCl 5 mg 04/30/25 06:50 Oxycodone Hcl (*Crx) 5 Mg Tab Ir PO Q4H PRN Pain 7-10 Pantoprazole Sodium 40 mg 04/30/25 09:00 05/05/25 09:34 Pantoprazole 40 Mg Tablet PO 05/30/25 08:59 40 mg DAILY MARY Administration Polyethylene Glycol 17 gm 05/02/25 09:00 05/05/25 09:34 Polyethylene Glycol 3350 17 Gm Powd.Pack PO 17 gm QAM MARY Administration Sodium Chloride 10 ml 04/30/25 14:00 05/05/25 05:23 Saline Lock Flush IV PUSH 10 ml Q8HR MARY Administration Sodium Chloride 10 ml 04/30/25 06:36 Saline Lock Flush IV PUSH PRN PRN Flush Sodium Chloride 20 ml 04/30/25 06:36 Saline Lock Flush IV PUSH PRN PRN after blood draws Tamsulosin HCl 0.4 mg 04/30/25 16:00 05/04/25 17:23 Tamsulosin Hcl 0.4 Mg Capsule PO 0.4 mg 1600 MARY Administration Warfarin Sodium 3 mg 05/01/25 17:00 05/01/25 16:40 Warfarin (*Pbkc) 3 Mg Tablet PO 3 mg MoTh@1700 [facility] Administration Warfarin Sodium 6 mg 05/01/25 17:00 05/04/25 17:22 Warfarin (*Pbkc) 3 Mg Tablet PO 6 mg DAILY@1700 MARY Administration Radiology Results: ITS Impressions Chest/Abdomen/Pelvis CTA 04/29/25 20:05 IMPRESSION: 1. Left upper lobe collapse. Focal consolidation left lower lobe may represent atelectasis and/or pneumonia. There is volume loss in the left thorax with mediastinal shift to the left. 2: Small left pleural effusion. 3: Bilateral renal atrophy with bilateral nephrolithiasis. Bilateral percutaneous nephrostomy catheters. Right internal ureteral stent. 4: Abnormal posterior bladder wall thickening, suspicious for malignancy. 5: Small 11 mm cystic mass pancreatic body. The differential diagnosis includes pseudocyst, intraductal papillary mucinous neoplasm (IPMN), mucinous cystic neoplasm (MCN), and the less common serous cystadenoma and neuroendocrine tumor. Chest X-Ray 05/05/25 14:09 IMPRESSION: 1. Significantly improved left lower lobe atelectasis. Labs Labs: Laboratory Results - last 24 hr 05/05/25 04:45 WBC 5.3 RBC 3.01 L Hgb 8.9 L Hct 28.9 L MCV 96.0 MCH 29.6 MCHC 30.8 L RDW 15.1 H Plt Count 209 MPV 9.1 Immature Gran % (Auto) 0.4 Neut % (Auto) 73.4 H Lymph % (Auto) 9.5 L [place] % (Auto) 9.3 H Eos % (Auto) 6.1 H Baso % (Auto) 1.3 H Lymph # (Auto) 0.50 L [place] # (Auto) 0.5 Eos # (Auto) 0.3 Baso # (Auto) 0.1 Abs Immat Gran (auto) 0.02 Absolute Neuts (auto) 3.9 Absolute Nucleated RBC 0.000 Nucleated RBC % 0.0 PT 28.7 H INR 2.8 Sodium 137 Potassium 3.9 Chloride 109 H Carbon Dioxide 25 Anion Gap 3 L BUN 17 Creatinine 1.02 Estim Creat Clear Calc 53 Estimated GFR > 60 Glucose 95 Calcium 8.6 Total Bilirubin 0.4 AST 32 ALT 20 Alkaline Phosphatase 175 H Total Protein 6.2 L Albumin 3.0 L Quality VTE Prophylaxis VTE prophylaxis: pharmacologic ordered
[2025-05-05] MEDS: WARFARIN (*PBKC) 3 MG TABLET PO (17:20)
[2025-05-05] MEDS: TAMSULOSIN HCL 0.4 MG CAPSULE PO (17:20)
[2025-05-05] MEDS: WARFARIN (*PBKC) 3 MG TABLET 6 MG PO (17:20)
[2025-05-05] MEDS: GABAPENTIN 300 MG CAPSULE PO (21:00)
[2025-05-06] VITALS (12 sets, daily range): BP systolic 91–105; BP diastolic 42–61; PULSE 66–77; RESP 14–20; TEMP 36.5–36.7; O2SAT 93–100
[2025-05-06] MEDS: IPRATROPIUM 0.5 MG/ALBUTEROL SULFATE 2.5 MG AMPUL.NEB 3 ML INHALATION ×2 (02:16→13:14)
[2025-05-06] MEDS: ACETYLCYSTEINE 20% INHAL SOLN 800 MG/4 ML VIAL 200 MG INHALATION ×2 (02:16→13:14)
[2025-05-06] MEDS: ACETAMINOPHEN 500 MG TABLET 1000 MG PO ×3 (05:22→17:31)
[2025-05-06] MEDS: SALINE LOCK FLUSH 10 ML IV PUSH ×2 (05:23→15:28)
[2025-05-06 05:44] LABS: INR 2.9; Prothrombin Time 29.3 Seconds (11.1-14.7)
[2025-05-06] MEDS: guaiFENesin 12 HR 600 MG TABCR 1200 MG PO ×2 (09:11→20:00)
[2025-05-06] MEDS: CYANOCOBALAMIN 1,000 MCG TABLET 1000 MCG PO (09:11)
[2025-05-06] MEDS: PANTOPRAZOLE 40 MG TABLET PO (09:11)
[2025-05-06] MEDS: LIDOCAINE 5% PATCH 1 PATCH TOPICAL (09:12)
[2025-05-06] MEDS: ESCITALOPRAM OXALATE 10 MG TABLET PO (09:12)
[2025-05-06] MEDS: CALCIUM CARBONATE (TUMS) 500 MG (200 MG ELEMENTAL) PO ×2 (10:26→17:39)
--- NOTE | 2025-05-06 10:43 | PCNWS ---
Weekly nutritional screen. Patient is tolerating current diet with adequate intake. No weight loss reported. No nutritional needs at this time.
--- NOTE | 2025-05-06 13:19 | P.PNIM_ITS ---
Progress Note: A&P Assessment and Plan (1) Collapse of lung: Code(s): J98.19 - Other pulmonary collapse Status: Acute Assessment and Plan: -CT was read as 1. Left upper lobe collapse. Focal consolidation left lower lobe may represent atelectasis and/or pneumonia. There is volume loss in the left thorax with mediastinal shift to the left. 2: Small left pleural effusion. 3: Bilateral renal atrophy with bilateral nephrolithiasis. Bilateral percutaneous nephrostomy catheters. Right internal ureteral stent. 4: Abnormal posterior bladder wall thickening, suspicious for malignancy. 5: Small 11 mm cystic mass pancreatic body. The differential diagnosis includes pseudocyst, intraductal papillary mucinous neoplasm (IPMN), mucinous cystic neoplasm (MCN), and the less common serous cystadenoma and neuroendocrine tumor. The patient stated that he does not want any further workup for this cystic mass. -surgery consulted an no intervention recommended, recommended pulmonary consult -the patient was started on azithromycin, cefepime, and vancomycin. Vancomycin stopped, MRSA swab negative. -sputum and blood cultures are pending. -pulmonary following -CXR on 05/02 with some improvement noted -pulmonary started patient on nebulizer treatments, flutter valve, guaifenesin, these will continue on discharge. -patient now completed course of antibiotics with PO Augmentin and Azithromycin -encourage activity (2) Atrial fibrillation, chronic: Code(s): I48.20 - Chronic atrial fibrillation, unspecified Status: Chronic Assessment and Plan: -patient is unclear if he is on warfarin. He believes that he had not taken it his last admission. However it was noted on his discharge 04/24/2025 that he was subtherapeutic and continue with home Coumadin. The patient is not sure if he has been taking it at home. -daily PT INR -INR 2.9 this AM -continue home dose of warfarin 6 mg on ,,Mon,Mon,Mon and 9 mg on / (3) H/O insertion of nephrostomy tube: Code(s): Z98.890 - Other specified postprocedural states Status: Acute Assessment and Plan: -nephrostomy tubes are intact at this time. (4) Chronic kidney disease, stage 3: Qualifiers: Chronic kidney disease stage 3 subtype: unspecified whether 3a or 3b Qualified Code(s): N18.30 - Chronic kidney disease, stage 3 unspecified Code(s): N18.30 - Chronic kidney disease, stage 3 unspecified Status: Chronic Assessment and Plan: -avoid nephrotoxics as able -patient continues to be at his baseline. (5) Essential hypertension: Code(s): I10 - Essential (primary) hypertension Status: Chronic Assessment and Plan: -patient's blood pressure appears to run on low side -continue to monitor blood pressure. The patient does not appear to be on any blood pressure medicine. -encourage PO fluids (6) Pancreatic cyst: Code(s): K86.2 - Cyst of pancreas Status: Acute Assessment and Plan: patient is aware of the cyst on the pancreas. The patient stated that he wants no further workup. (7) Pneumonia: Code(s): J18.9 - Pneumonia, unspecified organism Status: Acute Assessment and Plan: the patient was started on azithromycin, cefepime, and vancomycin. sputum and blood cultures are pending. IV vancomycin stopped - MRSA swab negative pulmonary following patient completed treatment with PO Augmentin and PO Azithromycin encourage activity patient will discharge to inpatient rehab once insurance auth is obtained for continued PT/OT Subjective Date/time seen: 05/06/25 13:19 Interval history: Patient is an 79 year old male who presented with complaints of shortness of breath and chest discomfort for 4 days. Patient was recently discharged from this facility on 04/24/2025 due to bacteremia with Serratia marcescens and has been receiving IV Rocephin. Patient was discharged to a rehab facility for IV antibiotics and rehab. Patient was admitted with left upper lobe collapse and left lower lobe pneumonia. Patient was started on IV vancomycin and IV azithromycin and IV cefepime. General surgery was consulted and recommended a pulmonary consult. MRSA swab was negative and vancomycin was stopped. Pulmonary recommended continued treatment of pneumonia, flutter valve, nebulizer treatments and guaifenesin. Pulmonary vest was considered but unable to be used due to bilateral nephrostomy tubes. Repeat CXR from 05/02 improved per pulmonary. Patient is okay for discharge but will continue on PO antibiotics for pneumonia. Patient completed his course of IV ceftriaxone as of 04/27/25 per previous discharge summary. Patient is awaiting insurance auth for rehab. patient will discharge to [facility] once insurance auth is obtained. Patient seen today for follow up. Patient lying in bed, in no acute distress. Patient denies acute pain. Patient is working with therapy. Review of Systems Review of Systems: All systems reviewed & are unremarkable except as noted in HPI and below Exam Narrative: General: elderly, no acute distress HEENT: normocephalic, . Mucous membranes moist. EOMI Respiratory: clear to ascultation right side. Minimal air movement TORRI, minimal air movement with congestion, LLL with few rales and crackles Cardiovascular: Regular rate and rhythm, normal S1-S2 upon ascultation. No murmurs, rubs, or clicks. Abdomen: Soft, round, no pulsatile masses, nondistended and nontender. No rebound, no guarding. Bowel sounds present to all four quadrants Extremities: No cyanosis, clubbing, or edema present. Neuro: Alert and orientated x 4. Cranial nerves 2-12 intact without focal deficit. Poor historian. Skin: Warm, dry, and intact, without rash, erythema, or lesion.? Psych: pleasant, cooperative, normal speech, normal affect Objective Data Vital Signs Vital Signs: Vital Signs - 24 hr 05/05/25 15:22 05/05/25 15:29 05/05/25 16:00 Temperature Pulse Rate 70 63 79 Respiratory Rate 20 20 Blood Pressure Pulse Oximetry Oxygen Delivery 05/05/25 16:51 05/05/25 19:55 05/05/25 20:00 Temperature 97.7 F 98.5 F Pulse Rate 57 L 66 71 Respiratory Rate 15 18 18 Blood Pressure 107/60 99/53 L Pulse Oximetry 95 95 Oxygen Delivery 05/05/25 20:00 05/05/25 20:00 05/05/25 20:06 Temperature Pulse Rate 76 66 Respiratory Rate 18 Blood Pressure Pulse Oximetry Oxygen Delivery Room Air 05/05/25 20:26 05/05/25 23:39 05/06/25 00:00 Temperature 97.8 F Pulse Rate 70 73 Respiratory Rate 16 Blood Pressure 99/43 L Pulse Oximetry 94 96 Oxygen Delivery Room Air 05/06/25 02:17 05/06/25 03:46 05/06/25 04:00 Temperature 98.1 F Pulse Rate 71 77 73 Respiratory Rate 20 16 Blood Pressure 99/42 L Pulse Oximetry 100 Oxygen Delivery 05/06/25 08:00 05/06/25 08:00 05/06/25 08:10 Temperature 98.1 F Pulse Rate 72 74 Respiratory Rate 14 Blood Pressure 91/50 L Pulse Oximetry 93 Oxygen Delivery Room Air 05/06/25 11:40 05/06/25 12:00 05/06/25 13:14 Temperature 97.9 F Pulse Rate 69 70 73 Respiratory Rate 18 20 Blood Pressure 103/61 Pulse Oximetry 97 Oxygen Delivery Intake/Output Intake/Output: Intake & Output 05/03/25 05/04/25 05/05/25 05/06/25 23:59 23:59 23:59 23:59 Intake Total 3180 680 1620 1190 Output Total 1825 1820 2075 850 Balance 9781 -0994 -538 340 Meds/Results Medications: Active Medications Generic Name Dose Route Start Last Admin Trade Name Freq PRN Reason Stop Dose Admin Acetaminophen 1,000 mg 04/30/25 06:50 05/06/25 11:34 Acetaminophen 500 Mg Tablet PO 1,000 mg Q6HR MARY Administration Acetylcysteine 200 mg 05/01/25 14:00 05/06/25 13:14 Acetylcysteine 20% Inhal Soln 800 Mg/4 Ml Vial INHALATION 200 mg Q6HRT MARY Administration Albuterol/Ipratropium 3 ml 05/01/25 14:00 05/06/25 13:14 Ipratropium 0.5 Mg/Albuterol Sulfate 2.5 Mg Ampul.Neb 3 Ml INHALATION 3 ml Q6HRT MARY Administration Bisacodyl 10 mg 05/02/25 16:37 05/03/25 10:13 Bisacodyl 10 Mg Suppository RECTAL 10 mg QAM PRN Administration Constipation Calcium Carbonate 200 mg 04/30/25 06:50 05/06/25 10:26 Calcium Carbonate (Tums) 500 Mg (200 Mg Elemental) PO 200 mg BID PRN Administration Dyspepsia Cyanocobalamin 1,000 mcg 04/30/25 09:00 05/06/25 09:11 Cyanocobalamin 1,000 Mcg Tablet PO 1,000 mcg DAILY MARY Administration Escitalopram Oxalate 10 mg 04/30/25 09:00 05/06/25 09:12 Escitalopram Oxalate 10 Mg Tablet PO 10 mg DAILY MARY Administration Gabapentin 300 mg 04/30/25 21:00 05/05/25 21:00 Gabapentin 300 Mg Capsule PO 300 mg HS MARY Administration Guaifenesin 1,200 mg 05/01/25 10:50 05/06/25 09:11 Guaifenesin 12 Hr 600 Mg Tabcr PO 1,200 mg Q12HR MARY Administration Levetiracetam 750 mg 04/30/25 09:00 05/06/25 09:11 Levetiracetam 250 Mg Tablet PO 750 mg Q12HR MARY Administration Lidocaine 1 patch 04/30/25 09:00 05/06/25 09:12 Lidocaine 5% Patch TOPICAL 05/30/25 08:59 1 patch DAILY MARY Administration Magnesium Hydroxide 30 ml 05/02/25 16:36 05/02/25 16:55 Magnesium Hydroxide Susp 30 Ml Udc PO 30 ml QAM PRN Administration Constipation Ondansetron HCl 4 mg 04/30/25 06:50 Ondansetron Hcl Odt 4 Mg Tablet PO Q6H PRN Nausea And Vomiting Oxycodone HCl 5 mg 04/30/25 06:50 Oxycodone Hcl (*Crx) 5 Mg Tab Ir PO Q4H PRN Pain 7-10 Pantoprazole Sodium 40 mg 04/30/25 09:00 05/06/25 09:11 Pantoprazole 40 Mg Tablet PO 05/30/25 08:59 40 mg DAILY MARY Administration Polyethylene Glycol 17 gm 05/02/25 09:00 05/06/25 09:15 Polyethylene Glycol 3350 17 Gm Powd.Pack PO Not Given QAM [facility] Sodium Chloride 10 ml 04/30/25 14:00 05/06/25 05:23 Saline Lock Flush IV PUSH 10 ml Q8HR MARY Administration Sodium Chloride 10 ml 04/30/25 06:36 Saline Lock Flush IV PUSH PRN PRN Flush Sodium Chloride 20 ml 04/30/25 06:36 Saline Lock Flush IV PUSH PRN PRN after blood draws Tamsulosin HCl 0.4 mg 04/30/25 16:00 05/05/25 17:20 Tamsulosin Hcl 0.4 Mg Capsule PO 0.4 mg 1600 [facility] Administration Warfarin Sodium 3 mg 05/01/25 17:00 05/05/25 17:20 Warfarin (*Pbkc) 3 Mg Tablet PO 3 mg MoTh@1700 [facility] Administration Warfarin Sodium 6 mg 05/01/25 17:00 05/05/25 17:20 Warfarin (*Pbkc) 3 Mg Tablet PO 6 mg DAILY@1700 [facility] Administration Radiology Results: ITS Impressions Chest/Abdomen/Pelvis CTA 04/29/25 20:05 IMPRESSION: 1. Left upper lobe collapse. Focal consolidation left lower lobe may represent atelectasis and/or pneumonia. There is volume loss in the left thorax with mediastinal shift to the left. 2: Small left pleural effusion. 3: Bilateral renal atrophy with bilateral nephrolithiasis. Bilateral percutaneous nephrostomy catheters. Right internal ureteral stent. 4: Abnormal posterior bladder wall thickening, suspicious for malignancy. 5: Small 11 mm cystic mass pancreatic body. The differential diagnosis includes pseudocyst, intraductal papillary mucinous neoplasm (IPMN), mucinous cystic neoplasm (MCN), and the less common serous cystadenoma and neuroendocrine tumor. Chest X-Ray 05/05/25 14:09 IMPRESSION: 1. Significantly improved left lower lobe atelectasis. Labs Labs: Laboratory Results - last 24 hr 05/06/25 04:41 PT 29.3 H INR 2.9 Quality VTE Prophylaxis VTE prophylaxis: pharmacologic ordered
--- NOTE | 2025-05-06 15:22 | PC.NURSE ---
On 05/06/25, the student, [Francesca Resendiz], provided care and completed [facility] documentation on this patient. I have reviewed the student's documentation and agree with the findings.
--- NOTE | 2025-05-06 16:47 | PM.DS ---
DS: Admitting Diagnosis Discharge Date 05/06/2025 Admitting Diagnosis pneumonia DS: Discharge Diagnosis Discharge Diagnosis (1) Collapse of lung: Code(s): J98.19 - Other pulmonary collapse Status: Acute Assessment and Plan: -CT was read as 1. Left upper lobe collapse. Focal consolidation left lower lobe may represent atelectasis and/or pneumonia. There is volume loss in the left thorax with mediastinal shift to the left. 2: Small left pleural effusion. 3: Bilateral renal atrophy with bilateral nephrolithiasis. Bilateral percutaneous nephrostomy catheters. Right internal ureteral stent. 4: Abnormal posterior bladder wall thickening, suspicious for malignancy. 5: Small 11 mm cystic mass pancreatic body. The differential diagnosis includes pseudocyst, intraductal papillary mucinous neoplasm (IPMN), mucinous cystic neoplasm (MCN), and the less common serous cystadenoma and neuroendocrine tumor. The patient stated that he does not want any further workup for this cystic mass. -surgery consulted an no intervention recommended, recommended pulmonary consult -the patient was started on azithromycin, cefepime, and vancomycin. Vancomycin stopped, MRSA swab negative. -sputum and blood cultures are pending. -pulmonary following -CXR on 05/02 with some improvement noted -pulmonary started patient on nebulizer treatments, flutter valve, guaifenesin, these will continue on discharge. -patient now completed course of antibiotics with PO Augmentin and Azithromycin -encourage activity (2) Atrial fibrillation, chronic: Code(s): I48.20 - Chronic atrial fibrillation, unspecified Status: Chronic Assessment and Plan: -patient is unclear if he is on warfarin. He believes that he had not taken it his last admission. However it was noted on his discharge 04/24/2025 that he was subtherapeutic and continue with home Coumadin. The patient is not sure if he has been taking it at home. -daily PT INR -INR therapeutic -continue home dose of warfarin 6 mg on ,,Mon,Mon,Mon and 9 mg on / (3) H/O insertion of nephrostomy tube: Code(s): Z98.890 - Other specified postprocedural states Status: Acute Assessment and Plan: -nephrostomy tubes are intact at this time. (4) Chronic kidney disease, stage 3: Qualifiers: Chronic kidney disease stage 3 subtype: unspecified whether 3a or 3b Qualified Code(s): N18.30 - Chronic kidney disease, stage 3 unspecified Code(s): N18.30 - Chronic kidney disease, stage 3 unspecified Status: Chronic Assessment and Plan: -avoid nephrotoxics as able -patient continues to be at his baseline. (5) Essential hypertension: Code(s): I10 - Essential (primary) hypertension Status: Chronic Assessment and Plan: -patient's blood pressure appears to run on low side -continue to monitor blood pressure. The patient does not appear to be on any blood pressure medicine. -encourage PO fluids (6) Pancreatic cyst: Code(s): K86.2 - Cyst of pancreas Status: Acute Assessment and Plan: patient is aware of the cyst on the pancreas. The patient stated that he wants no further workup. (7) Pneumonia: Code(s): J18.9 - Pneumonia, unspecified organism Status: Acute Assessment and Plan: the patient was started on azithromycin, cefepime, and vancomycin. sputum and blood cultures are pending. IV vancomycin stopped - MRSA swab negative pulmonary following patient completed treatment with PO Augmentin and PO Azithromycin encourage activity patient will discharge to inpatient rehab once insurance auth is obtained for continued PT/OT DS: Summary Hospital Course Reason for hospitalization: pneumonia, left upper lobe collapse Hospital Course: Patient was admitted for pneumonia and left lung upper lobe collapse. Pulmonology was consulted. Patient was treated with IV vancomycin, azithromycin and cefepime and then transitioned to PO Augmentin and Azithromycin and finished course of antibiotics prior to discharge. Pulmonary believed the lung collapse is due to mucus plugging and patient was started on nebulizer treatments, flutter valve and guaifenesin. Patient had repeat chest x-rays which were showing improvement in aeration to the left lung. Patient was evaluated by PT and OT and it was recommended for him to return to rehab. Patient did not want to go back to [facility] as he felt the care was not sufficient. Case Management secured a new facility and insurance auth was obtained. Patient was discharged to senior living rehab at [facility]. Time Spent with Patient Time attestation: Total time spent providing and/or coordinating discharge services: Time spent: Greater than 30 minutes Exam Narrative: General: elderly, no acute distress HEENT: normocephalic, . Mucous membranes moist. EOMI Respiratory: clear to ascultation right side. Left side diminsihed with crackles. Cardiovascular: Regular rate and rhythm, normal S1-S2 upon ascultation. No murmurs, rubs, or clicks. Abdomen: Soft, round, no pulsatile masses, nondistended and nontender. No rebound, no guarding. Bowel sounds present to all four quadrants Extremities: No cyanosis, clubbing, or edema present. Neuro: Alert and orientated x 4. Cranial nerves 2-12 intact without focal deficit. Poor historian. Skin: Warm, dry, and intact, without rash, erythema, or lesion.? Psych: pleasant, cooperative, normal speech, normal affect DS: Data Data Completed and Pending Labs on day of discharge: Labs from last 24 hours 05/06/25 04:41 PT 29.3 H INR 2.9 Preliminary micro results at discharge 05/03/25 20:14 Sputum Culture - Preliminary Sputum Discharge Plan Discharge Attending physician on discharge: Delma Rey Consulting providers: Chaz Leal; Wing Miguel; Bette Manrique; Cesario Frost; Jazmine Louis; Leticia Martinez; Jefferson David; Gus Ruby; Rao Flores Discharging Clinician: Lora Adame Anticipated Discharge Date/Time: 05/06/25 16:38 Patient Disposition: SNF Activity: as tolerated Diet: as tolerated and regular Discharge Instructions: Please have patient do cornet flutter valve Q2 hours while awake. Patient Instructions: Warfarin (By mouth), Removal of a Central Line, PICC, or Midline Catheter (DC) Patient Language: B[place]udian Stand Alone Forms: General Discharge Information Discharge Medications: New polyethylene glycol 3350 [Miralax] 17 gram Powder In Packet 17 g PO QAM 30 Days Qty: 30 0RF cyanocobalamin (vitamin B-12) [Vitamin B-12] 1,000 mcg Tablet 1,000 mcg PO DAILY Qty: 30 0RF bisacodyl 10 mg Suppository 10 mg RECTAL QAM PRN (Reason: Constipation) Qty: 30 0RF guaifenesin [Mucus Relief ER] 600 mg Tablet Extended Release 12hr 1,200 mg PO Q12HR Qty: 120 0RF ipratropium-albuterol 0.5 mg-3 mg(2.5 mg base)/3 mL solution for nebulization 3 ml inhalation BID Qty: 180 0RF warfarin 3 mg tablet 6 mg PO DAILY Qty: 70 0RF Rx Instructions: Give 9 mg on Monday and . Give 6 mg on Monday, Monday, Monday, Monday and Monday. Continued acetaminophen 500 mg capsule 1,000 mg PO Q6H gabapentin 300 mg capsule 300 mg PO HS levetiracetam 750 mg tablet 750 mg PO BID escitalopram oxalate 10 mg tablet 10 mg PO DAILY lidocaine [Lidocaine Pain Relief] 4 % adhesive patch,medicated 1 patch topical DAILY Patient Comments: L lower back Rx Instructions: may leave on for up to 12 hrs ondansetron 4 mg tablet,disintegrating 4 mg PO Q6H PRN (Reason: nausea and vomiting) pantoprazole [address] for susp in packet 40 mg PO DAILY tamsulosin 0.4 mg capsule 0.4 mg PO 1600 calcium carbonate [Calcium Antacid] 200 mg calcium (500 mg) tablet,chewable 200 mg PO BID PRN (Reason: dyspepsia) Discontinued cyanocobalamin (vitamin B-12) 1,000 mcg capsule 1,000 mcg PO DAILY warfarin 3 mg tablet 6 mg PO DAILY oxycodone 5 mg capsule 5 mg PO Q4H PRN (Reason: pain) ceftriaxone 2 gram recon soln 2 g IV DAILY Qty: 3 0RF Date of admission: 04/29/25 21:27 Primary Care Provider: UNKNOWN,DOCTOR Admitting Provider: Olivia Oleary Attending physician on admission: Lora Adame Condition: Stable Quality VTE Prophylaxis VTE prophylaxis: pharmacologic ordered
[2025-05-06] MEDS: TAMSULOSIN HCL 0.4 MG CAPSULE PO (17:30)
[2025-05-06] MEDS: WARFARIN (*PBKC) 3 MG TABLET 6 MG PO (17:30)
[2025-05-06] MEDS: GABAPENTIN 300 MG CAPSULE PO (20:00)
== END 2025-05-06 20:33 | DRG 205 ==
LOC: ANHED 21:27 → ANH3MEDSUR 22:12 → ANH2MED 04-30 00:28
PROVIDERS: Internal Medicine Pulmonary Disease; Nurse Practitioner; Admitting Provider Internal Medicine; Emergency Provider Emergency Medicine; Visit Provider Nurse Practitioner Adult Health
DX: T17.890A Other foreign object in other parts of respiratory tract causing asphyxiation, initial encounter (principal); J18.9 Pneumonia, unspecified organism; J98.19 Other pulmonary collapse; I48.20 Chronic atrial fibrillation, unspecified; K86.2 Cyst of pancreas; I12.9 Hypertensive chronic kidney disease with stage 1 through stage 4 chronic kidney disease, or unspecified chronic kidney disease; N18.30 Chronic kidney disease, stage 3 unspecified; G40.909 Epilepsy, unspecified, not intractable, without status epilepticus; F32.9 Major depressive disorder, single episode, unspecified; Z96.659 Presence of unspecified artificial knee joint; Z20.822 Contact with and (suspected) exposure to COVID-19; Z93.6 Other artificial openings of urinary tract status; Z79.01 Long term (current) use of anticoagulants; Z86.73 Personal history of transient ischemic attack (TIA), and cerebral infarction without residual deficits; Z99.3 Dependence on wheelchair; Z85.46 Personal history of malignant neoplasm of prostate; Z77.090 Contact with and (suspected) exposure to asbestos
CPT/HCPCS: 36415; 71045; 71275; 74174; 80048; 80053; 81001; 82565; 82948; 83605; 83690; 83880; 84145; 84484; 85025; 85610; 85730; 86140; 86738; 87040; 87070; 87086; 87205; 87449; 87637; 87641; 87899; 93005; 94640; 94667; 94668; 97110; 97161; 97165; 97530; 97535; 99285; A9270; J0456; J0692; J3373; J7030; J7050; Q9967